=== PATIENT | female | born 1975 | race African-American/Black ===

== ENCOUNTER 2019-04-07 08:20 | Outpatient (CLI) | payer OTHER, SELFPAY ==
--- NOTE | ~2019-04-07 | MM_ITS ---
EXAMINATION: MM screening [facility] BI w twyla HISTORY: Screening mammogram TECHNIQUE: Craniocaudal and mediolateral oblique 3-D tomosynthesis images were obtained and synthetic 2-D images were generated. CAD analysis was submitted and interpreted. COMPARISON: Comparison to multiple prior studies sequentially, with oldest reviewed study dated 08/27. BREAST PARENCHYMAL COMPOSITION: The breasts are extremely dense, which lowers the sensitivity of mamm ography. FINDINGS: There is no evidence of suspicious mass, calcification, or architectural distortion to sugg est malignancy in either breast. There has been no suspicious interval change. IMPRESSION: 1. No mammographic evidence of malignancy. 2. Recommend routine screening mammography in one year. BI-RADS Category 1: Negative Reviewed, dictated and finalized at location A. FLIGHT
== END 2019-04-07 08:21 | disposition home or self-care (01) ==
LOC: ANHIMG 08:22
PROVIDERS: PCP Family Medicine; Visit Provider Obstetrics & Gynecology
DX: Z12.31 Encounter for screening mammogram for malignant neoplasm of breast (principal)
CPT/HCPCS: 77063; 77067

== ENCOUNTER 2020-04-12 10:03 | Outpatient (CLI) | payer OTHER, SELFPAY ==
--- NOTE | ~2020-04-12 | MM_ITS ---
EXAMINATION: MM screening [facility] BI w twyla HISTORY: Screening TECHNIQUE: Craniocaudal and mediolateral oblique 3-D tomosynthesis images were obtained and synthetic 2-D images were generated. CAD analysis was submitted and interpreted. COMPARISON: Comparison to multiple prior studies sequentially, with oldest reviewed study dated 08/27. BREAST PARENCHYMAL COMPOSITION: The breasts are extremely dense, which lowers the sensitivity of mamm ography. FINDINGS: There is a new mass in the superior aspect of the left breast on MLO view measuring approxi mately 8 mm. This is not identified on the cc view. The right breast is stable without evidence for m alignancy. IMPRESSION: 1. New left breast mass superiorly on the MLO view. 2. Additional mammographic views and possible breast ultrasound are recommended. BI-RADS Category 0: Incomplete: Needs additional imaging evaluation. Reviewed, dictated and finalized at location A. S EXPEDITER IMPRESSION: 1. New left breast mass superiorly on the MLO view. 2. Additional mammographic views and possible breast ultrasound are recommended . BI-RADS Category 0: Incomplete: Needs additional imaging evaluation.
== END 2020-04-12 10:04 | disposition home or self-care (01) ==
LOC: ANHIMG 10:05
PROVIDERS: PCP Family Medicine; Visit Provider Obstetrics & Gynecology
DX: Z12.31 Encounter for screening mammogram for malignant neoplasm of breast (principal); R92.8 Other abnormal and inconclusive findings on diagnostic imaging of breast
CPT/HCPCS: 77063; 77067

== ENCOUNTER 2020-05-06 11:45 | Outpatient (CLI) | payer OTHER, SELFPAY ==
--- NOTE | ~2020-05-06 | MMUS_ITS ---
EXAMINATION: MM diagnostic mammo unilat LT, US breast LT limited HISTORY: Left breast asymmetry on screening mammogram TECHNIQUE: Additional 3-D tomosynthesis images of the left breast were performed and synthetic 2-D im ages were generated. CAD analysis was submitted and interpreted. High resolution limited left breast ultrasound was performed. COMPARISON: 04/12/2020, 04/07/2019, 04/01/2019, 11/22/2015, 12/23/2013 FINDINGS: MAMMOGRAPHIC FINDINGS: There is an approximately 10 mm obscured, oval, equal density mass in the middle third of the upper b reast. No suspicious calcification or architectural distortion are identified. ULTRASOUND: There is a stable 11 mm x 5 mm oval, circumscribed, parallel, hypoechoic mass with no posterior featu res or internal vascularity at the 10:00 location 2 cm from the nipple, consistent with a benign find ing. No suspicious cystic or solid mass is identified. IMPRESSION: 1. No mammographic or sonographic evidence of malignancy. 2. Recommend routine screening mammography in one year. BI-RADS Category 2: Benign finding(s). Reviewed, dictated and finalized at location A. IMPRESSION: 1. No mammographic or sonographic evidence of malignancy. 2. Recommend routine screening mammography in one year. BI-RADS Category 2: Benign finding(s).
== END 2020-05-06 11:46 | disposition home or self-care (01) ==
PROVIDERS: PCP Family Medicine; Visit Provider Obstetrics & Gynecology
DX: N63.22 Unspecified lump in the left breast, upper inner quadrant (principal)
CPT/HCPCS: 76642; 77065

== ENCOUNTER 2020-06-14 07:23 | Outpatient (CLI) | payer OTHER, SELFPAY ==
--- NOTE | 2020-06-27 12:23 | WPDHOMESLEEP ---
Sleep Study - Home Unattended Date of Study: 06/14/20 Ordering Provider: Jessica Huitron NP Interpreting Provider: Josy Borden MD Home Sleep Study Type: Apnea Link Air Height: 1.57 m Weight: 46.266 kg Body Mass Index: 18.6 Neck Circumference (inches): 10.5 [place]: 10 Reason for Sleep Study Non-restorative sleep, never feels rested Sleep History Tamiko Carcamo is a 45 year old female who does not wake up feeling rested, no matter how much sleep she gets. She has felt this way for 20 years. She rarely snores and it is never loud enough that others complain about it. She does not awaken at night with heartburn, belching or coughing. She does not awaken from sleep feeling short of breath. She does not have trouble sleeping with a cold. She does not gasp for breath at night. She does not have breathing problems at night observed by others. She occasionally sweats excessively at night. She does not notice her heart pounding or beating irregularly at night. She frequently falls asleep during the day, however never falls asleep involuntarily and never falls asleep while driving the car. She does not have loss of muscle tone with strong emotion. She does not have daytime difficulties due to excessive sleepiness. 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 She frequently feels paralyzed on waking or falling asleep. She frequently has vivid dreamlike scenes upon awakening or falling asleep. She does not feel afraid to go to sleep. She does not have nightmares. She constantly remembers her dreams. She constantly has racing thoughts. She occasionally feels sad or depressed. She occasionally has anxiety and worries about things. She does not have muscular tension, does not notice parts of her body jerking and she does not kick at night. She does not have crawling or aching feelings in her legs or have any kind of leg pain at night. She rarely has morning jaw pain. She rarely grinds her teeth during sleep. She is not bothered by pain during the day and is not awakened by pain at night. She does not wake up feeling stiff in the morning with sore achy muscles or pain in the neck and spine. She has fatigue. Normal bedtime is 11:30 p.m., falling asleep within 1-2 hours, waking at least once at night. She will check the time and then try to return to sleep and this usually takes less than a minute. She wakes the morning at 9:00 a.m.. On weekends she goes to bed later, midnight and wakes at 9 in the morning. She does take naps in the afternoon or evening. She is not refreshed after short nap. She is usually drowsy in the morning for 3 hours or longer. Habits: Never smoked tobacco. No caffeine, alcohol or recreational drugs. [facility] Past Medical History Medical History Depression with anxiety Hyperlipidemia Vitamin D deficiency Family History Family History Other Depression Social History Social History Smoking status: Never smoker Second hand tobacco smoke exposure: No Alcohol intake: current Drinks per week: 1 Medications Home Medications Medication Instructions Recorded Confirmed Type norethindrone 1 mg-ethinyl 1 tablet PO DAILY 12/16/19 04/12/20 History estradiol 20 mcg (21)-iron 75 mg (7) tablet promethazine 25 mg rectal 25 mg [place] Q6H PRN 12/16/19 04/12/20 History suppository cetirizine 10 mg tablet 10 mg PO DAILY tablet 04/12/20 04/12/20 History fluoxetine 40 mg capsule 40 mg PO DAILY #90 cap 04/12/20 04/12/20 Rx fluticasone propionate 50 spray INTRANASAL 04/12/20 04/12/20 History mcg/actuation nasal spray,suspension cholecalciferol (vitamin D3) 25 25 mcg PO DAILY 06/03/20 History mcg (1,000 unit) capsule simvastatin 10 mg tablet 10 mg PO DAILY #30 tablet 06/07/20 Rx Sleep Procedure This test was performed usi
[2020-06-27 12:36] VITALS: BMI 18.6
== END 2020-06-14 07:24 | disposition home or self-care (01) ==
LOC: ANHCSM 07:23
PROVIDERS: PCP Family Medicine; Visit Provider Nurse Practitioner
DX: G47.10 Hypersomnia, unspecified (principal)
CPT/HCPCS: 95806

== ENCOUNTER 2021-02-27 07:18 | Outpatient (CLI) | payer OTHER, SELFPAY ==
--- NOTE | 2021-03-06 11:27 | WPDSLEEPSTUD ---
Sleep Study Date of Study: 02/27/21 Ordering Provider: Roverto Bedoya APRN Interpreting Physician: Josy Borden MD Sleep Study Type: Polysomnogram Height: 1.57 m Weight: 47.627 kg Body Mass Index: 19.2 Neck Circumference (inches): 11 [place]: 13 Reason for Sleep Study Extreme exhaustion, hypersomnolence with napping during the day. * home sleep test 06/14/2020 was negative for sleep disordered breathing, AHI was 1 with light snoring Sleep History Tamiko Carcamo is a 46-year-old female who has extreme exhaustion and daytime sleepiness. Even after 8 hours of sleep, she is not rested. She wakes up from a nap feeling even more exhausted. She has always slept more than others but during last 2 years, this has worsened. She says that Ritalin has helped. She often takes 2 naps a day. She wakes up during the night for no clear reason. She does not awaken from sleep feeling short of breath and she does not awaken at night with heartburn, belching or coughing. She rarely snores and is never loud enough that others complain about it. She does not have trouble sleeping with a cold and does not wake up gasping for breath at night. She does not have breathing problems at night observed by others. She occasionally sweats excessively at night. She does not notice her heart pounding or beating irregularly at night. She constantly falls asleep during the day, never involuntarily and never while driving. She does not have loss of muscle tone with strong emotion. She constantly has daytime difficulties due to excessive sleepiness. 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 She frequently feels paralyzed on waking or falling asleep. She constantly has vivid dreamlike scenes upon awakening or falling asleep. She rarely feels afraid to go to sleep. She constantly has nightmares, constantly remembers her dreams and constantly has racing thoughts. She constantly feels sad, depressed and anxious. She occasionally has muscular tension. She does not notice parts of her body jerking and she rarely kicks at night. She occasionally has crawling and aching feelings in her legs. She does not have any kind of leg pain at night. She does not have morning jaw pain. She occasionally grinds her teeth during sleep. She is not bothered by pain during the day and is not awakened by pain during the night. She does not wake up feeling stiff in the morning with sore achy muscles or pain in the neck and spine. She has headaches, fatigue, panic, and depression as well as nightmares. Normal bedtime is 11:00 p.m. falling asleep within 15 minutes but sometimes taking up to 1.5 hours to fall asleep. She typically wakes up twice at night for a few moments and then is able to return to sleep as soon as she checks the time. She wakes the morning at 8:30 a.m.. Her weekend schedule is the same. She estimates getting 8-9 hours of sleep normally. She takes naps in the afternoon or evening. A short nap is not refreshing. She is drowsy in the morning for 3 hours or longer. Habits: Never smoked tobacco. No caffeine. She drinks alcohol 2 servings per week. No recreational drugs. [facility] Past Medical History Medical History (Updated 03/12/21 @ 15:33 by Josy Borden MD) ADD (attention deficit disorder) Depression with anxiety Hyperlipidemia Hypersomnolence Rhinitis Vitamin D deficiency Family History Family History Other Depression Social History Social History Smoking status: Never smoker Second hand tobacco smoke exposure: No Alcohol intake: current Drinks per week: 1 Alcohol use details: weekly Medications Home Medications Medication Instructions Recorded Confirmed Type promethazine 25 mg rectal 25 mg [place] Q6H PRN 12/16/19 02/08/21 History suppository cetirizine 10 mg tablet 10 mg PO DAILY tablet 04/12/20 02/08/21 History
--- NOTE | 2021-03-12 14:58 | WPDSLEEPSTUD ---
Sleep Study Date of Study: 02/27/21 Ordering Provider: Roverto Bedoya APRN Interpreting Physician: Josy Borden MD Sleep Study Type: Polysomnogram Height: 1.57 m Weight: 47.627 kg Body Mass Index: 19.2 Neck Circumference (inches): 11 [place]: 13 Reason for Sleep Study Excessive daytime sleepiness and fatigue Sleep History See sleep history on the basic nocturnal polysomnogram the night before this study. The patient had greater than 6 hours of sleep, AHI was 1.1, and she proceeded to this multiple sleep latency test per protocol. [facility] Past Medical History Medical History (Updated 03/12/21 @ 15:33 by Josy Borden MD) ADD (attention deficit disorder) Depression with anxiety Hyperlipidemia Hypersomnolence Rhinitis Vitamin D deficiency Family History Family History Other Depression Social History Social History Smoking status: Never smoker Second hand tobacco smoke exposure: No Alcohol intake: current Drinks per week: 1 Alcohol use details: weekly Medications Home Medications Medication Instructions Recorded Confirmed Type promethazine 25 mg rectal 25 mg [place] Q6H PRN 12/16/19 02/08/21 History suppository cetirizine 10 mg tablet 10 mg PO DAILY tablet 04/12/20 02/08/21 History fluticasone propionate 50 spray INTRANASAL 04/12/20 02/08/21 History mcg/actuation nasal spray,suspension fluoxetine 40 mg capsule 40 mg PO DAILY #90 cap 10/07/20 02/08/21 Rx multivitamin 1 tablet PO DAILY 10/18/20 02/08/21 History norethindrone 1 mg-ethinyl 1 tablet PO DAILY 10/18/20 02/08/21 History estradiol 20 mcg (24)-iron 75 mg (4) tablet simvastatin 10 mg tablet 10 mg PO DAILY #30 tablet 11/28/20 02/08/21 Rx methylphenidate HCl 27 mg tablet PO 02/08/21 02/08/21 History tablet,extended release 24 hr Sleep Procedure The recording montage for the MSLT includes central EEG (C3-A2, C4-A1) and occipital (O1-A2, O2-A1) derivations, left and right eye electrooculograms (EOGs), mental/submental electromyogram (EMG), and electrocardiogram (EKG). Nap 1 commenced at 6:30 a.m. Sleep onset latency was 11 min 56 seconds. No REM occurred. Nap 1 was terminated at 6:57 a.m. The patient said that she was starting to fall asleep and have a dream but did not actually have a dream. Nap 2 commenced at 8:30 a.m. Sleep onset latency was 2 min 43 seconds. No REM occurred. Nap 2 was terminated at 8:49 a.m. The patient said that sleep occurred and dreaming occurred. Nap 3 commenced at 10:30 a.m.. Sleep onset latency was 5 minutes 38 seconds. No REM occurred. Nap 3 was terminated at 10:51 a.m. The patient said that sleep occurred with dreaming. Nap 4 commenced at 12:31 p.m. Sleep onset latency was 7 min 18 seconds. No REM occurred. Nap 4 was terminated at 12:54 p.m. The patient said that sleep occurred with dreaming. Nap 5 commenced at 2:31 p.m. Sleep onset latency was 14 minutes and 29 seconds. No REM occurred. Nap 5 was terminated at 2:51 p.m. The patient said that sleep occurred with dreaming. The mean sleep latency is 6 minutes and 31 seconds. The patient slept on 5 of 5 naps. There were no naps with REM. The patient perceived sleep on all naps and reported dreaming on 4 of 5 naps. Sleep Architecture NA Respiratory Analysis NA Arousals NA Periodic Limb Movements NA Oximetry Data NA Snoring Profile NA Cardiac Profile NA EEG Profile NA Assessment and Plan Assessment and Plan (1) Hypersomnolence: Code(s): G47.10 - Hypersomnia, unspecified Status: Acute Assessment and Plan: This multiple sleep latency test on Feb 28, 2021 shows a moderately short sleep latency of 6 minutes and 31 seconds without sleep onset REM periods. This is not consistent with narcolepsy. This is consistent with moderate hypersomnolence. This level of excess
[2021-03-12 15:35] VITALS: BMI 19.2
[2021-03-12 15:38] VITALS: BMI 19.2
== END 2021-02-28 15:13 | disposition home or self-care (01) ==
LOC: ANHCSM 07:19
PROVIDERS: PCP Nurse Practitioner; Visit Provider Nurse Practitioner Family
DX: G47.19 Other hypersomnia (principal); G25.81 Restless legs syndrome
CPT/HCPCS: 95805; 95810

== ENCOUNTER 2021-05-19 14:26 | Outpatient (CLI) | payer OTHER, SELFPAY ==
--- NOTE | ~2021-05-19 | MM_ITS ---
EXAMINATION: MM screening [facility] BI w twyla HISTORY: Screening TECHNIQUE: Craniocaudal and mediolateral oblique 3-D tomosynthesis images were obtained and synthetic 2-D images were generated. CAD analysis was submitted and interpreted. COMPARISON: Comparison to multiple prior studies sequentially, with oldest reviewed study dated 11/10. BREAST PARENCHYMAL COMPOSITION: The breasts are extremely dense, which lowers the sensitivity of mamm ography FINDINGS: There is no evidence of suspicious mass, calcification, or architectural distortion to sugg est malignancy in either breast. There has been no suspicious interval change. IMPRESSION: 1. No mammographic evidence of malignancy. 2. Recommend routine screening mammography in one year. BI-RADS Category 1: Negative Reviewed, dictated and finalized at location A.
== END 2021-05-19 14:27 | disposition home or self-care (01) ==
LOC: ANHIMG 14:28
PROVIDERS: PCP Family Medicine; Visit Provider Obstetrics & Gynecology
DX: Z12.31 Encounter for screening mammogram for malignant neoplasm of breast (principal)
CPT/HCPCS: 77063; 77067

== ENCOUNTER 2022-10-30 07:39 | Outpatient (CLI) | payer OTHER, SELFPAY ==
--- NOTE | ~2022-10-30 | MM_ITS ---
EXAMINATION: MM screening [facility] BI w twyla HISTORY: Screening TECHNIQUE: Craniocaudal and mediolateral oblique 3-D tomosynthesis images were obtained and synthetic 2-D images were generated. CAD analysis was submitted and interpreted. COMPARISON: Comparison to multiple prior studies sequentially, with oldest reviewed study dated 11/10. BREAST PARENCHYMAL COMPOSITION: The breasts are extremely dense, which lowers the sensitivity of mamm ography FINDINGS: There is no evidence of suspicious mass, calcification, or architectural distortion to sugg est malignancy in either breast. There has been no suspicious interval change. IMPRESSION: 1. No mammographic evidence of malignancy. 2. Recommend routine screening mammography in one year. BI-RADS Category 1: Negative Reviewed, dictated and finalized at location A.
== END 2022-10-30 07:40 | disposition home or self-care (01) ==
PROVIDERS: PCP Family Medicine; Visit Provider Obstetrics & Gynecology
DX: Z12.31 Encounter for screening mammogram for malignant neoplasm of breast (principal)
CPT/HCPCS: 77063; 77067

== ENCOUNTER 2024-02-07 08:14 | Outpatient (CLI) | payer OTHER, SELFPAY ==
--- NOTE | ~2024-02-07 | MM_ITS ---
EXAMINATION: MM screening [facility] BI w twyla HISTORY: Screening TECHNIQUE: Craniocaudal and mediolateral oblique 3-D tomosynthesis images were obtained and synthetic 2-D images were generated. CAD analysis was submitted and interpreted. COMPARISON: 10/30/2022 and dating back to 04/02/2018. BREAST PARENCHYMAL COMPOSITION: The breasts are extremely dense, which lowers the sensitivity of mamm ography. FINDINGS: Multiple well-circumscribed asymmetry is detected bilaterally, consistent with patient's kn own history of fibrocystic breast disease. Otherwise stable parenchymal pattern without suspicious microcalcifications or architectural distorti on. IMPRESSION: 1. No mammographic evidence of malignancy. 2. Recommend routine screening mammography in one year. BI-RADS Category 2: Benign finding(s). Reviewed, dictated and finalized at location A. [employer]
--- OUTSIDE RECORDS SUMMARY | 2024-02-14 17:05 | XMS_ITS | Clinical Summary ---
Author Organization [facility] Address [address] [place] [address] Care Team Providers Care Barrel Inspector Tight Name Role Phone Federico Nieves Unavailable [phone] Radha Barber MD Primary Care Provider Allergies No known active allergies Medications norethindrone-e. estradioL-iron (03/02) 1 mg-20 mcg (21)/75 mg (7) per tablet daily. 7 Active ketoconazole (NIZORAL) 2 % shampoo daily. 4 Active promethazine (PHENERGAN) 25 mg suppository Insert 25 mg into the rectum every 6 (six) hours as needed Active FLUoxetine (PROzac) 40 mg capsule Take 40 mg by mouth daily Active fluticasone propionate (FLONASE) 50 mcg/actuation nasal sprayIndications :Seasonal allergic rhinitis, unspecified trigger Administer 2 sprays into each nostril daily 16 g 11 1 Active cyclobenzaprine (FLEXERIL) 10 mg tablet Take 1 tablet (10 mg total) by mouth 2 (two) times a day as needed for muscle spasms 20 tablet 2 Active oxyCODONE (ROXICODONE) 5 mg immediate release tabletIndication s:Pain Take 1 tablet (5 mg total) by mouth every 4 (four) hours as needed for pain for up to 6 doses 6 tablet 2 Active azelastine (ASTELIN) 137 mcg (0.1 %) nasal spray USE 2 SPRAYS IN EACH NOSTRIL TWICE DAILY DIRECTED 90 mL 1 2 Active cetirizine (ZyrTEC) 10 mg tabletIndication s:Seasonal allergic rhinitis, unspecified trigger TAKE 1 TABLET(10 MG) BY MOUTH DAILY 30 tablet 11 2 Active Hospital, Clinic, or Other Facility Administered Medication Ordered Dose Route Frequency Start Date End Date Status perflutren protein-a (OPTISON) 3 mL in sodium chloride 0.9% 8 mL syringe 1 - 8 mL IV Once in imaging 12/04/2021 Active Active Problems Problem Noted Date Diagnosed Date Seasonal allergic rhinitis 08/17/2019 Dizziness 09/03/2016 Hirsutism 05/31/2016 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 Seborrheic eczema 12/02/2013 Surgical History Surgery Date Site/Laterality Comments LYMPH NODE DISSECTION CHOLECYSTECTOMY Medical History Medical History Date Comments Allergic rhinitis Anxiety Depression RLS (restless legs syndrome) Family History Medical History Relation Name Comments Stroke Father Family history of cerebrovascular accident (CVA) - (Added by TW Conv) Diabetes Maternal Grandfather Family history of diabetes mellitus - Relation: Grandfather (Added by TW Conv) Cancer Maternal Grandmother Family history of malignant neoplasm - (Added by TW Conv) Diabetes Maternal Grandmother Family history of diabetes mellitus - (Added by TW Conv) Stroke Maternal Grandmother Family history of cerebrovascular accident (CVA) - (Added by TW Conv) Stroke Paternal Grandmother Family history of cerebrovascular accident (CVA) - (Added by TW Conv) Relation Name Status Comments Father Maternal Grandfather Maternal Grandmother Paternal Grandmother Social History Tobacco Use Types Packs/Day Years Used Date Smoking Tobacco: Never Smokeless Tobacco: Never Alcohol Use Standard Drinks/Week Comments Yes 1 (1 standard drink = 0.6 oz pur e alcohol) Social Comments Unknown Sex and Gender Information Value Date Recorded Sex Assigned at Not on file Legal Sex Female 11:06 AM DISPERSION MIXER Gender Identity Female 08/17/2020 7:40 PM CDT Sexual Orientation Not on file Obstetrics History Last Filed Vital Signs Vital Sign Reading Time Taken Comments Blood Pressure 122/80 11/22/2021 9:25 AM CDT Pulse 101 11/22/2021 9:25 AM CDT Temperature 36.1 ??C (96.9 ??F) 11/22/2021 9:25 AM CD T Respiratory Rate 22 11/22/2021 9:25 AM CDT Oxygen Saturation 96% 11/22/2021 9:25 AM CDT Inhaled Oxygen Concentration - - Weight 53.1 kg (117 lb) 11/22/2021 9:25 AM CDT Height 159.4 cm (5' 2.76 ) 11/22/2021 9:25 AM CD T Body Mass Index 20.89 11/22/2021 9:25 AM CDT Plan of Treatment Health Maintenance Due Date Last Done Comments Breast Cancer Screening-Mammogram 1977 Cervical Cancer Screening 1977 Colon Cancer Screening-Colonoscopy 1977 Depression Screening 1977 Hepatitis C Screening 1977 DTaP/Tdap/Td Vaccine (1 - Tdap) 02/25/1988 Hepatitis B Screening 1995 Regular Well Visit/Exam 18-64 1995 Covid-19 Vaccine (2 - 2023-2 5 season) 2023 12/29/2020 Influenza Vaccine (#1) 2023 HPV Vaccines Aged Out No longer eligi ble based on patient's age to complete this topic Pneumococcal vaccine <65 Aged Out No longer eligible based on patient's age to complete this topic Insurance [facility] Care Teams Barrel Inspector Tight Relationship Specialty Start Date End Date Radha Barber MD [address] [place] [id number] PCP - General Family Practice 06/23/19 Federico Nieves [address] [place] [id number] 05/17/17
--- OUTSIDE RECORDS SUMMARY | 2024-02-14 17:05 | XMS_ITS | Encounter Summary ---
Author Organization [facility] Address [address] [place] [address] Phone Care Team Providers Care Senior Sharepoint Architect Name Role Phone Federico Nieves Unavailable [phone] Radha Barber MD Primary Care Provider Reason for Visit * Reason Onset Date Comments Test Results 01/19/2022 Encounter Details Date Type Department Care Team (Late st Contact Info) Description 01/19/2022 Telephone [facility] Pediatric Genetics [facility] 2nd [place] [address] [place] [id number] MarcosAmee burton [place], [facility] [address] [facility] [address] [place] [address] Test Results Social History Tobacco Use Types Packs/Day Years Used Date Smoking Tobacco: Never Smokeless Tobacco: Never Alcohol Use Standard Drinks/Week Comments Yes 1 (1 standard drink = 0.6 oz pur e alcohol) Social Comments Unknown Sex and Gender Information Value Date Recorded Sex Assigned at Not on file Legal Sex Female 11:06 AM AUTOMOBILE BODY CUSTOMIZER Gender Identity Female 08/17/2020 7:40 PM CDT Sexual Orientation Not on file documented as of this encounter Miscellaneous Notes * Telephone Encounter - MarcosJohnathantee Barnett, [facility] - 01/24/2022 4:43 PM AUTOMOBILE BODY CUSTOMIZER Images from the original note were not included. Angelica reviewed these results with Dr. Thomas. 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 Follow-up in 3 years. 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 Results were discussed with Tamiko. MOBILE BODY CUSTOMIZER documented in this encounter Plan of Treatment Not on file documented as of this encounter Visit Diagnoses Not on filedocumented in this encounter Care Teams Senior Sharepoint Architect Relationship Specialty Start Date End Date Radha Barber MD [address] [place] [id number] PCP - General Family Practice 06/23/19 Federico Nieves [address] [place] [id number] 05/17/17 documented as of this encounter
--- OUTSIDE RECORDS SUMMARY | 2024-02-14 17:05 | XMS_ITS | Encounter Summary ---
Author Organization [facility] Address [address] [place] [address] Phone Care Team Providers Care Stone Trimmer Name Role Phone Federico Nieves Unavailable [phone] Radha Barber MD Primary Care Provider Encounter Details Date Type Department Care Team (Latest Contact Info) Description 01/15/2022 Orders Only [facility] [employer] Scanning, Provider Social History Tobacco Use Types Packs/Day Years Used Date Smoking Tobacco: Never Smokeless Tobacco: Never Alcohol Use Standard Drinks/Week Comments Yes 1 (1 standard drink = 0.6 oz pur e alcohol) Social Comments Unknown Sex and Gender Information Value Date Recorded Sex Assigned at Not on file 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 Gender Identity Female 08/17/2020 7:40 PM CDT Sexual Orientation Not on file documented as of this encounter Plan of Treatment Not on file documented as of this encounter Procedures Procedure Name Priority Date/Time Associated Diagnosis Comments SCAN - LABS 01/15/2022 documented in this encounter Results * SCAN - LABS (01/15/2022) us Provider Scanning Final Result documented in this encounter Visit Diagnoses Not on filedocumented in this encounter Care Teams Stone Trimmer Relationship Specialty Start Date End Date Radha Barber MD [address] [place] [address] PCP - General Family Practice 06/23/19 Federico Nieves [address] [place] [address] 05/17/17 documented as of this encounter
--- OUTSIDE RECORDS SUMMARY | 2024-02-14 17:05 | XMS_ITS | Encounter Summary ---
Author Organization [facility] Address [address] [place] [address] Phone Care Team Providers Care Structural Test Engineer Name Role Phone Federico Nieves Unavailable [phone] Radha Barber MD Primary Care Provider Encounter Details Date Type Department Care Team (Late st Contact Info) Description 12/28/2021 Orders Only [facility] Pediatric Genetics [facility] 2nd [place] [address] [place] [id number] Angelica Dos Santos NP [address] [place] [address] [address] [place], [place] [id number] Social History Tobacco Use Types Packs/Day Years Used Date Smoking Tobacco: Never Smokeless Tobacco: Never Alcohol Use Standard Drinks/Week Comments Yes 1 (1 standard drink = 0.6 oz pur e alcohol) Social Comments Unknown Sex and Gender Information Value Date Recorded Sex Assigned at Not on file Legal Sex Female 11:06 AM MACHINE TECHNICIAN Gender Identity Female 08/17/2020 7:40 PM CDT Sexual Orientation Not on file documented as of this encounter Plan of Treatment Not on file documented as of this encounter Procedures Procedure Name Priority Date/Time Associated Diagnosis Comments HERITABLE DISORDERS OF CONNECTIVE TISSUE PANEL Routine 12/28/2021 11:01 PM MACHINE TECHNICIAN documented in this encounter Results * (ABNORMAL) Heritable Disorders of Connective Tissue Panel (12/28/2021 11:01 PM MACHINE TECHNICIAN) [facility] Heritable Disorders of Connective Tissue Panel Uncertain Clinical Significan ce(A) [facility] Comment: Date Test(s) Started: 01/03/2022 08:53:24 Sample Source: [facility] Buccal Date Collected: 12/29/2021 Date Received: 01/01/2022 ?? Testing Date Started: 01/03/2022 Date Reported: 01/15/2022 ?? 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 The TNXB gene is associated with an autosomal recessive disorder and may also be associated with an autosomal dominant phenotype. A second reportable variant was not detected by sequence and deletion/duplication analysis of exons 1-31 of the TNXB gene. This result does not establish a molecular diagnosis in this individual. This individual is also heterozygous for variants of uncertain significance in kgjQAA3U zveSAT7Q8 genes, which do not establish a molecular diagnosis in this individual. Recommendation(s) Genetic counseling is recommended to discuss the implications of these results.As these results are not diagnostic, this individual and at-risk relatives should receive clinical evaluation and management based on medical and family history. Predictive testing for variants of uncertain significance is not recommended for family members. Correlation of the finding of a single variant in the TNXB gene with the clinical features of this individual is recommended. Targeted testing of family members for the variants in the ATP7A cdmHJY5Q8 genes may be considered to determine if the variants are segregating with the phenotype in this family. If desired, please contact [email or web address] to discuss which family members may be the most informative for testing. Resources [employer] is a portal through which families with rare genetic conditions who are interested in sharing their health and genetic information can connect with other families, clinicians, and researchers. If you are interested in learning more and/or participating, please visit [email or web address]. [employer] is an [employer] initiative created to enable individuals and families with the same genetic variant or medical history to connect and share de-identified information. If you are interested in participating, please visit [email or web address]. TNXB ??Gene Summary TNXB encodes tenascin-XB, a glycoprotein of the extracellular matrix which is secreted by skin fibroblasts (PMID: 26683065, 30724251). Homozygous and compound heterozygous variants in TNXB have been reported in association with tenascin-X deficiency, which results in an autosomal recessive form of Yamileth-Danlos syndrome (EDS) referred to as classical-like EDS (clEDS). Individuals with tenascin X deficiency demonstrate hypermobile joints, hyperelastic skin, easy bruising, low serum tenascin-X levels, and absence of atrophic scarring (PMID: 37402695, 30617928). Other frequent findings include hand and foot deformities, leg edema without cardiac failure, mild proximal/distal muscle weakness, and chronic fatigue (PMID: 89781143, 55507591). Clinical features of EDS also occur in up to 10% of patients with congenital adrenal hyperplasia, called CAH-X, often due to contiguous gene deletions involving both TNXB and ZHX90M0 (PMID: 65978286, 90153099). Some individuals with TNXB haploinsufficiency have also demonstrated variable joint hypermobility with recurrent joint subluxations and chronic joint pain, but appeared to have a lower incidence of skin hyperextensibility and easy bruising (PMID: 31305357, 34524664, 28230180). Heterozygous missense variants in TNXB have also been reported in association with both familial and non-familial primary vesicoureteral reflux (PVUR), but further research is needed to elucidate the relationship between PVUR and TNXB variants (PMID: 31722613). p.(Yys386Ylo) (GAG>TAG): c.778 G>T in exon 3 of the TNXB gene (NM_019105.6) ?? Has not been previously published as pathogenic or benign to our knowledge Not observed at significant frequency in large population cohorts (gnomAD) Nonsense variant predicted to result in protein truncation or nonsense mediated decay in a gene for which loss of function is a known mechanism of disease ??We interpret this as a Likely Pathogenic Variant. ATP7A ??Gene Summary The ATP7A gene encodes a transmembrane ATPase that is responsible for copper efflux from the cell and for delivery of copper to several enzymes (PMID: 15610311). ATP7A variants are inherited in an X-linked manner, and while pathogenic variants in ATP7A most commonly cause either Menkes disease or occipital horn syndrome (OHS), they can also cause a distal motor neuropathy (PMID: 63634237, 40511849). Menkes disease is a severe disorder characterized by neurodegeneration, connective tissue abnormalities, twisted hair, hypotonia, and seizures beginning during the first months of life. The less severe OHS is characterized by wedge-shaped calcifications at the occipital bone, mild neurologic impairment, bladder diverticula, hyperextensible joints, and hyperelastic skin (PMID: 66149460). Serum copper and ceruloplasmin levels are reduced in patients with Menkes disease or OHS. Individuals with classic Menkes disease tend to have severe loss of function variants and female carriers of pathogenic variants responsible for Menkes disease are typically unaffected; however, some may exhibit milder phenotypes than affected males (PMID: 34882513, 79128735). LVW9O-jaciljx distal motor neuropathy is a slowly progressive motor neuropathy which can resemble Kqcokma-Jfphq-Btyzk disease, including pes cavus, and distal limb weakness and atrophy. The age of onset has been reported to vary between fixed income director and late adulthood and the severity of the phenotype can differ, even within the same family (PMID: 10119870). Thus far only missense variants have been reported in association with XML0E-uqgildr distal motor neuropathy and patients do not have the biochemical or clinical features of classic Menkes disease (PMID: 44110317). p.(Dnk507Mft) (TCG>TTG): c.1376 C>T in exon 5 of the ATP7A gene (NM_000052.4) ?? Has not been previously published as pathogenic or benign to our knowledge Not observed at significant frequency in large population cohorts (gnomAD) In silico analysis supports that this missense variant does not alter protein structure/function ??We interpret this as a Variant of Uncertain Significance. COL1A1 ??Gene Summary The COL1A1 gene encodes one of the alpha-1 chains of type I collagen (PMID: 63898252). Heterozygous pathogenic variants in the COL1A1 gene cause an autosomal dominant form of osteogenesis imperfecta (OI), a condition characterized by variable bone fragility, growth deficiency, hearing loss, dentinogenesis imperfecta, and blue sclerae (PMID: 32589656, 65135530). The severity of OI can range from a few fractures with limited other symptoms, to a progressive deforming type with as many as hundreds of fractures in addition to mobility impairment, to lethality on the most severe end (PMID: 30211407). Pathogenic variants that result in a premature termination codon typically lead to a mild OI type I phenotype, while missense substitutions frequently affect Glycine residues and may cause lethal type II OI if they affect the major ligand binding regions (PMID: 60464688). Both germline and somatic mosaicism have been reported in parents (PMID: 66427093). Heterozygous COL1A1 variants have also been reported in individuals with features of Yamileth-Danlos syndrome (EDS), including the classic and arthrochalasia types of EDS, as well as in individuals with a combined OI-EDS phenotype (PMID: 25346689, 63711227, 44899214). Both classic and arthrochalasia EDS are associated with joint hypermobility and soft and hyperextensible skin, and the arthrochalasia type is additionally associated with congenital hip dislocation, short stature, and kyphoscoliosis (PMID: 49669216). Arterial fragility, either with or without other features of OI or EDS, has been reported in a small number of individuals with COL1A1 variants (PMID: 70217176, 49116671, 40876505). Heterozygosity for a single missense variant in COL1A1 has also been reported in association with infantile cortical hyperostosis (Maria L disease), with incomplete penetrance reported in some parents (PMID: 56240156). p.(Krt004Sqa) (CCC>GCC): c.574 C>G in exon 7 of the COL1A1 gene (NM_000088.3) ?? Has not been previously published as pathogenic or benign to our knowledge Not observed at significant frequency in large population cohorts (gnomAD) Occurs in the triple helical domain at the X position in the canonical Gly-X-Y repeat; although this variant may have an effect on normal protein folding and function, missense substitution at the X position is not a common mechanism of disease (HGMD) In silico analysis supports that this missense variant has a deleterious effect on protein structure/function ??We interpret this as a Variant of Uncertain Significance. Additional Variants of Uncertain Significance (See Below) Gene Mode of Inheritance Variant Zygosity Classification [id number] Autosomal recessive c.853 G>A p.(D285N) Heterozygous Variant of Uncertain Significance UUL238 Autosomal recessive c.8317 G>C p.(R0017W) Heterozygous Variant of Uncertain Significance At this time, the above variants are classified as variants of uncertain significance as they do not meet criteria to be classified otherwise. This table may include single heterozygous variants of uncertain significance (VUS) in genes associated with autosomal recessive inheritance, VUS in genes associated with dual inheritance that are unlikely to be related to the referring phenotype, and VUS in candidate genes that have been suggested to be associated with autosomal recessive or dual inheritance human disease. Information on population data and in-silico analysis can be found in the supplemental variant information tables at the end of the report. Genes Evaluated ACTA2, ADAMTS2, AEBP1, MXSJ66Z4, JCM5P5S6, ASW7H6U2, ATP7A, A6EANN1, B3GAT3, W9PZHO1, BGN, CBS, CHST14, ENM15G7, SNY68N9, ARU56P2, COL1A1, COL1A2, COL2A1, COL3A1, COL4A1, COL5A1, COL5A2, COL9A1, COL9A2, COL9A3, DSE, EFEMP2, ELN, FBLN5, FBN1, FBN2, FKBP14, FLNA, LOX, LTBP4, MAT2A, MED12, MFAP5, MYH11, MYLK, NOTCH1, PLOD1, PRDM5, PRKG1, PYCR1, RIN2, SKI, MEW2V56, NXT90H40, SMAD2, SMAD3, SMAD4, TAB2, TGFB2, TGFB3, TGFBR1, TGFBR2, TNXB, YKK584 Methods Genomic DNA was extracted directly from the submitted specimen or, if applicable, from cultured fibroblasts. The DNA was enriched for the complete coding regions and splice junctions of the genes on this panel using a proprietary targeted capture system developed by [facility] for next-generation sequencing with CNV calling (NGS-CNV). The enriched targets were simultaneously sequenced with paired-end reads on an Illumina platform. Bi-directional sequence reads were assembled and aligned to reference sequences based on NCBI RefSeq transcripts and human genome build GRCh37/UCSC hg19. After gene specific filtering, data were analyzed to identify sequence variants and most deletions and duplications involving coding exons at the exon-level; however, technical limitations and inherent sequence properties effectively reduce this resolution for some genes. Alternative sequencing or copy number detection methods were used to analyze or confirm regions with inadequate sequence or copy number data by NGS. Sequence variants are reported according to the Human Genome Variation Society (HGVS) guidelines. Copy number variants are reported based on the probe coordinates, the coordinates of the exons involved, or precise breakpoints when known. Reportable variants include pathogenic variants, likely pathogenic variants and variants of uncertain significance. Likely benign and benign variants, if present, are not routinely reported but are available upon request. Available evidence for variant classification may manager exchange time and variant(s) may be reclassified according to the ACMG/AMP Standards and Guidelines (PMID: 25428400), which may lead to issuing a revised report.If selected for testing, the following gene specific information applies. For the RNOCO0B, sequencing of exons 1-42 only, FBN1, sequencing of exons 2-66 only, AKAP9, sequencing of the KCNQ1-binding domains only including Zpv3011 residue, TTN, sequencing of exons 1-171 and 199-363 only, TNXB, sequencing of exons 1-31 only. Recombination of TNXB with its pseudogene (gene conversion or TNXB/XA fusion), was not evaluated. For PKP6, sequencing of exon 6 was not performed. Gene specific exclusions for exon-level deletion/duplication testing for this panel are: Q7BPNH1, RAKAN, CTF1, CYP2D6, FKRP, FOXE3, HES1, HES5, HRAS, BLR57RM, SCO2, SDHA, TBX1, TPSAB1 and 14 mitochondrial gene(s), no copy number testing, ACTB, AGPAT2, ALMS1, ATAD3A, COA5, CY, CY, EMD, GATA5, GTPBP3, GUSB, HCN4, KCNT1, KLF11, KRT14, LPA, MYLK, NF1, PI4KA, PIK3CA, POMGNT1, PPARA, SCARF2, SCN1B, SELENON, SKI, VNQ38P58, TAB2, NANCI, TBX20, TNXB gene(s), only whole gene deletions or duplications may be detected, ABCC6 gene, exon level coverage for exons 10 to 31 only, SCN5A gene, exon level coverage for exons 2-12 and 21-28 only. Disclaimer ??Genetic testing using the methods applied at [email or web address] is expected to be highly accurate. Normal findings do not rule out the diagnosis of a genetic disorder since some genetic abnormalities may be undetectable by this test. Unless indicated in the test methods, the following may not be detected: mosaic variants, pure heterodisomy, balanced chromosomal aberrations, nucleotide repeat expansion/contraction, abnormal DNA methylation, and variants located in regions not evaluated by this test or that cannot be detected by the methodology used. Regions of certain genes have technical limitations and inherent sequence properties that yield suboptimal data, potentially impairing accuracy of the results (for example: repetitive DNA, homology or pseudogene regions, high GC content). Unless otherwise indicated, sequence analysis cannot reliably detect deletions of 20bp to 500bp in size, or insertions of 10bp to 500bp in size; deletions/insertions of less than 500 bp cannot be reliably detected by exon-level array. Rarely, incidental findings of large chromosomal rearrangements outside the gene(s) of interest may be identified. The zygosity reported reflects the presumed germline status of this individual, but may be limited by depth of read coverage and/or parental genotype data at the time of reporting. The chance of a false positive or false negative result due to laboratory errors incurred during any phase of testing cannot be completely excluded. As the ability to detect genetic variants and naming conventions can differ among laboratories, rare false negative results may occur when no positive control is provided for testing of a specific variant identified at another laboratory. False negative results may also occur in the setting of bone marrow transplantation, recent blood transfusion, or suboptimal DNA quality. DNA extracted using external methodologies may negatively affect test performance. In individuals with active or chronic hematologic neoplasms or conditions, there is a possibility that testing may detect an acquired somatic variant, leading to a false positive result. The clinical sensitivity of this test depends in part on the patient's clinical phenotype, and is expected to be highest for individuals with clearly defined disease and/or family history of disease. Interpretations are made with the assumption that any clinical information provided, including family relationships, is accurate. Consultation with a genetics professional is recommended for interpretation of results. This test was developed and its performance characteristics determined by [facility]. This test has not been cleared or approved by the U.S. Food and Drug Administration. The FDA has determined that such clearance or approval is not necessary. The test is used for clinical purposes and should not be regarded as investigational or for research. The laboratory is certified under the Clinical Laboratory Improvement Amendments of 1988 (CLIA) as qualified to perform high-complexity clinical testing. References Alexander et al. (2016) Nature 536 (1670): 285-93 (PMID: 02279809);Laurie et al. (2014) Human genetics 133 (1): 1-9 (PMID: 44415441);Olamide et al. (2016) Nucleic Acids Res. 44 (D1): D862-8 (PMID: 62354570);Salina et al. (2013) Curr Protoc Bioinformatics 44 : 1.23.1-26 (PMID: 61071029);Malcom et al. (2015) Genetics In Medicine: 17 (5): 405-24 (PMID: 56363361);Yareli ML et al. (2010) Am J Hum Christina. 86 (3): 343-52 (PMID: 16806139);Kendell VÁSQUEZ and Darren ONEAL. (2020) Charli. IAH8C-Rmxsufi Copper Transport Disorders (PMID: 57445390);Joe AM et al. (2012) J Neurol Neurosurg Psychiatry. 83 (1): 6-14 (PMID: 25562517);Damon LB et al. (2012) Orphanet J Rare Dis. 7 : 6 (PMID: 89290081);Olena MARLO et al. (2007) Hum Mutat. 28 (3): 209-21 (PMID: 16669738);Mignon AMADOR and Callum Mackey (2020) Charli. COL1A1/2 Osteogenesis Imperfecta (PMID: 11581823);Clint T et al. (2014) Eur J Pediatr. 173 (6): 799-804 (PMID: 26899620);Pauly M et al. (2017) Am J Med Christina A. 173 (2): 524-530 (PMID: 40010876);Sadie M et al. (2021) Int J Environ Res Public Health. 19 (3) (PMID: 87935891);Takeda R et al. (2021) Am J Med Christina A. 188 (9): 2134-7494 (PMID: 86921321);Jose M J et al. (2000) N Engl J Med. 345 (16): 1167-75 (PMID: 94077442);Moises SONG et al. (2003) Am J Hum Christina. 73 (1): 214-7 (PMID: 76433361);Tatum-Kerry I et al. (2013) Neuromuscul Disord. 23 (8): 664-9 (PMID: 31018975);Josefina S et al. (2016) Pediatr Nephrol. 31 (2): 247-53 (PMID: 45272515);Ashirdelias S et al. (2017) Clin Christina. 91 (3): 411-425 (PMID: 18069997);Madeline CS and Leandro MG. (2016) World J Med Christina. 6 (2): 17-21 (PMID: 53338652);Brush WL and Facundo DP. (2018) Horm Res Paediatr. 89 (5): 352-361 (PMID: 01542588); ### Variant Table Gene: Coding DNATNXB: c.778 G>TATP7A: c.1376 C>FN0KGGV4: c.853 G>ENIP8F5: c.574 C>G Variant (Protein)p.(Ckp881Mui) ((E260*))p.(Cwm728Zlq) ((S459L))p.(Lnt263Frp) ((D285N))p.(Lcu860Hun) ((P192A)) ClassificationLikely Pathogenic VariantVariant of Uncertain SignificanceVariant of Uncertain SignificanceVariant of Uncertain Significance ZygosityHeterozygousHeterozygousHeterozygousHeterozygous Chr: Position6: 92471930F: [id number]: [id number]: [id number] gnomAD_Freq0.0002 gnomAD_AMR0.11915413 gnomAD_NFE0.47559630 gnomAD_AFR0.44993293 gnomAD_EAS0.09413290 gnomAD_FIN0.92463395 gnomAD_Other0.93531195 gnomAD_SAS0.41677794 gnomAD_ASJ0.59263331 gnomAD_Hom0 Provean-2.47 (N)-2.37 (N)-3.33 (D) ClinVarUncertain significanceConflicting interpretations of pathogenicity Variant Table Gene: Coding BVVXLY989: c.8317 G>C Variant (Protein)p.(Rgm5723Qiv) ((D8228R)) ClassificationVariant of Uncertain Significance ZygosityHeterozygous Chr: Venayele06: [id number] gnomAD_Freq0.0001 gnomAD_AMR0.42109822 gnomAD_NFE0.36564072 gnomAD_AFR0.00512796 gnomAD_EAS0.17571441 gnomAD_FIN0.16319378 gnomAD_Other0.35308304 gnomAD_SAS0.94917905 gnomAD_ASJ0.16310763 gnomAD_Hom0 Provean-0.78 (N) ClinVarUncertain significance This supplement provides evidence to support the classification of each reportable variant in the attached result report. This information is provided as a resource. It is not inclusive of all available information used by [facility] for variant classification, and individual data elements may be weighted differently to derive at the classification. This information is subject to change and may differ from what is currently available. Results should always be interpreted in the context of the patient's clinical presentation. Blank olivarez indicate that no data were available at time of analysis. dbSNP - NCBI repository for single base nucleotide substitutions and short deletion and insertion polymorphisms https: //www.ncbi.nlm.nih.gov/snp/The Genome Aggregation Database (gnomAD) combines exome and genome sequencing data from a variety of large-scale sequencing projects, including approximately 15,000 genomes and 123,000 exomes, including individuals recruited for disease-specific studies such as cancer and cardiovascular diseases. (PMID 05516407).gnomAD_Freq - variant allele frequency (in percent) from approximately 15,000 genomes and 123,000 exomes in the Genome Aggregation Database. Select ancestries include: gnomAD_AMR (Admixed Micronesian/); gnomAD_AFR (); gnomAD_EAS (East ); gnomAD_FIN (Eritrean of ancestry); gnomAD_NFE (non-Eritrean of ancestry); gnomAD_SAS (South ); gnomAD_ASJ (Ashkenazi Baptism). gnomAD_Hom - number of individuals homozygous for the variant.gnomAD_AMR- variant frequency (in percent) for individuals of ancestryPROVEAN (Protein Variation Effect Analyzer) - predicts whether an amino acid substitution or indel affects the biological function of a protein using a delta alignment score from -14 to +14 (< or = -2.5, predicted deleterious; >-2.5, predicted neutral).Other published in silico algorithms, including those that predict splicing impact, may be considered for variant analysis. In silico scores may change. In silico models use algorithms that predict the effect a variant may have on the protein. Thus, predictions should be interpreted with caution and only be used in combination with other available evidence to support the classification of any variant (PMID 89216132).ClinVar - Classification of variant in ClinVar database, an NCBI archive of human variants with supporting evidence of phenotypic association. https: //www.ncbi.nlm.nih.gov/clinvar/ (PMID 16525938). S ??S ??S ?? Report electronically signed by: Brittany Scanlon [facility], [facility] Buccal swab 12/28/2021 11:0 1 PM MACHINE TECHNICIAN 01/01/2022 11:00 AM MACHINE TECHNICIAN us Angelica Dos Santos NP LAB GENETIC TESTING Final Re sult [facility] documented in this encounter Visit Diagnoses Not on filedocumented in this encounter Care Teams Structural Test Engineer Relationship Specialty Start Date End Date Radha Barber MD [address] [place] [address] PCP - General Family Practice 06/23/19 Federico Nieves [address] [place] [address] 05/17/17 documented as of this encounter
--- OUTSIDE RECORDS SUMMARY | 2024-02-14 17:05 | XMS_ITS | Encounter Summary ---
Author Organization [facility] Address [address] [place] [address] Phone Care Team Providers Care Sonographer Name Role Phone Federico Nieves Unavailable [phone] Radha Barber MD Primary Care Provider Reason for Referral * Cardiology (Routine) - Closed Specialty Diagnoses / Procedures Referred By Callie shepherd Referred To Contact Diagnoses Connective tissue disease (HCC) Chest pain, unspecified type Procedures Transthoracic Echo (TTE) Complete W Doppler/CF Orin Dos Santos NP [address] [facility] [address] [place] [address] Phone: tel: fax: [address] [address] Referral ID Status Reason Start Date Expiration Date Visits Re quested Visits Authorized [id number] Closed 11/22/2021 12/22/2022 1 1 Reason for Visit * Consultation (Routine) - Closed Specialty Diagnoses / Procedures Referred By Callie shepherd Referred To Contact Genetics / Pediatric Genetics Diagnoses EDS (Yamileth-Danlos syndrome) Referral, Self [facility] (All Locations) Referral ID Status Reason Start Date Expiration Date V isits Requested Visits Authorized [id number] Closed Specialty Services Required 09/05/2021 10/05/2022 1 1 Encounter Details Date Type Department Care Team (Late st Contact Info) Description 11/22/2021 9:00 AM CDT Office Visit [facility] Pediatric Genetics [id number] [facility] [address] [facility] [place] [address] Orin Dos Santos NP [address] [place] [address] Connective tissue disease (CMS/HCC) (HCC) (Primary Dx); Chest pain, unspecified type Social History Tobacco Use Types Packs/Day Years Used Date Smoking Tobacco: Never Smokeless Tobacco: Never Alcohol Use Standard Drinks/Week Comments Yes 1 (1 standard drink = 0.6 oz pur e alcohol) Social Comments Unknown Sex and Gender Information Value Date Recorded Sex Assigned at Not on file Legal Sex Female 11:06 AM PROGRAM AND RESEARCH COORDINATOR Gender Identity Female 08/17/2020 7:40 PM CDT Sexual Orientation Not on file documented as of this encounter Last Filed Vital Signs Vital Sign Reading [...] Mass Index 20.89 11/22/2021 9:25 AM CDT documented in this encounter Patient Instructions * Patient Instructions* Oirn Dos Satnos NP - 11/22/2021 9:00 AM CDT 1. No specific physical activity restrictions. Use common sense. If it hurts, don't do it. Physicalactivities that keep the muscles toned and strong help to stabilize loose joints. 2. Swimming is also a good exercise for maintaining muscle mass. 3. CTD panel will be attained. 4. Shoe with good arch support. Consider trying a shoe with a built-in roll bar such as [employer] shoes. Alternatively, try over the counter orthotics or custom orthotics. Avoid flip flops and flats. 5. Protect skin by wearing tights or pants. Knee and skin pads are also available (but not all children will wear them). 6. For TMJ clicking and pain, avoid chewing gum, ice and sticky foods (taffy, etc). 7. Vitamin C for bruising. For children we recommend trying 500 to 1000 milligrams per day. For adults we suggest 2000 milligrams per day. 8. Screening echocardiogram to assess aortic root size and valve function. If the echocardiogram ifnormal, we typically suggest a follow-up study in 5 years for children and 10 years for adults. 9. Follow-up in Genetics clinic in 3 years. Call sooner with questions of concerns. documented in this encounter Progress Notes * Orin Dos Santos NP - 11/22/2021 9:00 AM CDT Reason For Visit Tamiko Carcamo is a 46 y.o. 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 This is her first visit to the Genetics Clinic. She was by herself at today's visit. HPI Please refer to the Connective Tissue Disorder Patient Questionnaire for complete medical history. She has a history of joint laxity dating from substance abuse clinician. She reports being able to put her feet behind her head in childhood and doing other types of joint tricks. She has a history of early growing pains. She does not have problems keeping up with her peers, and she is not described as clumsy. She walks 3 times per week and bikes for physical activity. She has not had any dislocations. She reports being able to spontaneously sublux her right shoulder and hips. She has not had any joint surgeries. Tamiko began having joint pain around age 6-7 years old. She has pain every 2 months or so. She has pain in her knees, hands wrists, hips, and jaw. The pain is worse with staying in 1 position for toolong. She treats the pain with movement and rest. In addition to the joint problems, we also review other symptoms that are commonly associated with EDS. She reports easy bruising, slow wound healing, and stretch carias but denies goose egg hematomas, skin that tears easily, poor wound healing, or abnormal scarring. She does wear glasses for hyperopia. She denies myopia and ectopia lentis. Her last nondilated eye exam was in March 2021. She reports chest pain but denies tachycardia, skipped beats, dizziness, or syncope. She has never had an echocardiogram. She reports multiple cavities, crowded teeth, and TMJ but denies enamel problems andfragile teeth. She reports constipation and rectal prolapse but denies IBS symptoms and reflux, rectal prolapse. She reports a history of heavy bleeding with menses that is controlled with oral BC pills but denies uterine prolapse, bladder prolapse, kidney problems, and menses lasting longer than 7days). She reports fatigue but denies shortness of breath and tiring more easily than normal. There is no history of tall stature, scoliosis, pectus, hernias, pneumothoraces, hearing issues, serious ocular problems or known cardiac problems. PMH Past Medical History: Diagnosis Date Allergic rhinitis Anxiety Depression RLS (restless legs syndrome) Past Surgical History: Procedure Laterality Date CHOLECYSTECTOMY LYMPH NODE DISSECTION Current Medications Current Outpatient Medications Medication Sig azelastine (ASTELIN) 137 mcg (0.1 %) nasal spray USE 2 SPRAYS IN EACH NOSTRIL TWICE DAILY DIRECTED cetirizine (ZyrTEC) 10 mg tablet TAKE 1 TABLET(10 MG) BY MOUTH DAILY cyclobenzaprine (FLEXERIL) 10 mg tablet Take 1 tablet (10 mg total) by mouth 2 (two) times a day asneeded for muscle spasms FLUoxetine (PROzac) 40 mg capsule Take 40 mg by mouth daily fluticasone propionate (FLONASE) 50 mcg/actuation nasal spray Administer 2 sprays into each nostrildaily ketoconazole (NIZORAL) 2 % shampoo daily. norethindrone-e.estradioL-iron (JUNEL FE 03/02) 1 mg-20 mcg (21)/75 mg (7) per tablet daily. oxyCODONE (ROXICODONE) 5 mg immediate release tablet Take 1 tablet (5 mg total) by mouth every 4 (four) hours as needed for pain for up to 6 doses promethazine (PHENERGAN) 25 mg suppository Insert 25 mg into the rectum every 6 (six) hours as needed Allergies No Known Allergies Developmental History: Development: Normal, no fine or gross motor delays. 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 She lives by herself. She does not smoke or vape. Shedoes not drink alcohol. Family History See scanned pedigree for complete family history. Tamiko does not have any sibling. Tamiko's mother has epilepsy and hypothyroidism but no hypermobility or joint pain. There are 4 maternal aunts and 4 maternal uncles without joint pain or hypermobility. Maternal grandmother had arthritis, diabetes, and of either uterine or ovarian cancer but no hypermobility. Maternal grandfather had diabetes and of a diabetic related stroke but had no hypermobility or joint pain. Tamiko's father has CHF, type 2 diabetes, and history of griffiths but no hypermobility or joint pain. Paternal aunt has sarcoidosis and asthma. Another paternal aunt in her 50's of ovarian and uterine cancer. Paternal grandmother had uterine cancer and unknown cause of but had no hypermobili ty or joint pain. Paternal grandfather of cancer in his 60's. There is no family history of EDS, Marfan Syndrome, Loey's-Jacob Syndrome, or any other connective tissue disorders. ROS HEENT: No hearing problems. Hyperopia. No myopia or ectopia lentis. Cardiovascular: No history of murmurs, tachycardia, skipped beats, syncope, or dizziness. Chest pain. Dental: No history of enamel problems or fragile teeth. Multiple cavities, crowded teeth, and TMJ. GI: No problems with vomiting, diarrhea, reflux, irritable bowel symptoms, or rectal fissures. Constipation and rectal prolapse. : No kidney or urinary tract problems. No problems with uterine or bladder prolapse. History of heavy menses that is controlled with oral BCP. Musculoskeletal: See above regarding joint problems. No scoliosis, chest wall deformity, or hernias. Pulmonary: No wheezing, shortness of breath, or endurance issues. Fatigue. Skin: No goose egg hematomas, skin fragility, poor wound healing, or abnormal scarring. Easy bruising, slow wound healing, and stretch carias. Neuro: No history of seizures. Headaches. [ All other Review of Systems is negative. ] ? Physical Exam BP 122/80 Pulse 101 Temp 36.1 ??C (96.9 ??F) (Temporal) Resp 22 Ht 159.4 cm (5' 2.76 ) Wt53.1 kg (117 lb) SpO2 96% BMI 20.89 kg/m?? General: Alert and cooperative HEENT: No evidence of dolicocephaly, downslanting palpebral fissures or malar hypoplasia. Sclera are white. No iridodonesis. PERRL and EOMI. Ears are normally positioned and configured. No micrognathia or retrognathia. High palate in front of mouth. Normal appearing mouth and crowded dentition. TMJ. Uvula is single and midline. Lungs: Clear to auscultation bilaterally, no crackles or wheezes. Chest: No chest wall deformity, narrow AP diameter or flaring of the lower ribs. Heart: Regular rate and rhythm. No murmurs or clicks. Abdomen: No organomegaly or masses, non-tender to palpation. Musculoskeletal: No scoliosis. Generalized joint laxity (fingers, thumbs, left knee, shoulders; unable to palm floor). Beighton joint score 5/9. Able to clasp hands behind back and bring arms up above shoulders. Flat feet with pronation. (+) wrist sign, (-) thumb sign. Fingers 90 degrees: 2 Thumb to volar surface: 2 Elbows greater than 10 degrees: 0 Knees greater than 10 degrees: 1 (left) Palm the floor: 0 Skin: Soft, slightly doughy and very elastic. No multiple bruising. Piezogenic papules on heels. Nomolluscoid pseudotumors. No hyperpigmented scarring. Wrinkling over extensor surfaces. No obvious venous pattern. Striae on hips. : Deferred. Neuro: Normal tone and symmetric movement of extremities. Normal muscle bulk. Assessment Connective Tissue disorder Discussion Tamiko Carcamo's history and physical exam are suspicious of a connective tissue disorder (CTD) with her hypermobility, stretchy skin, rectal prolapse, and slow wound healing. Therefore, we would like to have a CTD panel drawn thru [email or web address]. If a gene mutation is detected, she may need additional evaluations including but not limited to more frequent echocardiograms, cardiology referral, ophthalmology referral, and MRI's. Establishing a diagnosis will also help provide more accurate recurrence risk information to the patient. We will submit prior authorization for genetic testing panel and contact the family when this is available. This can be performed by buccal kit. A buccal kit will be mailed to Tamiko to complete the testing. Pre-test genetic counseling was provided during the visit including the possibility of an indeterminate result, the inheritance of connective tissue disorders, the implications of testing for Tamiko and her family, and the possible need for parental testing. Post-test genetic counseling will be provided when results return. However, if Tamiko's CTD panel is negative, she does meet criteria for hypermobility EDS. Tamiko doesmeet clinical criteria for the hypermobile type of EDS. She does have 5 points on the Beighton scale, which does satisfy the hypermobility portion of the criteria. She also has 6 systemic features. Five systemic criteria are required for the clinical diagnosis of hEDS plus a family history and/or pain/joint instability requirements, in addition to the hypermobility portion. She does meet instability requiremets, so she does meet criteria. Plan 1. No specific physical activity restrictions. Use common sense. If it hurts, don't do it. Physicalactivities that keep the muscles toned and strong help to stabilize loose joints. 2. Swimming is also a good exercise for maintaining muscle mass. 3. CTD panel will be attained. 4. Shoe with good arch support. Consider trying a shoe with a built-in roll bar such as [employer] shoes. Alternatively, try over the counter orthotics or custom orthotics. Avoid flip flops and flats. 5. Protect skin by wearing tights or pants. Knee and skin pads are also available (but not all children will wear them). 6. For TMJ clicking and pain, avoid chewing gum, ice and sticky foods (taffy, etc). 7. Vitamin C for bruising. For children we recommend trying 500 to 1000 milligrams per day. For adults we suggest 2000 milligrams per day. 8. Screening echocardiogram to assess aortic root size and valve function. If the echocardiogram ifnormal, we typically suggest a follow-up study in 5 years for children and 10 years for adults. 9. Follow-up in Genetics clinic in 3 years. Call sooner with questions of concerns. Closing Thank you for allowing us to participate in Tamiko Carcamo's care. Please do not hesitate to contact us should you have further questions. Orin Dos Santos NP I spent a total of 90 minutes in care of the patient today including pre- and post-work, examination, counseling and/or coordination of care as documented within the note. Cosigned by Paige Thomas MD at 11/27/2021 1:51 PM CDT documented in this encounter Plan of Treatment Not on file documented as of this encounter Results * TRANSTHORACIC ECHO (TTE) COMPLETE W DOPPLER/CF WO CONTRAST (12/04/2021 3:27 PM CDT) LV EF 66 % CARDIOREPORT Anatomical Region Laterality Modality Ultrasound 12/04/2021 3:00 PM CDT Narrative 12/04/2021 3:31 PM CDT Patient name: Tamiko Carcamo Date of test: 12/04/2021 Type of test: TTE w/Doppler [facility] #: 0 Date of : 1975 (F) Solutions Consultant: Alisa Cleaning [facility] Referring Physician: ORIN DOS SANTOS MD Contrast Agent: Contrast Administered by: Supervised/Interpreted by: Tunde Becker MD Diagnosis: Location: [facility] Reason for test: Connective Tissue Disease MV Structure: Normal, ?MV Motion: Normal, ?? Mitral Annulus: Normal AV Structure: tricuspid and is Normal, ?? AV Motion: Normal Aotic root: Normal, ?TM: Normal, ?? PV: Normal Valvular Vegetations: none seen, ?Mass/Thrombi: none seen RA: Normal Measurements: ?M-Mode ?Normal ? Aotic Root: ? <3.8 ? LA: ? <3.8 ? RV: ? <2.8 ? LV(ED): ? <5.7 ? LV(ES): ? Variable ?2D Linear Normal ? Aotic Root: 3.2 cm ?<3.6 ? Ao Indexed: 2.1 cm/M2 <2.0 ? LA: ? <3.8 ? RV: ? 2.9 cm ?<4.2 ? LV(ED): ? 4.3 cm ?<5.3 ? LV(ES): ? 2.3 cm ?<3.5 ?2D Vol. ?? Normal ?Indexed ?? Indexed Normal RA: ? 19.0 ml ? 12.5 ml/M2 ?9-33 ? LA: ? 24.0 ml ? 15.8 ml/M2 ?16-34 ? RV: ? <11.6 ? LV(ED): ? 70.0 ml ?? 46-106 ?46.0 ml/M2 ?<62 ? LV(ES): ? 24.0 ml ?? 14-42 ? 15.8 ml/M2 ?<25 ?3D Vol. ? Indexed Normal LV(ED): ?<62 ? LV(ES): ?<24 ? LV EF: 66 % ?? (Normal: >=54%) ?? LV Septum: 1.0 cm ?(Normal: <0.9 cm) Wall Motion Scoring (1=Normal 2=Hypo 3=Akinetic 4=Dyskin./Aneurysm 0=Not visualized) Parasternal Long [place]:MAS=1 BAS=1 MIL=1 ZAIN=1 Parasternal Short [place]:MAS=1 MIS=1 VA=1 MIL=1 MAL=1 MA=1 Apical 4 Chambers:=1 MIS=1 BIS=1 BAL=1 MAL=1 AL=1 AC=1 Apical 2 Chambers:AI=1 VA=1 BI=1 BA=1 MA=1 AA=1 AC=1 LV Global Longitudinal Strain: -19.5% ??(Normal <-17%) RV Global Longitudinal Strain: LV Function: Normal LV Ejection Fraction, ??(EF=66%) RV Function: Normal Septal Motion: Normal Pericardial Effusion: none seen Atrial Septum: Normal DOPPLER/COLOR FLOW DOPPLER RESULTS: Diastolic Function: Normal Tricuspid Valve: normal TV Pulmonic Valve: normal PV AV Regurgitation: No AR seen AV Stenosis: no AV Area: ??cm2 AV Pressure Gradient (mmHg): Mean: 0, Peak:0 MV Regurgitation: No MR seen MV Stenosis: no MS MV Area: ??cm2 MV Pressure Gradient (mmHg): Mean: 0 MV ERO: ??cm Regurg. Vol.: ??ml/beat Regurg. Frac.: ??% PA Pressure: ??mmHg DOPPLER/COLOR FOLOW DOPPLER COMMENTS: No AR seen, No MR seen, no , no MS, normal TV, normal PV. Diastolic function: Normal SUMMARY: LA is normal. Normal RV cavity size. LV cavity size is normal. Normal LV wall thickness/mass. Normal Inferior vena cava. Upper-Normal aortic root diameter for BSA; ??Normal LV Ejection Fraction ??66 ??%. Normal global LV Myocardial longitudinal function and LV strain pattern. No significant valvular abnormalities noted. No previous examinations are available for comparison. Confirmed on ??12/04/2021 - 15:31:57 by Tunde Becker MD By signing this report, the attending equine internship certifies that he or she has personally supervised and interpreted the echocardiogram and has reviewed and or edited and agrees with the written comments contained within the report. Procedure Note Tunde Becker MD - 12/04/2021 Patient name: Tamiko Carcamo Date of test: 12/04/2021 Type of test: TTE w/[facility] #: 0 Date of : 1975 (F) Solutions Consultant: Alisa Cleaning [facility] Referring Physician: ORIN DOS SANTOS MD Contrast Agent: Contrast Administered by: Supervised/Interpreted by: Tunde Becker MD Diagnosis: Location: [facility] Reason for test: Connective Tissue Disease MV Structure: Normal, MV Motion: Normal, Mitral Annulus: Normal AV Structure: tricuspid and is Normal, AV Motion: Normal Aotic root: Normal, TM: Normal, PV: Normal Valvular Vegetations: none seen, Mass/Thrombi: none seen RA: Normal Measurements: M-Mode Normal Aotic Root: <3.8 LA: <3.8 RV: <2.8 LV(ED): <5.7 LV(ES): Variable 2D Linear Normal Aotic Root: 3.2 cm <3.6 Ao Indexed: 2.1 cm/M2 <2.0 LA: <3.8 RV: 2.9 cm <4.2 LV(ED): 4.3 cm <5.3 LV(ES): 2.3 cm <3.5 2D Vol. Normal Indexed Indexed Normal RA: 19.0 ml 12.5 ml/M2 9-33 LA: 24.0 ml 15.8 ml/M2 16-34 RV: <11.6 LV(ED): 70.0 ml 46-106 46.0 ml/M2 <62 LV(ES): 24.0 ml 14-42 15.8 ml/M2 <25 3D Vol. Indexed Normal LV(ED): <62 LV(ES): <24 LV EF: 66 % (Normal: >=54%) LV Septum: 1.0 cm (Normal: <0.9 cm) Wall Motion Scoring (1=Normal 2=Hypo 3=Akinetic 4=Dyskin./Aneurysm 0=Not visualized) Parasternal Long [place]:MAS=1 BAS=1 MIL=1 ZAIN=1 Parasternal Short [place]:MAS=1 MIS=1 VA=1 MIL=1 MAL=1 MA=1 Apical 4 Chambers:=1 MIS=1 BIS=1 BAL=1 MAL=1 AL=1 AC=1 Apical 2 Chambers:AI=1 VA=1 BI=1 BA=1 MA=1 AA=1 AC=1 LV Global Longitudinal Strain: -19.5% (Normal <-17%) RV Global Longitudinal Strain: LV Function: Normal LV Ejection Fraction, (EF=66%) RV Function: Normal Septal Motion: Normal Pericardial Effusion: none seen Atrial Septum: Normal DOPPLER/COLOR FLOW DOPPLER RESULTS: Diastolic Function: Normal Tricuspid Valve: normal TV Pulmonic Valve: normal PV AV Regurgitation: No AR seen AV Stenosis: no AV Area: cm2 AV Pressure Gradient (mmHg): Mean: 0, Peak:0 MV Regurgitation: No MR seen MV Stenosis: no MS MV Area: cm2 MV Pressure Gradient (mmHg): Mean: 0 MV ERO: cm Regurg. Vol.: ml/beat Regurg. Frac.: % PA Pressure: mmHg DOPPLER/COLOR FOLOW DOPPLER COMMENTS: No AR seen, No MR seen, no , no MS, normal TV, normal PV. Diastolic function: Normal SUMMARY: LA is normal. Normal RV cavity size. LV cavity size is normal. Normal LV wall thickness/mass. Normal Inferior vena cava. Upper-Normal aortic root diameter for BSA; Normal LV Ejection Fraction 66 %. Normal global LV Myocardial longitudinal function and LV strain pattern. No significant valvular abnormalities noted. No previous examinations are available for comparison. Confirmed on 12/04/2021 - 15:31:57 by Tunde Becker MD By signing this report, the attending equine internship certifies that he or she has personally supervised and interpreted the echocardiogram and has reviewed and or edited and agrees with the written comments contained within the report. Orin Dos Santos NP CV ECHO PROCEDURES Final Res ult documented in this encounter Visit Diagnoses Diagnosis Connective tissue disease (HCC)- Primary Unspecified diffuse connective tissue disease Chest pain, unspecified type Connective tissue disease (HCC) Unspecified diffuse connective tissue disease Chest pain, unspecified type documented in this encounter Orders Outpatient Referral Count Last Ordered Date Fir st Ordered Date AMB REFERRAL TO PEDIATRIC GENETICS 1 2021 documented in this encounter Care Teams Sonographer Relationship Specialty Start Date End Date Radha Barber MD [address] [place] [address] PCP - General Family Practice 06/23/19 Federico Nieves [address] [place] [address] 05/17/17 documented as of this encounter
--- OUTSIDE RECORDS SUMMARY | 2024-02-14 17:05 | XMS_ITS | Encounter Summary ---
Author Organization [facility] [place] [facility] Address [address] [place] [address] Phone Care Team Providers Care Leaf Fat Scraper Name Role Phone Federico Nieves Unavailable [phone] Radha Barber MD Primary Care Provider Reason for Visit * Reason Onset Date Comments Prior Auth 11/24/2021 Encounter Details Date Type Department Care Team (Late st Contact Info) Description 11/24/2021 Telephone [facility] Pediatric Genetics [address] [facility] 2nd [place] [address] [place] [id number] Sivan Sandoval, [facility] [place] [facility] [address] [place], [place] [id number] Prior Auth Social History Tobacco Use Types Packs/Day Years Used Date Smoking Tobacco: Never Smokeless Tobacco: Never Alcohol Use Standard Drinks/Week Comments Yes 1 (1 standard drink = 0.6 oz pur e alcohol) Social Comments Unknown Sex and Gender Information Value Date Recorded Sex Assigned at Not on file Legal Sex Female 11:06 AM BUILDINGS AND GROUNDS COORDINATOR Gender Identity Female 08/17/2020 7:40 PM CDT Sexual Orientation Not on file documented as of this encounter Miscellaneous Notes * Telephone Encounter - Denisa Kay BS - 12/20/2021 1:06 PM CST Genetic testing ordered for Tamiko Test(s) Ordered: J555 - Heritable Disorders of Connective Tissue Panel Ordering Provider: Angelica Diaz Sample Collection: 1 Buccal kit sent to address on file Payment: Self-pay Date Ordered: 12/20/2021 Order ID: [id number] Name spelled wrong in [email or web address] portal, will change once sample arrives Spoke with Tamiko about genetic testing. I confirmed that address on file was current, and she can expect a buccal kit within ~1 week. No additional questions. DINGS AND GROUNDS COORDINATOR * Telephone Encounter - Sivan Sandoval CGC - 12/19/2021 6:30 PM BUILDINGS AND GROUNDS COORDINATOR Sent insurance denial information via [employer] for the Heritable Disorders of Connective Tissue. Patient to contact our office if she would like to proceed with self-pay for this testing. DINGS AND GROUNDS COORDINATOR * Telephone Encounter - Eufemia Antoine BS - 11/28/2021 11:15 AM CDT Phoned insurance plan and spoke w/Michaela who initiated authorization for testing. Clinicals were requested to be faxed in for plan determination. Test name: Heritable Disorders of Connective Tissue CPT 73575, 64978 Pending auth #[id number] - [facility] documented in this encounter Plan of Treatment Not on file documented as of this encounter Visit Diagnoses Not on filedocumented in this encounter Care Teams Leaf Fat Scraper Relationship Specialty Start Date End Date Radha Barber MD [address] [place] [address] PCP - General Family Practice 06/23/19 Federico Nieves [address] [place] [address] 05/17/17 documented as of this encounter
--- OUTSIDE RECORDS SUMMARY | 2024-02-14 17:05 | XMS_ITS | Encounter Summary ---
Author Organization [facility] Healthcare Address [address] [place] [address] Care Team Providers Care Butt Welder Name Role Phone Federico Nieves Unavailable [phone] Radha Barber MD Primary Care Provider Reason for Visit * Reason Comments Back Pain Encounter Details Date Type Department Care Team (Late st Contact Info) Description 06/12/2021 2:31 AM CDT - 06/12/2021 5:03 AM CDT Emergency [facility] Emergency Department [address] [place] [address] Markell Grant MD [facility] [address] [place] [address] Acute bilateral low back pain without sciatica (Primary Dx); Back muscle spasm Discharge Disposition: Discharge to home or self care Social History Tobacco Use Types Packs/Day Years Used Date Smoking Tobacco: Never Smokeless Tobacco: Never Alcohol Use Standard Drinks/Week Comments Yes 1 (1 standard drink = 0.6 oz pur e alcohol) Social Comments Unknown Sex and Gender Information Value Date Recorded Sex Assigned at Not on file 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 Gender Identity Female 08/17/2020 7:40 PM CDT Sexual Orientation Not on file documented as of this encounter Last Filed Vital Signs Vital Sign Reading Time Taken Comments Blood Pressure 117/79 06/12/2021 5:02 AM CDT Pulse 79 06/12/2021 5:02 AM CDT Temperature 36.7 ??C (98 ??F) 06/12/2021 5:02 AM CDT Respiratory Rate 16 06/12/2021 5:02 AM CDT Oxygen Saturation 98% 06/12/2021 5:02 AM CDT Inhaled Oxygen Concentration - - Weight 47.6 kg (105 lb) 06/12/2021 2:34 AM CDT Height 157.5 cm (5' 2 ) 06/12/2021 2:34 AM CDT Body Mass Index 19.2 06/12/2021 2:34 AM CDT documented in this encounter Discharge Instructions * Attachments The following attachments cannot be sent through Care Everywhere. * Back Spasm, No Trauma (Lao) documented in this encounter Medications at Time of Discharge cyclobenzaprine (FLEXERIL) 10 mg tablet Take 1 tablet (10 mg total) by mouth 2 (two) times a day as needed for muscle spasms 20 tablet 06/12/2021 FLUoxetine (PROzac) 40 mg capsule Take 40 mg by mouth daily fluticasone propionate (FLONASE) 50 mcg/actuation nasal sprayIndications: Seasonal allergic rhinitis, unspecified trigger Administer 2 sprays into each nostril daily 16 g 11 12/26/2020 ketoconazole (NIZORAL) 2 % shampoo daily. 12/02/2013 norethindrone-e.e stradioL-iron (JUNEL FE 03/02) 1 mg-20 mcg (21)/75 mg (7) per tablet daily. 09/03/2016 oxyCODONE (ROXICODONE) 5 mg immediate release tabletIndications :Pain Take 1 tablet (5 mg total) by mouth every 4 (four) hours as needed for pain for up to 6 doses 6 tablet 06/12/2021 promethazine (PHENERGAN) 25 mg suppository Insert 25 mg into the rectum every 6 (six) hours as needed azelastine (ASTELIN) 137 mcg (0.1 %) nasal spray Administer 2 sprays into each nostril 2 (two) times a day Use in each nostril as directed 120 mL 11 08/18/2020 cetirizine (ZyrTEC) 10 mg tabletIndications :Seasonal allergic rhinitis, unspecified trigger Take 1 tablet (10 mg total) by mouth daily 30 tablet 11 08/18/2020 2 documented as of this encounter Ordered Prescriptions Prescription Sig Dispense Quantity Refills Last Filled Start Date End Date oxyCODONE (ROXICODONE) 5 mg immediate release tabletIndications:P ain Take 1 tablet (5 mg total) by mouth every 4 (four) hours as needed for pain for up to 6 doses 6 tablet 06/12/2021 cyclobenzaprine (FLEXERIL) 10 mg tablet Take 1 tablet (10 mg total) by mouth 2 (two) times a day as needed for muscle spasms 20 tablet 06/12/2021 documented in this encounter Discharge Disposition Disposition Code Departure Means Destination Discharge to home or self care documented in this encounter ED Notes * Markell Grant MD - 06/12/2021 3:29 AM CDT Images from the original note were not included. HPI 46-year-old female with history of seasonal allergies presents with back pain. Approximately 10-14 days ago the patient was riding a bicycle when she exerted herself. The following day was significant for low back pain. Since that time the patient complains of intermittent exacerbations and improvements. She has taken no medications but has done short walks. She has done some stretching as well. She denies any numbness or tingling in her lower extremities or bowel or bladder difficulties. Todayshe bent over and had severe pain in her lower back causing her to fall. No loss of consciousness. No fever or chills. No dysuria. She states she is not . Chief Complaint Patient presents with ??? Back Pain HPI Patient History: Patient Active Problem List Diagnosis Date Noted ??? Seasonal allergic rhinitis 08/17/2019 ??? Dizziness 09/03/2016 ??? Hirsutism 05/31/2016 ??? 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 Seborrheic eczema 12/02/2013 Past Medical History: Diagnosis Date ??? Allergic rhinitis History reviewed. No pertinent surgical history. Family History Problem Relation Age of Onset ??? Diabetes Maternal Grandmother Family history of diabetes mellitus - (Added by TW Conv) ??? Cancer Maternal Grandmother Family history of malignant neoplasm - (Added by TW Conv) ??? Stroke Maternal Grandmother Family history of cerebrovascular accident (CVA) - (Added by [employer] Conv) ??? Diabetes Maternal Grandfather Family history of diabetes mellitus - Relation: Grandfather (Added by TW Conv) ??? Stroke Father Family history of cerebrovascular accident (CVA) - (Added by [employer] Conv) ??? Stroke Paternal Grandmother Family history of cerebrovascular accident (CVA) - (Added by [employer] Conv) Social History Tobacco Use ??? Smoking status: Never Smoker ??? Smokeless tobacco: Never Used Substance Use Topics ??? Alcohol use: Yes Alcohol/week: 1.0 standard drink Types: 1 Standard drinks or equivalent per week Comment: Social ??? Drug use: Never Social History Social History Narrative No alcohol use : (Added by [employer] Conv) Review of Systems Review of Systems Constitutional: Negative for chills and fever. HENT: Negative for ear pain and sore throat. Eyes: Negative for pain and visual disturbance. Respiratory: Negative for cough and shortness of breath. Cardiovascular: Negative for chest pain and palpitations. Gastrointestinal: Negative for abdominal pain and vomiting. Genitourinary: Negative for dysuria and hematuria. Musculoskeletal: Positive for back pain. Negative for arthralgias, gait problem, joint swelling andmyalgias. Skin: Negative for color change and rash. Neurological: Negative for seizures and syncope. All other systems reviewed and are negative. Physical Exam ED Triage Vitals [06/12/21 0234] Temp Pulse Resp BP SpO2 36.6 ??C (97.9 ??F) 88 18 117/87 98 % Temp src Heart Rate Source Patient Position BP Location FiO2 (%) Oral -- -- -- -- Physical Exam Vitals and nursing note reviewed. Constitutional: General: She is not in acute distress. Appearance: She is well-developed. HENT: Head: Normocephalic and atraumatic. Eyes: Conjunctiva/sclera: Conjunctivae normal. Cardiovascular: Rate and Rhythm: Normal rate and regular rhythm. Heart sounds: Normal heart sounds. No murmur heard. Pulmonary: Effort: Pulmonary effort is normal. No respiratory distress. Breath sounds: Normal breath sounds. Abdominal: General: Bowel sounds are normal. There is no distension. Palpations: Abdomen is soft. Tenderness: There is no abdominal tenderness. There is no guarding. Musculoskeletal: Cervical back: Neck supple. Thoracic back: No swelling or edema. Lumbar back: Laceration and spasms present. No swelling, edema, tenderness or bony tenderness. Decreased range of motion. No scoliosis. Back: Skin: General: Skin is warm and dry. Neurological: Mental Status: She is alert and oriented to person, place, and time. MDM Medical Decision Making Differential Diagnosis or Management Options: 46-year-old with likely musculoskeletal spasm in her lower back. I have noted the casual mention of yours Danlos however she has no chest pain or shortness of breath suggest that this represents an aortic syndrome. Plan emergency department is for antisp asmodics however the patient would prefer to just take ibuprofen. We discussed taking home with prescription and she agreed to this. We will rule out possibility of and UTI says remain on the differential. In regards to her fall and possible syncope an EKG was ordered. ED Course as of 06/12/21336 Time: 06/12 332 Comment: Normal sinus rhythm at 77. Normal axis and normal QRS. No ST or T-wave abnormalities. By: Markell Grant MD Final diagnoses: Acute bilateral low back pain without sciatica Back muscle spasm Markell Grant MD 06/12/21336 * Javier Lewis RN - 06/12/2021 2:40 AM CDT Patient presents to ED today with back pain, states she hurt her back initially 3 weeks ago while spinning, states it has been sore, however, this morning she woke up with intense pain to lower back.Patient states she had an episode of intense pain and then woke up with her head on her cats litterbox, unsure what happened. Patient ambulatory upon arrival, appears uncomfortable. documented in this encounter Plan of Treatment Not on file documented as of this encounter Procedures Procedure Name Priority Date/Time Associated Diagnosis Comments POCT HCG, URINE Routine 06/12/2021 4:01 AM CDT URINALYSIS AND REFLEX TO MICROSCOPIC AND CULTURE STAT 06/12/2021 3:35 AM CDT ECG 12-LEAD STAT 06/12/2021 3:11 AM CDT documented in this encounter Results * POCT hCG, urine (06/12/2021 4:01 AM CDT) HCG, ur, POC Negative Lot Number [id number] QC Backgroud Clear Acceptable QC Control Line Acceptable Urine 06/12/2021 4:01 AM CDT Markell Grant MD POINT OF CARE TEST ORDERAB LES Final Result * Urinalysis reflex to microscopic and culture Urine (06/12/2021 3:35 AM CDT) Color, ur Yellow Yellow [facility] Clarity, ur Clear Clear [facility] Specific gravity, ur 1.013 1.003 - 1.030 [facility] pH, urine 6.0 [facility] Protein, ur ql Negative Negative [facility] Glucose, ur ql Negative Negative [facility] Ketones, ur Negative Negative [facility] Bilirubin, ur Negative Negative [facility] Blood, ur Negative Negative [facility] Urobilinogen, ur <2.0 <2.0 mg/dL [facility] Nitrite, ur Negative Negative [facility] Leukocyte esterase, ur Negative Negative [facility] UA reflex comment Reflex conditions for microscopic UA and culture not met. [facility] Urine 06/12/2021 3:35 AM CDT 06/12/2021 3:39 AM CDT Narrative [facility] - 06/12/2021 3:42 AM CDT ?? Urine pH is affected by diet, medications, systemic acid-base disturbances, and renal tubular function. ??pH may affect urinary stone formation. ??For example, urine pH below 6.0 may help reduce the tendency for calcium phosphate stones and pH greater than 6.0 may reduce the tendency for uric acid stone formation. Source: [facility] [employer]. Last revised 02-21-2017 us Markell Grant MD LAB MICROBIOLOGY - GENERAL ORDERABLES Final Result Performing Organization Address [facility]/ZIP Co de Phone Number [facility] [address] Department [place] [address] * ECG 12 lead (06/12/2021 3:11 AM CDT) 06/12/2021 3:11 AM CDT Narrative [facility] - 06/12/2021 7:53 AM CDT Vent Rate: 77 bpm RR Interval: 778 msec IN Interval: 141 msec QRS Duration: 85 msec QT Interval: 387 msec QTC Interval: 418 msec P-R-T Volin: 69 - 88 - 71 degrees SINUS RHYTHM POSSIBLE RIGHT VENTRICULAR CONDUCTION DELAY Borderline ECG Electronically Signed By: Rayo Roach DO [facility] us Markell Grant MD ECG ORDERABLES Final Resu lt Performing Organization Address [facility] Co de Phone Number [facility] EPIS [facility] documented in this encounter Visit Diagnoses Diagnosis Acute bilateral low back pain without sciatica- Primary Back muscle spasm Other symptoms referable to back documented in this encounter Administered Medications Inactive Administered Medications - up to 3 most recent administrations Medication Order MAR Action Action Date Dose Rate Site acetaminophen (TYLENOL) tablet 1,000 mg 1,000 mg, oral, Once, On Sat06/12/21 at 0453, For 1 dose, Indications: Back PainIndications:Back Pain Given 06/12/2021 4:58 AM CDT 1,000 mg ibuprofen (ADVIL,MOTRIN) tablet 600 mg 600 mg, oral, Once, On Sat06/12/21 at 0453, For 1 dose, Do not crush, break, or open., Indications: Back PainIndications:Back Pain Given 06/12/2021 4:58 AM CDT 600 mg documented in this encounter Active and Recently Administered Medications Times are shown in CDT. Scheduled Medication Order 06/10/2021 06/11/2021 06/12/2021 acetaminophen (TYLENOL) tablet 1,000 mg (COMPLETED) 1,000 mg, oral, Once, On Sat06/12/21 at 0453, For 1 dose, Indications: Back Pain 0458 (Given - Provid er: Jessica Delgado RN) ibuprofen (ADVIL,MOTRIN) tablet 600 mg (COMPLETED) 600 mg, oral, Once, On Sat06/12/21 at 0453, For 1 dose, Do not crush, break, or open., Indications: Back Pain 0458 (Given - Provid er: Jessica Delgado RN) documented in this encounter Care Teams Butt Welder Relationship Specialty Start Date End Date Radha Barber MD [address] [place] [address] PCP - General Family Practice 06/23/19 Federico Nieves [address] [place] [address] 05/17/17 documented as of this encounter
--- OUTSIDE RECORDS SUMMARY | 2024-02-14 17:05 | XMS_ITS | Referral Summary ---
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 Seborrheic eczema 12/02/2013 Social History Tobacco Use Types Packs/Day Years Used Date Smoking Tobacco: Never Smokeless Tobacco: Never Alcohol Use Standard Drinks/Week Comments Yes 1 (1 standard drink = 0.6 oz pur e alcohol) Social Comments Unknown Sex and Gender Information Value Date Recorded Sex Assigned at Not on file 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 Gender Identity Female 08/17/2020 7:40 PM CDT Sexual Orientation Not on file Last Filed Vital Signs Vital Sign Reading [...] 11/22/2021 9:25 AM CDT Plan of Treatment Not on file Insurance [facility] PLAN [address] [place] [address] HEALTH PLAN Care Teams Director Of Event Management Relationship Specialty Start Date End Date Radha Barber MD [address] [place], [place] [id number] PCP - General Family Practice 06/23/19 Federico Nieves [address] [place] [address] 05/17/17
--- OUTSIDE RECORDS SUMMARY | 2024-02-14 17:05 | XMS_ITS | Encounter Summary ---
Author Organization [facility] Address [address] [place] [address] Phone Care Team Providers Care Roller Gold Leaf Name Role Phone Federico Nieves Unavailable [phone] Radha Barber MD Primary Care Provider Reason for Visit * Cardiology (Routine) - Closed Specialty Diagnoses / Procedures Referred By Contac t Referred To Contact Diagnoses Connective tissue disease (HCC) Chest pain, unspecified type Procedures Transthoracic Echo (TTE) Complete W Doppler/CF Orin Dos Santos NP [address] [facility] [address] [place] [address] Phone: tel: fax: [address] [address] Referral ID Status Reason Start Date Expiration Date Visits Re quested Visits Authorized [id number] Closed 11/22/2021 12/22/2022 1 1 Encounter Details Date Type Department Care Team (Latest Contact Info) Description 12/04/2021 3:00 PM CDT Ancillary Procedure [facility] [address] [facility] [address] [place] [address] Connective tissue disease (CMS/HCC) (HCC); Chest pain, unspecified type Social History Tobacco Use Types Packs/Day Years Used Date Smoking Tobacco: Never Smokeless Tobacco: Never Alcohol Use Standard Drinks/Week Comments Yes 1 (1 standard drink = 0.6 oz pur e alcohol) Social Comments Unknown Sex and Gender Information Value Date Recorded Sex Assigned at Not on file 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 Gender Identity Female 08/17/2020 7:40 PM CDT Sexual Orientation Not on file documented as of this encounter Plan of Treatment Not on file documented as of this encounter Procedures Procedure Name Priority Date/Time Associated Diagnosis Comments TRANSTHORACIC ECHO (TTE) COMPLETE W DOPPLER/CF WO CONTRAST Routine 12/04/2021 3:27 PM CDT Connective tissue disease (CMS/HCC) (HCC) Chest pain, unspecified type documented in this encounter Results * TRANSTHORACIC ECHO (TTE) COMPLETE W DOPPLER/CF WO CONTRAST (12/04/2021 3:27 PM CDT) LV EF 66 % CARDIOREPORT Anatomical Region Laterality Modality Ultrasound 12/04/2021 3:00 PM CDT Narrative 12/04/2021 3:31 PM CDT Patient name: Tamiko Carcamo Date of test: 12/04/2021 Type of test: TTE w/Doppler [facility] #: [id number] Date of : 1975 (F) Roughener[facility] Alisa Cleaning [facility] Referring Physician: ORIN DOS SANTOS MD Contrast Agent: Contrast Administered by: Supervised/Interpreted by: Tunde Becker MD Diagnosis: Location: [facility] Reason for test: Connective Tissue Disease MV [...] 2=Hypo 3=Akinetic 4=Dyskin./Aneurysm 0=Not visualized) Parasternal [place]:MAS=1 BAS=1 MIL=1 ZAIN=1 Parasternal [place]:MAS=1 MIS=1 FL=1 MIL=1 MAL=1 MA=1 Apical 4 Chambers:=1 MIS=1 BIS=1 BAL=1 MAL=1 AL=1 AC=1 Apical 2 Chambers:AI=1 FL=1 BI=1 BA=1 MA=1 AA=1 AC=1 LV Global [...] MD By signing this report, the attending announcer certifies that he or she has personally supervised and interpreted the echocardiogram and has reviewed and or edited and agrees with the written comments contained within the report. Procedure Note Tunde Becker MD - 12/04/2021 Patient name: Tamiko Carcamo Date of test: 12/04/2021 Type of test: TTE w/[facility] #: 0 Date of : 1975 (F) Roughener: Alisa Cleaning [facility] Referring Physician: ORIN DOS SANTOS MD Contrast Agent: Contrast Administered by: Supervised/Interpreted by: Tunde Becker MD Diagnosis: Location: [facility] Reason for test: Connective Tissue Disease MV [...] 2=Hypo 3=Akinetic 4=Dyskin./Aneurysm 0=Not visualized) Parasternal [place]:MAS=1 BAS=1 MIL=1 ZAIN=1 Parasternal [place]:MAS=1 MIS=1 FL=1 MIL=1 MAL=1 MA=1 Apical 4 Chambers:=1 MIS=1 BIS=1 BAL=1 MAL=1 AL=1 AC=1 Apical 2 Chambers:AI=1 FL=1 BI=1 BA=1 MA=1 AA=1 AC=1 LV Global [...] MD By signing this report, the attending announcer certifies that he or she has personally supervised and interpreted the echocardiogram and has reviewed and or edited and agrees with the written comments contained within the report. us Orin Dos Santos NP CV ECHO PROCEDURES Final Res ult documented in this encounter Visit Diagnoses Diagnosis Connective tissue disease (HCC) Unspecified diffuse connective tissue disease Chest pain, unspecified type documented in this encounter Orders Medications Ordered That Hang ht Not Have Been Administered Count Last Ordered Date First Ordered Date perflutren protein-a (OPTISO N) 3 mL in sodium chloride 0.9% 8 mL syringe 1 12/04/2021 documented in this encounter Care Teams Roller Gold Leaf Relationship Specialty Start Date End Date Radha Barber MD [address] [place] [place] [address] PCP - General Family Practice 06/23/19 Federico Nieves [address] [place] [address] 05/17/17 documented as of this encounter
--- OUTSIDE RECORDS SUMMARY | 2024-02-14 17:06 | XMS_ITS | Encounter Summary ---
Author Organization [facility] Address [address] [place] [address] Phone Care Team Providers Care Purchasing Internship Name Role Phone Federico Nieves Unavailable [phone] Radha Barber MD Primary Care Provider Encounter Details Date Type Department Care Team (Late st Contact Info) Description 08/16/2020 Telephone [facility] Allergy and Immunology [address] [facility] Office [address] [place] [address] Elle Mayo RN Social History Tobacco Use Types Packs/Day Years Used Date Smoking Tobacco: Never Smokeless Tobacco: Never Alcohol Use Standard Drinks/Week Comments Yes 1 (1 standard drink = 0.6 oz pur e alcohol) Social Comments Unknown Sex and Gender Information Value Date Recorded Sex Assigned at Not on file 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 Last visit was a year ago. Pt agrees to zoom visit with PLASTIC SURGERY COORDINATOR forThur August 18 at 3pm. Reminded pt to do echeck-in and how to log in for zoom documented in this encounter Plan of Treatment Not on file documented as of this encounter Visit Diagnoses Not on filedocumented in this encounter Care Teams Purchasing Internship Relationship Specialty Start Date End Date Radha Barber MD [address] [place] [address] PCP - General Family Practice 06/23/19 Federico Nieves [address] [place] [address] 05/17/17 documented as of this encounter
--- OUTSIDE RECORDS SUMMARY | 2024-02-14 17:06 | XMS_ITS | Encounter Summary ---
Author Organization [facility] Address [address] [place] [address] Care Team Providers Care Soil Conservation Technician Name Role Phone Federico Nieves Primary Care Provider [phone] Federico Nieves Unavailable [phone] Reason for Referral * Diagnostic Imaging (Routine) - Closed Specialty Diagnoses / Procedures Referred By Callie shepherd Referred To Contact Diagnoses Research study patient Procedures US Fine Needle Aspiration Slime Kohli MD PhD Phone: tel: fax: [address] [phone] Referral ID Status Reason Start Date Expiration Date Visits Re quested Visits Authorized [id number] Closed 10/15/2017 04/26/2019 1 1 Reason for Visit * Diagnostic Imaging (Routine) - Closed Specialty Diagnoses / Procedures Referred By Callie shepherd Referred To Contact Diagnoses Research study patient Procedures US Fine Needle Aspiration Slime Kohli MD PhD Phone: tel: fax: [address] [phone] Referral ID Status Reason Start Date Expiration Date Visits Re quested Visits Authorized [id number] Closed 10/15/2017 04/26/2019 1 1 Encounter Details Date Type Department Care Team (Latest Contact Info) Description 12/03/2017 8:34 AM CDT - 12/03/2017 11:59 PM CDT Hospital Encounter [facility] ([facility]) [facility] [place] [address] Slime Kohli MD PhD [address] [place] [address] Research study patient Discharge Disposition: Discharge to home or self care Social History Tobacco Use Types Packs/Day Years Used Date Smoking Tobacco: Never Comments Unknown Sex and Gender Information Value Date Recorded Sex Assigned at Not on file 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 Light physical activity for 48 hours (2 days). ?? Do not lift more than 10 pounds for 48 hours (2 days). DIET: ?? You may eat and drink WOUND CARE: ?? If a bandage or dressing was placed on the biopsy site, it may be removed the next day unless otherwise instructed by your physician. INSTRUCTIONS: During regular office hours, all your referring physician. If after hours, go to the closest emergency room if you have any of the following: ?? SEVERE PAIN ?? WEAKNESS OR FAINTNESS ?? REDNESS, IRRITATION, SEVERE BLEEDING OR DRAINAGE FROM THE BIOPSY SITE. FOLLOW UP: The biopsy will be read within 5-7 days. Special studies may take longer. Please allow at least a week before calling for results. OTHER: ?? If you take warfarin (Coumadin), you may resume the same day of biopsy. ?? If you take clopidogrel (Plavix), you may resume the next day. ?? If you take ticlopidine (Ticlid), you may resume the next day. ?? If you take enoxaparin (Lovenox), you may resume 12 hours after biopsy. ?? You may resume all other mediations the same day of biopsy. documented in this encounter Medications at Time of Discharge ketoconazole (NIZORAL) 2 % shampoo daily. 12/02/2013 norethindrone-e.est radioL-iron (03/02) 1 mg-20 mcg (21)/75 mg (7) per tablet daily. 09/03/2016 cetirizine (ZyrTEC) 10 mg tabletIndications:S easonal allergic rhinitis, unspecified trigger TAKE 1 TABLET BY MOUTH DAILY 30 tablet 11/29/2017 8 cetirizine 10 mg tablet,disintegrati ng TAKE 1 TABLET BY MOUTH DAILY. 09/03/2016 0 fluticasone (FLONASE) 50 mcg/actuation nasal spray Administer 2 sprays into each nostril daily. 1 spray 3 11/27/2017 8 HYDROcodone-acetami nophen (NORCO) 5-325 mg per tablet Take 1-2 tablets by mouth every 4 hours 12/21/2016 0 olopatadine (PATADAY) 0.2 % ophthalmic solutionIndications :Allergic Conjunctivitis INSTILL 1 DROP INTO IN AFFECTED EYE(S) TWICE DAILY 09/03/2016 0 ondansetron (ZOFRAN) 4 mg tablet TAKE 1 TABLET PRN nausea/ vomitting 09/03/2016 1 ondansetron ODT (ZOFRAN-ODT) 4 mg disintegrating tablet Take 4 mg by mouth every 6 hours 08/03/2015 0 documented as of this encounter Discharge Disposition Disposition Code Departure Means Destination Discharge to home or self care documented in this encounter Plan of Treatment Not on file documented as of this encounter Procedures Procedure Name Priority Date/Time Associated Diagnosis Comments US GUIDED FINE NEEDLE ASPIRATION 1ST LESION Schedule Routine, Read Routine (OP Routine) 12/03/2017 9:35 AM CDT Research study patient documented in this encounter Results * US Fine Needle Aspiration (12/03/2017 9:35 AM CDT) Anatomical Region Laterality Modality Body N/A Ultrasound 12/03/2017 9:52 AM CDT Impressions 12/03/2017 11:17 AM CDT 1. Successful ultrasound-guided research fine needle aspiration of right axillary lymph node.. Dictated by: Cherrie Cespedes PA-C Electronically signed by: Ronda Bettencourt M.D. Narrative 12/03/2017 11:17 AM CDT EXAMINATION: LIMITED EXTREMITY SONOGRAM WITH ULTRASOUND-GUIDED FINE-NEEDLE ASPIRATION RESEARCH BIOPSY HISTORY: ??42-year-old female participating in a flu research study. This is a post vaccination axillary lymph node biopsy. COMPARISON: ??Sonogram with biopsy dated 07/02/2017 FINDINGS: Views of the right axilla show multiple lymph nodes with a normal sonographic appearance. ??The previously biopsied lymph node today measures 0.4 x 0.6 x 1.4 cm (previously 0.4 x 1.1 x 1.2 cm). ?? TECHNIQUE: ??The procedure for ultrasound-guided fine needle aspiration (FNA) was explained to and discussed with the patient. Risks were explained to include, but not be limited to, hemorrhage, infection, injury to adjacent organs, non-diagnostic specimen and adverse reaction to medications administered. The patient voiced understanding and wished to proceed and signed the consent form. The patient's overlying skin was prepped and draped in the usual sterile fashion. ?? FNA: The lymph node was located in the right axilla and measured 0.4 cm x 0.6 cm x 1.4 cm. A site was localized for fine needle aspiration. The patient's overlying skin was prepped and draped in the usual sterile fashion. Local anesthesia was achieved via subcutaneous and deep administration with 4 mL of Lidocaine 1%. Under realtime ultrasound guidance, the needle was advanced into the lymph node ??and 6 passes were made with 25 gauge needles. The samples were handed to the research engineering inspection assistant. The patient's skin was cleaned and dressed. The patient tolerated the entire procedure well without immediate complications. Dr. Ronda Bettencourt M.D., the attending radiologist, was present from the beginning to the end of the procedure. ??Cherrie Cespedes PA-C performed the biopsy. Procedure Note Ronda Bettencourt MD - 12/03/2017 EXAMINATION: LIMITED EXTREMITY SONOGRAM WITH ULTRASOUND-GUIDED FINE-NEEDLE ASPIRATION RESEARCH BIOPSY HISTORY: 42-year-old female participating in a flu research study. This is a post vaccination axillary lymph node biopsy. COMPARISON: Sonogram with biopsy dated 07/02/2017 FINDINGS: Views of the right axilla show multiple lymph nodes with a normal sonographic appearance. The previously biopsied lymph node today measures 0.4 x 0.6 x 1.4 cm (previously 0.4 x 1.1 x 1.2 cm). TECHNIQUE: The procedure for ultrasound-guided fine needle aspiration (FNA) was explained to and discussed with the patient. Risks were explained to include, but not be limited to, hemorrhage, infection, injury to adjacent organs, non-diagnostic specimen and adverse reaction to medications administered. The patient voiced understanding and wished to proceed and signed the consent form. The patient's overlying skin was prepped and draped in the usual sterile fashion. FNA: The lymph node was located in the right axilla and measured 0.4 cm x 0.6 cm x 1.4 cm. A site was localized for fine needle aspiration. The patient's overlying skin was prepped and draped in the usual sterile fashion. Local anesthesia was achieved via subcutaneous and deep administration with 4 mL of Lidocaine 1%. Under realtime ultrasound guidance, the needle was advanced into the lymph node and 6 passes were made with 25 gauge needles. The samples were handed to the research engineering inspection assistant. The patient's skin was cleaned and dressed. The patient tolerated the entire procedure well without immediate complications. Dr. Ronda Bettencourt M.D., the attending radiologist, was present from the beginning to the end of the procedure. Cherrie Cespedes PA-C performed the biopsy. IMPRESSION: 1. Successful ultrasound-guided research fine needle aspiration of right axillary lymph node.. Dictated by: Cherrie Cespedes PA-C Electronically signed by: Ronda Bettencourt M.D. us Slime Kohli MD PhD IMG US PROCEDURES Final Result documented in this encounter Visit Diagnoses Diagnosis Research study patient documented in this encounter Administered Medications Inactive Administered Medications - up to 3 most recent administrations Medication Order MAR Action Action Date Dose Rate Site lidocaine PF (XYLOCAINE) 10 mg/mL (1 %) preservative free injection Code/trauma/sedation medication, Starting on Sat12/03/17 at 0919, Intra-Procedure (IR), Indications: Administration of Local AnesthesiaIndications:Administration of Local Anesthesia Given 12/03/2017 9:19 AM CDT 2 mL documented in this encounter Care Teams Soil Conservation Technician Relationship Specialty Start Date End Date Federico Nieves [address] [place] [address] PCP - General 05/17/17 06/22/19 Federico Nieves [address] [place] [address] 05/17/17 documented as of this encounter
--- OUTSIDE RECORDS SUMMARY | 2024-02-14 17:06 | XMS_ITS | Encounter Summary ---
Author Organization [facility] Address [address] [place] [address] Phone Care Team Providers Care Svp Programmatic Tv Name Role Phone Federico Nieves Unavailable [phone] Radha Barber MD Primary Care Provider Encounter Details Date Type Department Care Team (Late st Contact Info) Description 08/10/2019 10:30 AM CDT Telemedicine [facility] Allergy and Immunology [address] [facility] [address] [place] [address] Jose D Saucedo MD [address] [place] [address] Seasonal allergic rhinitis, unspecified trigger Social History Tobacco Use Types Packs/Day Years Used Date Smoking Tobacco: Never Smokeless Tobacco: Never Alcohol Use Standard Drinks/Week Comments Yes 1 (1 standard drink = 0.6 oz pur e alcohol) Social Comments Unknown Sex and Gender Information Value Date Recorded Sex Assigned at Not on file 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 Gender Identity Female 08/17/2020 7:40 PM CDT Sexual Orientation Not on file documented as of this encounter Last Filed Vital Signs Vital Sign Reading Time Taken Comments Blood Pressure - - Pulse - - Temperature - - Respiratory Rate - - Oxygen Saturation - - Inhaled Oxygen Concentration - - Weight 42.6 kg (94 lb) 08/10/2019 8:50 AM CDT Height 157.5 cm (5' 2 ) 08/10/2019 8:50 AM CDT Body Mass Index 17.19 08/10/2019 8:50 AM CDT documented in this encounter Ordered Prescriptions Prescription Sig Dispense Quantity Refills Last Filled Start Date End Date olopatadine (PATADAY) 0.2 % ophthalmic solutionIndications :Allergic Conjunctivitis Administer 1 drop into both eyes daily as needed for allergies (itchy eyes) 2.5 mL 11 08/10/2019 1 cetirizine (ZyrTEC) 10 mg tabletIndications:S easonal allergic rhinitis, unspecified trigger Take 1 tablet (10 mg total) by mouth daily 30 tablet 5 08/10/2019 1 fluticasone propionate (FLONASE) 50 mcg/actuation nasal spray Administer 2 sprays into each nostril daily 16 g 1 08/10/2019 0 azelastine (ASTELIN) 137 mcg (0.1 %) nasal spray Administer 2 sprays into each nostril 2 (two) times a day Use in each nostril as directed 120 mL 11 08/10/2019 1 documented in this encounter Progress Notes * Jose D Saucedo MD - 08/10/2019 12:00 AM CDT MD Calvin Wood MD Andrew Kau, MD, PhD MD Aleyda Carney MD Department of Internal Medicine Division of Allergy & Clinical Immunology PATIENT NAME: IVELISSE BURGESS : 1975 [place]: 08/10/2019 This was a telemedicine visit with Ivelisse Burgess, which took place via Zoom. During the visit, I was located [facility] and the patient was located home. The session started at 10:37AM and ended at 10:45AM. The patient has been informed that the visit may not be secure and acknowledged the information. I have explained the option of participating in a telephone or video visit during the COVID-19 Public Health Emergency to the patient. After being given an opportunity to ask questions about and discuss this type of visit, the patient verbally consented to proceeding with the telephone/video visit.The patient understands that this service replaces an office visit and they may be billed and/or responsible for any applicable copayments. INTERVAL HISTORY: Since we last saw Ms. Burgess, she says that her nasal symptoms have been very well controlled. She does say that she does get occasional nasal symptoms and eye symptoms, but these are, at best, infrequent. She notes that otherwise she has not had any other issues with food. She is able to eat shellfish and other seafood without any problems and it was concluded that her prior episode was likelydue to food poisoning. Otherwise, there have been no changes to Ms. Burgess's history. REVIEW OF SYSTEMS: All other systems negative. CURRENT MEDICATIONS: 1. Flonase 1 squirt each nostril daily. 2. She also takes Zyrtec daily. 3. She was prescribed Pataday eyedrops p.r.n. MEDICAL DECISION MAKING: ASSESSMENT AND PLAN: Ms. Burgess is a very pleasant 44-year-old female with past medical history of Yamileth-Danlos syndrome and allergic rhinitis, presenting here for follow-up. 1. Allergic rhinitis. This appears to be well controlled on a combination of Zyrtec and Flonase. After discussion with Ms. Burgess, we renewed her prescription for Pataday to be used as needed. We also wrote her a prescription for azelastine, which we recommended that she use 2 squirts every 12 hours as needed. She says that this additional medication could help on the occasions where her symptoms are not controlled with Flonase and Zyrtec alone. 2. Food allergy. This is no longer a substantial issue. She has not had any further reactions and is consuming seafood without any difficulty. 3. We will see Ms. Burgess back in 1 year or earlier should she need us. Jose D Saucedo M.D., Ph.D. Automobile Body Repair Chief in Medicine [place]/an cc: FEDERICO NIEVES MD [address] [place] [id number] / documented in this encounter Plan of Treatment Not on file documented as of this encounter Visit Diagnoses Diagnosis Seasonal allergic rhinitis, unspecified trigger documented in this encounter Discontinued Medications Medication Sig Discontinue Reason Start Date End Da te cetirizine 10 mg tablet,disintegrating TAKE 1 TABLET BY MOUTH DAILY. 09/03/2016 08/10/2019 ciprofloxacin (CIPRO) 500 mg tablet TK 1 T PO Q 12 H 2018 08/10/2019 HYDROcodone-acetaminophe n (NORCO) 5-325 mg per tablet Take 1-2 tablets by mouth every 4 hours 12/21/2016 08/10/2019 ondansetron ODT (ZOFRAN-ODT) 4 mg disintegrating tablet Take 4 mg by mouth every 6 hours 08/03/2015 08/10/2019 olopatadine (PATADAY) 0.2 % ophthalmic solutionIndications:Jerry rgic Conjunctivitis INSTILL 1 DROP INTO IN AFFECTED EYE(S) TWICE DAILY 09/03/2016 08/10/2019 fluticasone propionate (FLONASE) 50 mcg/actuation nasal spray Administer 2 sprays into each nostril daily Reorder 06/23/2019 08/10/2019 cetirizine (ZyrTEC) 10 mg tabletIndications:Season al allergic rhinitis, unspecified trigger Take 1 tablet (10 mg total) by mouth daily Reorder 08/03/2019 08/10/2019 documented as of this encounter Care Teams Svp Programmatic Tv Relationship Specialty Start Date End Date Radha Barber MD [address] [place] [address] PCP - General Family Practice 06/23/19 Federico Nieves [address] [place] [address] 05/17/17 documented as of this encounter
--- OUTSIDE RECORDS SUMMARY | 2024-02-14 17:06 | XMS_ITS | Encounter Summary ---
Author Organization [facility] Address [address] [place] [address] Care Team Providers Care Appraiser Name Role Phone Federico Nieves Primary Care Provider [phone] Federico Nieves Unavailable [phone] Encounter Details Date Type Department Care Team (Latest Contact Info) Description 05/21/2017 2:01 PM CDT - 05/21/2017 11:59 PM T Hospital Encounter [facility] [phone] Slime Kohli MD PhD [address] [place], [place] [id number] Discharge Disposition: Discharge to home or self care Social History Tobacco Use Types Packs/Day Years Used Date Smoking Tobacco: Never Assessed Comments Unknown Sex and Gender Information Value Date Recorded Sex Assigned at Not on file 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 12/02/2013 norethindrone-e.estr adioL-iron (03/02) 1 mg-20 mcg (21)/75 mg (7) per tablet daily. 09/03/2016 cetirizine 10 mg tablet,disintegratin g TAKE 1 TABLET BY MOUTH DAILY. 09/03/2016 0 HYDROcodone-acetamin ophen (NORCO) 5-325 mg per tablet Take 1-2 tablets by mouth every 4 hours 12/21/2016 0 olopatadine (PATADAY) 0.2 % ophthalmic solutionIndications: Allergic Conjunctivitis INSTILL 1 DROP INTO IN AFFECTED [...] on filedocumented in this encounter Care Teams Appraiser Relationship Specialty Start Date End Date Federico Nieves [address] [place] [address] PCP - General 05/17/17 06/22/19 Federico Nieves [address] [place] [address] 05/17/17 documented as of this encounter
--- OUTSIDE RECORDS SUMMARY | 2024-02-14 17:06 | XMS_ITS | Encounter Summary ---
Author Organization [facility] Facility Care Team Providers Care Travel Accommodations Rater Name Role Phone Federico Nieves Primary Care Provider [phone] Federico Nieves Unavailable [phone] Encounter Details Date Type Department Care Team (Latest Contact Info) Description 05/21/[address] [facility] Slime Thomas MD PhD [address] [facility] [address] [place] [address] Social History Tobacco Use Types Packs/Day Years Used Date Smoking Tobacco: Never Assessed Comments Unknown Sex and Gender Information Value Date Recorded Sex Assigned at Not on file Legal Sex Female 11:06 AM DIRECTOR STRATEGY Gender Identity Female 08/17/2020 7:40 PM CDT Sexual Orientation Not on file documented as of this encounter Plan of Treatment Not on file documented as of this encounter Procedures Procedure Name Priority Date/Time Associated Diagnosis Comments US EXTREMITY COMPLETE Routine 05/21/2017 2:52 PM CDT documented in this encounter Results * US Extremity Complete (05/21/2017 2:52 PM CDT) Anatomical Region Laterality Modality Extremity N/A Ultrasound 05/21/2017 2:52 PM CDT Narrative 05/21/2017 5:06 PM CDT RONDA SIERRA M.D. NYA NOLAND HO FINAL REPORT The radiology attending physician has personally reviewed this study, and has reviewed and/or edited this written report and agrees with it. ACC# ??Date Time ??Exam [id number] May 21, 2017 09:52:00 33874 US Needle guide [id number] May 21, 2017 09:52:00 62595 Extremity Sono Limited R [id number] May 21, 2017 09:52:00 88190 Extremity Sono Limited L [id number] May 21, 2017 09:52:00 95221 FNA w Imaging EXAMINATION: ??BILATERAL LIMITED EXTREMITY SONOGRAM WITH ULTRASOUND-GUIDED RESEARCH FINE NEEDLE ASPIRATION BIOPSY HISTORY: ??42-year-old female here for evaluation of bilateral axillary lymph nodes with fine-needle aspiration for baseline exam in influenza vaccine study. COMPARISON: ??None LIMITED RIGHT AXILLA FINDINGS: Multiple lymph nodes are visualized in the right axilla. ??The most superior lymph node measures 3 x 7 x 10 m. LIMITED LEFT AXILLA FINDINGS: A few small scattered lymph nodes in the left axilla are visualized. ??The largest measuring 5 x 6 x 13 mm. TECHNIQUE: ??The procedure for ultrasound-guided fine needle [...] located in the right axilla and measured 0.3 cm x 0.7 cm x 1.0 cm. A site was localized for fine needle aspiration. The patient's overlying skin was prepped and draped in the usual sterile fashion. Local anesthesia was achieved via subcutaneous and deep administration with 5 mL of Lidocaine 1%. Under realtime ultrasound guidance, the needle was advanced into the lymph node ??and 6 passes were made with 25 gauge needles. The samples were handed to the research coordinator. The patient's skin was cleaned and dressed. The patient tolerated the entire procedure well without immediate complications. Dr. Ronda Sierra M.D., the attending radiologist, was present from the beginning to the end of the procedure. ??Cherrie Cespedes PA-C performed the biopsy. IMPRESSION: ??1. ??Bilateral axillary lymph nodes as described above. 2. ??Successful ultrasound-guided fine needle aspiration of right axillary lymph node. Electronically signed by: Ronda Sierra M.D. Requested By: SLIME KOHLI MD, PHD Dictated By: ?? NYA NOLAND ??on May 21 2017 10:04A This document has been electronically signed by: RONDA SIERRA M.D. on May 21 2017 12:04P [id number] SIERRA M.D. NYA NOLAND FINAL REPORT The radiology attending physician has personally reviewed this study, and has reviewed and/or edited this written report and agrees with it. Attending: ??MORELIA, ??SLIME Requesting: ??MORELIA, ??SLIME Requesting Fax: ?? Attending Fax: ?? Attending ID: ??[id number] Requesting ID: ??[id number] Report To 1 ID: ??[id number] ? Report To 1 Name: ??, ?? Report To 1 FAX: ?? NextGen Order #: ?? Procedure Note Miscellaneous, Not In File - 05/21/2017 RONDA SIERRA M.D. NYA NOLAND FINAL REPORT The radiology attending physician has personally reviewed this study, and has reviewed and/or edited this written report and agrees with it. ACC# Date Time Exam [id number] May 21, 2017 09:52:00 [id number] US Needle guide [id number] May 21, 2017 09:52:00 09788 Extremity Sono Limited R [id number] May 21, 2017 09:52:00 94960 Extremity Sono Limited L [id number] May 21, 2017 09:52:00 81750 FNA w Imaging EXAMINATION: BILATERAL LIMITED EXTREMITY SONOGRAM WITH ULTRASOUND-GUIDED RESEARCH FINE NEEDLE ASPIRATION BIOPSY HISTORY: 42-year-old female here for evaluation of bilateral axillary lymph nodes with fine-needle aspiration for baseline exam in influenza vaccine study. COMPARISON: None LIMITED RIGHT AXILLA FINDINGS: Multiple lymph nodes are visualized in the right axilla. The most superior lymph node measures 3 x 7 x 10 m. LIMITED LEFT AXILLA FINDINGS: A few small scattered lymph nodes in the left axilla are visualized. The largest measuring 5 x 6 x 13 mm. TECHNIQUE: The procedure for ultrasound-guided fine needle [...] located in the right axilla and measured 0.3 cm x 0.7 cm x 1.0 cm. A site was localized for fine needle aspiration. The patient's overlying skin was prepped and draped in the usual sterile fashion. Local anesthesia was achieved via subcutaneous and deep administration with 5 mL of Lidocaine 1%. Under realtime ultrasound guidance, the needle was advanced into the lymph node and 6 passes were made with 25 gauge needles. The samples were handed to the research coordinator. The patient's skin was cleaned and dressed. The patient tolerated the entire procedure well without immediate complications. Dr. Ronda Sierra M.D., the attending radiologist, was present from the beginning to the end of the procedure. Cherrie Cespedes PA-C performed the biopsy. IMPRESSION: 1. Bilateral axillary lymph nodes as described above. 2. Successful ultrasound-guided fine needle aspiration of right axillary lymph node. Electronically signed by: Ronda Sierra M.D. Requested By: SLIME KOHLI MD, PHD Dictated By: NYA NOLAND on May 21 2017 10:04A This document has been electronically signed by: RONDA SIERRA M.D. on May 21 2017 12:04P [id number] CROWLEY PA HO FINAL REPORT The radiology attending physician has personally reviewed this study, and has reviewed and/or edited this written report and agrees with it. Attending: SLIME KOHLI Requesting: SLIME KOHLI Requesting Fax: Attending Fax: Attending ID: [id number] Requesting ID: [id number] Report To 1 ID: [id number] Report To 1 Name: , Report To 1 FAX: NextGen Order #: us Slime Kohli MD PhD IMG US PROCEDURES Final Result documented in this encounter Visit Diagnoses Not on filedocumented in this encounter Care Teams Travel Accommodations Rater Relationship Specialty Start Date End Date Federico Nieves [address] [place] [address] PCP - General 05/17/17 06/22/19 Federico Nieves [address] [place] [address] 05/17/17 documented as of this encounter
--- OUTSIDE RECORDS SUMMARY | 2024-02-14 17:06 | XMS_ITS | Encounter Summary ---
Author Organization [facility] Healthcare Address [address] [place] [address] Care Team Providers Care General Production Laborer Name Role Phone Federico Nieves Primary Care Provider [phone] Federico Nieves Unavailable [phone] Encounter Details Date Type Department Care Team (Late st Contact Info) Description 12/03/2017 Orders Only Radiology [address] [place] [id number] Nimesh Diaz MD [address] [facility] [address] [place] [address] Social History Tobacco Use Types Packs/Day Years Used Date Smoking Tobacco: Never Comments Unknown Sex and Gender Information Value Date Recorded Sex Assigned at Not on file Legal Sex Female 11:06 AM LOAN AND CREDIT MANAGER Gender Identity Female 08/17/2020 7:40 PM CDT Sexual Orientation Not on file documented as of this encounter Plan of Treatment Not on file documented as of this encounter Visit Diagnoses Not on filedocumented in this encounter Care Teams General Production Laborer Relationship Specialty Start Date End Date Federico Nieves [address] [place] [address] PCP - General 05/17/17 06/22/19 Federico Nieves [address] [place] [address] [address] 05/17/17 documented as of this encounter
--- OUTSIDE RECORDS SUMMARY | 2024-02-14 17:06 | XMS_ITS | Encounter Summary ---
Author Organization [facility] Healthcare Address [address] [place] [address] Care Team Providers Care Welding Inspector Name Role Phone Federico Nieves Primary Care Provider [phone] Federico Nieves Unavailable [phone] Reason for Referral * Diagnostic Imaging (Routine) - Closed Specialty Diagnoses / Procedures Referred By Callie shepherd Referred To Contact Diagnoses Research study patient Procedures US Fine Needle Aspiration Slime Kohli MD PhD Phone: tel: fax: [facility] [address] [place] [address] Referral ID Status Reason Start Date Expiration Date Visits Re quested Visits Authorized [id number] Closed 10/15/2017 04/26/2019 1 1 Encounter Details Date Type Department Care Team (Late st Contact Info) Description 10/15/2017 Orders Only [facility] Clinical Trial [address] [place] [id number] Slime Kohli MD PhD [facility] [address] [place] [address] Research study patient (Primary Dx) Social History Tobacco Use Types Packs/Day Years Used Date Smoking Tobacco: Never Comments Unknown Sex and Gender Information Value Date Recorded Sex Assigned at Not on file Legal Sex Female 11:06 AM DIRECTOR OF MANAGED SERVICES Gender Identity Female 08/17/2020 7:40 PM CDT Sexual Orientation Not on file documented as of this encounter Plan of Treatment Not on file documented as of this encounter Results * US Fine Needle [...] The samples were handed to the research reproductive healthcare assistant. The patient's skin was cleaned and [...] The samples were handed to the research reproductive healthcare assistant. The patient's skin was cleaned and [...] PA-C Electronically signed by: Ronda Bettencourt M.D. Slime Kohli MD PhD [facility] PROCEDURES Final Result documented in this encounter Visit Diagnoses Diagnosis Research study patient- Primary Research study patient documented in this encounter Care Teams Welding Inspector Relationship Specialty Start Date End Date Federico Nieves [address] [place] [address] PCP - General 05/17/17 06/22/19 Federico Nieves [address] [place] [address] 05/17/17 documented as of this encounter
--- OUTSIDE RECORDS SUMMARY | 2024-02-14 17:06 | XMS_ITS | Encounter Summary ---
Author Organization [facility] Address [address] [place] [address] Phone Care Team Providers Care Aircraft Powertrain Repairer Name Role Phone Federico Nieves Primary Care Provider [phone] Federico Nieves Unavailable [phone] Reason for Visit * Reason Comments Allergy Testing * Allergy, Asthma, and Immunology (Routine) - Closed Specialty Diagnoses / Procedures Referred By Callie shepherd Referred To Contact Allergy and Immunology Diagnoses ALLERGY SKIN TESTING Procedures SKIN TESTING Referral, Self Anna Romano MD PhD [address] [place] [address] Phone: tel: fax: Referral ID Status Reason Start Date Expiration Date Visits Re quested Visits Authorized [id number] Closed 05/12/2018 11/21/2019 99 99 Encounter Details Date Type Department Care Team (Latest Contact Info) Description 05/12/2018 10:00 AM CDT Procedure visit [facility] Allergy and Immunology 10 [facility] Medical Office Building [address] [place] [address] Anna Romano MD PhD [address] [place] [address] Allergic rhinitis, unspecified seasonality, unspecified trigger (Primary Dx); Shellfish allergy Social History Tobacco Use Types Packs/Day Years Used Date Smoking Tobacco: Never Smokeless Tobacco: Never Alcohol Use Standard Drinks/Week Comments Yes 1 (1 standard drink = 0.6 oz pur e alcohol) Comments Unknown Sex and Gender Information Value Date Recorded Sex Assigned at Not on file Legal Sex Female 11:06 AM ENTRY LEVEL FINANCE Gender Identity Female 08/17/2020 7:40 PM CDT Sexual Orientation Not on file documented as of this encounter Last Filed Vital Signs Vital Sign Reading Time Taken Comments Blood Pressure 123/81 05/12/2018 11:45 AM CDT Pulse 93 05/12/2018 11:45 AM CDT Temperature 36.4 ??C (97.5 ??F) 05/12/2018 11:45 AM C DT Respiratory Rate - - Oxygen Saturation - - Inhaled Oxygen Concentration - - Weight 47.8 kg (105 lb 4.8 oz) 05/12/2018 11:45 AM CDT Height 157.5 cm (5' 2 ) 05/12/2018 11:45 AM CDT Body Mass Index 19.26 05/12/2018 11:45 AM CDT documented in this encounter Progress Notes * William Farrar MD - 05/12/2018 10:00 AM CDT PATIENT NAME: Tamiko Carcamo : 1975 [place]: 05/12/2018 PROVIDERS: PCP: Dr. Federico Nieves MD [facility] [address] Referring provider: Dr. Babin Referral No address on file Allergy&Immunology Attending: Dr. Anna Romano MD PhD CHIEF COMPLAINT: This is a routine follow-up visit for AR and ?shellfish allergy to get skin testing done. HISTORY OF PRESENT ILLNESS: Ms. Carcamo is a 43 y.o. Black Or female with a past medical history of AR and ?Shellfish allergy. She was last seen on 04/01/2017. There are no nasal or ocular symptoms to report. As long as she is on Flonase and Zyrtec she has nonasal symptoms. She was off of her medications to get skin testing today and has some congestion. Otherwise has no complaints today. Since last being seen she notes that she has eaten shrimp, crab and lobster without any issues. Never used her EpiPen. REVIEW OF SYSTEMS: As per HPI. All other systems reviewed and are negative. PAST MEDICAL HISTORY: Medical Conditions Diagnosis ??? Seborrheic eczema ??? Hirsutism ??? Yamileth-Danlos syndrome ??? Dizziness PAST SURGICAL HISTORY: No past surgical history on file. HOME MEDICATIONS: Current Outpatient Medications: ??? cetirizine (ZyrTEC) 10 mg tablet, TAKE 1 TABLET BY MOUTH DAILY, Disp: 30 tablet, Rfl: 3 ??? fluticasone (FLONASE) 50 mcg/actuation nasal spray, Administer 2 sprays into each nostril daily., Disp: 1 spray, Rfl: 3 ??? ketoconazole (NIZORAL) 2 % shampoo, daily., Disp: , Rfl: ??? norethindrone-e.estradiol-iron (BLISOVI FE 03/02, ,) 1 mg-20 mcg (21)/75 mg (7) per tablet, daily., Disp: , Rfl: ??? olopatadine (PATADAY) 0.2 % ophthalmic solution, INSTILL 1 DROP INTO IN AFFECTED EYE(S) TWICE DAILY, Disp: , Rfl: ??? ondansetron (ZOFRAN) 4 mg tablet, TAKE 1 TABLET PRN nausea/ vomitting, Disp: , Rfl: ??? cetirizine 10 mg tablet,disintegrating, TAKE 1 TABLET BY MOUTH DAILY., Disp: , Rfl: ??? ciprofloxacin (CIPRO) 500 mg tablet, TK 1 T PO Q 12 H, Disp: , Rfl: 0 ??? HYDROcodone-acetaminophen (NORCO) 5-325 mg per tablet, Take 1-2 tablets by mouth every 4 hours,Disp: , Rfl: ??? ondansetron ODT (ZOFRAN-ODT) 4 mg disintegrating tablet, Take 4 mg by mouth every 6 hours, Disp: , Rfl: IMMUNIZATION: There is no immunization history on file for this patient. ALLERGIES: No Known Allergies FAMILY HISTORY: Family History Problem Relation Age of Onset ??? Diabetes Maternal Grandmother Family history of diabetes mellitus - (Added by TW Conv) ??? Cancer Maternal Grandmother Family history of malignant neoplasm - (Added by TW Conv) ??? Stroke Maternal Grandmother Family history of cerebrovascular accident (CVA) - (Added by TW Conv) ??? Diabetes Maternal Grandfather Family history of diabetes mellitus - Relation: Grandfather (Added by TW Conv) ??? Stroke Father Family history of cerebrovascular accident (CVA) - (Added by Conv) ??? Stroke Paternal Grandmother Family history of cerebrovascular accident (CVA) - (Added by Conv) SOCIAL HISTORY: Social History Socioeconomic History ??? Marital status: Unknown Spouse name: Not on file ??? Number of children: Not on file ??? Years of education: Not on file ??? Highest education level: Not on file Occupational History ??? Not on file Social Needs ??? Financial resource strain: Not on file ??? Food insecurity: Worry: Not on file Inability: Not on file ??? Transportation needs: Medical: Not on file Non-medical: Not on file Tobacco Use ??? Smoking status: Never Smoker ??? Smokeless tobacco: Never Used Substance and Sexual Activity ??? Alcohol use: Yes Alcohol/week: 0.6 oz Types: 1 Standard drinks or equivalent per week ??? Drug use: Never ??? Sexual activity: Not on file Lifestyle ??? Physical activity: Days per week: Not on file Minutes per session: Not on file ??? Stress: Not on file Relationships ??? Social connections: Talks on phone: Not on file Gets together: Not on file Attends judaism service: Not on file Active member of club or organization: Not on file Attends meetings of clubs or organizations: Not on file Relationship status: Not on file ??? Intimate partner violence: Fear of current or ex partner: Not on file Emotionally abused: Not on file Physically abused: Not on file Forced sexual activity: Not on file Other Topics Concern ??? Not on file Social History Narrative No alcohol use : (Added by Conv) Environmental Review PHYSICAL EXAMINATION: Vitals BP 123/81 Pulse 93 Temp 36.4 ??C (97.5 ??F) Ht 157.5 cm (5' 2 ) Wt 47.8 kg (105 lb 4.8 oz) BMI 19.26 kg/m?? Body mass index is 19.26 kg/m??. GENERAL: well nourished, well developed. AAF in no acute distress. HEENT: Normocephalic, atraumatic. No conjunctival erythema. No sinus tenderness. Tympanic membranespearly contreras bilaterally. Nares patent with pink mucosa, and edematous inferior turbinates and middle turbinates bilaterally, Oropharynx without tonsillar enlargement or erythema. No cobblestoning or secretions. NECK: Supple. No lymphadenopathy. LUNGS: Clear to auscultation bilaterally. No wheezing. CARDIOVASCULAR: Regular rate and rhythm. No murmur. ABDOMEN: Soft and nontender. Positive bowel sounds. EXTREMITIES: No cyanosis, clubbing, or edema. SKIN: No hives or rash. PSYCH: Appropriate Mood and Affect. LABS: No new labs. Skin Testing: Positive histamine and negative histamine controls See nursing flowsheet. Positive to cockroach, mouse and dog on epicutaneous testing Positive to maple on IDs MEDICAL DECISION MAKING: ASSESSMENT: Tamiko Carcamo is a 43 y.o. Black Or female with a PMH of AR and ?FA to Shellfish who presents for skin testing. Since last being seen she reports that as long as she takes her Zyrtec 10 mg daily and Flonase 1-2 sprays in each nostril daily she has minimal if any congestion or drainage. We will continue on thisregimen for now. At her request, we performed skin testing which, as above, was positive to black willow, [place] bluegrass, dog, cockroach, mouse, and maple. Notably in 2017 she was positive to cats, grasses, trees, and mold only on IDs. Since last being seen she has eaten shrimp, lobster, crab, and other shellfish without any significant reactions. She does not have a EpiPen. Given that she has tolerated shellfish without any significant reactions she does not have a significant allergy to shellfish and may consume shellfish as she so desires. PLAN: ARC - Well Controlled Continue Zyrtec 10mg Daily and Flonase 1-2SEN Daily ?FA to Shellfish - Resolved ImmunoCAPs in past were negative Tolerates lobster, shrimp and crab without fanfare OK to eat shellfish FOLLOW UP: Return in about 1 year (around 05/13/2019). DIAGNOSIS: (J30.9) Allergic rhinitis, unspecified seasonality, unspecified trigger (primary encounter diagnosis) (Z91.013) Shellfish allergy ORDERS: No orders of the defined types were placed in this encounter. William Farrar MD Allergy & Immunology Fellow 05/12/2018 Cosigned by Anna Romano MD PhD at 05/14/2018 9:09 AM CDT Associated attestation - Anna Romano MD PhD - 05/14/2018 9:09 AM CDT I have seen and examined the patient. I agree with the findings and plan of care as documented in the resident's note.. and I was present for the smith portion of the procedure: Skin test reading and interpretation and remained immediately available for the remainder of the procedure. * Claudia Araya MA - 05/12/2018 10:00 AM CDT 05/12/18 1400 Test Information Consent signed Yes Allergen seasonal greenery bundler Turner Method Epicutaneous Location Back Testing Nurse/RACHEL FU Reviewing Physician Juan Antonio Panel 1: Trees Histamine (W/F millimeters) 4 White Trey (W/F in millimeters) 0 Birch Mix (W/F in millimeters) 0 [place] Eastern (W/F in millimeters) 0 Elm Mix (W/F in Millimeters) 0 Wilkes (W/F in millimeters) 0 Maple, Red ( W/F in millimeters) 0 [place] (W/F in millimeters) 0 Panel 2: Tree & Grass Saline (W/F millimeters) 0 [place] Mix (W/F in millimeters) 0 [place] (W/F in millimeters) 0 [place] (W/F in millimeters) 0 Black [place] (W/F in millimeters) 1 Bermuda (W/F in millimeters) 0 Brome Grass (W/F in millimeters) 0 Ramírez (W/F in millimeters) 0 Panel 3: Grass & Weeds Histamine (W/F millimeters) 4 [place] Cliff[place] (W/F in millimeters) 1 Chris (W/F in millimeters) 0 Cockelbur (W/F in millimeters) 0 Firebush/Kochia (W/F in millimeters) 0 Adan's Quarter (W/F in millimeters) 0 Marshelder, True (W/F in millimeters) 0 Nettle (W/F in millimeters) 6 Panel 4: Weeds & Molds Saline (W/F millimeters) 0 Pigweed Spiny (W/F in millimeters) 0 British Plantain (W/F in millimeters) 0 Ragweed Mix (W/F in millimeters) 0 Montserratian Thistle (W/F in millimeters) 0 Sagebrush (W/F in millimeters) 0 Alternaria Alternata (W/F in millimeters) 0 Aspergillus (W/F in millimeters) 0 Panel 5: Molds Histamine (W/F millimeters) 4 Cladosporium (W/F in millimeters) 0 Curvularia (W/F in millimeters) 0 Epicoccum (W/F in millimeters) 0 Fusarium (W/F in millimeters) 0 Helminthosporium (W/F in millimeters) 0 Hormodendrum h. (W/F in millermeters) 0 Penicillium (W/F in millimeters) 0 Panel 6: Mold, Pets & Insects Saline (W/F millimeters) 0 Rhizopus N. (W/F in millimeters) 0 D. Pteronyssinus (W/F in millimeters) 0 D. Farinae (W/F in millimeters) 0 Cat Epithelium (W/F in millimeters) 0 Dog AP* (W/F in millimeters) 0 Cockroach Mix (W/F in millimeters) 4 Mouse (W/F in Millimeters) 2 * Claudia Araya MA - 05/12/2018 10:00 AM CDT 05/12/18 8881 Test Information Consent signed Yes Allergen seasonal greenery bundler Turner Method Intradermal Location Arm Testing Nurse/RACHEL FU Reviewing Physician Juan Antonio Panel 1: Trees Maple, Red ( W/F in millimeters) 9mm/45x10f Panel 2: Tree & Grass Mad[place] Mix (W/F in millimeters) 6mm/neg Panel 4: Weeds & Molds Ragweed Mix (W/F in millimeters) 9mm/neg Alternaria Alternata (W/F in millimeters) neg Aspergillus (W/F in millimeters) neg Panel 5: Molds Cladosporium (W/F in millimeters) 7mm/neg Penicillium (W/F in millimeters) 5mm/neg Panel 6: Mold, Pets & Insects D. Pteronyssinus (W/F in millimeters) neg D. Farinae (W/F in millimeters) 7mm/neg Cat Epithelium (W/F in millimeters) neg documented in this encounter Plan of Treatment Not on file documented as of this encounter Procedures Procedure Name Priority Date/Time Associated Diagnosis Comments ALLERGY SKIN TESTS ALLERGENS, EACH Routine 05/12/2018 Allergic rhinitis, unspecified seasonality, unspecified trigger documented in this encounter Results * Allergy skin tests allergens, each (05/12/2018) Anna Romano MD PhD IN CLINIC/BEDSIDE ORDER MARGRET Final Result documented in this encounter Visit Diagnoses Diagnosis Allergic rhinitis, unspecified seasonality, unspecified trigger- Primary Shellfish allergy Allergy to seafood documented in this encounter Historical Medications * This list may reflect changes made after this encounter. ondansetron ODT (ZOFRAN-ODT) 4 mg disintegrating tablet Take 4 mg by mouth every 6 hours 08/03/2015 0 HYDROcodone-acetamin ophen (NORCO) 5-325 mg per tablet Take 1-2 tablets by mouth every 4 hours 12/21/2016 0 ciprofloxacin (CIPRO) 500 mg tablet TK 1 T PO Q 12 H 0 2018 0 added in this encounter Care Teams Aircraft Powertrain Repairer Relationship Specialty Start Date End Date Federico Nieves [address] [place] [address] PCP - General 05/17/17 06/22/19 Federico Nieves [address] [place] [address] 05/17/17 documented as of this encounter
--- OUTSIDE RECORDS SUMMARY | 2024-02-14 17:06 | XMS_ITS | Encounter Summary ---
Author Organization [facility] Address [address] [place] [address] Phone Care Team Providers Care Hyperbaric Technologist Name Role Phone Federico Nieves Unavailable [phone] Radha Barber MD Primary Care Provider Reason for Visit * Reason Onset Date Comments Appointment 08/22/2020 Encounter Details Date Type Department Care Team (Late st Contact Info) Description 08/22/2020 Telephone [facility] Allergy and Immunology [address] [facility] Medical Office Building [address] [place] [address] Claire Jacobo, [place] [address] [facility] [address] [place] [address] Appointment Social History Tobacco Use Types Packs/Day Years Used Date Smoking Tobacco: Never Smokeless Tobacco: Never Alcohol Use Standard Drinks/Week Comments Yes 1 (1 standard drink = 0.6 oz pur e alcohol) Social Comments Unknown Sex and Gender Information Value Date Recorded Sex Assigned at Not on file Legal Sex Female 11:06 AM CONFERENCE ORGANIZER Gender Identity Female 08/17/2020 7:40 PM CDT Sexual Orientation Not on file documented as of this encounter Miscellaneous Notes * Telephone Encounter - Amee Tolentino - 08/22/2020 2:55 PM CDT LVM FOR PT TO CALL AND SCHEDULE 1yr F/U APPT documented in this encounter Plan of Treatment Not on file documented as of this encounter Visit Diagnoses Not on filedocumented in this encounter Care Teams Hyperbaric Technologist Relationship Specialty Start Date End Date Radha Barber MD [address] [place] [address] PCP - General Family Practice 06/23/19 Federico Nieves [address] [place] [place] [address] 05/17/17 documented as of this encounter
--- OUTSIDE RECORDS SUMMARY | 2024-02-14 17:06 | XMS_ITS | Encounter Summary ---
Author Organization [facility] [place] [facility] Facility Care Team Providers Care Tie Layer Name Role Phone Unavailable Primary Care Provider Unavailabl e Encounter Details Date Type Department Care Team (Late st Contact Info) Description 04/23/2007 9:52 AM CDT - 04/23/2007 11:59 PM CDT Hospital Encounter [facility] Social History Tobacco Use Types Packs/Day Years Used Date Smoking Tobacco: Never Assessed Comments Unknown Sex and Gender Information Value Date Recorded Sex Assigned at Not on file Legal Sex Female 11:06 AM CLOTH SPREADER Gender Identity Female 08/17/2020 7:40 PM CDT Sexual Orientation Not on file documented as of this encounter Plan of Treatment Not on file documented as of this encounter Visit Diagnoses Not on filedocumented in this encounter
--- OUTSIDE RECORDS SUMMARY | 2024-02-14 17:06 | XMS_ITS | Encounter Summary ---
Author Organization [facility] Address [address] [place] [address] Care Team Providers Care Sales Representative Gas Service Name Role Phone Federico Nieves Primary Care Provider [phone] Federico Nieves Unavailable [phone] Encounter Details Date Type Department Care Team (Latest Contact Info) Description 07/02/2017 8:27 AM CDT - 07/02/2017 11:59 PM T Hospital Encounter [facility] OP INTERIM [phone] Slime Kohli MD PhD [address] [place] [address] Discharge Disposition: Discharge to home or self care Social History Tobacco Use Types Packs/Day Years Used Date Smoking Tobacco: Never Assessed Comments Unknown Sex and Gender Information Value Date Recorded Sex Assigned at Not on file Legal Sex Female 11:06 AM QUALITY MANAGER Gender Identity Female 08/17/2020 7:40 PM [...] Procedure Name Priority Date/Time Associated Diagnosis Comments IR FINE NEEDLE ASPIRATION W IMAGE GUIDANCE Routine 07/02/2017 2:40 PM CDT US GUIDED NEEDLE PLACEMENT Routine 07/02/2017 2:40 PM CDT documented in this encounter Results * IR Fine Needle Aspiration W Image Guidance (07/02/2017 2:40 PM CDT) Anatomical Region Laterality Modality Body N/A X-Ray Angiograph y 07/02/2017 2:40 PM CDT Narrative 07/02/2017 3:35 PM CDT RONDA SIERRA M.D. NYA NOLAND HO FINAL REPORT The radiology attending physician has personally reviewed this study, and has reviewed and/or edited this written report and agrees with it. ACC# ??Date Time ??Exam [id number] July 02, 2017 09:40:00 [id number] US Needle guide [id number] July 02, 2017 09:40:00 [id number] FNA w Imaging Biopsy EXAMINATION: ??ULTRASOUND-GUIDED RESEARCH FINE NEEDLE ASPIRATION BIOPSY HISTORY: ??42-year-old female participating in a research study. ??This is a post vaccination axillary lymph node biopsy COMPARISON: ??None FINDINGS: The right axillary lymph node measures 0.4 x 1.1 x 1.2 cm. TECHNIQUE: ??The procedure for ultrasound-guided fine needle aspiration (FNA) was explained to and discussed with the patient. Risks were explained to include, but not be limited to, hemorrhage, infection, injury to adjacent organs, and adverse reaction to medications administered. The patient voiced understanding and wished to proceed and signed the consent form. The patient's overlying skin was prepped and draped in the usual sterile fashion. ?? FNA: The lymph node was located in the right axilla. ??The site was localized for fine needle aspiration. The patient's overlying skin was prepped and draped in the usual sterile fashion. Local anesthesia was achieved via subcutaneous and deep administration with 4 mL of Lidocaine 1%. Under realtime ultrasound guidance, the needle was advanced into the lymph node ??and 6 passes were made with 25 gauge needles. The samples were ??handed to Dr. Cummings. The patient's skin was cleaned and dressed. The patient tolerated the entire procedure well without immediate complications. Dr. Ronda Sierra M.D., the attending radiologist, was present from the beginning to the end of the procedure. ??Cherrie Cespedes PA-C performed the biopsy. IMPRESSION: ??1. Successful ultrasound-guided research fine needle aspiration of right axillary lymph node. Electronically signed by: Ronda Sierra M.D. Requested By: SLIME KOHLI MD, PHD Dictated By: ?? NYA NOLAND ??on Jul 02 2017 ??9:47A This document has been electronically signed by: RONDA SIERRA M.D. on Jul 02 2017 10:31A [id number] CROWLEY PA HO FINAL REPORT The radiology attending physician has personally reviewed this study, and has reviewed and/or edited this written report and agrees with it. Attending: ??MORELIA, ??SLIME Requesting: ??MORELIA, ?SHRADDHA Requesting Fax: ?? Attending Fax: ?? Attending ID: ??[id number] Requesting ID: ??[id number] Report To 1 ID: ??[id number] ? Report To 1 Name: ??, ?? Report To 1 FAX: ?? NextGen Order #: ?? Procedure Note Miscellaneous, Not In File - 07/02/2017 Vignesh CROWLEY PA HO FINAL REPORT The radiology attending physician has personally reviewed this study, and has reviewed and/or edited this written report and agrees with it. ACC# Date Time Exam [id number] July 02, 2017 09:40:00 [id number] US Needle guide [id number] July 02, 2017 09:40:00 [id number] FNA w Imaging Biopsy EXAMINATION: ULTRASOUND-GUIDED RESEARCH FINE NEEDLE ASPIRATION BIOPSY HISTORY: 42-year-old female participating in a research study. This is a post vaccination axillary lymph node biopsy COMPARISON: None FINDINGS: The right axillary lymph node measures 0.4 x 1.1 x 1.2 cm. TECHNIQUE: The procedure for ultrasound-guided fine needle aspiration (FNA) was explained to and discussed with the patient. Risks were explained to include, but not be limited to, hemorrhage, infection, injury to adjacent organs, and adverse reaction to medications administered. The patient voiced understanding and wished to proceed and signed the consent form. The patient's overlying skin was prepped and draped in the usual sterile fashion. FNA: The lymph node was located in the right axilla. The site was localized for fine needle aspiration. The patient's overlying skin was prepped and draped in the usual sterile fashion. Local anesthesia was achieved via subcutaneous and deep administration with 4 mL of Lidocaine 1%. Under realtime ultrasound guidance, the needle was advanced into the lymph node and 6 passes were made with 25 gauge needles. The samples were handed to Dr. Cummings. The patient's skin was cleaned and dressed. [...] MD, PHD Dictated By: NYA NOLAND on Jul 02 2017 9:47A This document has been electronically signed by: RONDA SIERRA M.D. on Jul 02 2017 10:31A [id number] CROWLEY PA HO FINAL REPORT The radiology attending physician has personally reviewed this study, and has reviewed and/or edited this written report and agrees with it. Attending: SLIME KOHLI Requesting: SLIME KOHLI Requesting Fax: Attending Fax: Attending ID: [id number] Requesting ID: [id number] Report To 1 ID: [id number] Report To 1 Name: , Report To 1 FAX: NextGen Order #: us Slime Kohli MD PhD IMG IR PROCEDURES Final Result * US Guided Needle Placement (07/02/2017 2:40 PM CDT) Anatomical Region Laterality Modality Entire body N/A Ultrasound 07/02/2017 2:40 PM CDT Narrative 07/02/2017 3:35 PM CDT Vignesh CROWLEY PA HO FINAL REPORT The radiology attending physician has personally reviewed this study, and has reviewed and/or edited this written report and agrees with it. ACC# ??Date Time ??Exam [id number] July 02, 2017 09:40:00 [id number] US Needle guide [id number] July 02, 2017 09:40:00 92945 FNA w Imaging Biopsy EXAMINATION: ??ULTRASOUND-GUIDED RESEARCH FINE NEEDLE ASPIRATION BIOPSY HISTORY: ??42-year-old female participating in a research study. ??This is a post vaccination axillary lymph node biopsy COMPARISON: ??None FINDINGS: The right axillary lymph node measures 0.4 x 1.1 x 1.2 cm. TECHNIQUE: ??The procedure for ultrasound-guided fine needle aspiration (FNA) was explained to and discussed with the patient. Risks were explained to include, but not be limited to, hemorrhage, infection, injury to adjacent organs, and adverse reaction to medications administered. The patient voiced understanding and wished to proceed and signed the consent form. The patient's overlying skin was prepped and draped in the usual sterile fashion. ?? FNA: The lymph node was located in the right axilla. ??The site was localized for fine needle aspiration. The patient's overlying skin was prepped and draped in the usual sterile fashion. Local anesthesia was achieved via subcutaneous and deep administration with 4 mL of Lidocaine 1%. Under realtime ultrasound guidance, the needle was advanced into the lymph node ??and 6 passes were made with 25 gauge needles. The samples were ??handed to Dr. Cummings. The patient's skin was cleaned and dressed. The patient tolerated the entire procedure well without immediate complications. Dr. Ronda Sierra M.D., the attending radiologist, was present from the beginning to the end of the procedure. ??Cherrie Cespedes PA-C performed the biopsy. IMPRESSION: ??1. Successful ultrasound-guided research fine needle aspiration of right axillary lymph node. Electronically signed by: Ronda Sierra M.D. Requested By: SLIME KOHLI MD, PHD Dictated By: ?? NYA NOLAND ??on Jul 02 2017 ??9:47A This document has been electronically signed by: RONDA SIERRA M.D. on Jul 02 2017 10:31A [id number] CROWLEY PA HO FINAL REPORT The radiology attending physician has personally reviewed this study, and has reviewed and/or edited this written report and agrees with it. Attending: ??MORELIA, ??SLIME Requesting: ??MORELIA, ??SLIME Requesting Fax: ?? Attending Fax: ?? Attending ID: ??[id number] Requesting ID: ??[id number] Report To 1 ID: ??[id number] ? Report To 1 Name: ??, ?? Report To 1 FAX: ?? NextGen Order #: ?? Procedure Note Miscellaneous, Not In File - 07/02/2017 Vignesh CROWLEY PA HO FINAL REPORT The radiology attending physician has personally reviewed this study, and has reviewed and/or edited this written report and agrees with it. ACC# Date Time Exam [id number] July 02, 2017 09:40:00 [id number] US Needle guide [id number] July 02, 2017 09:40:00 [id number] FNA w Imaging Biopsy EXAMINATION: ULTRASOUND-GUIDED RESEARCH FINE NEEDLE ASPIRATION BIOPSY HISTORY: 42-year-old female participating in a research study. This is a post vaccination axillary lymph node biopsy COMPARISON: None FINDINGS: The right axillary lymph node measures 0.4 x 1.1 x 1.2 cm. TECHNIQUE: The procedure for ultrasound-guided fine needle aspiration (FNA) was explained to and discussed with the patient. Risks were explained to include, but not be limited to, hemorrhage, infection, injury to adjacent organs, and adverse reaction to medications administered. The patient voiced understanding and wished to proceed and signed the consent form. The patient's overlying skin was prepped and draped in the usual sterile fashion. FNA: The lymph node was located in the right axilla. The site was localized for fine needle aspiration. The patient's overlying skin was prepped and draped in the usual sterile fashion. Local anesthesia was achieved via subcutaneous and deep administration with 4 mL of Lidocaine 1%. Under realtime ultrasound guidance, the needle was advanced into the lymph node and 6 passes were made with 25 gauge needles. The samples were handed to Dr. Cummings. The patient's skin was cleaned and dressed. [...] MD, PHD Dictated By: NYA NOLAND on Jul 02 2017 9:47A This document has been electronically signed by: RONDA SIERRA M.D. on Jul 02 2017 10:31A [id number] CROWLEY PA HO FINAL REPORT The radiology attending physician has personally reviewed this study, and has reviewed and/or edited this written report and agrees with it. Attending: SLIME KOHLI Requesting: SLIME KOHLI Requesting Fax: Attending Fax: Attending ID: [id number] Requesting ID: [id number] Report To 1 ID: [id number] Report To 1 Name: , Report To 1 FAX: NextGen Order #: us Slime Kohli MD PhD IMG US PROCEDURES Final Result documented in this encounter Visit Diagnoses Not on filedocumented in this encounter Care Teams Sales Representative Gas Service Relationship Specialty Start Date End Date Federico Nieves [address] [place] [address] PCP - General 05/17/17 06/22/19 Federico Nieves [address] [place] [address] 05/17/17 documented as of this encounter
--- OUTSIDE RECORDS SUMMARY | 2024-02-14 17:06 | XMS_ITS | Encounter Summary ---
Author Organization [facility] Care Team Providers Care Tobacco Wrapping Machine Tender Name Role Phone Federico Nieves Primary Care Provider [phone] Federico Nieves Unavailable [phone] Encounter Details Date Type Department Care Team (Latest Contact Info) Description 05/21/2017 Orders Only [facility] Slime Thomas MD PhD [address] [facility] [address] [place] [address] Social History Tobacco Use Types Packs/Day Years Used Date Smoking Tobacco: Never Assessed Comments Unknown Sex and Gender Information Value Date Recorded Sex Assigned at Not on file Legal Sex Female 11:06 AM BOTTLER Gender Identity Female 08/17/2020 7:40 PM CDT [...] agrees with it. ACC# ??Date Time ??Exam [id number] May 21, 2017 09:52:00 79025 US Needle guide [id number] May 21, 2017 09:52:00 63507 Extremity Sono Limited R [id number] May 21, 2017 09:52:00 55703 Extremity Sono Limited L [id number] May 21, 2017 09:52:00 97403 FNA w Imaging EXAMINATION: ??BILATERAL LIMITED EXTREMITY [...] SIERRA M.D. on May 21 2017 12:04P [id number] SIERRA M.D. NYA NOLAND FINAL REPORT The radiology attending physician has personally reviewed this study, and has reviewed and/or edited this written report and agrees with it. Attending: ??MORELIA, ??SLIME Requesting: ??MORELIA, ??SLIME Requesting Fax: ?? Attending Fax: ?? Attending ID: ??[id number] Requesting ID: ??[id number] Report To 1 ID: ??[id number] ? Report To 1 Name: ??, ?? Report To 1 FAX: ?? NextGen Order #: ?? Procedure Note Miscellaneous, Not In File - 05/21/2017 RONDA SIERRA M.D. NYA NOLAND FINAL REPORT The radiology attending physician has personally reviewed this study, and has reviewed and/or edited this written report and agrees with it. ACC# Date Time Exam [id number] May 21, 2017 09:52:00 10562 US Needle guide [id number] May 21, 2017 09:52:00 99258 Extremity Sono Limited R [id number] May 21, 2017 09:52:00 87954 Extremity Sono Limited L [id number] May 21, 2017 09:52:00 50041 FNA w Imaging EXAMINATION: BILATERAL LIMITED EXTREMITY [...] SIERRA M.D. on May 21 2017 12:04P [id number] CROWLEY PA HO FINAL REPORT The radiology attending physician has personally reviewed this study, and has reviewed and/or edited this written report and agrees with it. Attending: SLIME KOHLI Requesting: SLIME KOHLI Requesting Fax: Attending Fax: Attending ID: [id number] Requesting ID: [id number] Report To 1 ID: [id number] Report To 1 Name: , Report To 1 FAX: NextGen Order #: us Slime Kohli MD PhD IMG US PROCEDURES Final Result documented in this encounter Visit Diagnoses Not on filedocumented in this encounter Care Teams Tobacco Wrapping Machine Tender Relationship Specialty Start Date End Date Federico Nieves [address] [place] [address] PCP - General 05/17/17 06/22/19 Federico Nieves [address] [place] [address] 05/17/17 documented as of this encounter
--- OUTSIDE RECORDS SUMMARY | 2024-02-14 17:06 | XMS_ITS | Encounter Summary ---
Author Organization [facility] Address [address] [place] [address] Phone Care Team Providers Care Parachute Rigger Name Role Phone Federico Nieves Unavailable [phone] Radha Barber MD Primary Care Provider Encounter Details Date Type Department Care Team (Late st Contact Info) Description 01/20/2020 Orders Only [facility] Allergy and Immunology [address] [facility] [address] [place] [address] Griselda Mcdonough RN Social History Tobacco Use Types Packs/Day Years Used Date Smoking Tobacco: Never Smokeless Tobacco: Never Alcohol Use Standard Drinks/Week Comments Yes 1 (1 standard drink = 0.6 oz pur e alcohol) Social Comments Unknown Sex and Gender Information Value Date Recorded Sex Assigned at Not on file Legal Sex Female 11:06 AM BILINGUAL CUSTOMER SERVICE SPECIALIST Gender Identity Female 08/17/2020 7:40 PM CDT Sexual Orientation Not on file documented as of this encounter Ordered Prescriptions Prescription Sig Dispense Quantity Refills Last Filled Start Date End Date fluticasone propionate (FLONASE) 50 mcg/actuation nasal spray Administer 2 sprays into each nostril daily 16 g 11 01/20/2020 1 documented in this encounter Progress Notes * Griselda Mcdonough RN - 01/20/2020 3:21 PM CST Pt requesting refill NGUAL CUSTOMER SERVICE SPECIALIST documented in this encounter Plan of Treatment Not on file documented as of this encounter Visit Diagnoses Not on filedocumented in this encounter Discontinued Medications Medication Sig Discontinue Reason Start Date End Da te fluticasone propionate (FLONASE) 50 mcg/actuation nasal spray Administer 2 sprays into each nostril daily Reorder 08/10/2019 01/20/2020 documented as of this encounter Care Teams Parachute Rigger Relationship Specialty Start Date End Date Radha Barber MD [address] [place] [address] PCP - General Family Practice 06/23/19 Federico Nieves [address] [place] [address] 05/17/17 documented as of this encounter
--- OUTSIDE RECORDS SUMMARY | 2024-02-14 17:06 | XMS_ITS | Encounter Summary ---
Author Organization [facility] Address [address] [place] [address] Care Team Providers Care Housekeeper Caregiver Name Role Phone Federico Nieves Unavailable [phone] Radha Barber MD Primary Care Provider Encounter Details Date Type Department Care Team (Late st Contact Info) Description 05/03/2020 [facility] Only [place] [address] [facility] [address] [place] [address] Covid, Vaccination Provider Social History Tobacco Use Types Packs/Day Years Used Date Smoking Tobacco: Never Smokeless Tobacco: Never Alcohol Use Standard Drinks/Week Comments Yes 1 (1 standard drink = 0.6 oz pur e alcohol) Social Comments Unknown Sex and Gender Information Value Date Recorded Sex Assigned at Not on file Legal Sex Female 11:06 AM ACCOUNT SUPPORT ANALYST Gender Identity Female 08/17/2020 7:40 PM CDT Sexual Orientation Not on file documented as of this encounter Plan of Treatment Not on file documented as of this encounter Visit Diagnoses Not on filedocumented in this encounter Care Teams Housekeeper Caregiver Relationship Specialty Start Date End Date Radha Barber MD [address] [place] [address] PCP - General Family Practice 06/23/19 Federico Nieves [address] [place] [address] 05/17/17 documented as of this encounter
--- OUTSIDE RECORDS SUMMARY | 2024-02-14 17:06 | XMS_ITS | Encounter Summary ---
Author Organization [facility] Address [address] [place] [address] Phone Care Team Providers Care Lockstitch Shoulder Joiner Name Role Phone Federico Nieves Unavailable [phone] Radha Barber MD Primary Care Provider Encounter Details Date Type Department Care Team (Late st Contact Info) Description 08/18/2020 3:00 PM CDT Telemedicine [facility] [address] 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 Flonase 1 spray per nostril daily and azelastine 2 sprays per nostril twice daily as needed 2. Zyrtec daily 3. Pataday eyedrops as needed documented in this encounter Ordered Prescriptions Prescription Sig Dispense Quantity Refills Last Filled Start Date End Date fluticasone propionate (FLONASE) 50 mcg/actuation nasal spray Administer 2 sprays into each nostril daily 16 g 08/18/2020 1 cetirizine (ZyrTEC) 10 mg tabletIndications: Seasonal allergic rhinitis, unspecified trigger Take 1 tablet (10 mg total) by mouth daily 30 tablet 08/18/2020 2 azelastine (ASTELIN) 137 mcg (0.1 %) nasal spray Administer 2 sprays into each nostril 2 (two) times a day Use in each nostril as directed 120 mL 08/18/2020 2 documented in this encounter Progress Notes * Claire Jacobo NP - 08/18/2020 3:00 PM CDT PATIENT NAME: Tamiko Carcamo : 1975 This was a telemedicine visit with Tamiko Carcamo alone which took place via real-time video connection with Zoom. During the visit, I was located in the office and the patient was located at home in the state of [place]. The patient visit started at 1509 and ended at 1516. My total encounter time on 08/18/2020 was 12 minutes which was spent in the activities documented in the note. This includes time spent prior to the visit and after the visit in direct care of the patient. This time does not include time spent in any separately reportable services. The patient has been informed that the visit may not be secure and acknowledged the information. I have explained the option of participating in a telephone or video visit during the COVID-19 public health emergency to the patient. After being given an opportunity to ask questions about and discuss this type of visit, the patient verbally consented to proceeding with the telephone/video visit.The patient understands that this service replaces an office visit and they may be billed and/or responsible for any applicable copayments. Claire Jacobo NP History of Present Illness: Tamiko Carcamo is a 45 y.o. year old female with allergic rhinitis and food allergies who presents for a follow up visit. She was last seen in our clinic on 08/10/2019. The patient has a history of seasonal allergies. The patient takes Zyrtec daily, Flonase 2 sprays per nostril daily, and Azelastine 2 sprays per nostril twice daily as needed. The patient reports that her allergies are well controlled. She uses Pataday eyedrops as needed. The patient has previously had concerns regarding shellfish and seafood food allergies. The patientstates that she is able to tolerate these foods without issues. Review of Systems: A complete review of systems is performed and pertinent positives and negatives are outlined in theHPI. Medical History: Past Medical History: Diagnosis Date ??? Allergic rhinitis Patient reports that she has never smoked. She has never used smokeless tobacco. She reports current alcohol use of about 1.0 standard drinks of alcohol per week. She reports that she does not use drugs. Allergies: No Known Allergies Current Medications: Current Outpatient Medications Medication Sig Dispense Refill ??? FLUoxetine (PROzac) 40 mg capsule Take 40 mg by mouth daily ??? promethazine (PHENERGAN) 25 mg suppository Insert 25 mg into the rectum every 6 (six) hours as needed ??? azelastine (ASTELIN) 137 mcg (0.1 %) nasal spray Administer 2 sprays into each nostril 2 (two) times a day Use in each nostril as directed 120 mL 11 ??? cetirizine (ZyrTEC) 10 mg tablet Take 1 tablet (10 mg total) by mouth daily 30 tablet 11 ??? fluticasone propionate (FLONASE) 50 mcg/actuation nasal spray Administer 2 sprays into each nostril daily 16 g 11 ??? ketoconazole (NIZORAL) 2 % shampoo daily. ??? norethindrone-e.estradiol-iron (BLISOVI FE 03/02, ,) 1 mg-20 mcg (21)/75 mg (7) per tablet daily. No current facility-administered medications for this visit. Physical Exam: Not performed. Assessment and Plan: Tamiko Carcamo is a 45 y.o. year old female with allergic rhinitis and previous concerns for foodallergies who was seen today by video for The patient has a history of allergic rhinitis which is well controlled. She will continue her Zyrtec daily and Flonase 2 sprays per nostril daily. The patient can use her Azelastine 2 sprays per nostril twice daily as needed. She should call our office with continued or worsening allergy symptoms. Otherwise, she can follow up in 1 year. The patient had previously been concerned about food allergies. However, she is able to tolerate these foods and they are no longer a concern. Patient received the following instruction(s) and verbalized understandin. Flonase 1 spray per nostril daily and azelastine 2 sprays per nostril twice daily as needed 2. Zyrtec daily 3. Pataday eyedrops as needed Visit Diagnoses/Diagnosis: Diagnosis Orders 1. Seasonal allergic rhinitis, unspecified trigger cetirizine (ZyrTEC) 10 mg tablet Follow Up: Return in about 1 year (around 08/18/2021). Orders Placed This Encounter ??? azelastine (ASTELIN) 137 mcg (0.1 %) nasal spray Sig: Administer 2 sprays into each nostril 2 (two) times a day Use in each nostril as directed Dispense: 120 mL Refill: 11 ??? cetirizine (ZyrTEC) 10 mg tablet Sig: Take 1 tablet (10 mg total) by mouth daily Dispense: 30 tablet Refill: 11 ??? fluticasone propionate (FLONASE) 50 mcg/actuation nasal spray Sig: Administer 2 sprays into each nostril daily Dispense: 16 g Refill: 11 Claire Jacobo NP Portions of this note may have been dictated using [employer] Fluency Direct speech recognition software. Please excuse any radiology transcriptionist errors. documented in this encounter Plan of Treatment Not on file documented as of this encounter Visit Diagnoses Diagnosis Seasonal allergic rhinitis, unspecified trigger- Primary documented in this encounter Discontinued Medications Medication Sig Discontinue Reason Start Date End Da te ondansetron (ZOFRAN) 4 mg tablet TAKE 1 TABLET PRN nausea/ vomitting 09/03/2016 08/18/2020 azelastine (ASTELIN) 137 mcg (0.1 %) nasal spray Administer 2 sprays into each nostril 2 (two) times a day Use in each nostril as directed Reorder 08/10/2019 08/18/2020 cetirizine (ZyrTEC) 10 mg tabletIndications:Seaso nal allergic rhinitis, unspecified trigger Take 1 tablet (10 mg total) by mouth daily Reorder 08/10/2019 08/18/2020 fluticasone propionate (FLONASE) 50 mcg/actuation nasal spray Administer 2 sprays into each nostril daily Reorder 01/20/2020 08/18/2020 documented as of this encounter Historical Medications * This list may reflect changes made after this encounter. FLUoxetine (PROzac) 40 mg capsule Take 40 mg by mouth daily promethazine (PHENERGAN) 25 mg suppository Insert 25 mg into the rectum every 6 (six) hours as needed added in this encounter Care Teams Lockstitch Shoulder Joiner Relationship Specialty Start Date End Date Radha Barber MD [address] [place] [id number] PCP - General Family Practice 06/23/19 Federico Nieves [address] [place] [id number] 05/17/17 documented as of this encounter
--- OUTSIDE RECORDS SUMMARY | 2024-02-14 17:06 | XMS_ITS | Encounter Summary ---
Author Organization [facility] Facility Care Team Providers Care Warehouse Receiving Clerk Name Role Phone Federico Nieves Primary Care Provider [phone] Federico Nieves Unavailable [phone] Encounter Details Date Type Department Care Team (Latest Contact Info) Description 04/21/2019 Travel Social History Tobacco Use Types Packs/Day Years Used Date Smoking Tobacco: Never Smokeless Tobacco: Never Alcohol Use Standard Drinks/Week Comments Yes 1 (1 standard drink = 0.6 oz pur e alcohol) Comments Unknown Sex and Gender Information Value Date Recorded Sex Assigned at Not on file 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
--- OUTSIDE RECORDS SUMMARY | 2024-02-14 17:06 | XMS_ITS | Encounter Summary ---
Author Organization [facility] Facility Care Team Providers Care Trimmer Sawyer Name Role Phone Unavailable Primary Care Provider Unavailabl e Encounter Details Date Type Department Care Team (Late st Contact Info) Description 04/13/2007 2:29 PM VICE PRESIDENT OF HUMAN RESOURCES - 04/13/2007 6:25 PM VICE PRESIDENT OF HUMAN RESOURCES Hospital Encounter [facility] Vince Ortiz, DO [address] [place] [address] Social History Tobacco Use Types Packs/Day Years Used Date Smoking Tobacco: Never Assessed Comments Unknown Sex and Gender Information Value Date Recorded Sex Assigned at Not on file Legal Sex Female 11:06 AM VICE PRESIDENT OF HUMAN RESOURCES Gender Identity Female 08/17/2020 7:40 PM CDT Sexual Orientation Not on file documented as of this encounter Plan of Treatment Not on file documented as of this encounter Visit Diagnoses Not on filedocumented in this encounter
--- OUTSIDE RECORDS SUMMARY | 2024-02-14 17:06 | XMS_ITS | Encounter Summary ---
Author Organization [facility] Facility Care Team Providers Care Traveling Missionary Name Role Phone Federico Nieves Primary Care Provider [phone] Federico Nieves Unavailable [phone] Encounter Details Date Type Department Care Team (Latest Contact Info) Description 05/21/2017 Orders Only [facility] Slime Thomas MD PhD [address] [place] [address] Social History Tobacco Use Types Packs/Day Years Used Date Smoking Tobacco: Never Assessed Comments Unknown Sex and Gender Information Value Date Recorded Sex Assigned at Not on file 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 [facility]OLAND HO FINAL REPORT The radiology attending physician has personally reviewed this study, and has reviewed and/or edited this written report and agrees with it. ACC# ??Date Time ??Exam [id number] May 21, 2017 09:52:00 [id number] US Needle guide [id number] May 21, 2017 09:52:00 08139 Extremity Sono Limited R [id number] May 21, 2017 09:52:00 [id number] Extremity Sono Limited L [id number] May 21, 2017 09:52:00 31548 FNA w Imaging EXAMINATION: ??BILATERAL LIMITED EXTREMITY [...] SIERRA M.D. on May 21 2017 12:04P [id number] SIERRA M.D. [facility] FINAL REPORT The radiology attending physician has personally reviewed this study, and has reviewed and/or edited this written report and agrees with it. Attending: ??MORELIA, ??SLIME Requesting: ??MORELIA, ??SLIME Requesting Fax: ?? Attending Fax: ?? Attending ID: ??[id number] Requesting ID: ??[id number] Report To 1 ID: ??[id number] ? Report To 1 Name: ??, ?? Report To 1 FAX: ?? NextGen Order #: ?? Procedure Note Miscellaneous, Not In File - 05/21/2017 Vignesh CROWLEY PA HO FINAL REPORT The radiology attending physician has personally reviewed this study, and has reviewed and/or edited this written report and agrees with it. ACC# Date Time Exam [id number] May 21, 2017 09:52:00 [id number] US Needle guide [id number] May 21, 2017 09:52:00 23138 Extremity Sono Limited R [id number] May 21, 2017 09:52:00 [id number] Extremity Sono Limited L [id number] May 21, 2017 09:52:00 27709 FNA w Imaging EXAMINATION: BILATERAL LIMITED EXTREMITY [...] SIERRA M.D. on May 21 2017 12:04P [id number] CROWLEY PA HO FINAL REPORT The radiology attending physician has personally reviewed this study, and has reviewed and/or edited this written report and agrees with it. Attending: SLIME KOHLI Requesting: SLIME KOHLI Requesting Fax: Attending Fax: Attending ID: [id number] Requesting ID: [id number] Report To 1 ID: [id number] Report To 1 Name: , Report To 1 FAX: NextGen Order #: us Slime Kohli MD PhD IMG IR PROCEDURES Final Result documented in this encounter Visit Diagnoses Not on filedocumented in this encounter Care Teams Traveling Missionary Relationship Specialty Start Date End Date Federico Nieves [address] [place] [id number] PCP - General 05/17/17 06/22/19 Federico Nieves [address] [place] [address] 05/17/17 documented as of this encounter
--- OUTSIDE RECORDS SUMMARY | 2024-02-14 17:06 | XMS_ITS | Encounter Summary ---
Author Organization [facility] Facility Care Team Providers Care Hand Buffer Name Role Phone Unavailable Primary Care Provider Unavailabl e Encounter Details Date Type Department Care Team (Latest Contact Info) Description 03/14/2012 6:56 AM WEB MARKETING STRATEGIST - 03/14/2012 10:35 AM WEB MARKETING STRATEGIST Hospital Encounter [facility] Dougherty Jailene Abdominal pain; Nausea without vomiting; Abnormal levels of other serum enzymes Social History Tobacco Use Types Packs/Day Years Used Date Smoking Tobacco: Never Assessed Comments Unknown Sex and Gender Information Value Date Recorded Sex Assigned at Not on file Legal Sex Female 11:06 AM WEB MARKETING STRATEGIST Gender Identity Female 08/17/2020 7:40 PM CDT Sexual Orientation Not on file documented as of this encounter Plan of Treatment Not on file documented as of this encounter Procedures Procedure Name Priority Date/Time Associated Diagnosis Comments PLASMA PROTHROMBIN TIME (PT) Routine 03/14/2012 8:21 AM WEB MARKETING STRATEGIST PLASMA PARTIAL THROMBOPLASTIN TIME (PTT) Routine 03/14/2012 8:21 AM WEB MARKETING STRATEGIST PLASMA COMPREHENSIVE METABOLIC PANEL Routine 03/14/2012 8:21 AM WEB MARKETING STRATEGIST BLOOD CELL COUNT (CBC), MORPHOLOGIC EXAM Routine 03/14/2012 8:21 AM WEB MARKETING STRATEGIST URINE CHORIONIC GONADOTROPIN (HCG) Routine 03/14/2012 3:13 AM WEB MARKETING STRATEGIST UPPER ENDOSCOPIC ULTRASONOGRAPHY REPORT 03/14/2012 DISCHARGE LABORATORY CUMULATIVE REPORT 03/14/2012 documented in this encounter Results * Blood cell count (CBC), morphologic exam (03/14/2012 8:21 AM WEB MARKETING STRATEGIST) WBC 7.2 4.5 - 11.0 K/cumm HISTORICAL RESULTS RBC 4.49 3.80 - 5.40 M/cumm HISTORICAL RESULTS Hgb 12.9 11.5 - 16.0 g/dl HISTORICAL RESULTS Comment:As of February 25, the hemoglobin alert value has changed from less than 7.0 g/dL to less than or equal to 6.5 g/dL, first time per admission. Hct 39.0 34.0 - 48.0 % HISTORICAL RESULTS Comment:As of February 25, the hematocrit alert value has changed from less than 21% to less than or equal to 19.5%, first time per admission. MCV 86.8 80.0 - 100.0 fl HISTORICAL RESULTS MCH 28.6 27.0 - 33.0 pg HISTORICAL RESULTS MCHC 33.0 32.0 - 36.0 g/dl HISTORICAL RESULTS Rdw 13.9 11.5 - 14.5 % HISTORICAL RESULTS Platelets 208 140 - 400 K/cumm HISTORICAL RESULTS MPV 7.8 7.4 - 10.4 fl HISTORICAL RESULTS Neutrophils 66.5 42.0 - 75.0 % HISTORICAL RESULTS Lymphocytes 29.4 21.0 - 51.0 % HISTORICAL RESULTS Monos 3.7 2.0 - 9.0 % HISTORICAL RESULTS Eosinophils 0.4 0.0 - 10.0 % HISTORICAL RESULTS Basophils 0.0 0.0 - 1.0 % HISTORICAL RESULTS Neutrophils, abs 4.8 1.8 - 7.7 K/cumm HISTORICAL RESULTS Lymphocytes, abs 2.1 1.0 - 4.8 K/cumm HISTORICAL RESULTS Monocytes, absolute 0.3 0.0 - 0.8 K/cumm HISTORICAL RESULTS Eosinophils, abs 0.0 0.0 - 0.5 K/cumm HISTORICAL RESULTS Basophils, abs 0.0 0.0 - 0.2 K/cumm HISTORICAL RESULTS Blood specimen (specimen) 03/14/2012 8:21 AM WEB MARKETING STRATEGIST [facility] BLOOD ORDERABLES Final Resul t HISTORICAL RESULTS * Plasma prothrombin time (PT) (03/14/2012 8:21 AM WEB MARKETING STRATEGIST) Prothrombin time (PT) 13.2 11.7 - 14.8 seconds HISTORICAL RESULTS INR 1.0 0.9 - 1.2 HISTORICAL RESULTS Comment: INDICATION: ORTHOPEDIC Total Hip and Knee Arthroplasty ?1.8 to 2.6 Hip Fracture ?1.8 to 2.6 CARDIOLOGY Atrial Fibrillation ? 2.0 to 3.0 Cardiomyopathy ?2.0 to 3.0 Myocardial Infarction ?2.0 to 3.0 Bioprosthetic Heart Valve ? 2.0 to 3.0 Mechanical Valve Replacement ?2.[address] [facility] Mechanical Aortic Valve ?2.0 to 3.0 TREATMENT OF VENOUS THRMBOSIS Deep Vein Thrombosis ? 2.0 to 3.0 Pulmonary Embolism ? 2.0 to 3.0 Plasma 03/14/2012 8:21 AM WEB MARKETING STRATEGIST [facility] LAB BLOOD ORDERABLES Final Resul t HISTORICAL RESULTS * (ABNORMAL) Plasma partial thromboplastin time (PTT) (03/14/2012 8:21 AM WEB MARKETING STRATEGIST) APTT 21.3(L) 24.0 - 36.1 seconds HISTORICAL RESULTS Comment: ? Therapeutic Heparin Range: ??60-100 seconds Plasma 03/14/2012 8:21 AM WEB MARKETING STRATEGIST [facility] BLOOD ORDERABLES Final Resul t Performing Organization Address [facility] Co de Phone Number HISTORICAL RESULTS * (ABNORMAL) Plasma comprehensive metabolic panel (03/14/2012 8:21 AM WEB MARKETING STRATEGIST) Sodium 140 136 - 146 mmol/L HISTORICAL RESULTS K, pl 3.7 3.3 - 4.9 mmol/L HISTORICAL RESULTS Chloride 107 98 - 108 mmol/L HISTORICAL RESULTS CO2 25 22 - 33 mmol/L HISTORICAL RESULTS BUN 7 7 - 18 mg/dl HISTORICAL RESULTS Glucose 75 70 - 140 mg/dl HISTORICAL RESULTS Comment: Glucose is assumed to be non-fasting. ?? Fasting Glucose normal ranges are: 0 days - 2 months: ? 40 mg/dL - 100 mg/dL 2 months - 999 years: ?70 mg/dL - 99 mg/dL Creatinine 0.90 0.50 - 1.50 mg/dl HISTORICAL RESULTS eGFR >60 ml/min/1.7 3 m2 HISTORICAL RESULTS Comment: GFR Reference Range: = > 60 mL/min/1.73 m2 This result has been calculated assuming the patient is Non-. ??If the patient is , please multiply this result by 1.21. The GFR value is not recommended for medication dose adjustment for renal function, creatinine clearance values should be used. Calcium 9.7 8.5 - 10.5 mg/dl HISTORICAL RESULTS Bilirubin 0.5 0.1 - 1.2 mg/dl HISTORICAL RESULTS Protein, pl 7.9 6.0 - 8.5 g/dl HISTORICAL RESULTS Alb 4.1 3.4 - 5.0 g/dl HISTORICAL RESULTS Alk phos 40 38 - 126 IUnits/L HISTORICAL RESULTS ALT 13(L) 14 - 54 IUnits/L HISTORICAL RESULTS AST 24 15 - 41 IUnits/L HISTORICAL RESULTS Plasma 03/14/2012 8:21 AM WEB MARKETING STRATEGIST [facility] BLOOD ORDERABLES Final Resul t Performing Organization Address [facility] Co de Phone Number HISTORICAL RESULTS * Urine chorionic gonadotropin (HCG) (03/14/2012 3:13 AM WEB MARKETING STRATEGIST) HCG, ur Negative Negative HISTORICAL RESULTS Comment: Urine or Serum specimens containing as low as 20 mIU/mL HCG will yield positive results. Urine 03/14/2012 3:13 AM WEB MARKETING STRATEGIST Narrative HISTORICAL RESULTS - 03/14/2012 2:33 PM WEB MARKETING STRATEGIST Done in GI lab [facility] LAB BLOOD ORDERABLES Final Resul t Performing Organization Address [facility] Co de Phone Number HISTORICAL RESULTS * DISCHARGE LABORATORY CUMULATIVE REPORT (03/14/2012) Narrative 03/14/2012 Ordered by an unspecified provider. [facility] Provider LAB BLOOD ORDERABLES Gisselle l Result * UPPER ENDOSCOPIC ULTRASONOGRAPHY REPORT (03/14/2012) Anatomical Region Laterality Modality Other Narrative 03/14/2012 Ordered by an unspecified provider. Historical Provider GI PROCEDURE ORDERABLES F inal Result documented in this encounter Visit Diagnoses Diagnosis Abdominal pain Abdominal pain, unspecified site Nausea without vomiting Abnormal levels of other serum enzymes documented in this encounter
--- OUTSIDE RECORDS SUMMARY | 2024-02-14 17:06 | XMS_ITS | Encounter Summary ---
Author Organization [facility] Facility Care Team Providers Care Supervisor Carbon Paper Coating Name Role Phone Federico Nieves Primary Care Provider [phone] Federico Nieves Unavailable [phone] Encounter Details Date Type Department Care Team (Latest Contact Info) Description 05/21/2017 Orders Only [facility] Slime Thomas MD PhD [address] [place] [address] Social History Tobacco Use Types Packs/Day Years Used Date Smoking Tobacco: Never Assessed Comments Unknown Sex and Gender Information Value Date Recorded Sex Assigned at Not on file Legal Sex Female 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 [facility] HO FINAL REPORT The radiology attending physician has personally reviewed this study, and has reviewed and/or edited this written report and agrees with it. ACC# ??Date Time ??Exam [id number] May 21, 2017 09:52:00 10803 US Needle guide [id number] May 21, 2017 09:52:00 42782 Extremity Sono Limited R [id number] May 21, 2017 09:52:00 56486 Extremity Sono Limited L [id number] May 21, 2017 09:52:00 58963 FNA w Imaging EXAMINATION: ??BILATERAL LIMITED EXTREMITY [...] SIERRA M.D. on May 21 2017 12:04P [id number] SIERRA M.D. [facility] FINAL REPORT The radiology attending physician has personally reviewed this study, and has reviewed and/or edited this written report and agrees with it. Attending: ??MORELIA, ??SLIME Requesting: ??MORELIA, ??SLIME Requesting Fax: ?? Attending Fax: ?? Attending ID: ??[id number] Requesting ID: ??[id number] Report To 1 ID: ??[id number] ? Report To 1 Name: ??, ?? Report To 1 FAX: ?? NextGen Order #: ?? Procedure Note Miscellaneous, Not In File - 05/21/2017 RONDA SIERRA M.D. [facility] FINAL REPORT The radiology attending physician has personally reviewed this study, and has reviewed and/or edited this written report and agrees with it. ACC# Date Time Exam [id number] May 21, 2017 09:52:00 06056 US Needle guide [id number] May 21, 2017 09:52:00 22212 Extremity Sono Limited R [id number] May 21, 2017 09:52:00 40549 Extremity Sono Limited L [id number] May 21, 2017 09:52:00 75211 FNA w Imaging EXAMINATION: BILATERAL LIMITED EXTREMITY [...] SIERRA M.D. on May 21 2017 12:04P [id number] CROWLEY [place] HO FINAL REPORT The radiology attending physician has personally reviewed this study, and has reviewed and/or edited this written report and agrees with it. Attending: SLIME KOHLI Requesting: SLIME KOHLI Requesting Fax: Attending Fax: Attending ID: [id number] Requesting ID: [id number] Report To 1 ID: [id number] Report To 1 Name: , Report To 1 FAX: NextGen Order #: us Slime Kohli MD PhD IMG US PROCEDURES Final Result documented in this encounter Visit Diagnoses Not on filedocumented in this encounter Care Teams Supervisor [employer] Co[employer] Relationship Specialty Start Date End Date Federico Nieves [address] [place] [address] PCP - General 05/17/17 06/22/19 Federico Nieves [address] [place] [address] 05/17/17 documented as of this encounter
--- OUTSIDE RECORDS SUMMARY | 2024-02-14 17:07 | XMS_ITS | Encounter Summary ---
Author Organization [facility] Address [address] [place] [address] Care Team Providers Care Docketing Specialist Name Role Phone Federico Nieves MD Primary Care Provider [phone] Reason for Visit * Auth/Cert - Closed Specialty Diagnoses / Procedures Referred By Callie t Referred To Contact Diagnoses Abdominal pain, epigastric Procedures ESOPHAGOGASTRODUODENOSCOPY (EGD) Referral ID Status Reason Start Date Expiration Date Visits Re quested Visits Authorized [id number] Closed 1 1 Encounter Details Date Type Department Care Team (Latest Contact Info) Description 01/22/2013 1:00 PM CIGARETTE CATCHER - 01/22/2013 1:30 PM CIGARETTE CATCHER Surgery [facility] - Endoscopy Surgery [address] [place] [address] Eric Washington MD [address] [place] [address] ESOPHAGOGASTRODUODENOSCOPY (EGD) DIAGNOSTIC Surgery Details Date/Time Status Location OR Service Patient Class Case Class Case Type Trauma Case? 01/22/2013 1:00 PM Posted [facility] 02 Gastroenterology Surgery Day Care Elective > 5 days Panel 1 Procedure LRB Anes Op Region Wound Class Comments ESOPHAGOGASTRODUODENOSCOPY ( EGD) DIAGNOSTIC MAC Clean Contaminated ESOPHAGOGASTRO DUODENOSCOPY Surgeon Surgeon Role Service Panel Eric Washington MD Primary Gastroenterology 1 documented in this encounter Social History Tobacco Use Types Packs/Day Years Used Date Smoking Tobacco: Never Smokeless Tobacco: Never Alcohol Use Standard Drinks/Week Comments No 0 (1 standard drink = 0.6 oz pur e alcohol) Sex and Gender Information Value Date Recorded Sex Assigned at Not on file Gender Identity Not on file Sexual Orientation Not on file documented as of this encounter Last Filed Vital Signs Vital Sign Reading Time Taken Comments Blood Pressure 107/85 01/22/2013 2:06 PM CIGARETTE CATCHER Pulse 70 01/22/2013 2:06 PM CIGARETTE CATCHER Temperature 36.7 ??C (98.1 ??F) 01/22/2013 1:40 PM CS T Respiratory Rate 16 01/22/2013 2:06 PM CIGARETTE CATCHER Oxygen Saturation 100% 01/22/2013 2:06 PM CIGARETTE CATCHER Inhaled Oxygen Concentration - - Weight 43.5 kg (96 lb) 01/22/2013 11:51 AM CIGARETTE CATCHER Height 157.5 cm (5' 2 ) 01/21/2013 12:55 PM CIGARETTE CATCHER Body Mass Index 17.56 01/21/2013 12:55 PM CIGARETTE CATCHER documented in this encounter Discharge Instructions * Discharge Instructions* Document, Scanned - 01/23/2013 11:31 PM CIGARETTE CATCHER RETTE CATCHER documented in this encounter Medications at Time of Discharge Medication Sig Dispensed Refills Start Date End Date desogestrel-ethinyl estradiol (AZURETTE) 0.15-0.02/0.01 MG (01/07) tablet Take 1 Tab by mouth once daily. 12/11/2016 pancrelipase (ZENPEP) 94380 UNITS capsuleIndications:Acute pancreatitis (HCC) Take 1 Cap by mouth 3 times daily with meals. Do not crush or chew. 270 Cap 1 10/01/2012 04/21/2013 documented as of this encounter H&P Notes * Eric Washington MD - 01/22/2013 1:25 PM CST ENDOSCOPY PRE-PROCEDURE MEDICAL HISTORY & PHYSICAL NOTE 01/22/2013 Tamikotee Carcamo 37 y.o. female BP 124/86 Pulse 76 Temp 97.4 ??F Resp 16 Wt 43.545 kg (96 lb) BMI 17.56 kg/m2 History: Past Medical History Diagnosis Date ??? Pancarditis Past Surgical History Procedure Date ??? Egd ??? Colonoscopy No Known Allergies Prescriptions prior to admission Medication Status Sig Dispense Refill ??? pancrelipase (ZENPEP) 76720 UNITS capsule Active Take 1 Cap by mouth 3 times daily with meals. Do not crush or chew. 270 Cap 1 ??? desogestrel-ethinyl estradiol (AZURETTE) 0.15-0.02/0.01 MG (01/07) tablet Active Take 1 Tab by mouth once daily. Current Facility-Administered Medications Medication Status Dose Route Frequency Provider Last Rate Last Dose ??? lactated ringers infusion Active Intravenous pre-OP continuous João A Bowers, DO 20 mL/hr at 01/22/13 1209 ??? lidocaine (XYLOCAINE MPF) 1 % injection Active Infiltration pre-OP multiple João A Bowers, DO 0.1 mL at 01/22/13 1209 ??? metoprolol tartrate IR (LOPRESSOR) tablet 12.5 mg Active 12.5 mg Oral pre-OP once João A Bowers, DO Physcial Exam: General appearance: alert, cooperative, no distress Heart: regular rhythm, normal S1 and S2, without murmurs, rubs or gallops Lungs: breath sounds normal and symmetric; no rales or wheezes Abdomen: soft without mass, non-tender, with normal bowel sounds Extremities: no clubbing, cyanosis or edema Sedation Plan: Anesthesia administered per Anesthesia Department Indication(s) for Procedure: Abdominal Pain Procedure Planned: EGD Eric Washington MD RETTE CATCHER documented in this encounter Procedure Notes * Document, Scanned - 01/23/2013 11:31 PM CSTAssociated Order(s): CARDIAC RHYTHM STRIP ORDER RETTE CATCHER * Eric Washington MD - 01/22/2013 1:39 PM CSTAssociated Order(s): EGD RETTE CATCHER * Eric Washington MD - 01/22/2013 1:38 PM CSTAssociated Order(s): EGD Normal exam. A/P: Follow symptomatically. Consider UGI if symptoms continue to rule out SMA syndrome. RETTE CATCHER documented in this encounter Miscellaneous Notes * Miscellaneous Scans - Document, Scanned - 01/23/2013 11:31 PM CST RETTE CATCHER * Miscellaneous Scans - Document, Scanned - 01/23/2013 11:31 PM CST RETTE CATCHER * Miscellaneous Scans - Document, Scanned - 01/23/2013 11:31 PM CST RETTE CATCHER documented in this encounter Plan of Treatment Not on file documented as of this encounter Procedures Procedure Name Priority Date/Time Associated Diagnosis Comments CARDIAC RHYTHM STRIP ORDER 01/23 11:31 PM CIGARETTE CATCHER EGD Routine 01/22/2013 1:32 PM CIGARETTE CATCHER ESOPHAGOGASTRODUODENOSCOPY ( EGD) DIAGNOSTIC 01/22/2013 1:00 PM CIGARETTE CATCHER Abdominal Pain, Epigastric HCG URINE QUALITATIVE - POIN T OF CARE Routine 01/22/2013 11:48 AM CIGARETTE CATCHER documented in this encounter Results * CARDIAC RHYTHM STRIP ORDER (01/23/2013 11:31 PM CIGARETTE CATCHER) Narrative 01/23/2013 11:31 PM CIGARETTE CATCHER Ordered by an unspecified provider. Transcriptions Document, Scanned - 01/23/2013 11:31 PM CST Scanned Document CARDIAC SERVICES ORD ERABLES * EGD (01/22/2013 1:32 PM CIGARETTE CATCHER) Report Endoscopy POC __ _ Patient Name: Carlos Alberto , ??Tamiko ? Procedure Date: 01/22/2013 1:32 PM ? Date of : 1975 ?Admit Type: Outpatient Age: 37 ? Room: ROOM 1 Gender: Female ?Note Status: Finalized Attending MD: Eric Washington MD ?? __ _ Procedure: ? Upper GI endoscopy Indications: ? Epigastric abdominal pain Providers: ? Eric Washington MD, Kisha Delarosa RN, Amy ? SONIA Barrera, Terrell Adams (Anesthesia Staff) Referring MD: ?Federico Nieves MD (Referring MD) Medicines: ? Propofol per Anesthesia Complications: ? No immediate complications. __ _ Procedure: ? After obtaining informed consent, the endoscope was passed ? under direct vision. Throughout the procedure, the ? patient's blood pressure, pulse, and oxygen saturations ? were monitored continuously. The Endoscope was introduced ? through the mouth, and advanced to the third part of ? duodenum. ? Findings: ? The esophagus was normal. ? The stomach was normal. ? The examined duodenum was normal. __ _ ? Impression: ?- Normal esophagus. ? - Normal stomach. ? - Normal examined duodenum. Recommendation: ?- Observe patient's clinical course. ? - May need to consider UGI if symptoms persist (to rule ? out SMA syndrome). ? Procedure Code(s): ? --- Professional --- ? 97657, Upper gastrointestinal endoscopy including esophagus, stomach, ? and either the duodenum and/or jejunum as appropriate; diagnostic, with ? or without collection of specimen(s) by brushing or washing (separate ? procedure) ? --- Technical --- ? 87639, Upper gastrointestinal endoscopy including esophagus, stomach, ? and either the duodenum and/or jejunum as appropriate; diagnostic, with ? or without collection of specimen(s) by brushing or washing (separate ? procedure) Diagnosis Code(s): ? --- Professional --- ? 789.06, Abdominal pain, epigastric ? --- Technical --- ? 789.06, Abdominal pain, epigastric CPT (R) 2012 [employer]. All Rights Reserved. The codes documented in this report are preliminary and upon hims coder review may be revised to meet current compliance requirements. __ Eric Washington MD 01/22/2013 1:38 PM This report has been signed electronically. Number of Addenda: 0 Note Initiated On: 01/22/2013 1:32 PM Estimated Blood Loss: ? Estimated blood loss: none. [facility] ENDOSCOPY 01/22/2013 1:32 PM CIGARETTE CATCHER Narrative [facility] ENDOSCOPY - 01/22/2013 1:39 PM CIGARETTE CATCHER Normal exam. A/P: Follow symptomatically. Consider UGI if symptoms continue to rule out SMA syndrome. Procedure Note Eric Washington MD - 01/22/2013 1:38 PM CST Normal exam. A/P: Follow symptomatically. Consider UGI if symptoms continue to rule out SMA syndrome. Transcriptions Eric Washington MD - 01/22/2013 1:39 PM CST Eric Washington MD GI PROCEDURE ORDERAB LES [facility] ENDOSCOPY * HCG URINE QUALITATIVE - POINT OF CARE (IP) (01/22/2013 11:48 AM CIGARETTE CATCHER) HCG Qual Urine Negative Negative [facility] POCT TESTING QC Verified yes Yes [facility] POC T TESTING Urine specimen (specimen) URINE / Unknown 01/22/2013 11:48 AM CIGARETTE CATCHER Eric Washington MD LAB - POINT OF CARE ORDERABLES [facility] POCT TESTING [address] [address] documented in this encounter Visit Diagnoses Diagnosis Abdominal pain, epigastric documented in this encounter Administered Medications Inactive Administered Medications - up to 3 most recent administrations Medication Order MAR Action Action Date Dose Rate Site lactated ringers infusion at 20 mL/hr, Intravenous, PRE-OP CONTINUOUS, Starting on Audra 01/22/13 at 1200, Until Audra 01/22/13 at 1513, Pre-op $ New Bag/Syringe 01/22/2013 12:09 PM CIGARETTE CATCHER 20 mL/hr Right Hand lidocaine (XYLOCAINE MPF) 1 % injection Infiltration, PRE-OP MULTIPLE, 3 doses, Starting on Audra 01/22/13 at 1156, Until Audra 01/22/13 at 1513, May be used (0.2 ml locally to anesthetize prior to insertion if patient has NKA to Lidocaine)., Pre-op $ Given 01/22/2013 12:09 PM CIGARETTE CATCHER 0.1 mL Right Hand documented in this encounter Active and Recently Administered Medications Times are shown in CIGARETTE CATCHER. Scheduled Medication Order 01/20/2013 01/21/2013 01/22/2013 lidocaine (XYLOCAINE MPF) 1 % injection (CANCELED) Infiltration, PRE-OP MULTIPLE, 3 doses, Starting on Audra 01/22/13 at 1156, Until Audra 01/22/13 at 1513, May be used (0.2 ml locally to anesthetize prior to insertion if patient has NKA to Lidocaine)., Pre-op 1209 ($ Given - Prov ider: Gina Chris RN - Comment: subq) Continuous Medication Order 01/20/2013 01/21/2013 01/22/2013 lactated ringers infusion (CANCELED) at 20 mL/hr, Intravenous, PRE-OP CONTINUOUS, Starting on Audra 01/22/13 at 1200, Until Audra 01/22/13 at 1513, Pre-op 1209 ($ New Bag/Syri nge - Provider: Gina Chris RN)1334 (Anesthesia Volume Adjustment - Provider: Gifty Frey CRNA) documented in this encounter Care Teams Docketing Specialist Relationship Specialty Start Date End Date Federico Nieves MD [address] [place] [address] PCP - General Family Medicine 04/04/11 11/25/16 documented as of this encounter
--- OUTSIDE RECORDS SUMMARY | 2024-02-14 17:07 | XMS_ITS | Encounter Summary ---
Author Organization [facility] Address [address] [place] [address] Care Team Providers Care [employer] Name Role Phone Federico Nieves MD Primary Care Provider [phone] Reason for Visit * Auth/Cert Specialty Diagnoses / Procedures Referred By Callie shepherd Referred To Contact Diagnoses Biliary dyskinesia Biliary dyskinesia Procedures LAPAROSCOPIC CHOLECYSTECTOMY Referral ID Status Reason Start Date Expiration Date Visits Re quested Visits Authorized [id number] 1 1 Encounter Details Date Type Department Care Team (Late st Contact Info) Description 12/21/2016 9:03 AM BUNDLE SORTER Anesthesia Event [facility] [address] [place] [address] Abel Syed MD [address] [facility] [place] [address] Anesthesia Record Procedure Summary Procedure Name Responsible Anesthesiologist Anesthesia Start Time Anesthesia Stop Time LAPAROSCOPIC CHOLECYSTECTOMY (Abdomen) Abel Syed MD 12/21/16 0903 12/21/16 1017 Events Date Time Event Comment 12/21/2016 0801 0903 An Start 0907 Pt In Room 0908 An Start Data 0912 PT Reassessment 0916 Induction 0917 An Intubation 0926 Time Out Anesthesia part icipated in timeout at the time documented in the record by nursing 0927 Proc Start 0927 Incision 1004 Proc Stop 1012 Extubation 1014 an stop data 1014 Electnc Sig 1014 Pt out of Room 1017 An Stop Meds Name Total fentaNYL 100 mcg/2mL injection 100 mcg midazolam 1 mg/mL injection 2 mg lidocaine PF 1% injection (10 mg/mL) 20 mg propofol 200mg/20mL injection 150 mg succinylcholine 20 mg/mL injection 80 mg rocuronium 10 mg/mL injection 30 mg ketorolac 30 mg/mL injection 30 mg glycopyrrolate 0.2 mg/mL injection 0.2 m g lactated ringers infusion 850 mL * Agents Name Insp. N2O Exp. Sevoflurane O2 Air Insp. Sevoflurane * Blood No blood administrations on file. Lines, Drains, and Airways Type Details Placement Removal Peripheral IV Date: 12/21/16; Time : 839; Orientation: Right; Placed By: ; Tolerance: Well 12/21/16 0840 by Talisha Hudson RN 12/21/16 1156 by Gina Velasquez RN ETT Date: 12/21/16; Time : 916; Placed By: Kezia AMAYA; Vent: mask not attempted; Induction: Rapid Sequence, Cricoid pressure; Blade Type: Rbush; Blade Size: 2; Laryngoscopy View: Grade 1 (full cords); Intubation Adjuncts: Stylet; Tube: Endotracheal Tube-Hi/Lo; Placement: Oral; Tube Type: Cuffed-inflated; Tube Size(mm): 7 MM; Depth of Insertion: 21 CM; Measured From: lips; Attempts: 1; Cuff Infated: Air; Cuff Vol(mL): 5 mL; Verified By: Direct visualization, Bilateral breath sounds, Chest Auscultation, CO2 Monitor 12/21/16916 by Sukhdev Garcia APRN-CRNA 12/21/16 1012 by Sukhdev Garcia APRN-CRNA Procedural Site (Incision) 12/21/16; 926; Abdomen; Laparoscopic; 12/21/16; 1808 12/21/16926 by Emil Thomas, RN 12/21/161807 by [employer], Auto Release documented in this encounter Social History Tobacco Use Types Packs/Day Years Used Date Smoking Tobacco: Never Smokeless Tobacco: Never Alcohol Use Standard Drinks/Week Comments Yes 0 (1 standard drink = 0.6 oz pur e alcohol) ocassional/social Sex and Gender Information Value Date Recorded Sex Assigned at Not on file Gender Identity Not on file Sexual Orientation Not on file documented as of this encounter Functional Status Functional Status Response Date of Assess ment Is person deaf or have serious hearing difficult y? No 12/21/2016 Is person blind or have serious difficulty seein g? No 12/21/2016 Does person have serious dif ficulty walking/climbing stairs? No 12/21/2016 Does person have difficulty dressing/bathing? No 12/21/2016 Does person have difficulty doing errands alone? No 12/21/2016 Cognitive Status Response Date of Assessm ent Does person have difficulty concentrating/remembering/making decisions? No 12/21/2016 documented as of this encounter Progress Notes * Jacqueline Gray, LUDIN-DIRT CONTRACTOR - 12/21/2016 3:13 PM CST ANESTHESIA POSTPROCEDURE EVALUATION Tamiko Carcamo is a 41 y.o. female Temp: 97.2 ??F Pulse: 89 Resp: 12 BP: 122/81 SpO2: 100 % Anesthesia Type: general Mental status: sufficiently recovered from acute administration of anesthesia to participate in theevaluation and neurologic status has returned to preoperative level. Level of consciousness: awake No numbness, tingling or visual disturbances present. General appearance: well-appearing Respiratory function: natural airway. Cardiac: stable Pain: comfortable/acceptable PONV: None Postop hydration: adequate. Patient may be released from anesthesia care. Quality Improvement: Care Assessment: No value filed. Adverse Events: No value filed. Pulmonary: No value filed. Regional: No value filed. Equipment: No value filed. Patient Management: No value filed. Comments: No value filed. LE SORTER documented in this encounter Consult Notes * Abel Syed MD - 12/21/2016 8:00 AM CST ANESTHESIA PREOPERATIVE EVALUATION NOTE Procedure: LAPAROSCOPIC CHOLECYSTECTOMY (Abdomen) Vitals: Patient Vitals for the past 24 hrs (Last 5 readings): BP Temp Pulse Resp SpO2 Height Weight 12/21/16 0723 121/85 97.8 ??F 87 16 100 % 1.575 m (5' 2 ) 46.7 kg (103 lb) ANESTHESIA PRE-EVALUATION NOTE Physical Exam: Orientation: Orientation X3 Mouth Opening Distance: 3 fingerwidths Neck ROM: full TM Distance: > 3 FB Teeth: normal Heart: regular rate rhythm Lungs: normal Review of Systems: History of anesthetic complications: No ANESTHESIA PLAN SECTION ASA Score: 1 NPO Status: No solids since midnight Anesthesia Plan: general Planned Induction: intravenous Planned Postop Destination: PACU Intended Admin of Opioids: Yes Anesthetic plan was discussed with: patient The patient's procedural Anesthetic Plan with discussed with the DIRT CONTRACTOR. BMI, Height, Weight Tobacco History Estimated body mass index is 18.84 kg/(m^2) as calculated from the following: Height as of this encounter: 1.575 m (5' 2 ). Weight as of this encounter: 46.7 kg (103 lb). History Smoking Status ??? Never Smoker Smokeless Tobacco ??? Never Used Alcohol History Drug History History Alcohol Use ??? 0.0 oz/week ??? 0 Standard drinks or equivalent per week Comment: ocassional/social History Drug Use No Outpatient Medications: Inpatient Medications: Current Facility-Administered Medications Medication Dose Last Dose ??? ceFAZolin 1 g Allergies: No Known Allergies Problem List: Patient Active Problem List Diagnosis Date Noted ??? Pancarditis Priority: Not Prioritized ??? Idiopathic acute pancreatitis 01/29/2012 ??? Nausea without vomiting 01/29/2012 ??? Diarrhea 01/29/2012 ??? GERD (gastroesophageal reflux disease) 01/29/2012 Medical History: Past Medical History: Diagnosis Date ??? Pancreatitis ??? Seasonal allergies Surgical History: Past Surgical History: Procedure Laterality Date ??? COLONOSCOPY ??? EGD ??? ENDOSCOPY, UPPER 01/22/2013 ESOPHAGOGASTRODUODENOSCOPY (EGD) Lab Tests: None None None Recent Labs Units 12/21/16 0755 HCG QUAL URINE Negative LE SORTER documented in this encounter Miscellaneous Notes * Anesthesia Transfer of Care - Sukhdev Garcia, LUDIN-DIRT CONTRACTOR - 12/21/2016 10:17 AM CST ANESTHESIA TRANSFER OF CARE NOTE Today's Date: 12/21/2016 Date of : 1975 Patient: Tamiko Carcamo Pre-op Diagnosis: Biliary dyskinesia [K82.8] Allergies: No Known Allergies Procedure(s): LAPAROSCOPIC CHOLECYSTECTOMY Postop Diagnosis: same as pre-operative diagnosis Patient Transfer Location: PACU Level of Consciousness: awake and alert Transport Airway: supplemental O2 and spontaneous respirations Complications: None Handoff Given? Yes Checklist or Protocol - The smith handoff elements that must be included in the transfer of care checklist include: 1. Identification of patient. 2. Identification of responsible practitioner (PACU nurse or advanced practitioner). 3. Discussion of pertinent medical history. 4. Discussion of the surgical/procedure course (procedure, reason for surgery, procedure performed). 5. Intraoperative anesthetic management and issue/concerns. 6. Expectations/Plans for the early post-procedure period. 7. Opportunity for questions and acknowledgement of understanding of report from the receiving PACUteam. CONNOR Davis LE SORTER documented in this encounter Plan of Treatment Not on file documented as of this encounter Visit Diagnoses Not on filedocumented in this encounter Administered Medications Inactive Administered Medications - up to 3 most recent administrations Medication Order MAR Action Action Date Dose Rate Site fentaNYL (PF) (SUBLIMAZE) injection PRN, Starting on Sat12/21/16 at 0940, Until Sat12/21/16 at 1021, Anesthesia Intra-op $ Given 12/21/2016 9:40 AM BUNDLE SORTER 50 mcg $ Given 12/21/2016 9:17 AM BUNDLE SORTER 50 mcg glycopyrrolate (ROBINUL) injection PRN, Starting on Sat12/21/16 at 0933, Until Sat12/21/16 at 1021, Anesthesia Intra-op $ Given 12/21/2016 9:33 AM BUNDLE SORTER 0.2 mg ketorolac (TORADOL) injection PRN, Starting on Sat12/21/16 at 0951, Until Sat12/21/16 at 1021, Anesthesia Intra-op $ Given 12/21/2016 9:51 AM BUNDLE SORTER 30 mg lactated ringers infusion at 20 mL/hr, Intravenous, PRE-OP CONTINUOUS, Starting on Sat12/21/16 at 0815, Until Sat12/21/16 at 1313, Pre-op $ New Bag/Syringe 12/21/2016 9:03 AM BUNDLE SORTER $ Admin. by Other Provider 12/21/2016 8:40 AM BUNDLE SORTER 20 mL/hr Right Arm lidocaine (XYLOCAINE MPF) 1 % injection Intravenous, PRN, Starting on Sat12/21/16 at 0916, Until Sat12/21/16 at 1021, Anesthesia Intra-op $ Given 12/21/2016 9:16 AM BUNDLE SORTER 20 mg midazolam (VERSED) injection PRN, Starting on Sat12/21/16 at 0907, Until Sat12/21/16 at 1021, Anesthesia Intra-op $ Given 12/21/2016 9:07 AM BUNDLE SORTER 2 mg propofol (DIPRIVAN) injection PRN, Starting on Sat12/21/16 at 0916, Until Sat12/21/16 at 1021, Anesthesia Intra-op $ Given 12/21/2016 9:16 AM BUNDLE SORTER 150 mg rocuronium (ZEMURON) injection PRN, Starting on Sat12/21/16 at 0916, Until Sat12/21/16 at 1021, Anesthesia Intra-op $ Given 12/21/2016 9:22 AM BUNDLE SORTER 25 mg $ Given 12/21/2016 9:16 AM BUNDLE SORTER 5 mg succinylcholine (ANECTINE) injection PRN, Starting on Sat12/21/16 at 0916, Until Sat12/21/16 at 1021, Anesthesia Intra-op $ Given 12/21/2016 9:16 AM BUNDLE SORTER 80 mg documented in this encounter Care Teams [employer] Relationship Specialty Start Date End Date Federico Nievse MD [address] [place] [id number] PCP - General Family Medicine 12/11/16 12/22/19 documented as of this encounter
--- OUTSIDE RECORDS SUMMARY | 2024-02-14 17:07 | XMS_ITS | Encounter Summary ---
Author Organization [facility] Address [address] [place] [address] Care Team Providers Care Warp Trucker Name Role Phone Radha Barber MD Primary Care Provider Encounter Details Date Type Department Care Team (Latest Contact Info) Description 01/07/2024 2:50 PM LIFE SKILLS COORDINATOR VOLUNTEER - 01/07/2024 11:59 PM LIFE SKILLS COORDINATOR VOLUNTEER Hospital Encounter [facility] [address] [place] [address] Jody Wadsworth, SENIOR LEAD DEVELOPER-FLIGHT SECURITY SPECIALIST [address] [place] [address] Discharge Disposition: Home or Self Care Social History Tobacco Use Types Packs/Day Years Used Date Smoking Tobacco: Never Smokeless Tobacco: Never Tobacco Cessation:Counseling Given: Not Answered Alcohol Use Standard Drinks/Week Comments Yes 0 (1 standard drink = 0.6 oz pur e alcohol) ocassional/social Sex and Gender Information Value Date Recorded Sex Assigned at Not on file Gender Identity Not on file Sexual Orientation Not on file documented as of this encounter Last Filed Vital Signs Vital Sign Reading Time Taken Comments Blood Pressure 107/81 01/07/2024 3:21 PM LIFE SKILLS COORDINATOR VOLUNTEER Pulse 99 01/07/2024 3:21 PM LIFE SKILLS COORDINATOR VOLUNTEER Temperature 36.9 ??C (98.4 ??F) 01/07/2024 3:21 PM CS T Respiratory Rate 18 01/07/2024 3:21 PM LIFE SKILLS COORDINATOR VOLUNTEER Oxygen Saturation 99% 01/07/2024 3:21 PM LIFE SKILLS COORDINATOR VOLUNTEER Inhaled Oxygen Concentration - - Weight 52.2 kg (115 lb) 01/07/2024 3:21 PM LIFE SKILLS COORDINATOR VOLUNTEER Height - - Body Mass Index 21.03 01/19/2020 1:07 PM LIFE SKILLS COORDINATOR VOLUNTEER documented in this encounter Functional Status Functional Status Response [...] No 12/21/2016 documented as of this encounter Discharge Instructions * Patient Instructions* Jody Wadsworth APRN-RENZO - 01/07/2024 3:42 PM LIFE SKILLS COORDINATOR VOLUNTEER Exudative pharyngitis -Please take & finish all of your medications as prescribed. THIS IS VERY IMPORTANT. Do not stop because you feel better. -You are more CONTAGIOUS to others until you have been on antibiotics for 24 hours. -Avoid sharing food/ drinks and close contact until you are less contagious -Make sure you cover your mouth when coughing and sneezing -Change your toothbrush the 3rd day you are on you antibiotics. If your toothpaste has touched yourtoothbrush, discard your toothpaste. Discard your mouthwash if your mouth has touched the container. -Discard any masks you have been wearing or wash your cloth masks. -Wash your pillowcases after being on antibiotics for 24 hours to prevent re-infection. -Take Tylenol (acetaminophen) or Advil/Motin (ibuprofen) as needed per package directions for aches/pains. -Frequent warm or cool liquids can be soothing. Try soups or popsicles for comfort. -May also use throat lozenges and cough drops for discomfort If you still are not having relief with the above, you can try a Magic Mouthwash -Equal parts liquid antacid (e.g.Maalox) and children's Benadryl with a couple drops of Anbesol gargle and spit every 3-4 hours as needed. -Salt/water gargles may help with discomfort. Use 1/2 tsp of salt and 1 cup of water. If you are not improving or worsening in the next 3-5 days you must follow up with your PCP, or Urgent Care/ER to be SEEN and reevaluated. No further prescriptions or refills will be given by phone without another evaluation. Go to the emergency room if you experience worsening pain, difficulty breathing, throat swelling, drooling or weakness SKILLS COORDINATOR VOLUNTEER documented in this encounter Medications at Time of Discharge Medication Sig Dispensed Refills Start Date End Date [facility] FE 03/02 1-20 MG-MCG tablet Take 1 tablet by mouth once daily 10/28/2016 cetirizine (ZYRTEC) 10 MG tablet Take 10 mg by mouth once daily 3 11/21/2016 FLUoxetine (PROZAC) 20 MG capsule Take 20 mg by mouth once daily fluticasone propionate (FLONASE) 50 MCG/ACT nasal spray [place] into each nostril 2 times daily 3 11/21/2016 HYDROcodone-acetamino phen (NORCO) 5-325 MG tablet Take 1-2 tablets by mouth every 4 hours as needed for Pain 30 tablet 12/21/2016 ketoconazole (NIZORAL) 2 % shampoo every 7 days 11 07/25/2016 olopatadine (PATADAY) 0.2 % ophthalmic solution Instill 2.5 mL into both eyes as needed 3 10/25/2016 ondansetron, disintegrating, (ZOFRAN ODT) 4 MG tablet Take 1 tablet by mouth every 6 hours as needed for Nausea/Vomiting Allow tablet to dissolve on the tongue 8 tablet 1 12/21/2016 ondansetron, disintegrating, (ZOFRAN ODT) 4 MG tabletIndications:Acu te pancreatitis, unspecified pancreatitis type,Nausea without vomiting Take 1 Tab by mouth every 6 hours as needed for Nausea/Vomiting Allow tablet to dissolve on the tongue 40 Tab 3 08/03/2015 pancrelipase (CREON) 29567-03176 units capsuleIndications:Na usea and vomiting, intractability of vomiting not specified, unspecified vomiting type Take 1 capsule by mouth 3 times daily with meals 90 capsule 2 01/19/2020 Promethegan 25 MG suppositoryIndication s:Nausea without vomiting UNWRAP AND INSERT 1 SUPPOSITORY RECTALLY EVERY 6 HOURS NEEDED FOR NAUSEA OR VOMITING 12 suppository 08/27/2022 amoxicillin (Amoxil) 500 MG tablet Take 1 (one) tablet by mouth every 12 hours for 10 days 20 tablet 01/07/2024 01/17/2024 documented as of this encounter Progress Notes * Slime De La Garza RN - 01/07/2024 3:22 PM CST Onset 4 days ago Vomited twice Sat, Sun had severe sore throat, body aches, chills, massive headache Symptoms have mostly resolved but still has sore throat and no appetite Home covid test on Saturday was negative Denies fevers but feels ill SKILLS COORDINATOR VOLUNTEER * Jody Wadsworth, LUDIN-FLIGHT SECURITY SPECIALIST - 01/07/2024 3:13 PM CST [facility] History of Present Illness Patient Identification Tamiko Carcamo is a 48 year old female. PCP: Radha Barber MD Patient information was obtained from patient. History/Exam limitations: none. Patient presented to the Urgent Care by private vehicle. Chief Complaint Reason for Visit: Sore throat, fatigue, headache HPI Patient is a 48 year old Black/ female with PMH as indicated below, who presents toUC today for sore throat, nausea, body aches, decreased appetite, chills, headache, tactile fever X2 days. Reports vomiting Saturday, States home covid test last Saturday was negative. Reports taking tea and cough drops with minimal relief. Patient reports no diarrhea and/or abdominal pain. No reports of shortness of breath/difficulty breathing or chest pain. Patient denies any recent ill contacts or known exposures to COVID-19. No history of travel outside the continental [place] within the last 21 days Past Medical History: Diagnosis Date Pancreatitis (HCC) Seasonal allergies Past Surgical History: Procedure Laterality Date Cholecystectomy, Laparoscopic N/A 12/21/2016 N/A; LAPAROSCOPIC CHOLECYSTECTOMY COLONOSCOPY EGD ENDOSCOPY, UPPER 01/22/2013 ESOPHAGOGASTRODUODENOSCOPY (EGD) Family History Problem Relation Name Age of Onset CVA Maternal Grandmother Cancer - Other Maternal Grandmother Diabetes - Type 2 Maternal Grandmother Hypertension Maternal Grandmother Hypertension Maternal Grandfather Diabetes - Type 2 Paternal Grandmother CVA Paternal Grandfather Current Outpatient Medications Medication Sig Dispense Refill amoxicillin (Amoxil) 500 MG tablet Take 1 (one) tablet by mouth every 12 hours for 10 days 20 tablet 0 [facility] FE 03/02 1-20 MG-MCG tablet Take 1 tablet by mouth once daily cetirizine (ZYRTEC) 10 MG tablet Take 10 mg by mouth once daily 3 FLUoxetine (PROZAC) 20 MG capsule Take 20 mg by mouth once daily fluticasone propionate (FLONASE) 50 MCG/ACT nasal spray [place] into each nostril 2 times daily 3 HYDROcodone-acetaminophen (NORCO) 5-325 MG tablet Take 1-2 tablets by mouth every 4 hours as neededfor Pain (Patient not taking: Reported on 12/27/2016) 30 tablet 0 ketoconazole (NIZORAL) 2 % shampoo every 7 days 11 olopatadine (PATADAY) 0.2 % ophthalmic solution Instill 2.5 mL into both eyes as needed 3 ondansetron, disintegrating, (ZOFRAN ODT) 4 MG tablet Take 1 tablet by mouth every 6 hours as needed for Nausea/Vomiting Allow tablet to dissolve on the tongue (Patient not taking: Reported on 01/19/2020) 8 tablet 1 ondansetron, disintegrating, (ZOFRAN ODT) 4 MG tablet Take 1 Tab by mouth every 6 hours as needed for Nausea/Vomiting Allow tablet to dissolve on the tongue (Patient not taking: Reported on 01/19/2020) 40 Tab 3 pancrelipase (CREON) [id number] units capsule Take 1 capsule by mouth 3 times daily with meals 90 capsule 2 Promethegan 25 MG suppository UNWRAP AND INSERT 1 SUPPOSITORY RECTALLY EVERY 6 HOURS NEEDED FOR NAUSEA OR VOMITING 12 suppository 0 No current facility-administered medications for this encounter. No Known Allergies Social History Tobacco Use Smoking status: Never Smokeless tobacco: Never Substance Use Topics Alcohol use: Yes Alcohol/week: 0.0 standard drinks of alcohol Comment: ocassional/social Review of Systems Review of Systems Constitutional: Positive for chills and fever (tactile). HENT: Positive for sore throat. Negative for ear pain. Respiratory: Positive for cough (dry). Negative for shortness of breath. Cardiovascular: Negative for chest pain and leg swelling. Gastrointestinal: Positive for nausea and vomiting. Negative for abdominal pain, constipation and diarrhea. Decreased appetite Musculoskeletal: Positive for myalgias. Negative for neck pain. Skin: Negative for rash. Neurological: Positive for headaches. Negative for dizziness. Physical Exam BP 107/81 Pulse 99 Temp 98.4 ??F (36.9 ??C) Resp 18 Wt 52.2 kg (115 lb) LMP 01/28/2017 (Exact Date) SpO2 99% BMI 21.03 kg/m?? No results found. Physical Exam Vitals and nursing note reviewed. HENT: Head: Normocephalic. Right Ear: Hearing, tympanic membrane, ear canal and external ear normal. Left Ear: Hearing, tympanic membrane, ear canal and external ear normal. Nose: Congestion present. Mouth/Throat: Lips: [place]. Mouth: Mucous membranes are moist. Pharynx: Uvula midline. Posterior oropharyngeal erythema present. No pharyngeal swelling, oropharyngeal exudate, uvula swelling or postnasal drip. Tonsils: Tonsillar exudate present. No tonsillar abscesses. 2+ on the right. 2+ on the left. Cardiovascular: Rate and Rhythm: Normal rate and regular rhythm. Heart sounds: Normal heart sounds. Pulmonary: Effort: Pulmonary effort is normal. Breath sounds: Normal breath sounds and air entry. Lymphadenopathy: Cervical: No cervical adenopathy. Neurological: Mental Status: She is alert and oriented to person, place, and time. Psychiatric: Behavior: Behavior is cooperative. Procedures Procedures Lab Interpretation Oxygen Saturation Interpretation Hospital Encounter on 01/07/24 STREP A SCREEN - POCT (IP) URGENT CARE Result Value Ref Range Strep A Rapid POCT Negative Negative QC Verified Yes Yes SARS-COV-2 (COVID-19) AG (IP) POCT Result Value Ref Range SARS-CoV-2 Ag Negative (Negative) Negative Lot # [id number] Expiration Date 12/20/2024 Instrument Serial Number n/a COVID Internal Control Acceptable Acceptable No results found. Progress Notes Medical Decision Making I have reviewed the: Nursing Notes, Vitals. I have interpreted the following results: Labs, Oxygen Saturation. POCT covid and strep negative. Based on duration of symptoms and physical exam will treat exudativepharyngitis with Amoxicillin x 10 days. Discussed symptomatic treatment and monitoring. Patient advised on self-care, medication administration, worsening of symptoms, and follow up Follow up with Radha Barber MD for worsening of symptoms or symptoms that persist. Patient verbalized understanding and agrees with plan of care. Patient is hemodynamically stable and non-septic appearing. Patient is appropriate for discharge home at this time in the setting of strict return/follow-up precautions to include signs/symptoms warranting immediate emergency department evaluation. Assessment ICD-10-CM 1. Exudative pharyngitis J02.9 STREP A SCREEN - POCT (IP) URGENT CARE SARS-COV-2 (COVID-19) AG (IP) POCT Plan Orders Placed This Encounter STREP A SCREEN - POCT (IP) URGENT CARE Standing Status: Standing Number of Occurrences: 1 Order Specific Question: Release to patient Answer: Immediate SARS-COV-2 (COVID-19) AG (IP) POCT Standing Status: Standing Number of Occurrences: 1 Order Specific Question: Release to patient Answer: Immediate amoxicillin (Amoxil) 500 MG tablet Sig: Take 1 (one) tablet by mouth every 12 hours for 10 days Dispense: 20 tablet Refill: 0 Exudative pharyngitis -Please take & finish all of your medications as prescribed. THIS IS VERY IMPORTANT. Do not stop because you feel better. -You are more CONTAGIOUS to others until you have been on antibiotics for 24 hours. -Avoid sharing food/ drinks and close contact until you are less contagious -Make sure you cover your mouth when coughing and sneezing -Change your toothbrush the 3rd day you are on you antibiotics. If your toothpaste has touched yourtoothbrush, discard your toothpaste. Discard your mouthwash if your mouth has touched the container. -Discard any masks you have been wearing or wash your cloth masks. -Wash your pillowcases after being on antibiotics for 24 hours to prevent re-infection. -Take Tylenol (acetaminophen) or Advil/Motin (ibuprofen) as needed per package directions for aches/pains. -Frequent warm or cool liquids can be soothing. Try soups or popsicles for comfort. -May also use throat lozenges and cough drops for discomfort If you still are not having relief with the above, you can try a Magic Mouthwash -Equal parts liquid antacid (e.g.Maalox) and children's Benadryl with a couple drops of Anbesol gargle and spit every 3-4 hours as needed. -Salt/water gargles may help with discomfort. Use 1/2 tsp of salt and 1 cup of water. If you are not improving or worsening in the next 3-5 days you must follow up with your PCP, or Urgent Care/ER to be SEEN and reevaluated. No further prescriptions or refills will be given by phone without another evaluation. Go to the emergency room if you experience worsening pain, difficulty breathing, throat swelling, drooling or weakness UC Course Allergies, PMH, and home medications reviewed with patient. Vital signs reviewed and noted to be acceptable. Patient is in no acute distress. Pt. evaluated and after assessment, testing, and diagnosis there were no additional concerns or complications of patient presentation. Plan to discharge home with above noted care. -AVS, expectations, follow up and return precautions reviewed with patient/parent - Follow up with your pcp if symptoms worsen or are not improving as planned. - Patient/parent given additional handout/information on diagnosis for review - Patient/parent states understanding and agrees with plan of care at this time and states no further questions. - Patient discharged to home in stable condition; ambulated out without difficulty. SKILLS COORDINATOR VOLUNTEER documented in this encounter Miscellaneous Notes * Addendum Note - Jody Wadsworth APRN-CNP - 01/07/2024 11:59 PM CSTEncounter addended by: Jody Wadsworth APRN-CNP on: 01/13/2024 9:24 PM Actions taken: Clinical Note Signed SKILLS COORDINATOR VOLUNTEER * Addendum Note - Aleyda Priest CPC - 01/07/2024 11:59 PM CSTEncounter addended by: Aleyda Priest CPC on: 01/14/2024 1:09 PM Actions taken: Charge Capture section accepted SKILLS COORDINATOR VOLUNTEER documented in this encounter Plan of Treatment Not on file documented as of this encounter Procedures Procedure Name Priority Date/Time Associated Diagnosis Comments STREP A SCREEN - POCT (IP) URGENT CARE Routine 01/07/2024 3:28 PM LIFE SKILLS COORDINATOR VOLUNTEER Exudative pharyngitis SARS-COV-2 (COVID-19) AG (IP) POCT Routine 01/07/2024 3:26 PM LIFE SKILLS COORDINATOR VOLUNTEER Exudative pharyngitis documented in this encounter Results * STREP A SCREEN - POCT (IP) URGENT CARE (01/07/2024 3:28 PM LIFE SKILLS COORDINATOR VOLUNTEER) Strep A Rapid POCT Negative Negative [facility] URGENT CARE QC Verified Yes Yes [facility] Throat ENTIRE THROAT (SURFACE REGION OF NECK) / Unknown 01/07/2024 3:28 PM LIFE SKILLS COORDINATOR VOLUNTEER Jody Wadsworth SENIOR LEAD DEVELOPER-FLIGHT SECURITY SPECIALIST LAB - POINT OF CAR E ORDERABLES Performing Organization Address [facility] de Phone Number [facility] [address] [place] [address] * (ABNORMAL) SARS-COV-2 (COVID-19) AG (IP) POCT (01/07/2024 3:26 PM LIFE SKILLS COORDINATOR VOLUNTEER) SARS-CoV-2 Ag Negative(Negat puneet) Negative [facility] Lot # [id number] [facility] Expiration Date 12/20/2024 [facility] URGENT [facility] Instrument Serial [facility] n/a [facility] URGENT [facility] COVID Internal Control Acceptable Acceptable [facility] Microbiology SPECIMEN FROM NASAL FOSSAE / Unknown 01/07/2024 3:26 PM LIFE SKILLS COORDINATOR VOLUNTEER Narrative [facility] - 01/07/2024 3:41 PM LIFE SKILLS COORDINATOR VOLUNTEER Jody Wadsworth SENIOR LEAD DEVELOPER-FLIGHT SECURITY SPECIALIST LAB - POINT OF CAR E ORDERABLES Performing Organization Address [facility] Co de Phone Number [facility] [address] [place] [address] documented in this encounter Visit Diagnoses Diagnosis Exudative pharyngitis- Primary documented in this encounter Additional Health Concerns Infection Onset Date Last Indicated Resolved Time COVID-19 Under Investigation 01/07/2024 01/07/2024 01/07/2024 3:41 PM LIFE SKILLS COORDINATOR VOLUNTEER documented as of this encounter Care Teams Warp Trucker Relationship Specialty Start Date End Date Radha Barber MD [address] [place] [address] PCP - General Family Medicine 12/23/19 documented as of this encounter
--- OUTSIDE RECORDS SUMMARY | 2024-02-14 17:07 | XMS_ITS | Referral Summary ---
Author Organization [facility] Address [address] [place] [address] Care Team Providers Care Pest Management Supervisor Name Role Phone Radha Barber MD Primary Care Provider Source Comments [facility],non-owned Affiliates and Associated Physician Practices is amultiple site organization consisting of ambulatory clinics and hospital sitesin [place], [place], [place] and [place]. This disclosure is being madepursuant to the Care Everywhere program and may not contain all information available regarding this patient. Last updated 17.[facility] Encounters Date Type Department Care Team Description 01/07/2024 Travel 01/07/2024 2:50 PM MANUFACTURING TECHNOLOGIST - 01/07/2024 11:59 PM MANUFACTURING TECHNOLOGIST Hospital Encounter [facility] [address] [place] [address] Jody Wadsworth APRN-RENZO Discharge Disposition: Home or Self Care from Last 3 Months Allergies No known active allergies Medications * Be aware that medications may not be up to date on this document. Alwaysverify current medications with the patient. Medication Sig Dispensed Refills Start Date End Date Status ondansetron, disintegrating, (ZOFRAN ODT) 4 MG tabletIndications:A cute pancreatitis, unspecified pancreatitis type,Nausea without vomiting Take 1 Tab by mouth every 6 hours as needed for Nausea/Vomiting Allow tablet to dissolve on the tongue 40 Tab 3 08/03/2015 Active Additional Information Patient not taking.Reported on 01/19/2020 ketoconazole (NIZORAL) 2 % shampoo every 7 days 11 07/25/2016 Active BLISOVI FE 03/02 1-20 MG-MCG tablet Take 1 tablet by mouth once daily 10/28/2016 Active olopatadine (PATADAY) 0.2 % ophthalmic solution Instill 2.5 mL into both eyes as needed 3 10/25/2016 Active cetirizine (ZYRTEC) 10 MG tablet Take 10 mg by mouth once daily 3 11/21/2016 Active fluticasone propionate (FLONASE) 50 MCG/ACT nasal spray [place] into each nostril 2 times daily 3 11/21/2016 Active HYDROcodone-acetami nophen (NORCO) 5-325 MG tablet Take 1-2 tablets by mouth every 4 hours as needed for Pain 30 tablet 12/21/2016 Active Additional Information Patient not taking.Reported on 12/27/2016 ondansetron, disintegrating, (ZOFRAN ODT) 4 MG tablet Take 1 tablet by mouth every 6 hours as needed for Nausea/Vomiting Allow tablet to dissolve on the tongue 8 tablet 1 12/21/2016 Active Additional Information Patient not taking.Reported on 01/19/2020 FLUoxetine (PROZAC) 20 MG capsule Take 20 mg by mouth once daily Active pancrelipase (CREON) 31829-53763 units capsuleIndications: Nausea and vomiting, intractability of vomiting not specified, unspecified vomiting type Take 1 capsule by mouth 3 times daily with meals 90 capsule 2 01/19/2020 Active Promethegan 25 MG suppositoryIndicati ons:Nausea without vomiting UNWRAP AND INSERT 1 SUPPOSITORY RECTALLY EVERY 6 HOURS NEEDED FOR NAUSEA OR VOMITING 12 suppository 08/27/2022 Active amoxicillin (Amoxil) 500 MG tablet Take 1 (one) tablet by mouth every 12 hours for 10 days 20 tablet 01/07/2024 01/17/20 24 Active Problems Problem Noted Date Diagnosed Date Idiopathic acute pancreatitis 01/29/2012 Nausea without vomiting 01/29/2012 Overview (11/11/2014): Diarrhea 01/29/2012 GERD (gastroesophageal reflux disease) 2 Social History Tobacco Use Types Packs/Day Years Used Date Smoking Tobacco: Never Smokeless Tobacco: Never Tobacco Cessation:Counseling Given: Not Answered Alcohol Use Standard Drinks/Week Comments Yes 0 (1 standard drink = 0.6 oz pur e alcohol) ocassional/social Sex and Gender Information Value Date Recorded Sex Assigned at Not on file Gender Identity Not on file Sexual Orientation Not on file Last Filed Vital Signs Vital Sign Reading Time Taken Comments Blood Pressure 107/81 01/07/2024 3:21 PM MANUFACTURING TECHNOLOGIST Pulse 99 01/07/2024 3:21 PM MANUFACTURING TECHNOLOGIST Temperature 36.9 ??C (98.4 ??F) 01/07/2024 3:21 PM CS T Respiratory Rate 18 01/07/2024 3:21 PM MANUFACTURING TECHNOLOGIST Oxygen Saturation 99% 01/07/2024 3:21 PM MANUFACTURING TECHNOLOGIST Inhaled Oxygen Concentration - - Weight 52.2 kg (115 lb) 01/07/2024 3:21 PM MANUFACTURING TECHNOLOGIST Height 157.5 cm (5' 2 ) 01/19/2020 1:07 PM MANUFACTURING TECHNOLOGIST Body Mass Index 21.03 01/19/2020 1:07 PM MANUFACTURING TECHNOLOGIST Functional Status Functional Status Response Date of [...] person have difficulty concentrating/remembering/making decisions? No 12/21/2016 Plan of Treatment Not on file Procedures Procedure Name Priority Date/Time Associated Diagnosis Comments STREP A SCREEN - POCT (IP) URGENT CARE Routine 01/07/2024 3:28 PM MANUFACTURING TECHNOLOGIST Exudative pharyngitis SARS-COV-2 (COVID-19) AG (IP) POCT Routine 01/07/2024 3:26 PM MANUFACTURING TECHNOLOGIST Exudative pharyngitis LIPID PROFILE Routine 04/16/2011 7:53 AM MANUFACTURING TECHNOLOGIST Epigastric pain from Last 3 Months or Most Recently Relevant to Health Maintenance Results * STREP A SCREEN - POCT (IP) URGENT CARE (01/07/2024 3:28 PM MANUFACTURING TECHNOLOGIST) Strep A Rapid POCT Negative Negative [facility] QC Verified Yes Yes [facility] Throat ENTIRE THROAT (SURFACE REGION OF NECK) / Unknown 01/07/2024 3:28 PM MANUFACTURING TECHNOLOGIST Jody Wadsworth APRN-MOLDING MACHINE OPERATOR HELPER LAB - POINT OF CAR E ORDERABLES Performing Organization Address [facility] de Phone Number [facility] [address] [place] [address] * (ABNORMAL) SARS-COV-2 (COVID-19) AG (IP) POCT (01/07/2024 3:26 PM MANUFACTURING TECHNOLOGIST) SARS-CoV-2 Ag Negative(Negat puneet) Negative [facility] Lot # [id number] [facility] Expiration Date 12/20/2024 [facility] Instrument Serial Number n/a [facility] COVID Internal Control Acceptable Acceptable [facility] Microbiology SPECIMEN FROM NASAL FOSSAE / Unknown 01/07/2024 3:26 PM MANUFACTURING TECHNOLOGIST Narrative [facility] - 01/07/2024 3:41 PM MANUFACTURING TECHNOLOGIST Jody Wadsworth ROADWAY ENGINEER-MOLDING MACHINE OPERATOR HELPER LAB - POINT OF CAR E ORDERABLES Performing Organization Address [facility] de Phone Number [facility] [address] [place] [address] * LIPID PROFILE (LIPID PANEL) (04/16/2011 7:53 AM MANUFACTURING TECHNOLOGIST) Cholesterol 187 100 - 199 mg/dL [facility] ACCOUNT BILL Triglycerides 98 0 - 149 mg/dL [facility] ACCOUNT BILL HDL Cholesterol 88 >39 mg/dL [facility] ACCOUNT BILL Comment: According to ATP-III Guidelines, HDL-C >59 mg/dL is considered a negative risk factor for CHD. VLDL Calculated 20 5 - 40 mg/dL [facility] ACCOUNT BILL LDL Calculated 79 0 - 99 mg/dL [facility] ACCOUNT BILL Blood specimen (specimen) BLOOD SPECIMEN / Unknown 04/16/2011 7:53 AM MANUFACTURING TECHNOLOGIST 04/16/2011 12:29 PM MANUFACTURING TECHNOLOGIST Narrative Resulting Agency Comment [facility] [address] ??[facility] [phone] Eric Washington MD LAB - CHEMISTRY ELSY SEGOVIA [facility] ACCOUNT BILL from Last 3 Months or Most Recently Relevant to Health Maintenance Care Teams Pest Management Supervisor Relationship Specialty Start Date End Date Radha Barber MD [address] [place] [address] PCP - General Family Medicine 12/23/19
--- OUTSIDE RECORDS SUMMARY | 2024-02-14 17:07 | XMS_ITS | Encounter Summary ---
Author Organization [facility] Address [address] [place] [address] Care Team Providers Care Teller Manager Name Role Phone Radha Barber MD Primary Care Provider Reason for Visit * Reason Comments Nausea follow up Encounter Details Date Type Department Care Team (Latest Contact Info) Description 01/19/2020 1:20 PM COPPER PLATE PRINTER Video Visit [facility] - [facility] [address], [address] [place] [id number] Eric Washington MD [address] [facility] [address] [place], [place] [id number] Nausea and vomiting, intractability of vomiting not specified, unspecified vomiting type Social History Tobacco Use Types Packs/Day [...] - Inhaled Oxygen Concentration - - Weight 44.9 kg (99 lb) 01/19/2020 1:07 PM COPPER PLATE PRINTER Height 157.5 cm (5' 2 ) 01/19/2020 1:07 PM COPPER PLATE PRINTER Body Mass Index 18.11 01/19/2020 1:07 PM COPPER PLATE PRINTER documented in this encounter Functional Status Functional [...] as of this encounter Progress Notes * Eric Washington MD - 01/19/2020 1:31 PM CST GASTROENTEROLOGY RETURN VISIT Virtual Medicine Visit DEMOGRAPHICS: Patient: Tamiko Carcamo : 1975 Referring M.D.: Radha Barber MD CHIEF COMPLAINT: Idiopathic pancreatitis SUBJECTIVE: Past idiopathic pancreatitis s/p CCX. Routine follow up visit. She reports still having some nausea, clearly worse with heavier foods. She has been strict about diet and meds in the past, just admitsto being a bit more liberal with foods. No fever, bleeding, weight loss. Admits to having significant stress for which she was just started on meds. PAST HISTORY: Past Medical History: Diagnosis Date ??? Pancreatitis ??? Seasonal allergies Past Surgical History: Procedure Laterality Date ??? Cholecystectomy, Laparoscopic N/A 12/21/2016 N/A; LAPAROSCOPIC CHOLECYSTECTOMY ??? COLONOSCOPY ??? EGD ??? ENDOSCOPY, UPPER 01/22/2013 ESOPHAGOGASTRODUODENOSCOPY (EGD) OUTPATIENT MEDICATIONS: Current Outpatient Medications Medication Sig Dispense Refill ??? BLISOVI FE 03/02 1-20 MG-MCG tablet Take 1 tablet by mouth once daily ??? cetirizine (ZYRTEC) 10 MG tablet Take 10 mg by mouth once daily 3 ??? FLUoxetine (PROZAC) 20 MG capsule Take 20 mg by mouth once daily ??? fluticasone propionate (FLONASE) 50 MCG/ACT nasal spray [place] into each nostril 2 times daily 3 ??? HYDROcodone-acetaminophen (NORCO) 5-325 MG tablet Take 1-2 tablets by mouth every 4 hours as needed for Pain (Patient not taking: Reported on 12/27/2016) 30 tablet 0 ??? ketoconazole (NIZORAL) 2 % shampoo every 7 days 11 ??? olopatadine (PATADAY) 0.2 % ophthalmic solution Instill 2.5 mL into both eyes as needed 3 ??? ondansetron, disintegrating, (ZOFRAN ODT) 4 MG tablet Take 1 tablet by mouth every 6 hours as needed for Nausea/Vomiting Allow tablet to dissolve on the tongue (Patient not taking: Reported on 01/19/2020) 8 tablet 1 ??? ondansetron, disintegrating, (ZOFRAN ODT) 4 MG tablet Take 1 Tab by mouth every 6 hours as needed for Nausea/Vomiting Allow tablet to dissolve on the tongue (Patient not taking: Reported on 01/19/2020) 40 Tab 3 ??? promethazine (PROMETHEGAN) 25 MG suppository Insert 1 suppository into the rectum every 6 hoursas needed for Nausea/Vomiting 40 suppository 0 No current facility-administered medications for this visit. REVIEW OF SYSTEMS: Per HPI unless noted below: Respiratory ROS: no cough, shortness of breath, or wheezing Cardiovascular ROS: no chest pain or dyspnea on exertion Gastrointestinal ROS: per HPI PHYSICAL EXAM: Vitals: 01/19/20 1307 Weight: 44.9 kg (99 lb) Height: 1.575 m (5' 2 ) Body mass index is 18.11 kg/m??. Physical Exam (by video): Gen: Alert, oriented, no distress HEENT: Pupils round and equal, nonicteric sclera Lungs: No audible wheezing, unlabored, no conversational dyspnea Abd: By patient self-reported exam -- soft, non tender, non distended Extr: No edema, no deformity Neuro: No visible focal deficits Psych: Appropriate mood, good eye contact LABS: Recent Labs Component Name 11/21/16 1541 01/26/16 1016 06/18/12 1653 12/26/11 0949 04/16/11 0753 SODIUM 140 142 140 140 141 POTASSIUM 4.3 4.0 4.6 4.8 4.1 CHLORIDE 105 106 103 104 103 CO2 29 30 23 21 23 BUN 14 12 11 13 13 CREATININE 0.79 0.84 0.83 0.92 0.92 GLUCOSE 87 64* 90 80 80 Recent Labs Component Name 01/26/16 1016 06/18/12 165212/26/1149 04/16/11 0753 WBC 6.8 5.4 5.8 4.9 HGB 12.3 12.5 12.8 12.5 PLTCOUNT 219 257 218 215 MCV 88.2 86 87 86 Recent Labs Component Name 11/21/16 1541 01/26/16 1016 06/18/12 1653 12/26/11 0949 04/16/11 0753 ALBUMIN 3.6 3.9 4.4 4.3 4.3 ALKPHOS 43 47 42 39 39 TBIL 0.3 0.3 0.2 0.5 0.3 AST 11 17 20 18 20 ALT 14 13 11 8 10 Recent Labs Component Name 11/21/16 1541 01/26/16101506/18/12165212/26/1149 04/16/11 0753 LIPASE 309 312 83* 63* 81* Pertinent radiology -- reviewed all recent CT scans, x-rays, ultrasound, and nuclear medicine test results in [facility] Assessment/Plan: Pt is 44 year old female with: Nausea, past pancreatitis. Some stress and likely functional component. Continue low fat diet and to try Creon before meals. I have discussed the above recommendations and their risks, benefits, and alternatives, with the patient and any family present, and all agreed with the plan. All questions were answered. Telemedicine Note Patient Verification & Telemedicine Based Consent I am proceeding with this evaluation at the direct request of the patient. I have verified this is the correct patient and have obtained verbal consent from the patient/surrogate to perform this voluntary telemedicine encounter evaluation. I have explained risks (including potential loss of confiden tiality), benefits, alternatives, and the potential need for subsequent face to face care. Patient/surrogate understands that there is a risk of medical inaccuracies given that our recommendations will be made based on reported data. Knowing that there is a risk that this information is not reported accurately, and that the telemedicine audio, or data feed may be incomplete, the patient agrees toproceed with evaluation and holds us harmless knowing these risks. In this evaluation, we will be providing recommendations only. The patient/surrogate has been notified that other healthcare professionals (including students, residents and technical personnel) may be involved in this audio evaluation. All laws concerning confidentiality and patient access to medical records and copies of medicalrecords apply to telemedicine. I have reviewed this above verification and consent paragraph with the patient/surrogate. Today's visit was conducted virtually due to COVID-19 countermeasures. The patient has given verbalconsent to have today's visit conducted by this same means with treatment provided remotely. The patient verbally consents to the billing and collection practices of [facility]. Patient location: Home This encounter was performed using: audio and video Time spent with patient/proxy: Not applicable (use only if video was possible) ER PLATE PRINTER documented in this encounter Plan of Treatment Not on file documented as of this encounter Visit Diagnoses Diagnosis Nausea and vomiting, intractability of vomiting not specified, unspecified vomiting type- Primary documented in this encounter Care Teams Teller Manager Relationship Specialty Start Date End Date Radha Barber MD [address] [place] [phone] PCP - General Family Medicine 12/23/19 documented as of this encounter
--- OUTSIDE RECORDS SUMMARY | 2024-02-14 17:07 | XMS_ITS | Encounter Summary ---
Author Organization [facility] Address [address] [place] [address] Care Team Providers Care Equine Breeder Name Role Phone Federico Nieves MD Primary Care Provider [phone] Encounter Details Date Type Department Care Team (Late st Contact Info) Description 12/31/2011 Orders Only [facility] [address] [place], [place] [id number] Eric Washington MD [address] [facility] [address] [place], [place] [phone] Social History Tobacco Use Types Packs/Day Years [...] this encounter Patient Instructions * Patient Instructions* Angelica Santizo - 12/31/2011 10:24 AM COMPOSING ROOM MACHINIST ULTRASOUND OF GALL BLADDER ULTRASOUND OF PANCREAS ULTRASOUND OF LIVER Test Date: 01/05/2012 Test Time: 7:30am LOCATION: [address], [address]. PLEASE REPORT 15 MINUTES PRIOR TO YOUR TEST. INSTRUCTIONS: 1) PLEASE HAVE NOTHING TO EAT OR DRINK AFTER MIDNIGHT the night before the test, unless given otherinstructions by your physician. 2) PLEASE BRING YOUR MEDICATIONS WITH YOU IN THE ORIGINAL CONTAINERS. Please call our office if you have any questions at [phone]. OSING ROOM MACHINIST documented in this encounter Progress Notes * Angelica Santizo - 12/31/2011 10:23 AM CST Informed pt of lab results. Pt maurice for KRISTINE RUSHING on 01/05/12@730a. Spoke w/ Monica Ruiz in Cs. Mailed instructions. OSING ROOM MACHINIST documented in this encounter Plan of Treatment Not on file documented as of this encounter Visit Diagnoses Not on filedocumented in this encounter Care Teams Equine Breeder Relationship Specialty Start Date End Date Federico Nieves MD [address] [place] [address] PCP - General Family Medicine 04/04/11 11/25/16 documented as of this encounter
--- OUTSIDE RECORDS SUMMARY | 2024-02-14 17:07 | XMS_ITS | Encounter Summary ---
Author Organization [facility] Address [address] [place] [address] Care Team Providers Care Candles Pourer Name Role Phone Radha Barber MD Primary Care Provider Reason for Visit * Reason Onset Date Comments MEDICATION REFILL 12/23/2019 Encounter Details Date Type Department Care Team (Late st Contact Info) Description 12/23/2019 Refill [facility] - [address] [place] [address] Eric Washington MD [address] [facility] [address] [place], [place] [phone] MEDICATION REFILL Social History Tobacco Use Types Packs/Day Years [...] No 12/21/2016 documented as of this encounter Miscellaneous Notes * Telephone Encounter - Claudia Lombardo APRN-CNP - 12/23/2019 8:25 AM ACUTE CARE ASSISTANT Refill request received for Promethazine Suppositories and approved. ELLEN: 01/29/2017 with upcoming appt of 01/19/20. Prescription sent to [facility] on [address]. E CARE ASSISTANT documented in this encounter Plan of Treatment Not on file documented as of this encounter Visit Diagnoses Diagnosis Nausea without vomiting documented in this encounter Care Teams Candles Pourer Relationship Specialty Start Date End Date Radha Barber MD [address] [place] [address] PCP - General Family Medicine 12/23/19 documented as of this encounter
--- OUTSIDE RECORDS SUMMARY | 2024-02-14 17:07 | XMS_ITS | Encounter Summary ---
Author Organization [facility] Address [address] [place] [address] Care Team Providers Care Press Operator Assistant Name Role Phone Federico Nieves MD Primary Care Provider [phone] Reason for Visit * Reason Comments Follow-up Encounter Details Date Type Department Care Team (Late st Contact Info) Description 04/22/2012 3:00 PM CDT Office Visit [facility] - [address] [place] [address] Eric Washington MD [address] [address] Acute pancreatitis (HCC) (Primary Dx) Social History Tobacco Use Types [...] Sign Reading Time Taken Comments Blood Pressure 96/58 04/22/2012 3:05 PM CDT Pulse - - Temperature - - Respiratory Rate - - Oxygen Saturation - - Inhaled Oxygen Concentration - - Weight 43.1 kg (95 lb) 04/22/2012 3:05 PM CDT Height 157.5 cm (5' 2 ) 04/22/2012 3:05 PM CDT Body Mass Index 17.38 04/22/2012 3:05 PM CDT documented in this encounter Progress Notes * Eric Washington MD - 04/22/2012 3:18 PM CDT GASTROENTEROLOGY RETURN VISIT NOTE DEMOGRAPHICS: Patient: Tamiko Carcamo : 1975 Referring Vicente.: Federico Nieves SUBJECTIVE: 37 y.o.female with past history of idiopathic pancreatitis. Doing well on pancreatic enzymes and low fat diet. Currently denies pain or diarrhea. Weight stable. Recent EUS shows no significant changes (including of chronic pancreatitis). PAST HISTORY: Past Medical History Diagnosis Date ??? Pancarditis No past surgical history on file. ALLERGIES: No Known Allergies MEDICATIONS: Current Outpatient Prescriptions Medication Sig Dispense Refill ??? pancrelipase (ZENPEP) 84150 UNITS capsule Take 1 Cap by mouth 3 times daily with meals. Do not crush or chew. 270 Cap 1 ??? desogestrel-ethinyl estradiol (AZURETTE) 0.15-0.02/0.01 MG (01/07) tablet History Social History ??? Marital Status: Single Spouse Name: N/A Number of Children: N/A ??? Years of Education: N/A Occupational History ??? Not on file. Social History Main Topics ??? Smoking status: Never Smoker ??? Smokeless tobacco: Never Used ??? Alcohol Use: No ??? Drug Use: No ??? Sexually Active: Not on file Other Topics Concern ??? Not on file Social History Narrative ??? No narrative on file No family history on file. REVIEW OF SYSTEMS: Per HPI unless noted below. PHYSICAL EXAM: Vitals: 04/22/12 1505 BP: 96/58 Weight: 95 lb (43.092 kg) Body mass index is 17.38 kg/(m^2). Awake, alert and oriented x 3. Well-developed, in no acute distress. Normocephalic. Conjunctiva without erythema. PERRLA. TMs normal. Pharynx clear. Clear to auscultation bilaterally. No abnormal respiratory effort or retraction noted. Breath sounds are positive bilaterally. Regular rate, rhythm without murmur. Abdomen soft, nontender, not distended. Bowel sounds positive. Liver and spleen are clear. No masses noted. Normal to inspection. Warm, dry, supple, with no changes in moles or sores that will not heal. alert, oriented, normal speech, no focal findings or movement disorder noted nml appearance LABS: Component Name 12/26/11 0949 04/16/11 0753 SODIUM 140 141 POTASSIUM 4.8 4.1 CHLORIDE 104 103 CO2 21 23 BUN 13 13 CREATININE 0.92 0.92 GLUCOSE 80 80 Component Name 12/26/1149 04/16/11 0753 WBC 5.8 4.9 HGB 12.8 12.5 PLTCOUNT 218 215 MCV 87 86 INR -- -- Component Name 12/26/1149 04/16/11 0753 ALBUMIN 4.3 4.3 ALKPHOS 39 39 TBIL 0.5 0.3 AST 18 20 ALT 8 10 Component Name 12/26/1149 04/16/11 0753 AMYLASE -- -- LIPASE 63* 81* FERRITIN -- -- IRON -- -- Pertinent radiology: Assessment/Plan: Pt is 37 y.o. female with: Past idiopathic pancreatitis. Doing well on Zenpep and low fat diet. Negative EUS (no structural abnormalities or chronic changes). Follow for now. Reassess meds in 3-6 months. I have discussed the above recommendations and their risks, benefits, and alternatives, with the patient and any family present, and all agreed with the plan. All questions were answered. documented in this encounter Plan of Treatment Not on file documented as of this encounter Visit Diagnoses Diagnosis Acute pancreatitis (HCC)- Primary Acute pancreatitis documented in this encounter Care Teams Press Operator Assistant Relationship Specialty Start Date End Date Federico Nieves MD [address] [place] [address] PCP - General Family Medicine 04/04/11 11/25/16 documented as of this encounter
--- OUTSIDE RECORDS SUMMARY | 2024-02-14 17:07 | XMS_ITS | Encounter Summary ---
Author Organization [facility] Address [address] [place] [address] Care Team Providers Care Offset Printing Pressmen Name Role Phone Federico Nieves MD Primary Care Provider [phone] Reason for Visit * Reason Comments Follow-up pancreatitis Encounter Details Date Type Department Care Team (Late st Contact Info) Description 07/28/2014 3:30 PM CDT Office Visit [facility] [address] [facility] [address] [place], [place] [id number] Eric Washington MD [address] [facility] [address] [place], [place] [id number] Acute pancreatitis, unspecified pancreatitis type (Primary Dx) Social History Tobacco Use Types [...] Sign Reading Time Taken Comments Blood Pressure 100/62 07/28/2014 3:25 PM CDT Pulse 76 07/28/2014 3:25 PM CDT Temperature - - Respiratory Rate 16 07/28/2014 3:25 PM CDT Oxygen Saturation - - Inhaled Oxygen Concentration - - Weight 42.6 kg (94 lb) 07/28/2014 3:25 PM CDT Height 157.5 cm (5' 2 ) 07/28/2014 3:25 PM CDT Body Mass Index 17.19 07/28/2014 3:25 PM CDT documented in this encounter Progress Notes * Eric Washington MD - 07/28/2014 4:00 PM CDT GASTROENTEROLOGY RETURN VISIT NOTE DEMOGRAPHICS: Patient: Tamiko Carcamo : 1975 Referring Vignesh: Fed[facility]ico [facility] SUBJECTIVE: 39 y.o.female with idiopathic pancreatitis a few years ago. No symptoms in recent past. Only abdominal complaint is mild constipation. Currently not needing any supplements. No weight loss. Follows alow fat diet. PAST HISTORY: Past Medical History Diagnosis Date ??? Pancarditis Past Surgical History Procedure Laterality Date ??? Egd ??? Colonoscopy ??? Endoscopy, upper 01/22/2013 ESOPHAGOGASTRODUODENOSCOPY (EGD) ALLERGIES: No Known Allergies MEDICATIONS: Current Outpatient Prescriptions Medication Sig Dispense Refill ??? Other Reasonsno meds ??? desogestrel-ethinyl estradiol (AZURETTE) 0.15-0.02/0.01 MG (01/07) tablet Take 1 Tab by mouth once daily. No current facility-administered medications for this visit. History Social History ??? Marital Status: Single Spouse Name: N/A Number of Children: N/A ??? Years of Education: N/A Occupational History ??? Not on file. Social History Main Topics ??? Smoking status: Never Smoker ??? Smokeless tobacco: Never Used ??? Alcohol Use: No ??? Drug Use: No ??? Sexual Activity: Not on file Other Topics Concern ??? Not on file Social History Narrative No family history on file. REVIEW OF SYSTEMS: Per HPI unless noted below. PHYSICAL EXAM: Vitals: 07/28/14 1525 BP: 100/62 Pulse: 76 Resp: 16 Weight: 42.638 kg (94 lb) Body mass index is 17.19 kg/(m^2). Awake, alert and oriented x 3. [...] or movement disorder noted nml appearance LABS: Recent Labs Component Name 06/18/12165212/26/11 0949 04/16/11 0753 SODIUM 140 140 141 POTASSIUM 4.6 4.8 4.1 CHLORIDE 103 104 103 CO2 23 21 23 BUN 11 13 13 CREATININE 0.83 0.92 0.92 GLUCOSE 90 80 80 Recent Labs Component Name 06/18/12165212/26/11 0949 04/16/11 0753 WBC 5.4 5.8 4.9 HGB 12.5 12.8 12.5 PLTCOUNT 257 218 215 MCV 86 87 86 Recent Labs Component Name 06/18/12165212/26/11 0949 04/16/11 0753 ALBUMIN 4.4 4.3 4.3 ALKPHOS 42 39 39 TBIL 0.2 0.5 0.3 AST 20 18 20 ALT 11 8 10 Recent Labs Component Name 06/18/12165212/26/11 0949 04/16/11 0753 LIPASE 83* 63* 81* Pertinent radiology: Assessment/Plan: Pt is 39 y.o. female with: Idiopathic pancreatitis. Asymptomatic. Watch for now. I have discussed the above recommendations and their risks, benefits, and alternatives, with the patient and any family present, and all agreed with the plan. All questions were answered. documented in this encounter Plan of Treatment Not on file documented as of this encounter Visit Diagnoses Diagnosis Acute pancreatitis, unspecified pancreatitis type- Primary documented in this encounter Care Teams Offset Printing Pressmen Relationship Specialty Start Date End Date Federico Nieves MD [address] [place] [address] PCP - General Family Medicine 04/04/11 11/25/16 documented as of this encounter
--- OUTSIDE RECORDS SUMMARY | 2024-02-14 17:07 | XMS_ITS | Encounter Summary ---
Author Organization [facility] Address [address] [facility] [place] [address] Care Team Providers Care Technical Lead Name Role Phone Federico Nieves MD Primary Care Provider [phone] Reason for Visit * Reason Comments Follow-up Feeling better Encounter Details Date Type Department Care Team (Late st Contact Info) Description 04/21/2013 1:00 PM CDT Office Visit [facility] - [address] [place] [address] Eric Washington MD [facility] [address] [address] Acute pancreatitis (HCC) (Primary Dx) [...] Sign Reading Time Taken Comments Blood Pressure 122/78 04/21/2013 1:14 PM CDT Pulse - - Temperature - - Respiratory Rate - - Oxygen Saturation - - Inhaled Oxygen Concentration - - Weight 43.1 kg (95 lb) 04/21/2013 1:14 PM CDT Height 157.5 cm (5' 2 ) 04/21/2013 1:14 PM CDT Body Mass Index 17.38 04/21/2013 1:14 PM CDT documented in this encounter Progress Notes * Eric Washington MD - 04/21/2013 1:25 PM CDT GASTROENTEROLOGY RETURN VISIT NOTE DEMOGRAPHICS: Patient: Tamiko Carcamo : 1975 Referring MAdan.: Federico Nieves SUBJECTIVE: 38 y.o.female with past history of idiopathic pancreatitis. No clear structural abnormality (normalimaging including MRCP and U/S in past) or autoimmune labs. Feels well and has actually tapered offpancreatic enzyme supplements. Feels stress may have caused mild intermittent abdominal symptoms. No fever, bleeding, weight loss. PAST HISTORY: Past Medical History Diagnosis Date ??? Pancarditis Past Surgical History Procedure Date ??? Egd ??? Colonoscopy ??? Endoscopy, upper 01/22/2013 ESOPHAGOGASTRODUODENOSCOPY (EGD) ALLERGIES: No Known Allergies MEDICATIONS: Current Outpatient Prescriptions Medication Sig Dispense Refill ??? desogestrel-ethinyl estradiol (AZURETTE) 0.15-0.02/0.01 MG (01/07) tablet Take 1 Tab by mouth once daily. History Social History ??? Marital Status: Single [...] HPI unless noted below. PHYSICAL EXAM: Vitals: 04/21/13 1314 BP: 122/78 Weight: 43.092 kg (95 lb) Body mass index is 17.37 kg/(m^2). Awake, alert and oriented x 3. [...] disorder noted nml appearance LABS: Component Name 06/18/12165212/26/1149 04/16/11 0753 SODIUM 140 140 141 POTASSIUM 4.6 4.8 4.1 CHLORIDE 103 104 103 CO2 23 21 23 BUN 11 13 13 CREATININE 0.83 0.92 0.92 GLUCOSE 90 80 80 Component Name 06/18/12165212/26/11 0949 04/16/11 0753 WBC 5.4 5.8 4.9 HGB 12.5 12.8 12.5 PLTCOUNT 257 218 215 MCV 86 87 86 INR -- -- -- Component Name 06/18/12165212/26/11 0949 04/16/11 0753 ALBUMIN 4.4 4.3 4.3 ALKPHOS 42 39 39 TBIL 0.2 0.5 0.3 AST 20 18 20 ALT 11 8 10 Component Name 06/18/12165212/26/1149 04/16/11 0753 AMYLASE -- -- -- LIPASE 83* 63* 81* FERRITIN -- -- -- IRON -- -- -- Pertinent radiology: Assessment/Plan: Pt is 38 y.o. female with: Past history of idiopathic pancreatitis. Asymptomatic and now tapered off meds. To repeat labs (CMP and Lipase) in next 3 months. F/U OV in 6-12 months if no further problems. Patient instructed to call if she developed any symptoms. I have discussed the above recommendations and their risks, benefits, and alternatives, with the patient and any family present, and all agreed with the plan. All questions were answered. documented in this encounter Plan of Treatment Not on file documented as of this encounter Visit Diagnoses Diagnosis Acute pancreatitis (HCC)- Primary Acute pancreatitis documented in this encounter Care Teams Technical Lead Relationship Specialty Start Date End Date Federico Nieves MD [address] [place] [address] PCP - General Family Medicine 04/04/11 11/25/16 documented as of this encounter
--- OUTSIDE RECORDS SUMMARY | 2024-02-14 17:07 | XMS_ITS | Encounter Summary ---
Author Organization [facility] Address [address] [facility] [place] [address] Care Team Providers Care Fashion Supervisor Name Role Phone Federico Nieves MD Primary Care Provider [phone] Reason for Visit * Reason Comments GALLBLADDER ATTACK * Evaluate & Treat - Closed Specialty Diagnoses / Procedures Referred By Contac t Referred To Contact Surgery-General Diagnoses Abnormal findings on diagnostic imaging of gallbladder Eric Washington MD [address] [facility] [facility] [address] [facility] [address] [place] [address] India Cisse MD [address] [facility] [address] [place] [address] Referral ID Status Reason Start Date Expiration Date V isits Requested Visits Authorized [id number] Closed Specialty Services Required 12/05/2016 06/03/2017 1 1 Encounter Details Date Type Department Care Team (Late st Contact Info) Description 12/11/2016 11:30 AM CDT Office Visit [facility] - General Surgery [address] [place] [address] [address] [place] [address] India Cisse MD [address] [place] [address] Abnormal findings on diagnostic imaging of gallbladder (Primary Dx) Social History Tobacco Use Types [...] Sign Reading Time Taken Comments Blood Pressure 113/81 12/11/2016 11:30 AM CDT Pulse 93 12/11/2016 11:30 AM CDT Temperature - - Respiratory Rate - - Oxygen Saturation 100% 12/11/2016 11:30 AM CDT Inhaled Oxygen Concentration - - Weight 48 kg (105 lb 12.8 oz) 12/11/2016 11:30 A M CDT Height 157.5 cm (5' 2 ) 12/11/2016 11:30 AM CDT Body Mass Index 19.35 12/11/2016 11:30 AM CDT documented in this encounter Patient Instructions * Patient Instructions* Suzi Martinez - 12/11/2016 11:58 AM CDT INDIA CISSE M.D. [address] [place] [id number] OFFICE: [phone] FAX: [phone] SURGICAL INSTRUCTION SHEET Tamiko Carcamo HAS BEEN SCHEDULED FOR SURGERY AT [facility] ON: Saturday12/21/16 YOU WILL NEED TO ARRIVE AT THE PROCEDURE CENTER AT 7:00 am YOUR SURGICAL PROCEDURE WILL BEGIN AT APPROXIMATELY 9:00 am PREPARATION FOR YOUR SURGERY ?? DO NOT DRIVE YOURSELF TO THE PROCEDURE! HAVE A RIDE ARRANGED ?? NOTHING TO EAT OR DRINK ( INCLUDING WATER) AFTER MIDNIGHT THE NIGHT BEFORE. (NO GUM, MINTS OR CIGARETTES) ?? STOP TAKING ASPIRIN PRODUCTS 5 DAYS PRIOR TO SURGERY ?? A NURSE THAT WORKS IN THE OPERATING ROOM AND WITH THE ANESTHESIOLOGIST WILL CONTACT YOU APPROXIMATELY 1 DAY PRIOR TO SURGERY TO REVIEW YOUR MEDICATIONS AND HEALTH HISTORY. SHE WILL TELL YOU WHICH OF YOUR MORNING MEDICATIONS TO TAKE THE MORNING OF YOUR SURGERY. ?? BRING A CURRENT LIST OF MEDICATIONS OR BRING THE MEDICINE BOTTLES ?? PLEASE LEAVE ANY VALUABLES, JEWELRY, WATCHES, ETC. AT HOME. YOU CAN NOT WEAR THEM IN THE OPERATING ROOM AND WE DO NOT WANT TO RISK LOSING THEM! ?? WE ALSO RECOMMEND YOU SHOWER WITH AN ANTIBACTERIAL SOAP SUCH DIAL THE DAY OF YOUR SURGERY TO CUT DOWN ON ANY BACTERIA ON YOUR SKIN. As part of our mission to provide exceptional care to you, it is very important to follow up in theoffice after your surgery. Your postop visit is scheduled on: 12/27/16 3:10 pm IF YOU HAVE ANY QUESTIONS PLEASE CONTACT THE OFFICE AT [phone] HAVE A GREAT DAY AND THANK YOU FOR CHOOSING [facility]! [facility] [employer] If your employer requires FMLA (Family Medical Leave Act) paperwork completed for your time off work, you may fax, mail or drop the forms off. Please make sure you complete your portion of the paperwork. These forms will be filled out within 48 hours of your scheduled surgery. POST-OP INSTRUCTIONS As you leave the hospital, there are some things to remember and a few to watch out for to make your recovery as smooth as possible. MEDS Pain medication does not agree with everyone. Do not take pain medication on an empty stomach and NEVER take more than the recommended dose. Pain medications can also cause constipation. If you experience constipation or choose not to use pain medications, you can try Advil or Tylenol. If your prescription pain medication is not working or lasting long enough, you may take ibuprofen (Advil, Motrin) 200-600mg as often as every six hours, along with or in between your prescription medication. If naproxen (Aleve) works better for you than ibuprofen, you may take 1-2 tablets as oftenas every 12 hours, along with or in between your prescriptions pain CONSTIPATION Constipation is common after surgery. Pain medication can contribute to this. If you do not have a bowel movement by post op day 2, begin taking 2 tablespoons Milk of Magnesia every 6 hours. You may take this for up to 24 hours. If you take this medication and it does not work within 48 hours, callour office for further instructions. SHOWERING You may shower 24 hours after coming home, unless otherwise instructed. Leave the incisions uncovered and pat dry. INCISION CARE Keep incisions clean and dry. It is normal to have a small amount of clear drainage. If they are draining, keep the incisions covered until drainage stops. If glue was used on your incisions, do not peel it off. It will fall off on its own or the doctor will remove at the post op visit. If drainagebecomes thick, yellow or bloody, call our office. DIET Eat a light diet the first day home. (i.e. soup, jello, toast) If you experience nausea/vomiting, stay on fluids low in acid (water, sports drinks, and clear sodas) If no nausea/vomiting return to normal diet. ACTIVITY You should not return to normal activities, including work until released by the doctor. Please avoid tobacco and alcohol. Also do not drive for 3 days following surgery or until released by doctor. CALL YOUR DOCTOR IMMEDIATELY IF YOU: ??? ARE UNABLE TO URINATE ??? HAVE A FEVER OVER 100.4F ??? INCISIONS ARE RED AND WARM TO THE TOUCH ??? HAVE CONTINUOUS VOMITING ??? SEVERE ABDOMINAL PAIN ??? EXPERIENCE SWELLING IN ARMS OR LEGS ALWAYS IF YOU ARE UNSURE OR HAVE QUESTIONS PLEASE CALL THE OFFICE OR EXCHANGE IF IT IS AFTER HOURS. OFFICE: [phone] documented in this encounter Progress Notes * India Cisse MD - 12/11/2016 11:41 AM CDT [facility] India Cisse M.D. Primary Care Physician: Federico Nieves MD Encounter Date: 12/11/2016 Patient Name: Tamiko Carcamo : 1975 Reason for Visit: Galbladder History of Present Illness: 41-year-old female with gallbladder symptoms and prior pancreatitis. Extensive GI workup shows a decreased ejection fraction CCK HIDA. Her pain is mainly postprandial and accompanied by bloating. Past Medical History: Diagnosis Date ??? Pancarditis Past Surgical History: Procedure Laterality Date ??? COLONOSCOPY ??? EGD ??? ENDOSCOPY, UPPER 01/22/2013 ESOPHAGOGASTRODUODENOSCOPY (EGD) Current Outpatient Prescriptions Medication ??? BLISOVI FE 03/02 1-20 MG-MCG tablet ??? olopatadine (PATADAY) 0.2 % ophthalmic solution ??? cetirizine (ZYRTEC) 10 MG tablet ??? fluticasone propionate (FLONASE) 50 MCG/ACT nasal spray ??? ketoconazole (NIZORAL) 2 % shampoo ??? ondansetron, disintegrating, (ZOFRAN ODT) 4 MG tablet No current facility-administered medications for this visit. No Known Allergies Family History Problem Relation Age of Onset ??? CVA Maternal Grandmother ??? Cancer - Other Maternal Grandmother ??? Diabetes - Type 2 Maternal Grandmother ??? Hypertension Maternal Grandmother ??? Hypertension Maternal Grandfather ??? Diabetes - Type 2 Paternal Grandmother ??? CVA Paternal Grandfather Social History Social History ??? Marital status: Single Spouse name: N/A ??? Number of children: 0 ??? Years of education: N/A Occupational History ??? Not on file. Social History Main Topics ??? Smoking status: Never Smoker ??? Smokeless tobacco: Never Used ??? Alcohol use No ??? Drug use: No ??? Sexual activity: Not on file Other Topics Concern ??? Not on file Social History Narrative Review of Systems Constitutional: Negative. HENT: Positive for tinnitus. Eyes: Negative. Respiratory: Negative. Cardiovascular: Negative. Gastrointestinal: Positive for abdominal pain, nausea and vomiting. Genitourinary: Negative. Musculoskeletal: Negative. Skin: Negative. Neurological: Negative. Endo/Heme/Allergies: Positive for environmental allergies. Bruises/bleeds easily. Psychiatric/Behavioral: Negative. Physical Exam: Vital Signs: BP 113/81 (BP SITE: RIGHT ARM, BP POSITION: SITTING, BP CUFF SIZE: Adult) Pulse 93 Ht 1.575 m (5' 2 ) Wt 48 kg (105 lb 12.8 oz) SpO2 100% BMI 19.35 kg/m2 General: Well developed, well nourished, no distress. HEENT: Eyes: Pupils equal and reactive. Ears: oropharynx clear. Lungs: Normal respiratory rate, clear to auscultation bilaterally. Heart: Regular rate and rhythm without murmur or gallop Abdomen: Soft, normal bowel sounds. Mild tenderness to deep palpation right upper quadrant. No massor rebound. Extremities: No edema or cyanosis. Neuro: CN III-XII intact, gross motor/sensory exam intact Laboratory Results: Recent Labs Component Name 01/26/16 1016 WBC 6.8 HCT 39.8 PLTCOUNT 219 Recent Labs Component Name 11/21/16 1541 SODIUM 140 POTASSIUM 4.3 CHLORIDE 105 CO2 29 BUN 14 GLUCOSE 87 CALCIUM 9.4 ALBUMIN 3.6 ALKPHOS 43 ALT 14 AST 11 TBIL 0.3 TPROT 7.7 EGFR >60 Radiographic Results: Nm Hepatobiliary With Ef Result Date: 11/26/2016 HEPATOBILIARY IMAGING WITH EJECTION FRACTION DETERMINATION INDICATION: Abdominal pain, nausea without vomiting. RADIOPHARMACEUTICAL: 5 mCi of Tc 99m Choletec, intravenously. PROVOCATIVE AGENT: 29 g fatty meal. FINDINGS: Images made after the administration of radiopharmaceutical show prompt clearance of blood pool activity. There is rapid conjugation and excretion of the tracer, with activity being seen in the common bile duct on the 7 minute image. Subsequent images show progressive accumulation of tracer within the gallbladder. There is passage into the small bowel, confirming common bile duct patency, as well. Time activity curve determinations made after ingestion of a fatty meal show amaximum ejection fraction of 7% at 16 minutes. Some authors report a normal value as being greater than 35%. 1. NO EVIDENCE OF CYSTIC OR COMMON BILE DUCT OBSTRUCTION. 2. NO SCINTIGRAPHIC EVIDENCE OF ACUTE CHOLECYSTITIS. 3. 7 % GALLBLADDER EJECTION FRACTION. I have personally reviewed the above clinical tests. I have discussed the results of the clinical tests with the patient. Impression: Biliary dyskinesia. Plan: I have counseled the patient for a laparoscopic cholecystectomy. The procedure, risks, complications, post-op recovery and return to work were discussed with the patient who understands and agrees. As per the patients request, we will schedule the procedure for December 21. Discussed off workfor approximately 1 week. India Cisse M.D. Office: [phone] documented in this encounter Plan of Treatment Not on file documented as of this encounter Procedures Procedure Name Priority Date/Time Associated Diagnosis Comments AMB REFERRAL TO GENERAL SURGERY Routine 12/11/2016 11:59 AM CDT Abnormal findings on diagnostic imaging of gallbladder documented in this encounter Results * AMB REFERRAL TO GENERAL SURGERY (12/11/2016 11:59 AM CDT) Eric Washington MD OUTPATIENT REFERRALS documented in this encounter Visit Diagnoses Diagnosis Abnormal findings on diagnostic imaging of gallbladder- Primary documented in this encounter Care Teams Fashion Supervisor Relationship Specialty Start Date End Date Federico Nieves MD [address] [place] [address] PCP - General Family Medicine 12/11/16 12/22/19 documented as of this encounter
--- OUTSIDE RECORDS SUMMARY | 2024-02-14 17:07 | XMS_ITS | Encounter Summary ---
Author Organization [facility] Address [address] [place] [address] Care Team Providers Care Psychological Operations Officer Name Role Phone Federico Nieves MD Primary Care Provider [phone] Encounter Details Date Type Department Care Team (Late st Contact Info) Description 01/26/2016 Orders Only [facility] [address] [place], [place] [id number] Eric Washington MD [address] [place], [place] [id number] Acute pancreatitis, unspecified complication status, unspecified pancreatitis type (HCC) Social History Tobacco Use Types Packs/Day Years Used Date Smoking Tobacco: Never Smokeless Tobacco: Never Alcohol Use Standard Drinks/Week Comments No 0 (1 standard drink = 0.6 oz pur e alcohol) Sex and Gender Information Value Date Recorded Sex Assigned at Not on file Gender Identity Not on file Sexual Orientation Not on file documented as of this encounter Progress Notes * Tamiko Flor - 01/26/2016 9:00 AM CST Returned pt call in re to sx. Per MD have pt get a lipase, cmp, and cbc drawn. Clear liquid diet today. Pt aware and heading to lab now. TATION TANK WASHER documented in this encounter Plan of Treatment Not on file documented as of this encounter Procedures Procedure Name Priority Date/Time Associated Diagnosis Comments CBC W AUTO DIFFERENTIAL Routine 01/26/2016 10:16 AM SANITATION TANK WASHER Acute pancreatitis, unspecified complication status, unspecified pancreatitis type (HCC) COMPREHENSIVE METABOLIC PANEL Routine 01/26/2016 10:16 AM SANITATION TANK WASHER Acute pancreatitis, unspecified complication status, unspecified pancreatitis type (HCC) LIPASE BLOOD Routine 01/26/2016 10:16 AM SANITATION TANK WASHER Acute pancreatitis, unspecified complication status, unspecified pancreatitis type (HCC) documented in this encounter Results * (ABNORMAL) COMPREHENSIVE METABOLIC PANEL (01/26/2016 10:16 AM SANITATION TANK WASHER) Glucose 64(L) 74 - 106 mg/dL [facility] INSURANCE BILL BUN 12 7 - 21 mg/dL [facility] INSURANCE BILL Creatinine 0.84 0.50 - 1.30 mg/dL [facility] INSURANCE BILL eGFR by MDRD >60 >60 mL/min/1.7 3m2 [facility] INSURANCE BILL eGFR by MDRD >60 >60 mL/min/1.7 3m2 [facility] INSURANCE BILL Sodium 142 136 - 145 mmol/L [facility] INSURANCE BILL Potassium 4.0 3.5 - 5.1 mmol/L [facility] INSURANCE BILL Chloride 106 98 - 107 mmol/L [facility] INSURANCE BILL CO2 30 22 - 31 mmol/L [facility] INSURANCE BILL Calcium 9.2 8.5 - 10.1 mg/dL [facility] INSURANCE BILL Protein Total 8.1 6.4 - 8.2 gm/dL [facility] INSURANCE BILL Albumin 3.9 3.4 - 5.0 gm/dL [facility] INSURANCE BILL Bilirubin Total 0.3 0.2 - 1.0 mg/dL [facility] INSURANCE BILL Alkaline Phosphatase 47 38 - 126 U/L [facility] INSURANCE BILL AST 17 5 - 40 U/L [facility] INSURANCE BILL ALT 13 13 - 61 U/L [facility] INSURANCE BILL Blood BLOOD SPECIMEN / Unknown 01/26/2016 10:16 AM SANITATION TANK WASHER 01/26/2016 Narrative Resulting Agency Comment [facility] [address] [facility] [place] [address]ch ??Derrick BUSBY [phone] Eric Washington MD LAB - CHEMISTRY ELSY SEGOVIA [facility] INSURANCE BILL [address] [place] [address] * (ABNORMAL) CBC W AUTO DIFFERENTIAL (01/26/2016 10:16 AM SANITATION TANK WASHER) WBC 6.8 4.4 - 10.7 x10E9/L [facility] INSURANCE BILL RBC 4.51 3.80 - 5.20 x10E12/L [facility] INSURANCE BILL Hemoglobin 12.3 12.0 - 15.6 gm/dL [facility] INSURANCE BILL Hematocrit 39.8 35.9 - 45.5 % [facility] INSURANCE BILL MCV 88.2 80.7 - 98.3 fL [facility] INSURANCE BILL MCH 27.3 26.7 - 34.0 pg [facility] INSURANCE BILL MCHC 30.9 30.8 - 35.9 gm/dL [facility] INSURANCE BILL RDW 14.3 12.1 - 14.9 % [facility] INSURANCE BILL Platelet Count 219 153 - 416 x10E9/L [facility] INSURANCE BILL Comment:MPV FL BLOOD (SSM) 1 0.0 fl 9.4-12.9 Granulocytes % 47.1 44.0 - 73.0 % [facility] INSURANCE BILL Lymphocytes % 45.3(H) 20.0 - 43.0 % [facility] INSURANCE BILL Monocytes % 7.0 5.0 - 13.0 % [facility] INSURANCE BILL Eosinophils % 0.4 0.0 - 6.0 % [facility] INSURANCE BILL Basophils % 0.1 0.0 - 2.0 % [facility] INSURANCE BILL Granulocytes Absolute 3.17 2.01 - 7.14 x10E9/L [facility] INSURANCE BILL Lymphocytes Absolute 3.06 1.07 - 3.94 x10E9/L [facility] INSURANCE BILL Monocytes Absolute 0.47 0.26 - 1.07 x10E9/L [facility] INSURANCE BILL Eosinophils Absolute 0.03 0 - 0.47 x10E9/L [facility] INSURANCE BILL Basophils Absolute 0.01 0 - 0.08 x10E9/L [facility] INSURANCE BILL Immature Granulocytes 0.1 0 - 1 % [facility] INSURANCE BILL Immature Granulocytes Absolute 0.01 0.00 - 0.06 x10E9/L [facility] INSURANCE BILL nRBC 0 /100 WBC [facility] INSURANCE BILL Blood BLOOD SPECIMEN / Unknown 01/26/2016 10:16 AM SANITATION TANK WASHER 01/26/2016 Narrative Resulting Agency Comment [facility] [address] ??Derrick BUSBY [phone] Eric Washington MD LAB - HEMATOLOGY ORD ERABLES [facility] INSURANCE BILL [address] [place] [address] * LIPASE BLOOD (01/26/2016 10:16 AM SANITATION TANK WASHER) Lipase 312 73 - 393 U/L [facility] INSURANCE BILL Blood BLOOD SPECIMEN / Unknown 01/26/2016 10:16 AM SANITATION TANK WASHER 01/26/2016 Narrative Resulting Agency Comment [facility] [address] [address] ??Derrick BUSBY [phone] Eric Washington MD LAB - CHEMISTRY ORDE JULIETTE Performing Organization Address City/[facility] Co de Phone Number [facility] INSURANCE BILL [address] [place] [address] documented in this encounter Visit Diagnoses Diagnosis Acute pancreatitis, unspecified complication status, unspecified pancreatitis type (HCC)- Primary documented in this encounter Care Teams Psychological Operations Officer Relationship Specialty Start Date End Date Federico Nieves MD [address] [place] [phone] PCP - General Family Medicine 04/04/11 11/25/16 documented as of this encounter
--- OUTSIDE RECORDS SUMMARY | 2024-02-14 17:07 | XMS_ITS | Encounter Summary ---
Author Organization [facility] Address [address] [place] [address] Care Team Providers Care Tester Waste Disposal Leakage Name Role Phone Radha Barber MD Primary Care Provider Reason for Visit * Reason Comments Refill Request Encounter Details Date Type Department Care Team (Late st Contact Info) Description 08/27/2022 Refill [facility] - GI [address] [place] [address] Claudia Lombardo APRN-MOTOR EXPRESS CLERK [address] [facility] [address] [place] [address] Refill Request Social History Tobacco Use Types Packs/Day Years [...] Telephone Encounter - Claudia Lombardo APRN-CNP - 08/27/2022 10:18 AM CDT Refill request received for Promethegan Suppositories and approved. ELLEN: 01/19/2020. Prescription sent to Michael on [facility], and [employer] message sent regarding yearly appt. documented in this encounter Plan of Treatment Not on file documented as of this encounter Visit Diagnoses Diagnosis Nausea without vomiting documented in this encounter Care Teams Tester Waste Disposal Leakage Relationship Specialty Start Date End Date Radha Barber MD [address] [place] [phone] PCP - General Family Medicine 12/23/19 documented as of this encounter
--- OUTSIDE RECORDS SUMMARY | 2024-02-14 17:07 | XMS_ITS | Encounter Summary ---
Author Organization [facility] Address [address] [place] [address] Care Team Providers Care Strike Warfare/Missile Systems Officer Name Role Phone Federico Nieves MD Primary Care Provider [phone] Reason for Visit * Reason Comments Follow-up pt is doing well Encounter Details Date Type Department Care Team (Late st Contact Info) Description 08/03/2015 1:00 PM CDT Office Visit [facility] [address] [place], [place] [address] Eric Washington MD [address] [place], [place] [phone] Acute pancreatitis, unspecified pancreatitis type (Primary Dx); Nausea without vomiting Social History Tobacco Use Types Packs/Day Years [...] Sign Reading Time Taken Comments Blood Pressure 107/72 08/03/2015 12:56 PM CDT Pulse - - Temperature - - Respiratory Rate - - Oxygen Saturation - - Inhaled Oxygen Concentration - - Weight 44.5 kg (98 lb) 08/03/2015 12:56 PM CDT Height 157.5 cm (5' 2 ) 08/03/2015 12:56 PM CDT Body Mass Index 17.92 08/03/2015 12:56 PM CDT documented in this encounter Patient Instructions * Patient Instructions* Gabriella Munoz - 08/03/2015 12:59 PM CDT During your visit, we noted a difference between the dose and/or dosing frequency of one of the following medication(s) documented in your record and the way you report that it is being taken. Pleasecontact the prescribing physician to verify the correct dose and instructions. documented in this encounter Progress Notes * Eric Washington MD - 08/03/2015 1:21 PM CDT GASTROENTEROLOGY RETURN VISIT NOTE DEMOGRAPHICS: Patient: Tamiko Carcamo : 1975 Referring M.D.: Federico Nieves MD SUBJECTIVE: 40 y.o.female with past history of idiopathic pancreatitis. She has done very well for years. Has occasional mild nausea and reports clearly doing better on low fat diet. Has not required pancreatic enzymes in a while. No fever, bleeding, diarrhea, or weight loss. Has been able to exercise regularly at gym. PAST HISTORY: Past Medical History Diagnosis Date [...] HPI unless noted below. PHYSICAL EXAM: Vitals: 08/03/15 1256 BP: 107/72 Weight: 44.453 kg (98 lb) Body mass index is 17.92 kg/(m^2). Awake, alert and oriented x 3. [...] or movement disorder noted nml appearance LABS: No results for input(s): SODIUM, POTASSIUM, CHLORIDE, CO2, BUN, CREATININE, GLUCOSE in the last 53721 hours. No results for input(s): WBC, HGB, PLTCOUNT, MCV, INR in the last 99843 hours. Invalid input(s): 5 No results for input(s): ALBUMIN, ALKPHOS, TBIL, AST, ALT in the last 30206 hours. Invalid input(s): PROTEINTOTAL No results for input(s): AMYLASE, LIPASE, FERRITIN, IRON in the last 83169 hours. Invalid input(s): SATURATION Pertinent radiology: Assessment/Plan: Pt is 40 y.o. female with: Past idiopathic pancreatitis. No significant symptoms in a long time. Doing well. Feels better on low fat diet. Watch symptoms. Will follow progress and instructed to call if any problems worsen. I have discussed the above recommendations and their risks, benefits, and alternatives, with the patient and any family present, and all agreed with the plan. All questions were answered. documented in this encounter Plan of Treatment Not on file documented as of this encounter Visit Diagnoses Diagnosis Acute pancreatitis, unspecified pancreatitis type- Primary Nausea without vomiting documented in this encounter Care Teams Strike Warfare/Missile Systems Officer Relationship Specialty Start Date End Date Federico Nieves MD [address] [place] [address] PCP - General Family Medicine 04/04/11 11/25/16 documented as of this encounter
--- OUTSIDE RECORDS SUMMARY | 2024-02-14 17:07 | XMS_ITS | Encounter Summary ---
Author Organization [facility] Address [address] [facility] [place] [address] Care Team Providers Care Business Reporting Developer Name Role Phone Radha Barber MD Primary Care Provider Reason for Visit * Reason Comments Refill Request Encounter Details Date Type Department Care Team (Late st Contact Info) Description 01/13/2021 Refill [facility] - GI [address] [place] [address] Claudia Lombardo APRN-EQUIP TECH [address] [facility] [address] [place] [address] Refill Request Social History Tobacco [...] Telephone Encounter - Claudia Lombardo APRN-CNP - 01/13/2021 8:37 AM TRANSPORTATION PLANNING TECHNICIAN Refill request received for Promethegan supp and approved. ELLEN: 01/19/2020. Prescription sent to [facility] on [facility]. SPORTATION PLANNING TECHNICIAN documented in this encounter Plan of Treatment Not on file documented as of this encounter Visit Diagnoses Diagnosis Nausea without vomiting documented in this encounter Care Teams Business Reporting Developer Relationship Specialty Start Date End Date Radha Barber MD [address] [place] [address] PCP - General Family Medicine 12/23/19 documented as of this encounter
--- OUTSIDE RECORDS SUMMARY | 2024-02-14 17:07 | XMS_ITS | Encounter Summary ---
Author Organization [facility] Address [address] [place] [address] Care Team Providers Care Metallic Yarn Slitting Machine Operator Name Role Phone Federico Nieves MD Primary Care Provider [phone] Reason for Visit * Reason Comments Establish Care FU Encounter Details Date Type Department Care Team (Late st Contact Info) Description 01/29/2017 9:00 AM COAT AGENT Office Visit [facility] [address] [facility] [address] [place] [address] Eric Washington MD [address] [facility] [address] [place] [address] Biliary dyskinesia (Primary Dx) Social History Tobacco Use Types [...] Sign Reading Time Taken Comments Blood Pressure 118/82 01/29/2017 9:10 AM COAT AGENT Pulse - - Temperature - - Respiratory Rate - - Oxygen Saturation - - Inhaled Oxygen Concentration - - Weight 48.2 kg (106 lb 3.2 oz) 01/29/2017 9:10 A M COAT AGENT Height 157.5 cm (5' 2 ) 01/29/2017 9:10 AM COAT AGENT Body Mass Index 19.42 01/29/2017 9:10 AM COAT AGENT documented in this encounter Functional Status Functional [...] No 12/21/2016 documented as of this encounter Patient Instructions * Patient Instructions* Panfilo Lebron I - 01/29/2017 9:09 AM COAT AGENT During your visit, we noted a difference between the dose and/or dosing frequency of one of the following medication(s) documented in your record and the way you report that it is being taken. Pleasecontact the prescribing physician to verify the correct dose and instructions for the following: AGENT documented in this encounter Progress Notes * Eric Washington MD - 01/29/2017 9:29 AM CST GASTROENTEROLOGY RETURN VISIT NOTE DEMOGRAPHICS: Patient: Tamiko Carcamo : 1975 Referring M.D.: Federico Nieves MD SUBJECTIVE: 41 y.o.female with past history of idiopathic pancreatitis in the remote past. Recently found to have biliary dyskinesia and s/p CCX. Feels great. No abdominal pain, N/V or problems eating. Still following low fat diet. PAST HISTORY: Past Medical History: Diagnosis Date ??? Pancreatitis ??? Seasonal allergies Past Surgical History: Procedure Laterality Date ??? Cholecystectomy, Laparoscopic N/A 12/21/2016 N/A; LAPAROSCOPIC CHOLECYSTECTOMY ??? COLONOSCOPY ??? EGD ??? ENDOSCOPY, UPPER 01/22/2013 ESOPHAGOGASTRODUODENOSCOPY (EGD) ALLERGIES: No Known Allergies MEDICATIONS: Current Outpatient Prescriptions Medication Sig Dispense Refill ??? HYDROcodone-acetaminophen (NORCO) 5-325 MG tablet Take 1-2 tablets by mouth every 4 hours as needed for Pain (Patient not taking: Reported on 12/27/2016) 30 tablet 0 ??? ondansetron, disintegrating, (ZOFRAN ODT) 4 MG tablet Take 1 tablet by mouth every 6 hours as needed for Nausea/Vomiting Allow tablet to dissolve on the tongue 8 tablet 1 ??? BLISOVI FE 03/02 1-20 MG-MCG tablet Take 1 tablet by mouth once daily ??? olopatadine (PATADAY) 0.2 % ophthalmic solution Instill 2.5 mL into both eyes as needed 3 ??? cetirizine (ZYRTEC) 10 MG tablet Take 10 mg by mouth once daily 3 ??? fluticasone propionate (FLONASE) 50 MCG/ACT nasal spray Cedar into each nostril 2 times daily 3 ??? ketoconazole (NIZORAL) 2 % shampoo every 7 days 11 ??? ondansetron, disintegrating, (ZOFRAN ODT) 4 MG tablet Take 1 Tab by mouth every 6 hours as needed for Nausea/Vomiting Allow tablet to dissolve on the tongue 40 Tab 3 No current facility-administered medications for this visit. Social History Social History ??? Marital status: Single Spouse name: N/A ??? Number of children: 0 ??? Years of education: N/A Occupational History ??? Not on file. Social History Main Topics ??? Smoking status: Never Smoker ??? Smokeless tobacco: Never Used ??? Alcohol use 0.0 oz/week 0 Standard drinks or equivalent per week Comment: ocassional/social ??? Drug use: No ??? Sexual activity: Not on file Other Topics Concern ??? Not on file Social History Narrative Family History Problem Relation Age of Onset ??? CVA Maternal Grandmother ??? Cancer - Other Maternal Grandmother ??? Diabetes - Type 2 Maternal Grandmother ??? Hypertension Maternal Grandmother ??? Hypertension Maternal Grandfather ??? Diabetes - Type 2 Paternal Grandmother ??? CVA Paternal Grandfather REVIEW OF SYSTEMS: Per HPI unless noted below. PHYSICAL EXAM: Vitals: 01/29/17 0910 BP: 118/82 Weight: 48.2 kg (106 lb 3.2 oz) Body mass index is 19.42 kg/(m^2). Awake, alert and oriented x 3. [...] nml appearance LABS: Recent Labs Component Name 11/21/16 1541 01/26/16 1016 SODIUM 140 142 POTASSIUM 4.3 4.0 CHLORIDE 105 106 CO2 29 30 BUN 14 12 CREATININE 0.79 0.84 GLUCOSE 87 64* Recent Labs Component Name 01/26/16 1016 WBC 6.8 HGB 12.3 PLTCOUNT 219 MCV 88.2 Recent Labs Component Name 11/21/16 1541 01/26/16 1016 ALBUMIN 3.6 3.9 ALKPHOS 43 47 TBIL 0.3 0.3 AST 11 17 ALT 14 13 Recent Labs Component Name 11/21/16 1541 01/26/16 1016 LIPASE 309 312 Pertinent radiology: Assessment/Plan: Pt is 41 y.o. female with: Remote history of pancreatitis. Recently s/p CCX. Feels great. Low fat diet and watch. Patient to call us with problems. I have discussed the above recommendations and their risks, benefits, and alternatives, with the patient and any family present, and all agreed with the plan. All questions were answered. AGENT documented in this encounter Plan of Treatment Not on file documented as of this encounter Visit Diagnoses Diagnosis Biliary dyskinesia- Primary Other specified disorder of gallbladder documented in this encounter Care Teams Metallic Yarn Slitting Machine Operator Relationship Specialty Start Date End Date Federico Nieves MD [address] [place] [address] PCP - General Family Medicine 12/11/16 12/22/19 documented as of this encounter
--- OUTSIDE RECORDS SUMMARY | 2024-02-14 17:07 | XMS_ITS | Encounter Summary ---
Author Organization [facility] Address [address] [place] [address] Care Team Providers Care Heel Cementer Machine Name Role Phone Radha Barber MD Primary Care Provider Reason for Visit * Reason Comments Refill Request Encounter Details Date Type Department Care Team (Late st Contact Info) Description 08/18/2020 Refill [facility] - GI [address] [place] [address] Claudia Lombardo APRN-SHIP OFFICER [address] [facility] [address] [place] [address] Refill Request Social History Tobacco [...] Telephone Encounter - Claudia Lombardo APRN-CNP - 08/18/2020 5:53 PM CDT Refill request received for Monica and stephanie. ELLEN: 01/19/2020. Prescription sent to Michael [facility] at [facility]. documented in this encounter Plan of Treatment Not on file documented as of this encounter Visit Diagnoses Diagnosis Nausea without vomiting documented in this encounter Care Teams Heel Cementer Machine Relationship Specialty Start Date End Date Radha Barber MD [address] [place] [address] PCP - General Family Medicine 12/23/19 documented as of this encounter
--- OUTSIDE RECORDS SUMMARY | 2024-02-14 17:07 | XMS_ITS | Encounter Summary ---
Author Organization [facility] Address [address] [facility] [place] [address] Care Team Providers Care Lead Shipper Name Role Phone Radha Barber MD Primary Care Provider Encounter Details Date Type Department Care Team (Latest Contact Info) Description 01/07/2024 Travel Social History Tobacco Use Types Packs/Day [...] No 12/21/2016 documented as of this encounter Plan of Treatment Not on file documented as of this encounter Visit Diagnoses Not on filedocumented in this encounter Additional Health Concerns Infection Onset Date Last Indicated Resolved Time COVID-19 Under Investigation 01/07/2024 01/07/2024 01/07/2024 3:41 PM BILLING SPECIALIST documented as of this encounter Care Teams Lead Shipper Relationship Specialty Start Date End Date Radha Barber MD [address] [place] [address] PCP - General Family Medicine 12/23/19 documented as of this encounter
--- OUTSIDE RECORDS SUMMARY | 2024-02-14 17:07 | XMS_ITS | Encounter Summary ---
Author Organization [facility] Address [address] [facility] [address] Care Team Providers Care Collection Agent Name Role Phone Federico Nieves MD Primary Care Provider [phone] Encounter Details Date Type Department Care Team (Late st Contact Info) Description 10/01/2012 Orders Only [facility] - [address] [facility] [address] [place] [address] Eric Washington MD [facility] [address] [id number] Acute pancreatitis (HCC) Social History Tobacco Use Types Packs/Day Years Used Date Smoking Tobacco: Never Smokeless Tobacco: Never Alcohol Use Standard Drinks/Week Comments No 0 (1 standard drink = 0.6 oz pur e alcohol) Sex and Gender Information Value Date Recorded Sex Assigned at Not on file Gender Identity Not on file Sexual Orientation Not on file documented as of this encounter Progress Notes * Soo Vergara - 10/01/2012 2:06 PM CDT Refill request for Zenpep was auth/sent to pharm. documented in this encounter Plan of Treatment Not on file documented as of this encounter Visit Diagnoses Diagnosis Acute pancreatitis (HCC)- Primary Acute pancreatitis documented in this encounter Care Teams Collection Agent Relationship Specialty Start Date End Date Federico Nieves MD [address] [place] [address] PCP - General Family Medicine 04/04/11 11/25/16 documented as of this encounter
--- OUTSIDE RECORDS SUMMARY | 2024-02-14 17:07 | XMS_ITS | Encounter Summary ---
Author Organization [facility] Address [address] [place] [address] Care Team Providers Care Stamp Classifier Name Role Phone Federico Nieves MD Primary Care Provider [phone] Reason for Visit * Reason Comments Follow-up n/v Encounter Details Date Type Department Care Team (Late st Contact Info) Description 01/07/2013 11:00 AM BLENDING KETTLE TENDER Office Visit [facility] [address] [facility] [address] [place], [place] [id number] Eric Washington MD [address] [facility] [address] [place], [place] [id number] Epigastric pain (Primary Dx); Anorexia Social History Tobacco Use Types Packs/Day Years [...] Sign Reading Time Taken Comments Blood Pressure 110/68 01/07/2013 11:05 AM BLENDING KETTLE TENDER Pulse 68 01/07/2013 11:05 AM BLENDING KETTLE TENDER Temperature - - Respiratory Rate 16 01/07/2013 11:05 AM BLENDING KETTLE TENDER Oxygen Saturation - - Inhaled Oxygen Concentration - - Weight 42.6 kg (94 lb) 01/07/2013 11:05 AM BLENDING KETTLE TENDER Height 157.5 cm (5' 2 ) 01/07/2013 11:05 AM BLENDING KETTLE TENDER Body Mass Index 17.19 01/07/2013 11:05 AM BLENDING KETTLE TENDER documented in this encounter Patient Instructions * Patient Instructions* Tamiko Brannon - 01/07/2013 11:40 AM BLENDING KETTLE TENDER PREPARATION FOR UPPER ENDOSCOPY Please arrive at 11:30AM for your procedure which is scheduled at 1PM, on 01/22/13. Please register at: [facility] [place] [address] NO FOOD OR DRINK AFTER MIDNIGHT BEFORE YOUR EXAM. MEDICATION INSTRUCTIONS: DISCUSS WELL IN ADVANCE OF YOUR PROCEDURE: If you are taking Persantine, Heparin, Coumadin (Warfarin) or Plavix as prescribed by your physician, please phone us at [phone] well in advance of your procedure. 3 DAYS BEFORE your procedure, stop taking any blood thinners, such as Aspirin, Motrin, Advil, Aleve, Ibuprofen, Aggrenox or Naprosyn. 1 WEEK BEFORE your procedure, please stop any prescription iron medication. ON THE DAY OF YOUR PROCEDURE: Important medications, such as heart or blood pressure medications may be taken the morning of your test with a ???sip? of water. DO NOT EAT OR DRINK ANYTHING AFTER MIDNIGHT! Except for important medications such as blood pressure, heart or seizure medications, which may betaken the morning of your procedure with a sip of water. ON THE DAY OF your procedure BRING YOUR MEDS AND A DEBEAKER with you: BRING YOUR CURRENT MEDICATIONS IN THEIR ORIGINAL CONTAINERS WITH YOU TO YOUR PROCEDURE. BRING SOMEONE TO DRIVE YOU HOME. (The medication you will receive will prevent you from driving or working safely the day of your exam). There is a comfortable waiting area with complimentary beverages available for your stud driver during their wait period. The physician will discuss the findings with you and your family members following your procedure. Thank you for allowing us to participate in your care. If you have any questions regarding this procedure or preparation for it, please call our office [phone]. DING KETTLE TENDER documented in this encounter Progress Notes * Tamiko Brannon - 01/07/2013 11:43 AM CST sched pt for egd w/anesth on 01/22/13 @ [facility]. Faxed or sched. Gave pt inst in office DING KETTLE TENDER * Eric Washington MD - 01/07/2013 11:30 AM CST GASTROENTEROLOGY RETURN VISIT NOTE DEMOGRAPHICS: Patient: Tamiko Carcamo : 1975 Referring MAdan.: Federico [facility] SUBJECTIVE: 37 y.o.female with past history of idiopathic pancreatitis. MRCP earlier this year fine. Has been describing intermittent epigastric pain and some anorexia. No fever, bleeding or weigh loss though. Feels better today. Has noted some intermittent N/V with foods that contain corn syrup. PAST HISTORY: Past Medical History Diagnosis Date ??? Pancarditis No past surgical history on file. ALLERGIES: No Known Allergies MEDICATIONS: Current Outpatient Prescriptions Medication Status Sig Dispense Refill ??? pancrelipase (ZENPEP) 46400 UNITS capsule Active Take 1 Cap by mouth 3 times daily with meals. Do not crush or chew. 270 Cap 1 ??? desogestrel-ethinyl estradiol (AZURETTE) 0.15-0.02/0.01 MG (01/07) tablet Active History Social History ??? Marital Status: Single [...] HPI unless noted below. PHYSICAL EXAM: Vitals: 01/07/13 1105 BP: 110/68 Pulse: 68 Resp: 16 Weight: 42.638 kg (94 lb) Body mass index is 17.19 kg/(m^2). Awake, alert and oriented x 3. Well-developed, in no acute distress. Normocephalic. Conjunctiva without erythema. PERRLA. TMs normal. Pharynx clear. Clear to auscultation bilaterally. No abnormal respiratory effort or retraction noted. Breath sounds are positive bilaterally. Regular rate, rhythm without murmur. BS+, soft, epigastric tenderness. No distention or rebound. Normal to inspection. Warm, dry, supple, with no changes in moles or sores that will not heal. alert, oriented, normal speech, no focal findings or movement disorder noted nml appearance LABS: Component Name 06/18/12165212/26/11 0949 04/16/11 0753 SODIUM [...] 20 ALT 11 8 10 Component Name 06/18/12165212/26/11 0949 04/16/11 0753 AMYLASE -- -- -- LIPASE 83* 63* 81* FERRITIN -- -- -- IRON -- -- -- Pertinent radiology: Assessment/Plan: Pt is 37 y.o. female with: Epigastric pain and some anorexia. Plan EGD to rule out obvious disease. Will reassess the need for further work-up (labs, U/S) depending on results. I have discussed the above recommendations and their risks, benefits, and alternatives, with the patient and any family present, and all agreed with the plan. All questions were answered. DING KETTLE TENDER documented in this encounter Plan of Treatment Not on file documented as of this encounter Visit Diagnoses Diagnosis Epigastric pain- Primary Abdominal pain, epigastric Anorexia documented in this encounter Care Teams Stamp Classifier Relationship Specialty Start Date End Date Federico Nieves MD [address] [place] [address] PCP - General Family Medicine 04/04/11 11/25/16 documented as of this encounter
--- OUTSIDE RECORDS SUMMARY | 2024-02-14 17:07 | XMS_ITS | Encounter Summary ---
Author Organization [facility] Address [address] [place] [address] Care Team Providers Care Table Tender Sludge Name Role Phone Federico Nieves MD Primary Care Provider [phone] Reason for Visit * Auth/Cert - Closed Specialty Diagnoses / Procedures Referred By Callie shepherd Referred To Contact Diagnoses Abdominal pain, epigastric Procedures ESOPHAGOGASTRODUODENOSCOPY (EGD) Referral ID Status Reason Start Date Expiration Date Visits Re quested Visits Authorized [id number] Closed 1 1 Encounter Details Date Type Department Care Team (Latest Contact Info) Description 01/22/2013 11:17 AM PROPAGATOR - 01/22/2013 12:12 PM PROPAGATOR Hospital Encounter [facility] - Endoscopy Surgery [address] [place] [address] Eric Washington MD [address] [place] [address] Surgery General Discharge Disposition: Home or Self Care Social [...] Sign Reading Time Taken Comments Blood Pressure 124/86 01/22/2013 11:51 AM PROPAGATOR Pulse 76 01/22/2013 11:51 AM PROPAGATOR Temperature 36.3 ??C (97.4 ??F) 01/22/2013 11:[address] Respiratory Rate 16 01/22/2013 11:51 AM PROPAGATOR Oxygen Saturation 100% 01/22/2013 11:51 AM PROPAGATOR Inhaled Oxygen Concentration - - Weight 43.5 kg (96 lb) 01/22/2013 11:51 AM PROPAGATOR Height 157.5 cm (5' 2 ) 01/21/2013 12:55 PM PROPAGATOR Body Mass Index 17.56 01/21/2013 12:55 PM PROPAGATOR documented in this encounter Discharge Instructions * Discharge Instructions* Document, Scanned - 01/23/2013 11:31 PM PROPAGATOR AGATOR documented in this encounter Medications at Time of Discharge Medication Sig Dispensed Refills Start Date End Date desogestrel-ethinyl estradiol (AZURETTE) 0.15-0.02/0.01 MG (01/07) tablet Take 1 Tab by mouth once daily. 12/11/2016 pancrelipase (ZENPEP) 19964 UNITS capsuleIndications:Acute pancreatitis (HCC) Take 1 Cap by mouth 3 times daily with meals. Do not crush or chew. 270 Cap 1 10/01/2012 04/21/2013 documented as of this encounter H&P Notes * Eric Washington MD - 01/22/2013 1:25 PM CST ENDOSCOPY PRE-PROCEDURE MEDICAL HISTORY & PHYSICAL NOTE 01/22/2013 Tamiko Carcamo 37 y.o. female BP 124/86 Pulse 76 Temp 97.4 ??F Resp 16 Wt 43.545 kg (96 lb) BMI 17.56 kg/m2 History: Past Medical History Diagnosis Date ??? Pancarditis Past Surgical History Procedure Date ??? Egd ??? Colonoscopy No Known Allergies Prescriptions prior to admission Medication Status Sig Dispense Refill ??? pancrelipase (ZENPEP) 85769 UNITS capsule Active Take 1 Cap by [...] Pain Procedure Planned: EGD Eric Washington MD AGATOR documented in this encounter Procedure Notes * Document, Scanned - 01/23/2013 11:31 PM CSTAssociated Order(s): CARDIAC RHYTHM STRIP ORDER AGATOR * Eric Washington MD - 01/22/2013 1:39 PM CSTAssociated Order(s): EGD AGATOR * Eric Washington MD - 01/22/2013 1:38 PM CSTAssociated Order(s): EGD Normal exam. A/P: Follow symptomatically. Consider UGI if symptoms continue to rule out SMA syndrome. AGATOR documented in this encounter Miscellaneous Notes * Miscellaneous Scans - Document, Scanned - 01/23/2013 11:31 PM CST AGATOR * Miscellaneous Scans - Document, Scanned - 01/23/2013 11:31 PM CST AGATOR * Miscellaneous Scans - Document, Scanned - 01/23/2013 11:31 PM CST AGATOR documented in this encounter Plan of Treatment Not on file documented as of this encounter Procedures Procedure Name Priority Date/Time Associated Diagnosis Comments CARDIAC RHYTHM STRIP ORDER 01/23 11:31 PM PROPAGATOR EGD Routine 01/22/2013 1:32 PM PROPAGATOR ESOPHAGOGASTRODUODENOSCOPY ( EGD) DIAGNOSTIC 01/22/2013 1:00 PM PROPAGATOR Abdominal Pain, Epigastric HCG URINE QUALITATIVE - POIN T OF CARE Routine 01/22/2013 11:48 AM PROPAGATOR documented in this encounter Results * CARDIAC RHYTHM STRIP ORDER (01/23/2013 11:31 PM PROPAGATOR) Narrative 01/23/2013 11:31 PM PROPAGATOR Ordered by an unspecified provider. Transcriptions Document, Scanned - 01/23/2013 11:31 PM CST Scanned Document CARDIAC SERVICES ORD ERABLES * EGD (01/22/2013 1:32 PM PROPAGATOR) Report Endoscopy POC __ _ Patient Name: [...] Procedure Code(s): ? --- Professional --- ? 81767, Upper gastrointestinal endoscopy including esophagus, stomach, ? and either the duodenum and/or jejunum as appropriate; diagnostic, with ? or without collection of specimen(s) by brushing or washing (separate ? procedure) ? --- Technical --- ? 95194, Upper gastrointestinal endoscopy including esophagus, stomach, ? and either the duodenum and/or jejunum as appropriate; diagnostic, with ? or without collection of specimen(s) by brushing or washing (separate ? procedure) Diagnosis Code(s): ? --- Professional --- ? 789.06, Abdominal pain, epigastric ? --- Technical --- ? 789.06, Abdominal pain, epigastric CPT (R) 2012 [employer]. All Rights Reserved. The codes documented in this report are preliminary and upon remote coders review may be revised to meet current compliance requirements. __ Eric Washington MD 01/22/2013 1:38 PM This report has been signed electronically. Number of Addenda: 0 Note Initiated On: 01/22/2013 1:32 PM Estimated Blood Loss: ? Estimated blood loss: none. [facility] ENDOSCOPY 01/22/2013 1:32 PM PROPAGATOR Narrative [facility] ENDOSCOPY - 01/22/2013 1:39 PM PROPAGATOR Normal exam. A/P: Follow symptomatically. Consider UGI if symptoms continue to rule out SMA syndrome. Procedure Note Eric Washington MD - 01/22/2013 1:38 PM CST Normal exam. A/P: Follow symptomatically. Consider UGI if symptoms continue to rule out SMA syndrome. Transcriptions Eric Washington MD - 01/22/2013 1:39 PM CST Eric Washington MD GI PROCEDURE ORDERAB LES [facility] ENDOSCOPY * HCG URINE QUALITATIVE - POINT OF CARE (IP) (01/22/2013 11:48 AM PROPAGATOR) HCG Qual Urine Negative Negative [facility] POCT TESTING QC Verified yes Yes [facility] POC T TESTING Urine specimen (specimen) URINE / Unknown 01/22/2013 11:48 AM PROPAGATOR Eric Washington MD LAB - POINT OF CARE ORDERABLES [facility] POCT TESTING [address] [address] documented in this encounter Visit Diagnoses Not on filedocumented in this encounter Administered Medications Inactive Administered Medications - up to 3 most recent administrations Medication Order MAR Action Action Date Dose Rate Site lactated ringers infusion at 20 mL/hr, Intravenous, PRE-OP CONTINUOUS, Starting on Audra 01/22/13 at 1200, Until Audra 01/22/13 at 1513, Pre-op $ New Bag/Syringe 01/22/2013 12:09 PM PROPAGATOR 20 mL/hr Right Hand lidocaine (XYLOCAINE MPF) 1 % injection Infiltration, PRE-OP MULTIPLE, 3 doses, Starting on Audra 01/22/13 at 1156, Until Audra 01/22/13 at 1513, May be used (0.2 ml locally to anesthetize prior to insertion if patient has NKA to Lidocaine)., Pre-op $ Given 01/22/2013 12:09 PM PROPAGATOR 0.1 mL Right Hand documented in this encounter Active and Recently Administered Medications Times are shown in PROPAGATOR. Scheduled Medication Order 01/20/2013 01/21/2013 01/22/2013 lidocaine (XYLOCAINE MPF) 1 % injection (CANCELED) Infiltration, PRE-OP MULTIPLE, 3 doses, Starting on Audra 01/22/13 at 1156, Until Audra 13 at 1513, May be used (0.2 ml locally to anesthetize prior to insertion if patient has NKA to Lidocaine)., Pre-op 1209 ($ Given - Prov ider: Gina Chris, RN - Comment: subq) Continuous Medication Order 01/20/2013 01/21/2013 01/22/2013 lactated ringers infusion (CANCELED) at 20 mL/hr, Intravenous, PRE-OP CONTINUOUS, Starting on Audra 01/22/13 at 1200, Until Audra 01/22/13 at 1513, Pre-op 1209 ($ New Bag/Syri nge - Provider: Gina Chris RN)1334 (Anesthesia Volume Adjustment - Provider: Gifty Frey CRNA) documented in this encounter Care Teams Table Tender Sludge Relationship Specialty Start Date End Date Federico Nieves MD [address] [place] [address] PCP - General Family Medicine 04/04/11 11/25/16 documented as of this encounter
--- OUTSIDE RECORDS SUMMARY | 2024-02-14 17:07 | XMS_ITS | Encounter Summary ---
Author Organization [facility] Address [address] [facility] [place] [address] Care Team Providers Care Central Communications Specialist Name Role Phone Radha Barber MD Primary Care Provider Reason for Visit * Reason Comments Refill Request Encounter Details Date Type Department Care Team (Late st Contact Info) Description 10/23/2020 Refill [facility] - GI [address] [place] [address] Claudia Lombardo APRN-RECORDING STUDIO SETUP WORKER [address] [facility] [address] [place] [address] Refill Request Social History Tobacco [...] Telephone Encounter - Claudia Lombardo APRN-CNP - 10/24/2020 10:15 AM CDT Refill request received for Promjuneegan supp and approved. ELLEN: 01/19/2020. [facility]. documented in this encounter Plan of Treatment Not on file documented as of this encounter Visit Diagnoses Diagnosis Nausea without vomiting documented in this encounter Care Teams Central Communications Specialist Relationship Specialty Start Date End Date Radha Barber MD [address] [place] [address] PCP - General Family Medicine 12/23/19 documented as of this encounter
--- OUTSIDE RECORDS SUMMARY | 2024-02-14 17:07 | XMS_ITS | Encounter Summary ---
Author Organization [facility] Address [address] [place] [address] Care Team Providers Care Chief Ultrasound Technologist Name Role Phone Federico Nieves MD Primary Care Provider [phone] Reason for Referral * Radiology Services (Routine) - Closed Specialty Diagnoses / Procedures Referred By Contac t Referred To Contact Nuclear Medicine Diagnoses Nausea without vomiting Hx of pancreatitis Procedures NM HEPATOBILIARY WITH EF Eric Washington MD [address] [place] [address] Referral ID Status Reason Start Date Expiration Date Visits Re quested Visits Authorized [id number] Closed 11/21/2016 05/20/2017 1 1 Encounter Details Date Type Department Care Team (Late st Contact Info) Description 11/21/2016 Orders Only [facility] [address] [place] [address] Eric Washington MD [address] [place] [address] Nausea without vomiting ; Hx of pancreatitis Social History Tobacco Use Types Packs/Day Years [...] Progress Notes * Eric Washington MD - 12/05/2016 8:31 AM CDT Patient with past history of idiopathic pancreatitis. Recent HIDA scan reveals that she has a poor gallbladder function. This could explain some recent episodes of pain/ nausea. If problems continued, consider surgery referral. If symptoms resolved/ improved, continue low fat diet and watch. * Gabriella Munoz - 11/21/2016 3:20 PM CDT Pt contacted the office today and stated that her nausea has returned. Per MD, pt is to have labs completed and also Hida Scan. Pt aware, and labs ordered for Lab [facility] and Hida scan sent for scheduling documented in this encounter Plan of Treatment Not on file documented as of this encounter Procedures Procedure Name Priority Date/Time Associated Diagnosis Comments COMPREHENSIVE METABOLIC PANEL Routine 11/21/2016 3:41 PM CDT Nausea without vomiting Hx of pancreatitis LIPASE BLOOD Routine 11/21/2016 3:41 PM CDT Nausea without vomiting Hx of pancreatitis documented in this encounter Results * NM HEPATOBILIARY WITH EF (11/26/2016 2:38 PM CDT) Anatomical Region Laterality Modality Abdomen Nuclear Digisoni cs 11/26/2016 3:16 PM CDT Impressions 11/26/2016 3:18 PM CDT 1. NO EVIDENCE OF CYSTIC OR COMMON BILE DUCT OBSTRUCTION. 2. NO SCINTIGRAPHIC EVIDENCE OF ACUTE CHOLECYSTITIS. 3. 7 % GALLBLADDER EJECTION FRACTION. Narrative 11/26/2016 3:18 PM CDT HEPATOBILIARY IMAGING WITH EJECTION FRACTION DETERMINATION INDICATION: [...] after ingestion of a fatty meal show a maximum ejection fraction of 7% at 16 minutes. Some authors report a normal value as being greater than 35%. Procedure Note Katie Lebron MD - 11/26/2016 HEPATOBILIARY IMAGING WITH EJECTION FRACTION DETERMINATION [...] after ingestion of a fatty meal show a maximum ejection fraction of 7% at 16 minutes. Some authors report a normal value as being greater than 35%. IMPRESSION 1. NO EVIDENCE OF CYSTIC OR COMMON BILE DUCT OBSTRUCTION. 2. NO SCINTIGRAPHIC EVIDENCE OF ACUTE CHOLECYSTITIS. 3. 7 % GALLBLADDER EJECTION FRACTION. Eric Washington MD NM ORDERABLES * LIPASE BLOOD (11/21/2016 3:41 PM CDT) Lipase 309 73 - 393 U/L [facility] INSURANCE BILL Blood BLOOD SPECIMEN / Unknown 11/21/2016 3:41 PM CDT 11/21/2016 Narrative Resulting Agency Comment [facility] [address] [address] ??[facility] [phone] Eric Washington MD LAB - CHEMISTRY ELSY [facility] Organization Address City/State/ZIP Co de Phone Number [facility] INSURANCE BILL [address] [place] [address] * COMPREHENSIVE METABOLIC PANEL (11/21/2016 3:41 PM CDT) Glucose 87 74 - 106 mg/dL [facility] INSURANCE BILL BUN 14 7 - 21 mg/dL [facility] INSURANCE BILL Creatinine 0.79 0.50 - 1.30 mg/dL [facility] INSURANCE BILL eGFR by MDRD >60 >60 mL/min/1.7 3m2 [facility] INSURANCE BILL eGFR by MDRD >60 >60 mL/min/1.7 3m2 [facility] INSURANCE BILL Sodium 140 136 - 145 mmol/L [facility] INSURANCE BILL Potassium 4.3 3.5 - 5.1 mmol/L [facility] INSURANCE BILL Chloride 105 98 - 107 mmol/L [facility] INSURANCE BILL CO2 29 22 - 31 mmol/L [facility] INSURANCE BILL Calcium 9.4 8.5 - 10.1 mg/dL [facility] INSURANCE BILL Protein Total 7.7 6.4 - 8.2 gm/dL [facility] INSURANCE BILL Albumin 3.6 3.4 - 5.0 gm/dL [facility] INSURANCE BILL Bilirubin Total 0.3 0.2 - 1.0 mg/dL [facility] INSURANCE BILL Alkaline Phosphatase 43 38 - 126 U/L [facility] INSURANCE BILL AST 11 5 - 40 U/L [facility] INSURANCE BILL ALT 14 13 - 61 U/L [facility] INSURANCE BILL Blood BLOOD SPECIMEN / Unknown 11/21/2016 3:41 PM CDT 11/21/2016 Narrative Resulting Agency Comment [address] ??[facility] [phone] Eric Washington MD LAB - CHEMISTRY ELSY [facility] Organization Address City/State/ZIP Co de Phone Number [facility] INSURANCE BILL [address] [place] [address] documented in this encounter Visit Diagnoses Diagnosis Nausea without vomiting- Primary Hx of pancreatitis Personal history of other diseases of digestive system Nausea without vomiting Hx of pancreatitis Personal history of other diseases of digestive system documented in this encounter Care Teams Chief Ultrasound Technologist Relationship Specialty Start Date End Date Federico Nieves MD [address] [place] [phone] PCP - General Family Medicine 04/04/11 11/25/16 documented as of this encounter
--- OUTSIDE RECORDS SUMMARY | 2024-02-14 17:07 | XMS_ITS | Encounter Summary ---
Author Organization [facility] Address [address] [place] [address] Care Team Providers Care Charge Lpn Name Role Phone Federico Nieves MD Primary Care Provider [phone] Reason for Visit * Reason Comments Follow-up indegestion Encounter Details Date Type Department Care Team (Late st Contact Info) Description 06/18/2012 3:45 PM CDT Office Visit [facility] [address] [place], [place] [id number] Eric Washington MD [address] [facility] [address] [place], [place] [id number] Epigastric pain (Primary Dx); N&V (nausea and vomiting) Social History Tobacco Use Types Packs/Day Years [...] Reading Time Taken Comments Blood Pressure 100/62 06/18/2012 4:05 PM CDT Pulse 60 06/18/2012 4:05 PM CDT Temperature - - Respiratory Rate 12 06/18/2012 4:05 PM CDT Oxygen Saturation - - Inhaled Oxygen Concentration - - Weight 42.6 kg (94 lb) 06/18/2012 4:05 PM CDT Height 157.5 cm (5' 2 ) 06/18/2012 4:05 PM CDT Body Mass Index 17.19 06/18/2012 4:05 PM CDT documented in this encounter Progress Notes * Eric Washington MD - 06/18/2012 4:39 PM CDT GASTROENTEROLOGY RETURN VISIT NOTE DEMOGRAPHICS: Patient: Tamiko Carcamo : 1975 Referring MDaisha: Federico Nieves SUBJECTIVE: 37 y.o.female with past idiopathic pancreatitis. For the most part doing well but recent problems with upper abdominal pain and nausea/vomiting lasting 1 week. No fever, bleeding, melena, weight loss. Symptoms coincided some stress around move (house). Now resolved. On pancreatic enzymes as these seem to help symptoms. PAST HISTORY: Past Medical History Diagnosis Date ??? Pancarditis No past surgical history on file. ALLERGIES: No Known Allergies MEDICATIONS: Current Outpatient Prescriptions Medication Sig Dispense Refill ??? pancrelipase (ZENPEP) 34061 UNITS capsule Take 1 Cap by mouth [...] HPI unless noted below. PHYSICAL EXAM: Vitals: 06/18/12 1605 BP: 100/62 Pulse: 60 Resp: 12 Weight: 94 lb (42.638 kg) Body mass index is 17.19 kg/(m^2). Awake, alert and oriented x 3. Well-developed, in no acute distress. Normocephalic. Conjunctiva without erythema. PERRLA. TMs normal. Pharynx clear. Clear to auscultation bilaterally. No abnormal respiratory effort or retraction noted. Breath sounds are positive bilaterally. Regular rate, rhythm without murmur. BS+,soft, mild epigastric pain. No mass or rebound. Normal to inspection. Warm, dry, supple, with no changes in moles or sores that will not heal. alert, oriented, normal speech, no focal findings or movement disorder noted nml appearance LABS: Component Name 12/26/1149 04/16/11 0753 SODIUM 140 141 POTASSIUM 4.8 4.1 CHLORIDE 104 103 CO2 21 23 BUN 13 13 CREATININE 0.92 0.92 GLUCOSE 80 80 Component Name 12/26/1194804/16/11 0753 WBC 5.8 4.9 HGB 12.8 12.5 PLTCOUNT 218 215 MCV 87 86 INR -- -- Component Name 12/26/1149 04/16/11 0753 ALBUMIN 4.3 4.3 ALKPHOS 39 39 TBIL 0.5 0.3 AST 18 20 ALT 8 10 Component Name 12/26/1149 04/16/11 0753 AMYLASE -- -- LIPASE 63* 81* FERRITIN -- -- IRON -- -- Pertinent radiology: Assessment/Plan: Pt is 37 y.o. female with: Recent abdominal pain and N/V. Symptoms improved but mild residual pain today on exam. Past idiopathic pancreatitis. Will get basic labs and follow clinically. Patient already eats low fat diet. May need U/S +/- EGD depending on labs and progress. To start trial of PPI QD. I have discussed the above recommendations and their risks, benefits, and alternatives, with the patient and any family present, and all agreed with the plan. All questions were answered. documented in this encounter Plan of Treatment Not on file documented as of this encounter Procedures Procedure Name Priority Date/Time Associated Diagnosis Comments CBC W AUTO DIFFERENTIAL Routine 06/18/2012 4:53 PM CDT Epigastric pain N&V (nausea and vomiting) COMPREHENSIVE METABOLIC PANEL Routine 06/18/2012 4:53 PM CDT Epigastric pain N&V (nausea and vomiting) LIPASE BLOOD Routine 06/18/2012 4:53 PM CDT Epigastric pain N&V (nausea and vomiting) documented in this encounter Results * (ABNORMAL) LIPASE BLOOD (06/18/2012 4:53 PM CDT) Lipase 83(H) 0 - 59 U/L [facility] A CCOUNT BILL Blood specimen (specimen) BLOOD SPECIMEN / Unknown 06/18/2012 4:53 PM CDT 06/18/2012 7:01 PM CDT Narrative Resulting Agency Comment [facility] [address] ??[facility] [phone] Eric Washington MD LAB - CHEMISTRY ELSY SEGOVIA [facility] ACCOUNT BILL * CBC W AUTO DIFFERENTIAL (06/18/2012 4:53 PM CDT) WBC 5.4 4.0 - 10.5 x10E3/uL [facility] ACCOUNT BILL RBC 4.58 3.77 - 5.28 x10E6/uL [facility] ACCOUNT BILL Hemoglobin 12.5 11.1 - 15.9 g/dL [facility] ACCOUNT BILL Hematocrit 39.5 34.0 - 46.6 % [facility] ACCOUNT BILL MCV 86 79 - 97 fL [facility] ACCOUNT BILL MCH 27.3 26.6 - 33.0 pg [facility] ACCOUNT BILL MCHC 31.6 31.5 - 35.7 g/dL [facility] ACCOUNT BILL RDW 14.0 12.3 - 15.4 % [facility] ACCOUNT BILL Platelet Count 257 140 - 415 x10E3/uL [facility] ACCOUNT BILL Granulocytes % 47 40 - 74 % [facility] ACCOUNT BILL Lymphocytes % 45 14 - 46 % [facility] ACCOUNT BILL Monocytes % 7 4 - 13 % [facility] ACCOUNT BILL Eosinophils % 1 0 - 7 % [facility] ACCOUNT BILL Basophils % 0 0 - 3 % [facility] ACCOUNT BILL Immature Cells NOT NEEDED [facility] ACCOUNT BILL Comment:Ancillary determined the test is not needed Granulocytes Absolute 2.6 1.8 - 7.8 x10E3/uL [facility] ACCOUNT BILL Lymphocytes Absolute 2.4 0.7 - 4.5 x10E3/uL [facility] ACCOUNT BILL Monocytes Absolute 0.4 0.1 - 1.0 x10E3/uL [facility] ACCOUNT BILL Eosinophils Absolute 0.0 0.0 - 0.4 x10E3/uL [facility] ACCOUNT BILL Basophils Absolute 0.0 0.0 - 0.2 x10E3/uL [facility] ACCOUNT BILL Immature Granulocytes 0 0 - 2 % [facility] ACCOUNT BILL Immature Granulocytes Absolute 0.0 0.0 - 0.1 x10E3/uL [facility] ACCOUNT BILL nRBC NOT NEEDED [facility] ACCOUNT BILL Comment:Ancillary determined the test is not needed Comment Hematology NOT NEEDED [facility] ACCOUNT BILL Comment:Ancillary determined the test is not needed Blood specimen (specimen) BLOOD SPECIMEN / Unknown 06/18/2012 4:53 PM CDT 06/18/2012 7:01 PM CDT Narrative Resulting Agency Comment [facility] [address] ??[facility] [phone] Eric Washington MD LAB - HEMATOLOGY ORD ERABLES [facility] ACCOUNT BILL * COMPREHENSIVE METABOLIC PANEL (06/18/2012 4:53 PM CDT) Glucose 90 65 - 99 mg/dL [facility] ACCOUNT BILL BUN 11 6 - 20 mg/dL [facility] ACCOUNT BILL Creatinine 0.83 0.57 - 1.00 mg/dL [facility] ACCOUNT BILL eGFR by MDRD 92 >59 mL/min/1.7 3 [facility] ACCOUNT BILL eGFR by MDRD 106 >59 mL/min/1.7 3 [facility] ACCOUNT BILL BUN/Creatinine Ratio 13 8 - 20 [facility] ACCOUNT BILL Sodium 140 134 - 144 mmol/L [facility] ACCOUNT BILL Potassium 4.6 3.5 - 5.2 mmol/L [facility] ACCOUNT BILL Chloride 103 97 - 108 mmol/L [facility] ACCOUNT BILL CO2 23 20 - 32 mmol/L [facility] ACCOUNT BILL Calcium 10.2 8.7 - 10.2 mg/dL [facility] ACCOUNT BILL Protein Total 8.0 6.0 - 8.5 g/dL [facility] ACCOUNT BILL Albumin 4.4 3.5 - 5.5 g/dL [facility] ACCOUNT BILL Globulin Total 3.6 1.5 - 4.5 g/dL [facility] ACCOUNT BILL Albumin/Globulin Ratio 1.2 1.1 - 2.5 [facility] ACCOUNT BILL Bilirubin Total 0.2 0.0 - 1.2 mg/dL [facility] ACCOUNT BILL Alkaline Phosphatase 42 25 - 150 IU/L [facility] ACCOUNT BILL AST 20 0 - 40 IU/L [facility] ACCOUNT BILL ALT 11 0 - 32 IU/L [facility] ACCOUNT BILL Blood specimen (specimen) BLOOD SPECIMEN / Unknown 06/18/2012 4:53 PM CDT 06/18/2012 7:01 PM CDT Narrative Resulting Agency Comment [facility] [address] ??[facility] [phone] Eric Washington MD LAB - CHEMISTRY ELSY SEGOVIA [facility] Organization Address City/State/ZIP Co de Phone Number [facility] ACCOUNT BILL documented in this encounter Visit Diagnoses Diagnosis Epigastric pain- Primary Abdominal pain, epigastric N&V (nausea and vomiting) Nausea with vomiting documented in this encounter Care Teams Charge Lpn Relationship Specialty Start Date End Date Federico Nieves MD [address] [place] [id number] PCP - General Family Medicine 04/04/11 11/25/16 documented as of this encounter
--- OUTSIDE RECORDS SUMMARY | 2024-02-14 17:07 | XMS_ITS | Patient Health Summary ---
Author Organization [facility] [place] Address [address] [place] [address] Care Team Providers Care Chin Strap Maker Name Role Phone Radha Barber MD Primary Care Provider Note from [facility],non-owned Affiliates and Associated Physician Practices is amultiple site organization consisting of ambulatory clinics and hospital sitesin [place], [place], [place] and [place]. This disclosure is being madepursuant to the Care Everywhere program and may not contain all information available regarding this patient. Last updated 17.[facility] Allergies No known active allergies Medications * Be aware that medications may not be up to date on this document. Alwaysverify current medications with the patient. * ondansetron, disintegrating, (ZOFRAN ODT) 4 MG tablet(Started 08/03/2015) Take 1 Tab by mouth every 6 hours as needed for Nausea/Vomiting Allow tablet to dissolve on the tongue 3 refills left * ketoconazole (NIZORAL) 2 % shampoo(Started 07/25/2016) every 7 days 11 refills left * BLISOVI FE 03/02 1-20 MG-MCG tablet(Started 10/28/2016) Take 1 tablet by mouth once daily * olopatadine (PATADAY) 0.2 % ophthalmic solution(Started 10/25/2016) Instill 2.5 mL into both eyes as needed 3 refills left * cetirizine (ZYRTEC) 10 MG tablet(Started 11/21/2016) Take 10 mg by mouth once daily 3 refills left * fluticasone propionate (FLONASE) 50 MCG/ACT nasal spray(Started 11/21/2016) [place] into each nostril 2 times daily 3 refills left * HYDROcodone-acetaminophen (NORCO) 5-325 MG tablet(Started 12/21/2016) Take 1-2 tablets by mouth every 4 hours as needed for Pain * ondansetron, disintegrating, (ZOFRAN ODT) 4 MG tablet(Started 12/21/2016) Take 1 tablet by mouth every 6 hours as needed for Nausea/Vomiting Allow tablet to dissolve on the tongue 1 refill remaining * FLUoxetine (PROZAC) 20 MG capsule Take 20 mg by mouth once daily * pancrelipase (CREON) 48690-18653 units capsule(Started 01/19/2020) Take 1 capsule by mouth 3 times daily with meals 2 refills by 01/18/2021 * Promethegan 25 MG suppository(Started 08/27/2022) UNWRAP AND INSERT 1 SUPPOSITORY RECTALLY EVERY 6 HOURS NEEDED FOR NAUSEA OR VOMITING Ended Medications* amoxicillin (Amoxil) 500 MG tablet(Started 01/07/2024) () Take 1 (one) tablet by mouth every 12 hours for 10 days Active Problems Problem Noted Date Diagnosed Date Idiopathic acute pancreatitis 01/29/2012 Nausea without vomiting 01/29/2012 Diarrhea 01/29/2012 GERD (gastroesophageal reflux disease) 2 [...] Comments Blood Pressure 107/81 01/07/2024 3:21 PM MEDICAL OFFICE ASSISTANT INSTRUCTOR Pulse 99 01/07/2024 3:21 PM MEDICAL OFFICE ASSISTANT INSTRUCTOR Temperature 36.9 ??C (98.4 ??F) 01/07/2024 3:21 PM CS T Respiratory Rate 18 01/07/2024 3:21 PM MEDICAL OFFICE ASSISTANT INSTRUCTOR Oxygen Saturation 99% 01/07/2024 3:21 PM MEDICAL OFFICE ASSISTANT INSTRUCTOR Inhaled Oxygen Concentration - - Weight 52.2 kg (115 lb) 01/07/2024 3:21 PM MEDICAL OFFICE ASSISTANT INSTRUCTOR Height 157.5 cm (5' 2 ) 01/19/2020 1:07 PM MEDICAL OFFICE ASSISTANT INSTRUCTOR Body Mass Index 21.03 01/19/2020 1:07 PM MEDICAL OFFICE ASSISTANT INSTRUCTOR Procedures * STREP A SCREEN - POCT (IP) URGENT CARE(Performed 01/07/2024) Performed for Exudative pharyngitis * SARS-COV-2 (COVID-19) AG (IP) POCT(Performed 01/07/2024) Performed for Exudative pharyngitis * CARDIAC RHYTHM STRIP ORDER(Performed 12/24/2016) * LAPAROSCOPIC CHOLECYSTECTOMY(Performed 12/21/2016) Performed for Biliary dyskinesia * PATHOLOGY TISSUE EXAM (STL)(Performed 12/21/2016) Performed for Biliary dyskinesia * HCG URINE QUALITATIVE - POINT OF CARE(Performed 12/21/2016) * AMB REFERRAL TO GENERAL SURGERY(Performed 12/11/2016) Performed for Abnormal findings on diagnostic imaging of gallbladder * NM HEPATOBILIARY W EF(Performed 11/26/2016) Performed for Nausea without vomiting, Hx of pancreatitis * LIPASE BLOOD(Performed 11/21/2016) Performed for Nausea without vomiting, Hx of pancreatitis * COMPREHENSIVE METABOLIC PANEL(Performed 11/21/2016) Performed for Nausea without vomiting, Hx of pancreatitis * COMPREHENSIVE METABOLIC PANEL(Performed 01/26/2016) Performed for Acute pancreatitis, unspecified complication status, unspecified pancreatitis type (HCC) * CBC W AUTO DIFFERENTIAL(Performed 01/26/2016) Performed for Acute pancreatitis, unspecified complication status, unspecified pancreatitis type (HCC) * LIPASE BLOOD(Performed 01/26/2016) Performed for Acute pancreatitis, unspecified complication status, unspecified pancreatitis type (HCC) * CARDIAC RHYTHM STRIP ORDER(Performed 01/23/2013) * EGD(Performed 01/22/2013) * ESOPHAGOGASTRODUODENOSCOPY (EGD) DIAGNOSTIC(Performed 01/22/2013) Performed for Abdominal Pain, Epigastric * HCG URINE QUALITATIVE - POINT OF CARE(Performed 01/22/2013) * LIPASE BLOOD(Performed 06/18/2012) Performed for Epigastric pain, N&V (nausea and vomiting) * CBC W AUTO DIFFERENTIAL(Performed 06/18/2012) Performed for Epigastric pain, N&V (nausea and vomiting) * COMPREHENSIVE METABOLIC PANEL(Performed 06/18/2012) Performed for Epigastric pain, N&V (nausea and vomiting) * LIPASE BLOOD(Performed 12/26/2011) Performed for Nausea alone * COMPREHENSIVE METABOLIC PANEL(Performed 12/26/2011) Performed for Nausea alone * CBC W AUTO DIFFERENTIAL(Performed 12/26/2011) Performed for Nausea alone * MRI ABDOMEN W MRCP WO CONT W3D(Performed 05/01/2011) Performed for Acute pancreatitis (HCC) * CBC W AUTO DIFFERENTIAL(Performed 04/16/2011) Performed for Epigastric pain * LIPID PROFILE(Performed 04/16/2011) Performed for Epigastric pain * LIPASE BLOOD(Performed 04/16/2011) Performed for Epigastric pain * COMPREHENSIVE METABOLIC PANEL(Performed 04/16/2011) Performed for Epigastric pain Results * STREP A SCREEN - POCT (IP) URGENT CARE (01/07/2024 3:28 PM MEDICAL OFFICE ASSISTANT INSTRUCTOR) Pathologist [facility] Strep A Rapid POCT Negative Negative [facility]ENT [facility] QC Verified Yes Yes [facility] Throat ENTIRE THROAT (SURFACE REGION OF NECK) / Unknown 01/07/2024 3:28 PM MEDICAL OFFICE ASSISTANT INSTRUCTOR Jody Wadsworth APRN-EDITOR IN CHIEF NEWSPAPER LAB - POINT OF CAR E ORDERABLES Performing Organization Address City/[facility] Co de Phone Number [facility] [address] [place] [address] * (ABNORMAL) SARS-COV-2 (COVID-19) AG (IP) POCT (01/07/2024 3:26 PM MEDICAL OFFICE ASSISTANT INSTRUCTOR) [facility] SARS-CoV-2 Ag Negative(Negat puneet) Negative [facility] Lot # [id number] [facility]ARE Expiration Date 12/20/2024 [facility] Instrument Serial Number n/a [facility] COVID Internal Control Acceptable Acceptable [facility]ARE Microbiology SPECIMEN FROM NASAL FOSSAE / Unknown 01/07/2024 3:26 PM MEDICAL OFFICE ASSISTANT INSTRUCTOR Narrative [facility] - 01/07/2024 3:41 PM MEDICAL OFFICE ASSISTANT INSTRUCTOR Jody Wadsworth CHOCOLATE PRODUCTION MACHINE OPERATOR-EDITOR IN CHIEF NEWSPAPER LAB - POINT OF CAR E ORDERABLES Performing Organization Address [facility] Co de Phone Number [facility] [address] [place] [address] * CARDIAC RHYTHM STRIP ORDER (12/24/2016 6:43 PM MEDICAL OFFICE ASSISTANT INSTRUCTOR) Only the most recent of2 resultswithin the time period is included. Narrative 12/24/2016 6:43 PM MEDICAL OFFICE ASSISTANT INSTRUCTOR Ordered by an unspecified provider. Scanned Document CARDIAC SERVICES ORD ERABLES * GROSS + MICRO EXAM (STL) (12/21/2016 8:03 AM MEDICAL OFFICE ASSISTANT INSTRUCTOR) Case Report Surgical Pathology Report ? Case: [id number] ? Authorizing Provider: ??Prabhakar Cisse MD ?Collected: ? 12/21/2016 08:03 AM ? Ordering Location: ? [facility] ? Received: ?12/21/2016 11:51 AM ? Pathologist: ? Horacio Alonso MD ? Specimen: ?Gallbladder ? 12/25/2016 9:15 AM [facility] Final Diagnosis Gallbladder, cholecystectomy: - Mild chronic cholecystitis AB/sm 12/25/2016 9:15 AM [facility] Gross Description Received in a container of formalin labeled Carlos Alberto, Tamiko, and gallbladder is a previously disrupted gallbladder measuring 6 x 2.2 x 1.3 cm. The serosa is purple-green with a full-thickness defect measuring 0.4 cm in greatest dimension. The gallbladder displays green-brown velvety mucosa and a wall thickness of 0.1 cm. The lumen is filled with green-brown viscous bile. No gallstones or gross lesions are appreciated. Club Waiter/Waitress sections are submitted in cassette A1. JS/rtc 12/25/2016 9:15 AM [facility] Microscopic Description The sections of the gallbladder show mild chronic inflammation. No dysplasia is seen. No Rokitansky-Aschoff sinuses are observed. AB/sm 12/25/2016 9:15 AM [facility] Disclaimer All histochemical and/or immunohistochemical results are interpreted with controls that demonstrate appropriate staining reactions before reporting results. Note on use of immunocytochemistry reagents: This test was developed and its performance characteristic determined by [facility], Department of Laboratory Medicine. It has not been cleared or approved by the U.S. Food and Drug Administration (FDA). The FDA has determined that such clearance or approval is not necessary. The test is used for clinical purpose. It should not be regarded as investigational or for research. This laboratory is certified to perform high complexity testing. 12/25/2016 9:15 AM [facility] Embedded Images 12/25/2016 9:15 AM [facility] Pathology/Cytolo gy ENTIRE GALLBLADDER / Unknown 12/21/2016 8:03 AM MEDICAL OFFICE ASSISTANT INSTRUCTOR 12/21/2016 11:51 AM MEDICAL OFFICE ASSISTANT INSTRUCTOR Prabhakar Cisse MD LAB - PATHOLOGY/CYTO LOGY ORDERABLES [facility] [address] [place] [address] * HCG URINE QUALITATIVE - POINT OF CARE (IP) (12/21/2016 7:55 AM MEDICAL OFFICE ASSISTANT INSTRUCTOR) Only the most recent of2 resultswithin the time period is included. HCG Qual Urine Negative Negative [facility] POCT TESTING QC Verified Yes Yes [facility] POC T TESTING Urine URINE / Unknown 12/21/2016 7 :55 AM MEDICAL OFFICE ASSISTANT INSTRUCTOR Prabhakar Cisse MD LAB - POINT OF CARE ORDERABLES [facility] [place] [address], [facility] * AMB REFERRAL TO GENERAL SURGERY (12/11/2016 11:59 AM CDT) Eric Washington MD OUTPATIENT REFERRALS * NM HEPATOBILIARY WITH EF (11/26/2016 2:38 [...] % GALLBLADDER EJECTION FRACTION. Eric Washington MD AL ORDERABLES * COMPREHENSIVE METABOLIC PANEL (11/21/2016 3:41 PM CDT) Only the most recent of5 resultswithin the time period is included. Pathologist [facility] Glucose 87 74 - 106 mg/dL [facility] [...] PM CDT 11/21/2016 Narrative Resulting Agency Comment [facility] [address] ??Derrick BUSBY [phone] Eric Washington MD LAB - CHEMISTRY ELSY SEGOVIA [facility] Organization Address City/State/ZIP Co de Phone Number [facility] INSURANCE BILL [address] [place] [address] * LIPASE BLOOD (11/21/2016 3:41 PM CDT) Only the most recent of5 resultswithin the time period is included. Lipase 309 73 - 393 U/L [facility] INSURANCE BILL Blood BLOOD SPECIMEN / Unknown 11/21/2016 3:41 PM CDT 11/21/2016 Narrative Resulting Agency Comment [facility] [address] ??[facility] [phone] Eric Washington MD LAB - CHEMISTRY ELSY SEGOVIA [facility] INSURANCE BILL [address] [place] [address] * (ABNORMAL) CBC W AUTO DIFFERENTIAL (01/26/2016 10:16 AM MEDICAL OFFICE ASSISTANT INSTRUCTOR) Only the most recent of4 resultswithin the time period is included. WBC 6.8 4.4 - 10.7 x10E9/L [facility] [...] x10E9/L [facility] INSURANCE BILL Comment:MPV FL BLOOD ([facility]) 1 0.0 fl 9.4-12.9 Granulocytes % 47.1 [...] BLOOD SPECIMEN / Unknown 01/26/2016 10:16 AM MEDICAL OFFICE ASSISTANT INSTRUCTOR 01/26/2016 Narrative Resulting Agency Comment [facility] [address] [facility] ??[facility] [phone] Eric Washington MD LAB - HEMATOLOGY ORD ERABLES [facility] INSURANCE BILL [address] [place] [address] * EGD (01/22/2013 1:32 PM MEDICAL OFFICE ASSISTANT INSTRUCTOR) Report Endoscopy POC __ _ Patient Name: [...] Procedure Code(s): ? --- Professional --- ? 44733, Upper gastrointestinal endoscopy including esophagus, stomach, ? and either the duodenum and/or jejunum as appropriate; diagnostic, with ? or without collection of specimen(s) by brushing or washing (separate ? procedure) ? --- Technical --- ? 38140, Upper gastrointestinal endoscopy including esophagus, stomach, ? and either the duodenum and/or jejunum as appropriate; diagnostic, with ? or without collection of specimen(s) by brushing or washing (separate ? procedure) Diagnosis Code(s): ? --- Professional --- ? 789.06, Abdominal pain, epigastric ? --- Technical --- ? 789.06, Abdominal pain, epigastric CPT (R) 2012 [employer]. All Rights Reserved. The codes documented in this report are preliminary and upon manager banquet review may be revised to meet current compliance requirements. __ Eric Washington MD 01/22/2013 1:38 PM This report has been signed electronically. Number of Addenda: 0 Note Initiated On: 01/22/2013 1:32 PM Estimated Blood Loss: ? Estimated blood loss: none. [facility] ENDOSCOPY 01/22/2013 1:32 PM MEDICAL OFFICE ASSISTANT INSTRUCTOR Narrative [facility] - 01/22/2013 1:39 PM MEDICAL OFFICE ASSISTANT INSTRUCTOR Normal exam. A/P: Follow symptomatically. Consider UGI if symptoms continue to rule out SMA syndrome. Procedure Note Eric Washington MD - 01/22/2013 1:38 PM CST Normal exam. A/P: Follow symptomatically. Consider UGI if symptoms continue to rule out SMA syndrome. Transcriptions Eric Washington MD - 01/22/2013 1:39 PM CST Eric Washington MD GI PROCEDURE ORDERAB LES [facility] ENDOSCOPY * MRI MRCP (05/01/2011 10:58 AM CDT) Anatomical Region Laterality Modality Abdomen Magnetic Resonan ce Angiography 05/01/2011 11:0 2 AM CDT Narrative 05/01/2011 11:13 AM CDT MRI ABDOMEN M.R.C.P. EXAMINATION HISTORY: Back and abdominal pain and history of pancreatitis. TECHNIQUE: Routine abdomen and M.R.C.P. examination was obtained on a high field open magnet. The liver is normal without evidence of focal lesions. There is no intra or extrahepatic bile duct dilatation. The visualized pancreas is normal and there is no visualized pancreatic duct dilatation or peripancreatic fluid. The gallbladder is normal. No gallstone is identified. The spleen, adrenal glands, kidneys and visualized large and small bowel appear grossly normal. DIAGNOSIS: ?? Normal examination. Procedure Note Federico Schrader MD - 05/01/2011 MRI ABDOMEN M.R.C.P. EXAMINATION HISTORY: Back and abdominal pain and history of pancreatitis. TECHNIQUE: Routine abdomen and M.R.C.P. examination was obtained on a high field open magnet. The liver is normal without evidence of focal lesions. There is no intra or extrahepatic bile duct dilatation. The visualized pancreas is normal and there is no visualized pancreatic duct dilatation or peripancreatic fluid. The gallbladder is normal. No gallstone is identified. The spleen, adrenal glands, kidneys and visualized large and small bowel appear grossly normal. DIAGNOSIS: Normal examination. Eric Washington MD MR ORDERABLES * LIPID PROFILE (LIPID PANEL) (04/16/2011 7:53 AM MEDICAL OFFICE ASSISTANT INSTRUCTOR) Cholesterol 187 100 - 199 mg/dL [facility] [...] BLOOD SPECIMEN / Unknown 04/16/2011 7:53 AM MEDICAL OFFICE ASSISTANT INSTRUCTOR 04/16/2011 12:29 PM MEDICAL OFFICE ASSISTANT INSTRUCTOR Narrative Resulting Agency Comment [facility] [address] [facility] ??[facility] [phone] Eric Washington MD LAB - CHEMISTRY ELSY SEGOVIA [facility] ACCOUNT BILL Care Teams Chin Strap Maker Relationship Specialty Start Date End Date Radha Barber MD [address] [place] [address] PCP - General Family Medicine 12/23/19
--- OUTSIDE RECORDS SUMMARY | 2024-02-14 17:07 | XMS_ITS | Encounter Summary ---
Author Organization [facility] Address [address] [place] [address] Care Team Providers Care Cutting Supervisor Name Role Phone Federico Nieves MD Primary Care Provider [phone] Reason for Visit * Reason Comments Follow-up Encounter Details Date Type Department Care Team (Latest Contact Info) Description 07/31/2016 9:00 AM CDT Office Visit [facility] [address] [place], [place] [id number] Eric Washington MD [address] [facility] [address] [place] [address] Nausea and vomiting, intractability of vomiting not specified, unspecified vomiting type (Primary Dx) Social History Tobacco Use [...] Sign Reading Time Taken Comments Blood Pressure 111/76 07/31/2016 8:59 AM CDT Pulse - - Temperature - - Respiratory Rate - - Oxygen Saturation - - Inhaled Oxygen Concentration - - Weight 46.4 kg (102 lb 3.2 oz) 07/31/2016 8:59 A M CDT Height 157.5 cm (5' 2 ) 07/31/2016 8:59 AM CDT Body Mass Index 18.69 07/31/2016 8:59 AM CDT documented in this encounter Patient Instructions * Patient Instructions* Tamiko Flor - 07/31/2016 8:59 AM CDT During your visit, we noted a difference between the dose and/or dosing frequency of one of the following medication(s) documented in your record and the way you report that it is being taken. Pleasecontact the prescribing physician to verify the correct dose and instructions documented in this encounter Progress Notes * Eric Washington MD - 07/31/2016 9:27 AM CDT GASTROENTEROLOGY RETURN VISIT NOTE DEMOGRAPHICS: Patient: Tamiko Carcamo : 1975 Referring M.D.: Federico Nieves MD SUBJECTIVE: 41 y.o.female with past idiopathic pancreatitis who has had no real recurrence in years. Had an episode of N/V in January of 2016 which may have been related to food poisoning. Reported no further problems until May of this year, where she had about one week. She could not associate it with any meals and denies sick contacts, medication or obvious trigger. Symptoms resolved and she has been eating fine. No fever, hematemesis, melena, BRBPR, weight loss. PAST HISTORY: Past Medical History: Diagnosis Date ??? Pancarditis Past Surgical History: Procedure Laterality Date ??? COLONOSCOPY ??? EGD ??? ENDOSCOPY, UPPER 01/22/2013 ESOPHAGOGASTRODUODENOSCOPY (EGD) ALLERGIES: No Known Allergies MEDICATIONS: Current Outpatient Prescriptions Medication Sig Dispense Refill ??? ondansetron, disintegrating, (ZOFRAN ODT) 4 MG tablet Take 1 Tab by mouth every 6 hours as needed for Nausea/Vomiting Allow tablet to dissolve on the tongue 40 Tab 3 ??? desogestrel-ethinyl estradiol (AZURETTE) 0.15-0.02/0.01 MG (01/07) tablet Take 1 Tab by mouth once daily. ??? ketoconazole (NIZORAL) 2 % shampoo every 7 days 11 ??? Other Reported on 02/01/2016 Reasons: no meds No current facility-administered medications for this visit. Social History Social History ??? Marital status: Single Spouse name: N/A ??? Number of children: N/A ??? Years of education: N/A Occupational History [...] HPI unless noted below. PHYSICAL EXAM: Vitals: 07/31/16 0859 BP: 111/76 Weight: 46.4 kg (102 lb 3.2 oz) Body mass index is 18.69 kg/(m^2). Awake, alert and oriented x 3. Well-developed, in no acute distress. Normocephalic. Conjunctiva without erythema. PERRLA. TMs normal. Pharynx clear. Clear to auscultation bilaterally. No abnormal respiratory effort or retraction noted. Breath sounds are positive bilaterally. Regular rate, rhythm without murmur. BS+, soft, mild epigastric discomfort. Normal to inspection. Warm, dry, supple, with no changes in moles or sores that will not heal. alert, oriented, normal speech, no focal findings or movement disorder noted nml appearance LABS: Recent Labs Component Name 01/26/16 1016 SODIUM 142 POTASSIUM 4.0 CHLORIDE 106 CO2 30 BUN 12 CREATININE 0.84 GLUCOSE 64* Recent Labs Component Name 01/26/16 1016 WBC 6.8 HGB 12.3 PLTCOUNT 219 MCV 88.2 Recent Labs Component Name 01/26/16 1016 ALBUMIN 3.9 ALKPHOS 47 TBIL 0.3 AST 17 ALT 13 Recent Labs Component Name 01/26/16 1016 LIPASE 312 Pertinent radiology: Assessment/Plan: Pt is 41 y.o. female with: Past idiopathic pancreatitis. No real evidence of problems in years. Two episodes of N/V in the last 6 months (one thought related to food, other unclear). Watch for now. If problems recur, may need to consider labs and perhaps HIDA with CCK. Will follow. I have discussed the above recommendations and [...] Primary documented in this encounter Care Teams Cutting Supervisor Relationship Specialty Start Date End Date Federico Nieves MD [address] [place] [address] PCP - General Family Medicine 04/04/11 11/25/16 documented as of this encounter
--- OUTSIDE RECORDS SUMMARY | 2024-02-14 17:07 | XMS_ITS | Encounter Summary ---
Author Organization [facility] Address [address] [place] [address] Care Team Providers Care Breaker Operator Name Role Phone Federico Nieves MD Primary Care Provider [phone] Encounter Details Date Type Department Care Team (Late st Contact Info) Description 01/08/2012 Orders Only [facility] Medical [facility] - [address] [facility] [address] [place] [address] [facility] [address] [id number] Acute pancreatitis (HCC) ; Nausea alone Social History Tobacco Use Types Packs/Day Years Used Date Smoking Tobacco: Never Smokeless Tobacco: Never Alcohol Use Standard Drinks/Week Comments No 0 (1 standard drink = 0.6 oz pur e alcohol) Sex and Gender Information Value Date Recorded Sex Assigned at Not on file Gender Identity Not on file Sexual Orientation Not on file documented as of this encounter Progress Notes * Kelli Paz - 01/08/2012 2:38 PM CST Orders sent to polina Ferrera to be alfonzo for RUQ US. RUBBER documented in this encounter Plan of Treatment Not on file documented as of this encounter Visit Diagnoses Diagnosis Acute pancreatitis (HCC)- Primary Acute pancreatitis Nausea alone documented in this encounter Care Teams Breaker Operator Relationship Specialty Start Date End Date Federico Nieves MD [address] [place] [address] PCP - General Family Medicine 04/04/11 11/25/16 documented as of this encounter
--- OUTSIDE RECORDS SUMMARY | 2024-02-14 17:07 | XMS_ITS | Encounter Summary ---
Author Organization [facility] Address [address] [place] [address] Care Team Providers Care Self Rising Flour Mixer Name Role Phone Federico Nieves MD Primary Care Provider [phone] Reason for Visit * Reason Comments Post-Op Encounter Details Date Type Department Care Team (Late st Contact Info) Description 12/27/2016 3:10 PM SUPERVISOR DRILLING AND SHOOTING Office Visit [facility] Medical [facility] - General Surgery [address] [place] [address] [address] [place] [address] Prabhakar Cisse MD [address] [place] [address] [address] [place] [address] Surgery follow-up (Primary Dx) Social History Tobacco Use Types [...] as of this encounter Progress Notes * Prabhakar Cisse MD - 12/27/2016 3:35 PM CST [facility] Prabhakar Cisse M.D. Encounter Date: 12/27/2016 Patient Name: Tamiko Carcamo : 1975 Primary Care Physician: Federico Nieves MD Reason for Visit: S/P laparoscopic cholecystectomy 12-21-16 Patient is here for follow-up after laparoscopic cholecystectomy a week ago. She is doing well has no complaints. On examination her abdomen is soft and depressible. Wounds are healing nicely. I have counseled her activity, and she will follow as needed. Prabhakar Cisse M.D. [phone] RVISOR DRILLING AND SHOOTING documented in this encounter Plan of Treatment Not on file documented as of this encounter Visit Diagnoses Diagnosis Surgery follow-up- Primary Follow-up examination, following unspecified surgery documented in this encounter Care Teams Self Rising Flour Mixer Relationship Specialty Start Date End Date Federico Nieves MD [address] [place] [address] PCP - General Family Medicine 12/11/16 12/22/19 documented as of this encounter
--- OUTSIDE RECORDS SUMMARY | 2024-02-14 17:07 | XMS_ITS | Encounter Summary ---
Author Organization [facility] Address [address] [facility] [place] [address] Care Team Providers Care Subeditor Name Role Phone Federico Nieves MD Primary Care Provider [phone] Reason for Visit * Reason Comments Follow-up Recently in ED Encounter Details Date Type Department Care Team (Late st Contact Info) Description 10/21/2012 1:00 PM CDT Office Visit [facility] - [address] [place] [address] Eric Washington MD [facility] [address] [phone] N&V (nausea and vomiting) (Primary Dx) Social History Tobacco Use Types [...] Sign Reading Time Taken Comments Blood Pressure 100/74 10/21/2012 1:12 PM CDT Pulse - - Temperature - - Respiratory Rate - - Oxygen Saturation - - Inhaled Oxygen Concentration - - Weight 41.7 kg (92 lb) 10/21/2012 1:12 PM CDT Height 157.5 cm (5' 2 ) 10/21/2012 1:12 PM CDT Body Mass Index 16.83 10/21/2012 1:12 PM CDT documented in this encounter Progress Notes * Eric Washington MD - 10/21/2012 1:44 PM CDT GASTROENTEROLOGY RETURN VISIT NOTE DEMOGRAPHICS: Patient: Tamiko Carcamo : 1975 Referring Vignesh: Federico Mayaformerly [facility], [facility] SUBJECTIVE: 37 y.o.female with past idiopathic pancreatitis who was in good health until last week when she developed acute onset of N/V after drinking some orange juice. She went to an OSH ER and labs were normal. Symptoms resolved after IVF and Zofran. Patient had normal labs including Lipase, CMP and CBC. Patient now feels back to normal. No fever, bleeding, melena, chest pain, SOB. May have lost a few pounds since last week but now feels her appetite is back. PAST HISTORY: Past Medical History Diagnosis Date ??? Pancarditis No past surgical history on file. ALLERGIES: No Known Allergies MEDICATIONS: Current Outpatient Prescriptions Medication Status Sig Dispense Refill ??? pancrelipase (ZENPEP) 67048 UNITS capsule Active Take 1 Cap by [...] HPI unless noted below. PHYSICAL EXAM: Vitals: 10/21/12 1312 BP: 100/74 Weight: 41.731 kg (92 lb) Body mass index is 16.83 kg/(m^2). Awake, alert and oriented x 3. Well-developed, in no acute distress. Normocephalic. Conjunctiva without erythema. PERRLA. TMs normal. Pharynx clear. Clear to auscultation bilaterally. No abnormal respiratory effort or retraction noted. Breath sounds are positive bilaterally. Regular rate, rhythm without murmur. BS+, soft, mild epigastric discomfort. No distention or rebound. Normal to inspection. Warm, dry, supple, with no changes in moles or sores that will not heal. alert, oriented, normal speech, no focal findings or movement disorder noted nml appearance LABS: Component Name 06/18/12 1653 12/26/11 0949 04/16/11 0753 SODIUM 140 140 141 POTASSIUM 4.6 4.8 4.1 CHLORIDE 103 104 103 CO2 23 21 23 BUN 11 13 13 CREATININE 0.83 0.92 0.92 GLUCOSE 90 80 80 Component Name 06/18/12 1653 12/26/11 0949 04/16/11 0753 WBC 5.4 5.8 4.9 HGB 12.5 12.8 12.5 PLTCOUNT 257 218 215 MCV 86 87 86 INR -- -- -- Component Name 06/18/12 1653 12/26/11 0949 04/16/11 0753 ALBUMIN 4.4 4.3 4.3 ALKPHOS 42 39 39 TBIL 0.2 0.5 0.3 AST 20 18 20 ALT 11 8 10 Component Name 06/18/12 1653 12/26/11 0949 04/16/11 0753 AMYLASE -- -- -- LIPASE 83* 63* 81* FERRITIN -- -- -- IRON -- -- -- Pertinent radiology: Assessment/Plan: Pt is 37 y.o. female with: Past idiopathic pancreatitis, stable. Recent episode of N/V (no pain) of unclear etiology but seems completely resolved by now. Will watch on PPI for now. Will have low threshold to re-evaluate (X Rays, EGD) if symptoms recur. I have discussed the above recommendations and their risks, benefits, and alternatives, with the patient and any family present, and all agreed with the plan. All questions were answered. documented in this encounter Plan of Treatment Not on file documented as of this encounter Visit Diagnoses Diagnosis N&V (nausea and vomiting)- Primary Nausea with vomiting documented in this encounter Care Teams Subeditor Relationship Specialty Start Date End Date Federico Nieves MD [address] [place] [address] PCP - General Family Medicine 04/04/11 11/25/16 documented as of this encounter
--- OUTSIDE RECORDS SUMMARY | 2024-02-14 17:07 | XMS_ITS | Encounter Summary ---
Author Organization [facility] Address [address] [facility] [address] Care Team Providers Care Montessori Lead Teacher Name Role Phone Unavailable Primary Care Provider Unavailabl e Reason for Referral * Radiology Services (Routine) - Closed Specialty Diagnoses / Procedures Referred By Contac t Referred To Contact Nuclear Medicine Diagnoses Nausea without vomiting Hx of pancreatitis Procedures NM HEPATOBILIARY WITH EF Eric Washington MD [address] [place] [address] [address] [place] [address] Referral ID Status Reason Start Date Expiration Date Visits Re quested Visits Authorized [id number] Closed 11/21/2016 05/20/2017 1 1 Reason for Visit * Radiology Services (Routine) - Closed Specialty Diagnoses / Procedures Referred By Contac t Referred To Contact Nuclear Medicine Diagnoses Nausea without vomiting Hx of pancreatitis Procedures NM HEPATOBILIARY WITH EF Eric Washington MD [address] [place], [place] [address] [address] [address] Referral ID Status Reason Start Date Expiration Date Visits Re quested Visits Authorized [id number] Closed 11/21/2016 05/20/2017 1 1 Encounter Details Date Type Department Care Team (Latest Contact Info) Description 11/26/2016 12:53 PM CDT - 11/26/2016 11:59 PM CDT Hospital Encounter [facility] - Nuclear Med [address] [place] [id number] Eric Washington MD [address] [facility] [address] [place] [address] Discharge Disposition: Home or Self Care Social [...] Sig Dispensed Refills Start Date End Date BLISOVI FE 03/02 1-20 MG-MCG tablet Take 1 tablet by mouth once daily 10/28/2016 cetirizine (ZYRTEC) 10 MG tablet Take 10 mg by mouth once daily 3 11/21/2016 fluticasone propionate (FLONASE) 50 MCG/ACT nasal spray Tinnie into each nostril 2 times daily 3 11/21/2016 ketoconazole (NIZORAL) 2 % shampoo every 7 days 11 07/25/2016 olopatadine (PATADAY) 0.2 % ophthalmic solution Instill 2.5 mL into both eyes as needed 3 10/25/2016 ondansetron, disintegrating, (ZOFRAN ODT) 4 MG tabletIndications:Acute pancreatitis, unspecified pancreatitis type,Nausea without vomiting Take 1 Tab by mouth every 6 hours as needed for Nausea/Vomiting Allow tablet to dissolve on the tongue 40 Tab 3 08/03/2015 desogestrel-ethinyl estradiol (AZURETTE) 0.15-0.02/0.01 MG (01/07) tablet Take 1 Tab by mouth once daily. 12/11/2016 OtherIndications:no meds Reported on 02/01/2016 Reasons: no meds 12/11/2016 documented as of this encounter Plan of Treatment Not on file documented as of this encounter Procedures Procedure Name Priority Date/Time Associated Diagnosis Comments NM HEPATOBILIARY W EF Routine 11/26/2016 2:38 PM CDT Nausea without vomiting Hx of [...] EJECTION FRACTION. Eric Washington MD NM ORDERABLES documented in this encounter Visit Diagnoses Diagnosis Nausea without vomiting Hx of pancreatitis Personal history of other diseases of digestive system documented in this encounter
--- OUTSIDE RECORDS SUMMARY | 2024-02-14 17:07 | XMS_ITS | Encounter Summary ---
Author Organization [facility] Address [address] [facility] [place] [address] Care Team Providers Care Oil Well Directional Surveyor Name Role Phone Unavailable Primary Care Provider Unavailabl e Reason for Referral * Evaluate & Treat - Closed Specialty Diagnoses / Procedures Referred By Contac t Referred To Contact Surgery-General Diagnoses Abnormal findings on diagnostic imaging of gallbladder Eric Washington MD [address] [place] [address] Prabhakar Cisse MD [address] [place] [address] Referral ID Status Reason Start Date Expiration Date V isits Requested Visits Authorized [id number] Closed Specialty Services Required 12/05/2016 06/03/2017 1 1 Encounter Details Date Type Department Care Team (Late st Contact Info) Description 12/05/2016 Orders Only [facility] [address] [place] [address] Eric Washington MD [address] [place] [address] Abnormal findings on diagnostic imaging of gallbladder Social History Tobacco Use Types Packs/Day Years Used Date Smoking Tobacco: Never Smokeless Tobacco: Never Alcohol Use Standard Drinks/Week Comments No 0 (1 standard drink = 0.6 oz pur e alcohol) Sex and Gender Information Value Date Recorded Sex Assigned at Not on file Gender Identity Not on file Sexual Orientation Not on file documented as of this encounter Progress Notes * Gabriella Munoz - 12/05/2016 2:34 PM CDT Pt called the office back and she has decided she would like to have a consultation w/ general surgeon for poss GB removal. Ref sent, pt also given #. documented in this encounter Plan of Treatment Not on file documented as of this encounter Results * AMB REFERRAL TO GENERAL SURGERY (12/11/2016 11:59 AM CDT) Eric Washington MD OUTPATIENT REFERRALS documented in this encounter Visit Diagnoses Diagnosis Abnormal findings on diagnostic imaging of gallbladder- Primary documented in this encounter
--- OUTSIDE RECORDS SUMMARY | 2024-02-14 17:07 | XMS_ITS | Encounter Summary ---
Author Organization [facility] Address [address] [facility] [place] [address] Care Team Providers Care Contact Finger Assembler Name Role Phone Federico Nieves MD Primary Care Provider [phone] Reason for Visit * Reason Comments Follow-up nausea Encounter Details Date Type Department Care Team (Late st Contact Info) Description 01/15/2012 1:45 PM FLUMER Office Visit [facility] - [address] [place] [address] Eric Washington MD [address] [phone] Pancreatitis chronic (Primary Dx) Social History Tobacco Use Types [...] Sign Reading Time Taken Comments Blood Pressure 100/64 01/15/2012 2:01 PM FLUMER Pulse 60 01/15/2012 2:01 PM FLUMER Temperature - - Respiratory Rate 12 01/15/2012 2:01 PM FLUMER Oxygen Saturation - - Inhaled Oxygen Concentration - - Weight 44 kg (97 lb) 01/15/2012 2:01 PM FLUMER Height 157.5 cm (5' 2 ) 01/15/2012 2:01 PM FLUMER Body Mass Index 17.74 01/15/2012 2:01 PM FLUMER documented in this encounter Progress Notes * Alize Tony - 01/15/2012 3:30 PM CST Pt's info faxed to Dr. Rosario's office. Pt will call office to make appt. ER * Eric Washington MD - 01/15/2012 2:32 PM CST GASTROENTEROLOGY RETURN VISIT NOTE DEMOGRAPHICS: Patient: Tamiko Carcamo : 1975 Referring M.D.: Federico Nieves SUBJECTIVE: 36 y.o.female with idiopathic chronic pancreatitis. Doing OK except minimal discomfort now. Mildly increased Lipase in recent past. Claims feeling back at her baseline. Intermittent episodes of abdominal discomfort that may last days to a few weeks. Very sensitive to some foods (spicy, higher in fat). Taking pancreatic enzymes once a day. No weight loss. Feels better than last time. PAST HISTORY: Past Medical History Diagnosis Date ??? Pancarditis No past surgical history on file. ALLERGIES: No Known Allergies MEDICATIONS: Current Outpatient Prescriptions Medication Sig Dispense Refill ??? pancrelipase (ZENPEP) 31692 UNITS capsule Take 1 Cap by mouth [...] HPI unless noted below. PHYSICAL EXAM: Vitals: 01/15/12 1401 BP: 100/64 Pulse: 60 Resp: 12 Weight: 97 lb (43.999 kg) Body mass index is 17.74 kg/(m^2). Awake, alert and oriented x 3. [...] -- -- Pertinent radiology: Assessment/Plan: Pt is 36 y.o. female with: Idiopathic chronic pancreatitis. Mild intermittent symptoms. Back at baseline though. Normal MRCP in April. Will hold off on repeat imaging now since patient feeling better. Will increase pancreatic enzyme supplementation and will add PPI daily. Will refer to biliary specialist for evaluation. I have discussed the above recommendations and their risks, benefits, and alternatives, with the patient and any family present, and all agreed with the plan. All questions were answered. ER documented in this encounter Plan of Treatment Not on file documented as of this encounter Visit Diagnoses Diagnosis Pancreatitis chronic (HCC)- Primary Chronic pancreatitis documented in this encounter Care Teams Contact Finger Assembler Relationship Specialty Start Date End Date Federico Nieves MD [address] [place] [address] PCP - General Family Medicine 04/04/11 11/25/16 documented as of this encounter
--- OUTSIDE RECORDS SUMMARY | 2024-02-14 17:07 | XMS_ITS | Encounter Summary ---
Author Organization [facility] Address [address] [facility] [place] [address] Care Team Providers Care Contract Attorney Name Role Phone Federico Nieves MD Primary Care Provider [phone] Reason for Visit * Reason Comments Follow-up pancreatitis Encounter Details Date Type Department Care Team (Late st Contact Info) Description 01/26/2015 2:15 PM WILDLIFE POLICY PROFESSIONAL Office Visit [facility] [address] [place], [place] [phone] Eric Washington MD [address] [facility] [address] [place], [place] [phone] Constipation, unspecified constipation type (Primary Dx); Acute pancreatitis, unspecified pancreatitis type Social History Tobacco Use Types Packs/Day [...] Sign Reading Time Taken Comments Blood Pressure 102/68 01/26/2015 2:21 PM WILDLIFE POLICY PROFESSIONAL Pulse 76 01/26/2015 2:21 PM WILDLIFE POLICY PROFESSIONAL Temperature - - Respiratory Rate 16 01/26/2015 2:21 PM WILDLIFE POLICY PROFESSIONAL Oxygen Saturation - - Inhaled Oxygen Concentration - - Weight 43.1 kg (95 lb) 01/26/2015 2:21 PM WILDLIFE POLICY PROFESSIONAL Height 157.5 cm (5' 2 ) 01/26/2015 2:21 PM WILDLIFE POLICY PROFESSIONAL Body Mass Index 17.38 01/26/2015 2:21 PM WILDLIFE POLICY PROFESSIONAL documented in this encounter Patient Instructions * Patient Instructions* Jes Guerra - 01/26/2015 2:24 PM WILDLIFE POLICY PROFESSIONAL During your visit, we noted a difference between the dose and/or dosing frequency of one of the following medication(s) documented in your record and the way you report that it is being taken. Pleasecontact the prescribing physician to verify the correct dose and instructions. LIFE POLICY PROFESSIONAL documented in this encounter Progress Notes * Eric Washington MD - 01/26/2015 2:47 PM CST GASTROENTEROLOGY RETURN VISIT NOTE DEMOGRAPHICS: Patient: Tamiko Carcamo : 1975 Referring M.D.: Federico Nieves MD SUBJECTIVE: 39 y.o.female with past history of idiopathic pancreatitis without any current symptoms. Eating well and denies any pain or diarrhea. In fact, now complains of some constipation. Has started probiotic and and she describes some improvement this week. No fever or bleeding. PAST HISTORY: Past Medical History Diagnosis Date [...] HPI unless noted below. PHYSICAL EXAM: Vitals: 01/26/15 1421 BP: 102/68 Pulse: 76 Resp: 16 Weight: 43.092 kg (95 lb) Body mass [...] CO2, BUN, CREATININE, GLUCOSE in the last 515[address] hours. No results for input(s): WBC, HGB, PLTCOUNT, MCV, INR in the last 23575 hours. Invalid input(s): 5 No results for input(s): ALBUMIN, ALKPHOS, TBIL, AST, ALT in the last 59584 hours. Invalid input(s): PROTEINTOTAL No results for input(s): AMYLASE, LIPASE, FERRITIN, IRON in the last 02988 hours. Invalid input(s): SATURATION Pertinent radiology: Assessment/Plan: Pt is 39 y.o. female with: Pancreatitis- resolved, no symptoms in a long time. Not requiring supplementation. Constipation- mild, better on probiotic. Discussed taking more liquids and fiber. Can reassess if symptoms worsen. I have discussed the above recommendations and their risks, benefits, and alternatives, with the patient and any family present, and all agreed with the plan. All questions were answered. LIFE POLICY PROFESSIONAL documented in this encounter Plan of Treatment Not on file documented as of this encounter Visit Diagnoses Diagnosis Constipation, unspecified constipation type- Primary Acute pancreatitis, unspecified pancreatitis type documented in this encounter Care Teams Contract Attorney Relationship Specialty Start Date End Date Federico Nieves MD [address] [place] [address] PCP - General Family Medicine 04/04/11 11/25/16 documented as of this encounter
--- OUTSIDE RECORDS SUMMARY | 2024-02-14 17:07 | XMS_ITS | Clinical Summary ---
Author Organization [facility] Address [address] [facility] [place] [address] Care Team Providers Care Aircraft Dispatcher Name Role Phone Radha Barber MD Primary Care Provider Source Comments [facility]non-owned Affiliates and Associated Physician Practices is amultiple site organization consisting of ambulatory clinics and hospital sitesin [place], [place], [place] and [place]. This disclosure is being madepursuant to the Care Everywhere program and may not contain all information available regarding this patient. Last updated 17.[employer] [facility] Allergies No known active allergies Medications * [...] fluticasone propionate (FLONASE) 50 MCG/ACT nasal spray [place] into each nostril 2 times daily 3 [...] by mouth once daily Active pancrelipase (CREON) 42917-18693 units capsuleIndications: Nausea and vomiting, intractability of [...] Diarrhea 01/29/2012 GERD (gastroesophageal reflux disease) 2 Encounters Date Type Department Care Team Description 01/07/2024 2:50 PM SEAMLESS TUBE MILL OPERATOR - 01/07/2024 11:59 PM SEAMLESS TUBE MILL OPERATOR Hospital Encounter [facility] [address] [id number] Jody Wadsworth, LUDIN-MULTI TOWNSHIP ASSESSOR Discharge Disposition: Home or Self Care 01/07/2024 Travel from Last 3 Months Family History Medical History Relation Name Comments Hypertension Maternal Grandfather CVA Maternal Grandmother Cancer - Other Maternal Grandmother Diabetes - Type 2 Maternal Grandmother Hypertension Maternal Grandmother CVA Paternal Grandfather Diabetes - Type 2 Paternal Grandmother Relation Name Status Comments Father Alive Maternal Grandfather Maternal Grandmother Mother Alive Paternal Grandfather Paternal Grandmother Social History Tobacco Use Types [...] Comments Blood Pressure 107/81 01/07/2024 3:21 PM SEAMLESS TUBE MILL OPERATOR Pulse 99 01/07/2024 3:21 PM SEAMLESS TUBE MILL OPERATOR Temperature 36.9 ??C (98.4 ??F) 01/07/2024 3:21 PM CS T Respiratory Rate 18 01/07/2024 3:21 PM SEAMLESS TUBE MILL OPERATOR Oxygen Saturation 99% 01/07/2024 3:21 PM SEAMLESS TUBE MILL OPERATOR Inhaled Oxygen Concentration - - Weight 52.2 kg (115 lb) 01/07/2024 3:21 PM SEAMLESS TUBE MILL OPERATOR Height 157.5 cm (5' 2 ) 01/19/2020 1:07 PM SEAMLESS TUBE MILL OPERATOR Body Mass Index 21.03 01/19/2020 1:07 PM SEAMLESS TUBE MILL OPERATOR Plan of Treatment Health Maintenance Due Date Last Done Comments COLOGUARD (AGES 45-75) - COLON CA SCREENING 1977 COLON MONITORING 1977 COLONOSCOPY - COLON CA SCREENING 1977 CT COLONOGRAPHY - COLON CA SCREENING 1977 Colorectal Cancer Screening 1977 FIT - COLON CA SCREENING 1977 FLEX SIG - COLON CA SCREENING 1977 MAMMOGRAM 1977 PAP SMEAR 1977 HIV SCREENING 02/25/1992 HEPATITIS C SCREENING 02/20/1995 DTAP/TDAP/TD VACCINES (1 - Tdap) 02/25/1996 HEPATITIS B VACCINE (1 of 3 - 19+ 3-dose series) 02/25/1996 LIPID TESTING 04/15/2016 04/16/2011 DEPRESSION SCREENING 02/11/2023 COVID-19 VACCINE ( - season) 2023 12/22/2021, 12/29/2020, 05/23/2020, Additional history exists INFLUENZA VACCINE (#1) 2023 ZOSTER VACCINE (1 of 2) 2027 HIB VACCINE Aged Out No longer eligi ble based on patient's age to complete this topic HPV VACCINE Aged Out No longer eligi ble based on patient's age to complete this topic MENINGOCOCCAL VACCINE Aged Out No ap paul eligible based on patient's age to complete this topic PNEUMOCOCCAL VACCINE Aged Out No long er eligible based on patient's age to complete this topic Procedures Procedure Name Priority Date/Time Associated Diagnosis Comments STREP A SCREEN - POCT (IP) URGENT CARE Routine 01/07/2024 3:28 PM SEAMLESS TUBE MILL OPERATOR Exudative pharyngitis SARS-COV-2 (COVID-19) AG (IP) POCT Routine 01/07/2024 3:26 PM SEAMLESS TUBE MILL OPERATOR Exudative pharyngitis LIPID PROFILE Routine 04/16/2011 7:53 AM SEAMLESS TUBE MILL OPERATOR Epigastric pain from Last 3 Months or Most Recently Relevant to Health Maintenance Results * STREP A SCREEN - POCT (IP) URGENT CARE (01/07/2024 3:28 PM SEAMLESS TUBE MILL OPERATOR) Strep A Rapid POCT Negative Negative [facility] QC Verified Yes Yes [facility] Throat ENTIRE THROAT (SURFACE REGION OF NECK) / Unknown 01/07/2024 3:28 PM SEAMLESS TUBE MILL OPERATOR Jody Wadsworth ANIMAL HEALTH TECHNICIAN-MULTI [employer]OWNSHIP ASSESSOR LAB - POINT OF CAR E ORDERABLES [facility] [address] [place] [address] * (ABNORMAL) SARS-COV-2 (COVID-19) AG (IP) POCT (01/07/2024 3:26 PM SEAMLESS TUBE MILL OPERATOR) SARS-CoV-2 Ag Negative(Negat puneet) Negative [facility] Lot # [id number] [facility] Expiration Date 12/20/2024 [facility] Instrument Serial Number n/a [facility] COVID Internal Control Acceptable Acceptable [facility] Microbiology SPECIMEN FROM NASAL FOSSAE / Unknown 01/07/2024 3:26 PM SEAMLESS TUBE MILL OPERATOR Narrative [facility] - 01/07/2024 3:41 PM SEAMLESS TUBE MILL OPERATOR Jody QUIROZ LAB - POINT OF CAR E ORDERABLES [facility] [address] [place] [address] * LIPID PROFILE (LIPID PANEL) (04/16/2011 7:53 AM SEAMLESS TUBE MILL OPERATOR) Cholesterol 187 100 - 199 mg/dL [facility] [...] BLOOD SPECIMEN / Unknown 04/16/2011 7:53 AM SEAMLESS TUBE MILL OPERATOR 04/16/2011 12:29 PM SEAMLESS TUBE MILL OPERATOR Narrative Resulting Agency Comment [facility] [address] ??[facility] [id number] Eric Washington MD LAB - CHEMISTRY ELSY SEGOVIA [facility] ACCOUNT BILL from Last 3 Months or Most Recently Relevant to Health Maintenance Care Teams Aircraft Dispatcher Relationship Specialty Start Date End Date Radha Barber MD [address] [place] [address] PCP - General Family Medicine 12/23/19
--- OUTSIDE RECORDS SUMMARY | 2024-02-14 17:07 | XMS_ITS | Encounter Summary ---
Author Organization [facility] Address [address] [place] [address] Care Team Providers Care Hooker On Name Role Phone Federico Nieves MD Primary Care Provider [phone] Reason for Visit * Auth/Cert - Closed Specialty Diagnoses / Procedures Referred By Callie t Referred To Contact Diagnoses Abdominal pain, epigastric Procedures ESOPHAGOGASTRODUODENOSCOPY (EGD) Referral ID Status Reason Start Date Expiration Date Visits Re quested Visits Authorized [id number] Closed 1 1 Encounter Details Date Type Department Care Team (Late st Contact Info) Description 01/22/2013 1:23 PM SR. LOGISTICS ANALYST Anesthesia Event [facility] - Endoscopy Surgery [address] [place] [address] James Medrano MD [address] [place] [phone] [place]ão [place] [address] [address] Anesthesia Record Procedure Summary Procedure Name Responsible Anesthesiologist Anesthesia Start Time Anesthesia Stop Time ESOPHAGOGASTRODUODENOSCOPY ( EGD) DIAGNOSTIC James Medrano MD 01/22/13 1323 01/22/13 1341 Events Date Time Event Comment 01/22/2013 1156 1323 An Start 1326 An Start Data 1335 an stop data 1335 Elect Sign The providers l isted as staff are the responsible providers for the case. 1341 An Stop Meds Name Total lidocaine 2% injection (20 mg/mL) 80 mg lactated ringers infusion 250 mL propofol injection 10mg/mL (ENDO USE) 20 0 mL * Agents Name O2 * Blood No blood administrations on file. Lines, Drains, and Airways Type Details Placement Removal Peripheral IV Date: 01/22/13; Time : 1207; Orientation: Right; Placed By: Ruth; Tolerance: Well 01/22/13 1208 by Gina Chris RN 01/22/13 1410 by Monica Pearson RN documented in this encounter Social History Tobacco [...] as of this encounter Progress Notes * Gifty Frey CRNA - 01/22/2013 1:45 PM CST ANESTHESIA POSTPROCEDURE EVALUATION Tamiko Carcamo is a 37 y.o. female Temp: 36.7 ??C Pulse: 79 Resp: 16 BP: 106/69 mmHg SpO2: 100 % Pain Rating Score #: 0 A postop evaluation was performed on this patient with the following assessment: no apparent anesthesia complications Mental status: neurologic status has returned to expected level of consciousness. Level of consciousness: awake No numbness, tingling or visual disturbances present. General appearance: well-appearing Respiratory function: natural airway. Cardiac: stable Pain: comfortable/acceptable PONV: None Postop hydration: adequate. Final anesthesia type: MAC Patient may be released from anesthesia care. . LOGISTICS ANALYST documented in this encounter Consult Notes * Gifty Frey CRNA - 01/22/2013 11:56 AM CST Pre-anesthesia Evaluation Procedure(s) (LRB): ESOPHAGOGASTRODUODENOSCOPY (EGD) () Vital Signs: Temp: [36.3 ??C] Pulse: [76] Resp: [16] BP: (124)/(86) SpO2: [100 %] BMI: Estimated Body mass index is 17.56 kg/(m^2) as calculated from the following: Height as of an earlier encounter on 01/22/13: 5' 2 (1.575 m). Weight as of an earlier encounter on 01/22/13: 96 lb(43.545 kg). History: Past Medical History Diagnosis Date ??? Pancarditis Past Surgical History Procedure Date ??? Egd ??? Colonoscopy reports that she has never smoked. She has never used smokeless tobacco. She reports that she does not drink alcohol or use illicit drugs. Allergies: has no known allergies. Medications: Prescriptions prior to admission Medication Status Sig Dispense Refill ??? pancrelipase (ZENPEP) 71654 UNITS capsule Active Take 1 Cap by mouth 3 times daily with meals. Do not crush or chew. 270 Cap 1 ??? desogestrel-ethinyl estradiol (AZURETTE) 0.15-0.02/0.01 MG (01/07) tablet Active Take 1 Tab by mouth once daily. No current facility-administered medications for this visit. No current outpatient prescriptions on file. Physical Exam: NPO status: since midnight Oriented to person, place and time Airway: I Neck ROM: full Dental exam findings: normal/ok Pulmonary exam: breath sounds CTA Heart sounds: S1 S2 Plan for Anesthesia: ASA Score: 2. Anesthesia plan: MAC Planned method of induction: intravenous Planned postop destination: [facility] Anesthesia plan, risks and benefits discussed with patient Anesthesia consent: obtained Plan accepted yes Discussed anesthesia plan with: CHRIS. hcg negative Anesthesia pre op re evaluation by Gifty Frey CRNA 01/22/2013 12:45 PM . LOGISTICS ANALYST documented in this encounter Plan of Treatment Not on file documented as of this encounter Visit Diagnoses Not on filedocumented in this encounter Administered Medications Inactive Administered Medications - up to 3 most recent administrations Medication Order MAR Action Action Date Dose Rate Site lidocaine (XYLOCAINE) 2 % injection PRN, Starting on Audra 01/22/13 at 1329, Until Audra 01/22/13 at 1341, Anesthesia Intra-op $ Given 01/22/2013 1:29 PM SR. LOGISTICS ANALYST 80 mg propofol (DIPRIVAN) injection CONTINUOUS PRN, Starting on Audra 01/22/13 at 1329, Until Audra 01/22/13 at 1341, Anesthesia Intra-op $ New Bag/Syringe 01/22/2013 1:29 PM SR. LOGISTICS ANALYST mL documented in this encounter Care Teams Hooker On Relationship Specialty Start Date End Date Federico Nieves MD [address] [place] [address] PCP - General Family Medicine 04/04/11 11/25/16 documented as of this encounter
--- OUTSIDE RECORDS SUMMARY | 2024-02-14 17:07 | XMS_ITS | Encounter Summary ---
Author Organization [facility] Address [address] [place] [address] Care Team Providers Care Service Technician Name Role Phone Federico Nieves MD Primary Care Provider [phone] Reason for Visit * Auth/Cert Specialty Diagnoses / Procedures Referred By Callie shepherd Referred To Contact Diagnoses Biliary dyskinesia Biliary dyskinesia Procedures LAPAROSCOPIC CHOLECYSTECTOMY Referral ID Status Reason Start Date Expiration Date Visits Re quested Visits Authorized [id number] 1 1 Encounter Details Date Type Department Care Team (Late st Contact Info) Description 12/21/2016 9:00 AM TONGUE CARRIER - 12/21/2016 10:20 AM TONGUE CARRIER Surgery [facility] Op [address] [id number] Prabhakar Cisse MD [address] [place] [address] [address] [phone] LAPAROSCOPIC CHOLECYSTECTOMY Surgery Details Date/Time Status Location OR Service Patient Class Case Class Case Type Trauma Case? 12/21/2016 9:00 AM Posted [facility] MAIN OR OR 03 General Surgery Day Care Elective > 5 days Panel 1 Procedure LRB Anes Op Region Wound Class Comments LAPAROSCOPIC CHOLECYSTECTOMY N/A General Abdomen C lean Contaminated Surgeon Surgeon Role Service Panel Prabhakar Cisse MD Primary General 1 documented in this encounter Social History [...] Sign Reading Time Taken Comments Blood Pressure 122/81 12/21/2016 11:00 AM TONGUE CARRIER Pulse 89 12/21/2016 11:05 AM TONGUE CARRIER Temperature 36.2 ??C (97.2 ??F) 12/21/2016 11:[address] Respiratory Rate 12 12/21/2016 11:05 AM TONGUE CARRIER Oxygen Saturation 100% 12/21/2016 11:05 AM TONGUE CARRIER Inhaled Oxygen Concentration - - Weight 46.7 kg (103 lb) 12/21/2016 7:23 AM TONGUE CARRIER Height 157.5 cm (5' 2 ) 12/21/2016 7:23 AM TONGUE CARRIER Body Mass Index 18.84 12/21/2016 7:23 AM TONGUE CARRIER documented in this encounter Functional Status Functional [...] No 12/21/2016 documented as of this encounter Medications at Time of Discharge Medication Sig Dispensed Refills Start Date End Date [facility] 03/02 1-20 MG-MCG tablet Take 1 tablet by mouth once daily 10/28/2016 cetirizine (ZYRTEC) 10 MG tablet Take 10 mg by mouth once daily 3 11/21/2016 fluticasone propionate (FLONASE) 50 MCG/ACT nasal spray [place] into each nostril 2 times daily 3 11/21/2016 HYDROcodone-acetaminophen (NORCO) 5-325 MG tablet Take 1-2 [...] 12/21/2016 ondansetron, disintegrating, (ZOFRAN ODT) 4 MG tabletIndications:Acute pancreatitis, unspecified pancreatitis type,Nausea without vomiting Take 1 Tab by mouth every 6 hours as needed for Nausea/Vomiting Allow tablet to dissolve on the tongue 40 Tab 3 08/03/2015 documented as of this encounter H&P Notes * Prabhakar Cisse MD - 12/21/2016 7:13 AM CST PRE-OP HISTORY AND PHYSICAL Tamiko Carcamo 1975 Chief Complaint: Biliary Dyskinesia ?? History of Present Illness: 41-year-old female with gallbladder symptoms and prior pancreatitis. Extensive GI workup shows a decreased ejection fraction CCK HIDA. Her pain is mainly postprandial and accompanied by bloating. ?? Past Medical History: Diagnosis Date ??? Pancarditis ? Past Surgical History: Procedure Laterality Date ??? COLONOSCOPY ? EGD ? ENDOSCOPY, UPPER ?? 01/22/2013 ?? ESOPHAGOGASTRODUODENOSCOPY (EGD) ?? Current Outpatient Prescriptions Medication ??? BLISOVI FE 03/02 1-20 MG-MCG tablet ??? olopatadine (PATADAY) 0.2 % ophthalmic solution ??? cetirizine (ZYRTEC) 10 MG tablet ??? fluticasone propionate (FLONASE) 50 MCG/ACT nasal spray ??? ketoconazole (NIZORAL) 2 % shampoo ??? ondansetron, disintegrating, (ZOFRAN ODT) 4 MG tablet ?? No current facility-administered medications for this visit. ?? No Known Allergies Family History Problem Relation Age of Onset ??? CVA Maternal Grandmother ? Cancer - Other Maternal Grandmother ? Diabetes - Type 2 Maternal Grandmother ? Hypertension Maternal Grandmother ? Hypertension Maternal Grandfather ? Diabetes - Type 2 Paternal Grandmother ? CVA Paternal Grandfather ? Social??History Social History ?? Social History ??? Marital status: Single ? Spouse name: N/A ??? Number of children: 0 ??? Years of education: N/A ?? Occupational History ??? Not on file. ?? Social History Main Topics ??? Smoking status: Never Smoker ??? Smokeless tobacco: Never Used ??? Alcohol use No ??? Drug use: No ??? Sexual activity: Not on file ?? Other Topics Concern ??? Not on file ?? Social History Narrative ? Review of Systems Constitutional: Negative. HENT: Positive for tinnitus. Eyes: Negative. Respiratory: Negative. Cardiovascular: Negative. Gastrointestinal: Positive for abdominal pain, nausea and vomiting. Genitourinary: Negative. Musculoskeletal: Negative. Skin: Negative. Neurological: Negative. Endo/Heme/Allergies: Positive for environmental allergies. Bruises/bleeds easily. Psychiatric/Behavioral: Negative. ? Physical Exam: Vital Signs: BP 113/81 (BP [...] CN III-XII intact, gross motor/sensory exam intact ? Laboratory Results: Recent Labs Component Name 01/26/16 1016 WBC 6.8 HCT 39.8 PLTCOUNT 219 ?? Recent Labs Component Name 11/21/16 1541 SODIUM 140 POTASSIUM 4.3 CHLORIDE 105 CO2 29 BUN 14 GLUCOSE 87 CALCIUM 9.4 ALBUMIN 3.6 ALKPHOS 43 ALT 14 AST 11 TBIL 0.3 TPROT 7.7 EGFR >60 ? Radiographic Results: Nm Hepatobiliary With Ef ?? Result Date: 11/26/2016 HEPATOBILIARY IMAGING WITH EJECTION [...] normal value as being greater than 35%. ?? 1. NO EVIDENCE OF CYSTIC OR COMMON BILE DUCT OBSTRUCTION. 2. NO SCINTIGRAPHIC EVIDENCE OF ACUTE CHOLECYSTITIS. 3. 7 % GALLBLADDER EJECTION FRACTION. ? I have personally reviewed the above clinical tests. I have discussed the results of the clinical tests with the patient. ?? Impression: Biliary dyskinesia. ?? Plan: I have counseled the patient for a laparoscopic cholecystectomy. The procedure, risks, complications, post-op recovery and return to work were discussed with the patient who understands and agrees. Prabhakar Cisse MD UE CARRIER documented in this encounter OR Notes * Operative - Prabhakar Cisse MD - 12/21/2016 12:08 PM CST [facility] OPERATIVE REPORT PATIENT NAME: TAMIKO CARCAMO MR#: [id number] ROOM #: CSN: [id number] : 1975 ADMIT: 12/21/2016 SURGEON: Prabhakar Cisse M.D. SURGERY DATE: 12/21/2016 SURGEON: Prabhakar Cisse M.D. OIL DISPENSER: AGRI BUSINESS AGENT: PREOPERATIVE DIAGNOSIS: Biliary dyskinesia. POSTOPERATIVE DIAGNOSIS: Biliary dyskinesia. OPERATION PERFORMED: Laparoscopic cholecystectomy. SURGEON: Prabhakar Cisse M.D. ANESTHESIA: General. ESTIMATED BLOOD LOSS: 10 cc. INDICATION: A 41-year-old female with gallbladder symptoms. Extensive workup shows a decreased ejection fraction consistent with diagnosis of biliary dyskinesia. The patient is brought to surgery for laparoscopic cholecystectomy. DESCRIPTION OF PROCEDURE: The patient was brought to the operating room. After induction of general anesthesia, she was prepped and draped in a sterile fashion. An infraumbilical incision was made, carried down to the fascia. The fascia was incised. The peritoneal cavity was entered. A balloon trocar was inserted and pneumoperitoneum was established. Laparoscopic camera was introduced, 5 mm ports were placed in the subxiphoid region on the right side of the abdomen. The gallbladder was grasped and elevated with the liver. Dissection proceeded in the neck of the gallbladder, where after the gallbladder neck from the liver, the cystic duct was clearly demonstrated. The cystic artery was not clearly identified by obtaining a critical view. It was tracking along the liver bed and recognized, but not dissected. The cystic duct had been clearly demonstrated and was clipped and divided as I dissected the gallbladder off the liver bed. The cystic artery became accessible and I clipped as I divided the distal portion with the electrocautery. The gallbladder was dissected off the liver bed using electrocautery with essentially no blood loss. Once removed, the gallbladder was placed in a pouch. The operative field was inspected and found to be dry. The gallbladder was delivered in its pouch through the umbilical site. The pneumoperitoneum was evacuated. Trocars were removed. Two stitches of 0 Vicryl used to close the fascia at the umbilical site. All incision sites, which have been previously injected with Exparel solution were closed with subcuticular stitches of 4-0 Vicryl. Dermabond was applied. The patient tolerated the procedure well. Vignesh Husain/MARV /[id number] cc: Dr. Federico Nieves OPERATIVE REPORT - UE CARRIER * Brief Op Note - Prabhakar Cisse MD - 12/21/2016 9:55 AM CST Brief Op Note Procedure: LAPAROSCOPIC CHOLECYSTECTOMY Patient Name: Tamiko Carcamo Date of Service: 12/21/2016 Pre-Op Diagnosis: Biliary dyskinesia [K82.8] Post-Op Diagnosis: SAME Surgeon(s) and Role: * Prabhakar Cisse MD - Primary Senior Technical Writer(s): BRAXTON Anesthesia Type: general Complications: none EBL: minimal blood loss Specimen(s): Order Name Source Comment Collection Info Order Time GROSS + MICRO EXAM (STL) Gallbladder Collected By: Prabhakar Cisse MD 12/21/2016 9:38 AM Prabhakar Cisse MD UE CARRIER documented in this encounter Plan of Treatment Not on file documented as of this encounter Procedures Procedure Name Priority Date/Time Associated Diagnosis Comments CARDIAC RHYTHM STRIP ORDER 12/24/2016 6:43 PM TONGUE CARRIER LAPAROSCOPIC CHOLECYSTECTOMY 12/21/2016 9:07 AM TONGUE CARRIER Biliary dyskinesia PATHOLOGY TISSUE EXAM (STL) Routine 12/21/2016 8:03 AM TONGUE CARRIER Biliary dyskinesia HCG URINE QUALITATIVE - POINT OF CARE Routine 12/21/2016 7:55 AM TONGUE CARRIER documented in this encounter Results * CARDIAC RHYTHM STRIP ORDER (12/24/2016 6:43 PM TONGUE CARRIER) Narrative 12/24/2016 6:43 PM TONGUE CARRIER Ordered by an unspecified provider. Scanned Document CARDIAC SERVICES ORD ERABLES * GROSS + MICRO EXAM (STL) (12/21/2016 8:03 AM TONGUE CARRIER) Case Report Surgical Pathology Report ? Case: [id number] ? Authorizing Provider: ??Prabhakar Cisse MD ?Collected: ? 12/21/2016 08:03 AM ? Ordering Location: ? [facility] ? Received: ?12/21/2016 11:51 AM ? Pathologist: ? oHracio Alonso MD ? Specimen: ?Gallbladder ? 12/25/2016 9:[address] [facility] Final Diagnosis Gallbladder, cholecystectomy: - Mild chronic cholecystitis AB/sm 12/25/2016 9:[address] [facility] Gross Description Received in a container of formalin labeled Tamiko Carcamo, and gallbladder is a previously disrupted gallbladder measuring 6 x 2.2 x 1.3 cm. The serosa is purple-green with a full-thickness defect measuring 0.4 cm in greatest dimension. The gallbladder displays green-brown velvety mucosa and a wall thickness of 0.1 cm. The lumen is filled with green-brown viscous bile. No gallstones or gross lesions are appreciated. Boat Carpenter Mechanic sections are submitted in cassette A1. JS/rtc 12/25/2016 9:[address] [facility] Microscopic Description The sections of the gallbladder show mild chronic inflammation. No dysplasia is seen. No Rokitansky-Aschoff sinuses are observed. AB/sm 12/25/2016 9:[address] [facility] Disclaimer All histochemical and/or immunohistochemical results are interpreted with controls that demonstrate appropriate staining reactions before reporting results. Note on use of immunocytochemistry reagents: This test was developed and its performance characteristic determined by [facility], Department of Laboratory Medicine. It has not been cleared or approved by the U.S. Food and Drug Administration (FDA). The FDA has determined that such clearance or approval is not necessary. The test is used for clinical purpose. It should not be regarded as investigational or for research. This laboratory is certified to perform high complexity testing. 12/25/2016 9:15 AM TONGUE CARRIER [facility] Embedded Images 12/25/2016 9:15 AM TONGUE CARRIER [facility] Pathology/Cytolo gy ENTIRE GALLBLADDER / Unknown 12/21/2016 8:03 AM TONGUE CARRIER 12/21/2016 11:51 AM TONGUE CARRIER Prabhakar Cisse MD LAB - PATHOLOGY/CYTO LOGY ORDERABLES [facility] [address] [place], [place] [id number] * HCG URINE QUALITATIVE - POINT OF CARE (IP) (12/21/2016 7:55 AM TONGUE CARRIER) HCG Qual Urine Negative Negative [facility] QC Verified Yes Yes [facility] POC T TESTING Urine URINE / Unknown 12/21/2016 7 :55 AM TONGUE CARRIER Prabhakar Cisse MD LAB - POINT OF CARE ORDERABLES Performing Organization Address [facility] de Phone Number [facility] [address] documented in this encounter Visit Diagnoses Diagnosis Biliary dyskinesia Other specified disorder of gallbladder Pancarditis Other ill-defined heart disease Biliary dyskinesia Other specified disorder of gallbladder documented in this encounter Administered Medications Inactive Administered Medications - up to 3 most recent administrations Medication Order MAR Action Action Date Dose Rate Site bupivacaine liposome (EXPAREL) 1.3 % injection PRN, Starting on Sat12/21/16 at 1001, Until Sat12/21/16 at 1015, Intra-op $ Given 12/21/2016 10:01 AM TONGUE CARRIER 266 mg Abdominal Tissue ceFAZolin (ANCEF) 1,000 mg in 50 ml IVPB 1,000 mg (1 g), at 100 mL/hr, Intravenous, PRE-OP MULTIPLE, Starting on Sat12/21/16 at 0721, Until Sat12/21/16 at 1313, Administer 30 minutes prior to surgical incision. Repeat dose in 3 hours if surgical incision not closed., Pre-op $ New Bag/Syringe 12/21/2016 9:05 AM TONGUE CARRIER 1,000 mg 100 mL/hr lactated ringers infusion at 20 mL/hr, Intravenous, PRE-OP CONTINUOUS, Starting on Sat12/21/16 at 0815, Until Sat12/21/16 at 1313, Pre-op $ New Bag/Syringe 12/21/2016 9:03 AM TONGUE CARRIER $ Admin. by Other Provider 12/21/2016 8:40 AM TONGUE CARRIER 20 mL/hr Right Arm lidocaine (XYLOCAINE MPF) 1 % injection 0.2 mL 0.2 mL, Infiltration, PRE-OP MULTIPLE, 3 doses, Starting on Sat12/21/16 at 0801, Until Sat12/21/16 at 1313, May be used (0.2 ml locally to anesthetize prior to insertion)., Pre-op $ Admin. by Other Provider 12/21/2016 8:40 AM TONGUE CARRIER 0.2 mL ondansetron (ZOFRAN) injection 4 mg 4 mg, Intravenous, ONCE PRN, Nausea/Vomiting, 1 dose, Starting on Sat12/21/16 at 0958, Until Sat12/21/16 at 1151, First choice, PACU $ Given 12/21/2016 11:51 AM TONGUE CARRIER 4 mg documented in this encounter Active and Recently Administered Medications Times are shown in TONGUE CARRIER. Scheduled Medication Order 12/19/2016 12/20/2016 12/21/2016 albuterol-ipratropium (DUO-NEB) nebulizer solution 3 mL 3 mL, Inhalation, POST-OP MULTIPLE, Starting on Sat12/21/16 at 0958, Until Sat12/21/16 at 1313, For wheezing. Notify anesthesia immediately., PACU ceFAZolin (ANCEF) 1,000 mg in 50 ml IVPB 1,000 mg (1 g), at 100 mL/hr, Intravenous, PRE-OP MULTIPLE, Starting on Sat12/21/16 at 0721, Until Sat12/21/16 at 1313, Administer 30 minutes prior to surgical incision. Repeat dose in 3 hours if surgical incision not closed., Pre-op 09 ($ New Bag/Syri nge - Provider: Emil Thomas, SONIA)0935 (Stopped - Provider: Ana Tam RN) diphenhydrAMINE (BENADRYL) injection 25 mg 25 mg, Intravenous, POST-OP MULTIPLE, Starting on Sat12/21/16 at 0958, Until Sat12/21/16 at 1313, IV for itching - may repeat x1 dose in 15 minutes., PACU lidocaine (XYLOCAINE MPF) 1 % injection 0.2 mL 0.2 mL, Infiltration, PRE-OP MULTIPLE, 3 doses, Starting on Sat12/21/16 at 0801, Until Sat12/21/16 at 1313, May be used (0.2 ml locally to anesthetize prior to insertion)., Pre-op 0840 ($ Admin. by Ot her Provider - Provider: Aebl Syed MD) meperidine (DEMEROL) injection 12.5 mg 12.5 mg, Intravenous, POST-OP ONCE, 1 dose, On Sat12/21/16 at 0958, For shivering, PACU naloxone (NARCAN) injection 0.04 mg 0.04 mg, Intravenous, POST-OP MULTIPLE, Starting on Sat12/21/16 at 0958, Until Sat12/21/16 at 1313, If respiration rate is less than 7 per minute administer IV every 1 minute until respirations are greater than 12 per minute. Notify anesthesia immediately., PACU Continuous Medication Order 12/19/2016 12/20/2016 12/21/2016 lactated ringers infusion at 20 mL/hr, Intravenous, PRE-OP CONTINUOUS, Starting on Sat12/21/16 at 0815, Until Sat12/21/16 at 1313, Pre-op 0840 ($ Admin. by Ot her Provider - Provider: Abel Syed MD)0903 ($ New Bag/Syringe - Provider: LISSA DavisRECOVERY COLLECTOR - Comment: Started preop)1015 (Anesthesia Volume Adjustment - Provider: LISSA DavisRECOVERY COLLECTOR) PRN Medication Order 12/19/2016 12/20/2016 12/21/2016 bupivacaine liposome (EXPAREL) 1.3 % injection (CANCELED) PRN, Starting on Sat12/21/16 at 1001, Until Sat12/21/16 at 1015, Intra-op 1001 ($ Given - Prov ider: Prabhakar Cisse MD) diphenhydrAMINE (BENADRYL) injection 25 mg 25 mg, Intravenous, ONCE PRN, Nausea/Vomiting, 1 dose, Starting on Sat12/21/16 at 0958, Until Sat12/21/16 at 1313, Third choice, use if first and second choice was ineffective., PACU fentaNYL (PF) (SUBLIMAZE) injection 25 mcg 25 mcg, Intravenous, EVERY 10 MIN PRN, Mild Pain, 4 doses, Starting on Sat12/21/16 at 0958, Until Sat12/21/16 at 1313, Maximum total of 4 doses. If patient reaches max total dose, please consult anesthesiologist prior to further administration of pain meds. Hold pain meds if there are signs of hypoventilation., PACU HYDROmorphone (DILAUDID) injection 0.2 mg 0.2 mg, Intravenous, EVERY 15 MIN PRN, Moderate Pain, 5 doses, Starting on Sat12/21/16 at 0958, Until Sat12/21/16 at 1313, Maximum total of 5 doses If patient reaches max total dose, please consult anesthesiologist prior to further administration of pain meds. Hold pain meds if there are signs of hypoventilation. , PACU HYDROmorphone (DILAUDID) injection 0.5 mg 0.5 mg, Intravenous, EVERY 10 MIN PRN, Severe Pain, 4 doses, Starting on Sat12/21/16 at 0958, Until Sat12/21/16 at 1313, Maximum total of 4 doses If patient reaches max total dose, please consult anesthesiologist prior to further administration of pain meds. Hold pain meds if there are signs of hypoventilation., PACU ondansetron (ZOFRAN) injection 4 mg (COMPLETED) 4 mg, Intravenous, ONCE PRN, Nausea/Vomiting, 1 dose, Starting on Sat12/21/16 at 0958, Until Sat12/21/16 at 1151, First choice, PACU 1151 ($ Given - Prov ider: Gina Velasquez RN) oxyCODONE (immediate release) (ROXICODONE) tablet 5 mg 5 mg, Oral, ONCE PRN, Mild Pain, 1 dose, Starting on Sat12/21/16 at 0958, Until Sat12/21/16 at 1313, Use if no IV access or as directed by Anesthesia provider., PACU prochlorperazine (COMPAZINE) injection 10 mg 10 mg, Intravenous, ONCE PRN, Nausea/Vomiting, 1 dose, Starting on Sat12/21/16 at 0958, Until 12/21/16 at 1313, Second choice, use if first choice was ineffective., PACU documented in this encounter Care Teams Service Technician Relationship Specialty Start Date End Date Federico Nieves MD [address] [place] [phone] PCP - General Family Medicine 12/11/16 12/22/19 documented as of this encounter
--- OUTSIDE RECORDS SUMMARY | 2024-02-14 17:07 | XMS_ITS | Encounter Summary ---
Author Organization [facility] Address [address] [place] [address] Care Team Providers Care Concrete Technician Name Role Phone Federico Nieves MD Primary Care Provider [phone] Reason for Visit * Reason Comments Follow-up Encounter Details Date Type Department Care Team (Latest Contact Info) Description 02/01/2016 1:15 PM CUT FILER Office Visit [facility] [address] [place], [place] [id number] Eric Washington MD [address] [facility] [address] [place], [place] [id number] Nausea and vomiting, intractability of vomiting not [...] Sign Reading Time Taken Comments Blood Pressure 112/78 02/01/2016 1:19 PM CUT FILER Pulse - - Temperature - - Respiratory Rate - - Oxygen Saturation - - Inhaled Oxygen Concentration - - Weight 46.7 kg (103 lb) 02/01/2016 1:19 PM CUT FILER Height 157.5 cm (5' 2 ) 02/01/2016 1:19 PM CUT FILER Body Mass Index 18.84 02/01/2016 1:19 PM CUT FILER documented in this encounter Patient Instructions * Patient Instructions* Tamiko Flor 02/01/2016 1:18 PM CUT FILER During your visit, we noted a difference between the dose and/or dosing frequency of one of the following medication(s) documented in your record and the way you report that it is being taken. 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 Shehad an episode of intractable N/V and some abdominal cramping in the epigastric area. Symptoms started about 6 hours after she ate crab legs prepared at local convenience store. No fever, hematemesis, melena, weight loss, rash, sick contacts or new meds. Symptoms resolved within 24 hrs. Labs were bland. She comes for follow up. PAST HISTORY: Past Medical History Diagnosis Date [...] 1 Tab by mouth once daily. ??? Other Reported on 02/01/2016 Reasons: no meds No current facility-administered medications for this visit. History Social History ??? Marital status: Single Spouse name: N/A ??? Number of children: N/A ??? Years of education: N/A Occupational History ??? Not on file. Social History Main Topics ??? Smoking status: Never Smoker ??? Smokeless tobacco: Never Used ??? Alcohol use: No ??? Drug use: No ??? Sexual activity: Not on file Other Topics Concern ??? Not on file Social History Narrative No family history on file. REVIEW OF SYSTEMS: Per HPI unless noted below. PHYSICAL EXAM: Vitals: 02/01/16 1319 BP: 112/78 Weight: 46.7 kg (103 lb) Body mass index is 18.84 kg/(m^2). Awake, alert and oriented x 3. [...] LIPASE 312 Pertinent radiology: Assessment/Plan: Pt is 40 y.o. female with: Recent episode of N/V and pain as described. Symptoms resolved by now and normal labs. DDx: infection, food poisoning, etc. If problems recur, may need reassessment (U/S, EGD?). Patient to call with problems. I have discussed the above recommendations and their risks, benefits, and alternatives, with the patient and any family present, and all agreed with the plan. All questions were answered. FILER documented in this encounter Plan of Treatment Not on file documented as of this encounter Visit Diagnoses Diagnosis Nausea and vomiting, intractability of vomiting not specified, unspecified vomiting type- Primary documented in this encounter Care Teams Concrete Technician Relationship Specialty Start Date End Date Federico Nieves MD [address] [place] [phone] PCP - General Family Medicine 04/04/11 11/25/16 documented as of this encounter
--- OUTSIDE RECORDS SUMMARY | 2024-02-14 17:07 | XMS_ITS | Encounter Summary ---
Author Organization [facility] Address [address] [place] [address] Care Team Providers Care Multi Mission Helicopter Aircrewman Name Role Phone Federico Nieves MD Primary Care Provider [phone] Reason for Visit * Reason Onset Date Comments MEDICATION REFILL 05/01/2019 Encounter Details Date Type Department Care Team (Late st Contact Info) Description 05/01/2019 Refill [facility] Medical [facility] - [address], [address] [place] [phone] Eric Washington MD [address] [facility] [address] [place], [place] [id number] MEDICATION REFILL Social History Tobacco Use Types [...] encounter Miscellaneous Notes * Telephone Encounter - Gracie Oh - 05/01/2019 4:00 PM CDT Refill for Promethazine suppository sent to pharmacy per MD lau. Pt's yearly appt cancelled due to covid-19 precautions. She will call back at her convenience to reschedule when things calm down . documented in this encounter Plan of Treatment Not on file documented as of this encounter Visit Diagnoses Diagnosis Nausea without vomiting- Primary documented in this encounter Care Teams Multi Mission Helicopter Aircrewman Relationship Specialty Start Date End Date Federico Nieves MD [address] [place] [address] PCP - General Family Medicine 12/11/16 12/22/19 documented as of this encounter
--- OUTSIDE RECORDS SUMMARY | 2024-02-14 17:07 | XMS_ITS | Encounter Summary ---
Author Organization [facility] Address [address] [facility] [place] [address] Care Team Providers Care Shot Core Drill Operator Name Role Phone Federico Nieves MD Primary Care Provider [phone] Reason for Visit * Auth/Cert Specialty Diagnoses / Procedures Referred By Callie t Referred To Contact Diagnoses Biliary dyskinesia Biliary dyskinesia Procedures LAPAROSCOPIC CHOLECYSTECTOMY Referral ID Status Reason Start Date Expiration Date Visits Re quested Visits Authorized [id number] 1 1 Encounter Details Date Type Department Care Team (Latest Contact Info) Description 12/21/2016 7:15 AM CUFF MAKER - 12/21/2016 12:08 PM CUFF MAKER Hospital [facility] [address] [address] Prabhakar Cisse MD [address] [place] [address] [address] [phone] Surgery General Discharge Disposition: Home or Self [...] Comments Blood Pressure 122/81 12/21/2016 11:00 AM CUFF MAKER Pulse 89 12/21/2016 11:05 AM CUFF MAKER Temperature 36.2 ??C (97.2 ??F) 12/21/2016 11:[address] Respiratory Rate 12 12/21/2016 11:05 AM CUFF MAKER Oxygen Saturation 100% 12/21/2016 11:05 AM CUFF MAKER Inhaled Oxygen Concentration - - Weight 46.7 kg (103 lb) 12/21/2016 7:23 AM CUFF MAKER Height 157.5 cm (5' 2 ) 12/21/2016 7:23 AM CUFF MAKER Body Mass Index 18.84 12/21/2016 7:23 AM CUFF MAKER documented in this encounter Functional Status Functional [...] fluticasone propionate (FLONASE) 50 MCG/ACT nasal spray [place] into each nostril 2 times daily 3 [...] who understands and agrees. Prabhakar Cisse MD MAKER documented in this encounter OR Notes * Operative - Prabhakar Cisse MD - 12/21/2016 12:08 PM CST [facility] OPERATIVE REPORT PATIENT NAME: TAMIKO CARCAMO MR#: [id number] ROOM #: CSN: [id number] : 1975 ADMIT: 12/21/2016 SURGEON: Prabhakar Cisse M.D. SURGERY DATE: 12/21/2016 SURGEON: Prabhakar Cisse M.D. ULTRASOUND TECHNOL: SURVEYOR GEOPHYSICAL PROSPECTING: PREOPERATIVE DIAGNOSIS: Biliary dyskinesia. POSTOPERATIVE DIAGNOSIS: Biliary [...] The patient tolerated the procedure well. Vignesh Husain/RANDIL /[id number] cc: Dr. Federico Nieves OPERATIVE REPORT - MAKER * Brief Op Note - Prabhakar Cisse MD - 12/21/2016 9:55 AM CST Brief Op Note Procedure: LAPAROSCOPIC CHOLECYSTECTOMY Patient Name: Tamiko Carcamo Date of Service: 12/21/2016 Pre-Op Diagnosis: Biliary dyskinesia [K82.8] Post-Op Diagnosis: SAME Surgeon(s) and Role: * Prabhakar Cisse MD - Primary Industrial Economics Professor(s): [place] Anesthesia Type: general Complications: none EBL: minimal blood loss Specimen(s): Order Name Source Comment Collection Info Order Time GROSS + MICRO EXAM (STL) Gallbladder Collected By: Prabhakar Cisse MD 12/21/2016 9:38 AM Prabhakar Cisse MD MAKER documented in this encounter Plan of Treatment Not on file documented as of this encounter Procedures Procedure Name Priority Date/Time Associated Diagnosis Comments CARDIAC RHYTHM STRIP ORDER 12/24/2016 6:43 PM CUFF MAKER LAPAROSCOPIC CHOLECYSTECTOMY 12/21/2016 9:07 AM CUFF MAKER Biliary dyskinesia PATHOLOGY TISSUE EXAM (STL) Routine 12/21/2016 8:03 AM CUFF MAKER Biliary dyskinesia HCG URINE QUALITATIVE - POINT OF CARE Routine 12/21/2016 7:55 AM CUFF MAKER documented in this encounter Results * CARDIAC RHYTHM STRIP ORDER (12/24/2016 6:43 PM CUFF MAKER) Narrative 12/24/2016 6:43 PM CUFF MAKER Ordered by an unspecified provider. Scanned Document CARDIAC SERVICES ORD ERABLES * GROSS + MICRO EXAM (STL) (12/21/2016 8:03 AM CUFF MAKER) Case Report Surgical Pathology Report ? Case: [id number] ? Authorizing Provider: ??Prabhakar Cisse MD ?Collected: ? 12/21/2016 08:03 AM ? Ordering Location: ? [facility] ? Received: ?12/21/2016 11:51 AM ? Pathologist: ? Horacio Alonso MD ? Specimen: ?Gallbladder ? 12/25/2016 9:15 AM [facility] Final Diagnosis Gallbladder, cholecystectomy: - Mild chronic cholecystitis AB/sm 12/25/2016 9:15 AM [facility] Gross Description Received in a container [...] No gallstones or gross lesions are appreciated. Hot Sealing Machine Operator sections are submitted in cassette A1. JS/rtc 12/25/2016 9:15 AM [facility] Microscopic Description The sections of the gallbladder show mild chronic inflammation. No dysplasia is seen. No Rokitansky-Aschoff sinuses are observed. AB/sm 12/25/2016 9:15 AM [facility] Disclaimer All histochemical and/or immunohistochemical results are interpreted with controls that demonstrate appropriate staining reactions before reporting results. Note on use of immunocytochemistry reagents: This test was developed and its performance characteristic determined by [facility], Department of Laboratory Medicine. It has not been cleared or approved by the U.S. Food and Drug Administration (FDA). The FDA has determined that such clearance or approval is not necessary. The test is used for clinical purpose. It should not be regarded as investigational or for research. This laboratory is certified to perform high complexity testing. 12/25/2016 9:15 AM [facility] Embedded Images 12/25/2016 9:15 AM [facility] Pathology/Cytolo gy ENTIRE GALLBLADDER / Unknown 12/21/2016 8:03 AM CUFF MAKER 12/21/2016 11:51 AM [facility] Prabhakar Cisse MD LAB - PATHOLOGY/CYTO LOGY ORDERABLES [facility] [address] [id number] * HCG URINE QUALITATIVE - POINT OF CARE (IP) (12/21/2016 7:55 AM CUFF MAKER) HCG Qual Urine Negative Negative [facility] POCT TEST[facility] QC Verified Yes Yes [facility] POC T TESTING Urine URINE / Unknown 12/21/2016 7 :55 AM CUFF MAKER Prabhakar Cisse MD LAB - POINT OF CARE ORDERABLES Performing Organization Address City/[facility] Co de Phone Number [facility] POCT TESTING [address] [place] [address] documented in this encounter Visit Diagnoses Diagnosis Biliary dyskinesia Other specified disorder of gallbladder Pancarditis Other ill-defined heart disease documented in this encounter Administered Medications Inactive Administered Medications - up to 3 most recent administrations Medication Order MAR Action Action Date Dose Rate Site ceFAZolin (ANCEF) 1,000 mg in 50 ml IVPB 1,000 mg (1 g), at 100 mL/hr, Intravenous, PRE-OP MULTIPLE, Starting on Sat12/21/16 at 0721, Until Sat12/21/16 at 1313, Administer 30 minutes prior to surgical incision. Repeat dose in 3 hours if surgical incision not closed., Pre-op $ New Bag/Syringe 12/21/2016 9:05 AM CUFF MAKER 1,000 mg 100 mL/hr lactated ringers infusion at 20 mL/hr, Intravenous, PRE-OP CONTINUOUS, Starting on Sat12/21/16 at 0815, Until Sat12/21/16 at 1313, Pre-op $ New Bag/Syringe 12/21/2016 9:03 AM CUFF MAKER $ Admin. by Other Provider 12/21/2016 8:40 AM CUFF MAKER 20 mL/hr Right Arm lidocaine (XYLOCAINE MPF) 1 % injection 0.2 mL 0.2 mL, Infiltration, PRE-OP MULTIPLE, 3 doses, Starting on Sat12/21/16 at 0801, Until Sat12/21/16 at 1313, May be used (0.2 ml locally to anesthetize prior to insertion)., Pre-op $ Admin. by Other Provider 12/21/2016 8:40 AM CUFF MAKER 0.2 mL ondansetron (ZOFRAN) injection 4 mg 4 mg, Intravenous, ONCE PRN, Nausea/Vomiting, 1 dose, Starting on Sat12/21/16 at 0958, Until Sat12/21/16 at 1151, First choice, PACU $ Given 12/21/2016 11:51 AM CUFF MAKER 4 mg documented in this encounter Active and Recently Administered Medications Times are shown in CUFF MAKER. Scheduled Medication Order 12/19/2016 12/20/2016 12/21/2016 albuterol-ipratropium [...] hours if surgical incision not closed., Pre-op 0905 ($ New Bag/Syri nge - Provider: Emil Thomas RN)0935 (Stopped - Provider: Ana Tam RN) diphenhydrAMINE [...] Ot her Provider - Provider: Abel Syed MD) meperidine (DEMEROL) injection 12.5 mg [...] Syed MD)0903 ($ New Bag/Syringe - Provider: CONNOR Davis - Comment: Started preop)1015 (Anesthesia Volume Adjustment - Provider: CONNOR Davis) PRN Medication Order 12/19/2016 12/20/2016 12/21/2016 bupivacaine [...] Sat12/21/16 at 0958, Until Sat12/21/16 at 1313, Second choice, use if first choice was ineffective., PACU documented in this encounter Care Teams Shot Core Drill Operator Relationship Specialty Start Date End Date Federico Nieves MD [address] [place] [address] PCP - General Family Medicine 12/11/16 12/22/19 documented as of this encounter
--- OUTSIDE RECORDS SUMMARY | 2024-02-14 17:08 | XMS_ITS | Encounter Summary ---
Author Organization [facility] Address [address] [place] [address] Care Team Providers Care Derivatives Trader Name Role Phone Unavailable Primary Care Provider Unavailabl e Encounter Details Date Type Department Care Team (Latest Contact Info) Description 07/23/2008 Orders Only HIS CONVERSION Conversion, History Social History Tobacco Use Types Packs/Day Years Used Date Smoking Tobacco: Never Assessed Sex and Gender Information Value Date Recorded Sex Assigned at Not on file Gender Identity Not on file Sexual Orientation Not on file documented as of this encounter Progress Notes * Conversion, History - 08/29/2008 8[place] [place] [address] cc: Jeremiah Calderón MD SURGEON Jeremiah Calderón MD PREOPERATIVE DIAGNOSIS Right neck mass. POSTOPERATIVE DIAGNOSIS Right neck mass. OPERATION NAME Excision right neck mass, deep. ANESTHESIA General. COMPLICATIONS None. ESTIMATED BLOOD LOSS None. INDICATIONS Tamiko is a 33-year-old female with a history of prolonged multiple right cervical lymph nodes. These have failed to decrease in size. The options of conservative management versus biopsy were discussed and she wished to proceed with a biopsy. She was counseled of risks and benefits including pain, bleeding, need for further surgery, infection, failure to control her symptoms, neurovascular injury including damage to her margin mandibular nerve as well as sensory changes as well. These and other minor complications were reviewed. She wished to go ahead. DESCRIPTION OF PROCEDURE The patient was brought to the operating room, placed in the supine position, following induction of general anesthesia was intubated the head of the bed was raised 90 degrees. The lymph node was approximately at the laryngeal level on the right side. A small incision approximately 2 centimeters in length was positioned in the right neck in a skin crease. This was approximately 2-1/2 to 3 fingerbreadths below the angle of the mandible. This was injected with 1:100,000 epinephrine. She was prepped and draped in a sterile fashion, incision was made, it was carried down to the platysma. The anterior border of the sternocleidomastoid muscle was identified, it was carefully dissected around anteriorly and retracted slightly posteriorly. An approximately 1.5 to 2 centimeter lymph node was identified, it was very carefully dissected around and was removed. Hemostasis was assured with the bipolar cautery on a low setting. The wound was irrigated, the specimen was passed off the field for permanent pathology. The incision was closed with 4-0 Vicryl and 5-0 Monocryl. A compressive dressing was placed, she was returned to anesthesia where she was awakened and extubated without difficulty. She returned to the recovery room in stable condition, tolerated the procedure well, she appeared to have no obvious complications. SHH:MEDQ Dictated by: Jeremiah Calderón MD Jeremiah Calderón MD Result Type: OPERATIVE REPORT Result Date: July 23, 2008 10:24 AM Result Status: UNREVIEWED documented in this encounter Plan of Treatment Not on file documented as of this encounter Visit Diagnoses Not on filedocumented in this encounter
--- OUTSIDE RECORDS SUMMARY | 2024-02-14 17:08 | XMS_ITS | Encounter Summary ---
Author Organization [facility] Address [address] [place] [address] Care Team Providers Care Customer Account Executive Name Role Phone Federico Nieves MD Primary Care Provider [phone] Reason for Visit * Reason Comments Follow-up pancreatitis Encounter Details Date Type Department Care Team (Late st Contact Info) Description 12/25/2011 1:30 PM COMPLEX CASE MANAGER Office Visit [facility] - [address] [place] [address] Eric Washington MD [address] [place] [phone] Nausea alone (Primary Dx) Social History Tobacco Use Types [...] Sign Reading Time Taken Comments Blood Pressure 106/62 12/25/2011 1:50 PM COMPLEX CASE MANAGER Pulse - - Temperature - - Respiratory Rate - - Oxygen Saturation - - Inhaled Oxygen Concentration - - Weight 43.5 kg (96 lb) 12/25/2011 1:50 PM COMPLEX CASE MANAGER Height 157.5 cm (5' 2 ) 12/25/2011 1:50 PM COMPLEX CASE MANAGER Body Mass Index 17.56 12/25/2011 1:50 PM COMPLEX CASE MANAGER documented in this encounter Progress Notes * Eric Washington MD - 12/30/2011 10:14 PM CSTQuick Note: Consider RUQ U/S. Minimally elevated Lipase. Otherwise, normal labs. LEX CASE MANAGER * Eric Washington MD - 12/25/2011 2:16 PM CST GASTROENTEROLOGY RETURN VISIT NOTE DEMOGRAPHICS: Patient: Tamiko Carcamo : 1975 Referring M.D.: Federico Mireles [facility] SUBJECTIVE: 36 y.o.female with idiopathic pancreatitis in the past. Generally has done well with low fat diet and occasional meds (PPI and pancreatic supplements). No pain but having intermittent episodes of nausea every 2 months lasting a few days. No fever, bleeding, or weight loss. Occasional mild diarrhea.Patient does not ETOH. PAST HISTORY: Past Medical History Diagnosis Date ??? Pancarditis No past surgical history on file. ALLERGIES: No Known Allergies MEDICATIONS: Current Outpatient Prescriptions Medication Sig Dispense Refill ??? pancrelipase (ZENPEP) 62458 UNITS capsule Take 1 Cap by mouth [...] HPI unless noted below. PHYSICAL EXAM: Vitals: 12/25/11 1350 BP: 106/62 Weight: 96 lb (43.545 kg) Body mass index is 17.56 kg/(m^2). Awake, alert and oriented x 3. [...] disorder noted nml appearance LABS: Component Name 04/16/11 0753 SODIUM 141 POTASSIUM 4.1 CHLORIDE 103 CO2 23 BUN 13 CREATININE 0.92 GLUCOSE 80 Component Name 04/16/11 0753 WBC 4.9 HGB 12.5 PLTCOUNT 215 MCV 86 INR -- Component Name 04/16/11 0753 ALBUMIN 4.3 ALKPHOS 39 TBIL 0.3 AST 20 ALT 10 Component Name 04/16/11 0753 AMYLASE -- LIPASE 81* FERRITIN -- IRON -- Pertinent radiology: Assessment/Plan: Pt is 36 y.o. female with: Past idiopathic pancreatitis. No pain but some intermittent nausea every 2 months. Continue supplements. Re-check labs- CBC, CMP, Lipase. If labs negative and symptoms persist, may need RUQ U/S +/- EGD. Will follow. I have discussed the above recommendations and their risks, benefits, and alternatives, with the patient and any family present, and all agreed with the plan. All questions were answered. LEX CASE MANAGER documented in this encounter Plan of Treatment Not on file documented as of this encounter Procedures Procedure Name Priority Date/Time Associated Diagnosis Comments CBC W AUTO DIFFERENTIAL Routine 12/26/2011 9:49 AM COMPLEX CASE MANAGER Nausea alone COMPREHENSIVE METABOLIC PANEL Routine 12/26/2011 9:49 AM COMPLEX CASE MANAGER Nausea alone LIPASE BLOOD Routine 12/26/2011 9:49 AM COMPLEX CASE MANAGER Nausea alone documented in this encounter Results * (ABNORMAL) LIPASE BLOOD (12/26/2011 9:49 AM COMPLEX CASE MANAGER) Lipase 63(H) 0 - 59 U/L [facility] A CCOUNT BILL Blood specimen (specimen) BLOOD SPECIMEN / Unknown 12/26/2011 9:49 AM COMPLEX CASE MANAGER 12/26/2011 12:30 PM COMPLEX CASE MANAGER Narrative Resulting Agency Comment [facility] [address] ??Critical access hospital [id number] Eric Washington MD LAB - CHEMISTRY ELSY SEGOVIA [facility] ACCOUNT BILL * COMPREHENSIVE METABOLIC PANEL (12/26/2011 9:49 AM COMPLEX CASE MANAGER) Glucose 80 65 - 99 mg/dL [facility] ACCOUNT BILL BUN 13 6 - 20 mg/dL [facility] ACCOUNT BILL Creatinine 0.92 0.57 - 1.00 mg/dL [facility] ACCOUNT BILL eGFR by MDRD 81 >59 mL/min/1.7 3 [facility] ACCOUNT BILL eGFR by MDRD 94 >59 mL/min/1.7 3 [facility] ACCOUNT BILL BUN/Creatinine Ratio 14 8 - 20 [facility] ACCOUNT BILL Sodium 140 134 - 144 mmol/L [facility] ACCOUNT BILL Potassium 4.8 3.5 - 5.2 mmol/L [facility] ACCOUNT BILL Chloride 104 97 - 108 mmol/L [facility] ACCOUNT BILL CO2 21 20 - 32 mmol/L [facility] ACCOUNT BILL Calcium 10.1 8.7 - 10.2 mg/dL [facility] ACCOUNT BILL Protein Total 8.1 6.0 - 8.5 g/dL [facility] ACCOUNT BILL Albumin 4.3 3.5 - 5.5 g/dL [facility] ACCOUNT BILL Globulin Total 3.8 1.5 - 4.5 g/dL [facility] ACCOUNT BILL Albumin/Globulin Ratio 1.1 1.1 - 2.5 [facility] ACCOUNT BILL Bilirubin Total 0.5 0.0 - 1.2 mg/dL [facility] ACCOUNT BILL Alkaline Phosphatase 39 25 - 150 IU/L [facility] ACCOUNT BILL AST 18 0 - 40 IU/L [facility] ACCOUNT BILL ALT 8 0 - 32 IU/L [facility] ACCOUNT BILL Comment:Please note refere nce interval change Blood specimen (specimen) BLOOD SPECIMEN / Unknown 12/26/2011 9:49 AM COMPLEX CASE MANAGER 12/26/2011 12:30 PM COMPLEX CASE MANAGER Narrative Resulting Agency Comment [facility] [place] [address] [address] ??Critical access hospital [id number] Eric Washington MD LAB - CHEMISTRY ELSY SEGOVIA [facility] Organization Address City/State/ZIP Co de Phone Number [facility] ACCOUNT BILL * (ABNORMAL) CBC W AUTO DIFFERENTIAL (12/26/2011 9:49 AM COMPLEX CASE MANAGER) WBC 5.8 4.0 - 10.5 x10E3/uL [facility] ACCOUNT BILL RBC 4.71 3.77 - 5.28 x10E6/uL [facility] ACCOUNT BILL Hemoglobin 12.8 11.1 - 15.9 g/dL [facility] ACCOUNT BILL Hematocrit 41.1 34.0 - 46.6 % [facility] ACCOUNT BILL MCV 87 79 - 97 fL [facility] ACCOUNT BILL MCH 27.2 26.6 - 33.0 pg [facility] ACCOUNT BILL MCHC 31.1(L) 31.5 - 35.7 g/dL [facility] ACCOUNT BILL RDW 14.8 12.3 - 15.4 % [facility] ACCOUNT BILL Platelet Count 218 140 - 415 x10E3/uL [facility] ACCOUNT BILL Granulocytes % 56 40 - 74 % [facility] ACCOUNT BILL Lymphocytes % 39 14 - 46 % [facility] ACCOUNT BILL Monocytes % 5 4 - 13 % [facility] ACCOUNT BILL Eosinophils % 0 0 - 7 % [facility] ACCOUNT BILL Basophils % 0 0 - 3 % [facility] ACCOUNT BILL Immature Cells NOT NEEDED [facility] ACCOUNT BILL Comment:Ancillary determined the test is not needed Granulocytes Absolute 3.1 1.8 - 7.8 x10E3/uL [facility] ACCOUNT BILL Lymphocytes Absolute 2.3 0.7 - 4.5 x10E3/uL [facility] ACCOUNT BILL Monocytes Absolute 0.3 0.1 - 1.0 x10E3/uL [facility] ACCOUNT BILL [...] Blood specimen (specimen) BLOOD SPECIMEN / Unknown 12/26/2011 9:49 AM COMPLEX CASE MANAGER 12/26/2011 12:30 PM COMPLEX CASE MANAGER Narrative Resulting Agency Comment [facility] [address] [facility] ??Critical access hospital [id number] Eric Washington MD LAB - HEMATOLOGY ORD ERABLES [facility] ACCOUNT BILL documented in this encounter Visit Diagnoses Diagnosis Nausea alone- Primary documented in this encounter Care Teams Customer Account Executive Relationship Specialty Start Date End Date Federico Nieves MD [address] [place] [address] PCP - General Family Medicine 04/04/11 11/25/16 documented as of this encounter
--- OUTSIDE RECORDS SUMMARY | 2024-02-14 17:08 | XMS_ITS | Encounter Summary ---
Author Organization [facility] Address [address] [facility] [place] [address] Care Team Providers Care Decision Science Analyst Name Role Phone Federico Nieves MD Primary Care Provider Reason for Visit * Reason Comments ESOPHAGEAL REFLUX Encounter Details Date Type Department Care Team (Late st Contact Info) Description 07/03/2011 4:00 PM CDT Office Visit [facility] - [address] [place] [address] Eric Washington MD [address] [phone] Nausea alone (Primary Dx) Social History Tobacco [...] Sign Reading Time Taken Comments Blood Pressure 92/64 07/03/2011 3:39 PM CDT Pulse 64 07/03/2011 3:39 PM CDT Temperature - - Respiratory Rate 12 07/03/2011 3:39 PM CDT Oxygen Saturation - - Inhaled Oxygen Concentration - - Weight 43.5 kg (96 lb) 07/03/2011 3:39 PM CDT Height 157.5 cm (5' 2 ) 07/03/2011 3:39 PM CDT Body Mass Index 17.56 07/03/2011 3:39 PM CDT documented in this encounter Progress Notes * Eric Washington MD - 07/03/2011 3:57 PM CDT GASTROENTEROLOGY RETURN VISIT NOTE DEMOGRAPHICS: Patient: Tamiko Carcamo : 1975 Referring M.D.: Federico Nieves MD SUBJECTIVE: 36 y.o.female with recent idiopathic pancreatitis. Recent nausea while eating salmon/ fish. No fever, pain, irregular bowel habits, bleeding, weight loss, rash, joint pain. Otherwise, tolerating a low fat diet. PAST HISTORY: Past Medical History [...] HPI unless noted below. PHYSICAL EXAM: Vitals: 07/03/11 1539 BP: 92/64 Pulse: 64 Resp: 12 Weight: 96 lb (43.545 kg) Body mass [...] AST 20 ALT 10 Component Name 04/16/11 075 AMYLASE -- LIPASE 81* FERRITIN -- IRON -- Pertinent radiology: Assessment/Plan: Pt is 36 y.o. female with: Nausea with recent foods. Watch for now. Continue low fat diet. Will give samples of PPI and pancreatic enzymes in case symptoms recur. Will reassess in 6 mo if no problems. Will likely need pancreatic re-evaluation. I have discussed the above recommendations and their risks, benefits, and alternatives, with the patient and any family present, and all agreed with the plan. All questions were answered. documented in this encounter Plan of Treatment Not on file documented as of this encounter Visit Diagnoses Diagnosis Nausea alone- Primary documented in this encounter Care Teams Decision Science Analyst Relationship Specialty Start Date End Date Federico Nieves MD [address] [place] [address] PCP - General Family Medicine 04/04/11 11/25/16 documented as of this encounter
--- OUTSIDE RECORDS SUMMARY | 2024-02-14 17:08 | XMS_ITS | Encounter Summary ---
Author Organization [employer] [facility] Address [address] [place] [address] Care Team Providers Care Bankruptcy Legal Assistant Name Role Phone Radha Barber MD Primary Care Provider Reason for Visit * Reason Comments Vomiting Ate 1/2 of a prepare d sndwich from [facility] yesterday, developed vomitting shortly after, had 1 episode then a few hours passed before 6 more episodes in the evening. No vomiting overnight then had one episode this am with drinking water. 1 episode last night of diarrhea. 06/10/17 Db Sanchez RN * Auth/Cert Specialty Diagnoses / Procedures Referred By Callie shepherd Referred To Contact Urgent Care [facility] [place] [address] [place] [address] Referral ID Status Reason Start Date Expiration Date Visits Re quested Visits Authorized [id number] 1 1 Encounter Details Date Type Department Care Team (Latest Contact Info) Description 06/10/2017 10:29 AM CDT - 06/10/2017 10:54 AM CDT Hospital Encounter [facility] [place] [address] [place] [address] Home Xavier MD NO ADDRESS ON FILE Viral gastroenteritis (Primary Dx) Discharge Disposition: Home or Self Care Social History Tobacco Use Types Packs/Day Years Used Date Smoking Tobacco: Never Smokeless Tobacco: Never Tobacco Cessation:Counseling Given: Yes Alcohol Use Standard Drinks/Week Comments No 0 (1 standard drink = 0.6 oz pur e alcohol) Sex and Gender Information Value Date Recorded Sex Assigned at Not on file Gender Identity Not on file Sexual Orientation Not on file documented as of this encounter Last Filed Vital Signs Vital Sign Reading Time Taken Comments Blood Pressure 146/84 06/10/2017 10:38 AM CDT Pulse 81 06/10/2017 10:38 AM CDT Temperature 36.8 ??C (98.2 ??F) 06/10/2017 10:38 AM C DT Respiratory Rate 18 06/10/2017 10:38 AM CDT Oxygen Saturation 100% 06/10/2017 10:38 AM CDT Inhaled Oxygen Concentration - - Weight 44 kg (97 lb) 06/10/2017 10:38 AM CDT Height 157.5 cm (5' 2 ) 06/10/2017 10:38 AM CDT Body Mass Index 17.74 06/10/2017 10:38 AM CDT documented in this encounter Discharge Instructions * Discharge Instructions* Home Xavier MD - 06/10/2017 10:51 AM CDT Most important is to keep hydrated. Drink small amounts at a time if nauseated, but frequently. If just able to hold down a few sips only, repeat in a few minutes. The type of liquid is not as important (eg water, Gatorade) as getting enough in. For food, start when you feel ready, start with small amounts of bland food (eg toast, crackers) first, and if no problem can SLOWLY increase the amount. Overall, these stomach bug type illnesses don't last long, averaging 2-5 days, but can last up to 2weeks. If lasts longer, getting worse, bad pains, black or bloody stools, blood in vomit, fevers start, you feel dizzy when upright, then see us, your doctor, or the emergency room right away. Please follow with your primary care physician, Federico Nieves MD in 48-72 hours if NO better. If your symptoms worsen recheck at your local ER. If you do not have a primary doctor, [employer] offers a free referral service by calling [phone], , or toll free . This information can also be accessed on the web at [email or web address] If a test or physician referral was ordered for you today, you can schedule these by calling Central Testing Scheduling (CTS),[phone], or Central Referral Scheduling (CRS), during normal work hours. Inform them you had a test or referral ordered during your visit at the [facility]. If you are female and on hormone based control there is a slight increase in risk with the use of antibiotics, the patient is asked to back up her OCP with condom or other method during this (or any) cycle during which she is taking antibiotics. Thank you for choosing to the [facility] Location [address] [place] [address] [place] [address] [phone] [facility] Location [address] [place] [address] [place] [address] [phone] [facility] Location [address] [address] [place] [address] [place] [address] [phone] [place] Location [address] [place]. [address] IMPORTANT: You were examined and treated today on an urgent basis. This was not a substitute for, nor an effort to provide, complete and ongoing medical care. On arrival to [facility], you may have reported taking home medications that will be listed on your After Visit Summary. If applicable, this regimen is not being changed, except as noted and discussed with you. You should follow up with your primary care physician for ongoing medication management. This AVS (after visit summary) is a printed copy of the form that is part of your permanent electronic medical record. By accepting this form you acknowledge that your tests, diagnosis, treatment plan, and follow up care has been discussed with you by appropriate medical personnel. Thank-you again for choosing [facility]. documented in this encounter Medications at Time of Discharge Medication Sig Dispensed Refills Start Date End Date cetirizine (ZyrTEC) 10 mg tablet Take 10 mg by mouth. 11/21/2016 fluticasone (FLONASE) 50 mcg/spray [place], Suspension [place] into each nostril 2 times daily 11/21/2016 ketoconazole (NIZORAL) 2 % Shampoo every 7 days 07/25/2016 olopatadine (PATADAY) 0.2 % solution 2.5 mL. 10/25/2016 ondansetron (ZOFRAN ODT) 4 mg Tablet, Rapid Dissolve Take 4 mg by mouth. 08/03/2015 promethazine (PHENERGAN) 25 mg Suppository Insert 1 Suppository (25 mg) by rectum every 6 hours as needed for Nausea/Emesis. 20 Suppository 06/10/2017 Docusate Sodium 100 mg Oral Tab Take 100 mg by mouth 2 times daily as needed for Other (See Comment) (constipat). To prevent constipation 30 Tab o 04/04/2011 Desogestrel-Ethinyl estradiol (AZURETTE) 0.15-0.02mg x21 /0.01 mg x 5 Oral tablet Take 1 Tab by mouth daily. documented as of this encounter Nursing Notes * Vera Sanchez RN - 06/10/2017 10:37 AM CDT Tamiko Carcamo is a 42 y.o. female ambulated into room independently. Patient came into urgent care center c/o Ate 1/2 of a prepared sndwich from [facility] yesterday, developed vomitting shortly after, had 1 episode then a few hours passed before 6 more episodes in the evening. No vomiting overnight then had one episode this am with drinking water. 1 episode last night of diarrhea. Patient vital signs as documented in flowsheet. Patient is alert, oriented X 4, calm and cooperative. documented in this encounter ED Notes * Home Xavier MD - 06/10/2017 9:58 AM CDT Chief Complaint Patient presents with ??? Vomiting Ate 1/2 of a prepared sndwich from [facility] yesterday, developed vomitting shortly after, had 1 episode then a few hours passed before 6 more episodes in the evening. No vomiting overnight then had one episode this am with drinking water. 1 episode last night of diarrhea. 06/10/17 Db Sanchez, RN No current facility-administered medications for this encounter. Current Outpatient Prescriptions Medication Sig Dispense Refill ??? cetirizine (ZyrTEC) 10 mg tablet Take 10 mg by mouth. ??? fluticasone (FLONASE) 50 mcg/spray [place], Suspension [place] into each nostril 2 times daily ??? olopatadine (PATADAY) 0.2 % solution 2.5 mL. ??? ondansetron (ZOFRAN ODT) 4 mg Tablet, Rapid Dissolve Take 4 mg by mouth. ??? Docusate Sodium 100 mg Oral Tab Take 100 mg by mouth 2 times daily as needed for Other (See Comment) (constipat). To prevent constipation 30 Tab o ??? Desogestrel-Ethinyl estradiol (AZURETTE) 0.15-0.02mg x21 /0.01 mg x 5 Oral tablet Take 1 Tab bymouth daily. ??? ketoconazole (NIZORAL) 2 % Shampoo every 7 days ??? [DISCONTINUED] ondansetron (ZOFRAN) 4 mg Oral Tab Take 1 Tab by mouth every 6 hours as needed for Nausea. 20 Tab none ??? [DISCONTINUED] HYDROcodone-acetaminophen (NORCO) 5-325 mg Oral tablet Take 1-2 Tabs by mouth every 4 hours as needed for Pain, Moderate. 30 Tab None No Known Allergies Past Medical History: Diagnosis Date ??? Pancreatitis Past Surgical History: Procedure Laterality Date ??? HX CHOLECYSTECTOMY ??? CA COLONOSCOPY FLX DX W/COLLJ SPEC WHEN PFRMD 06/21/2010 COLONOSCOPY performed by SINA MARRUFO at [facility] ??? CA ESOPHAGOGASTRODUODENOSCOPY TRANSORAL DIAGNOSTIC 06/21/2010 ESOPHAGOGASTRODUODENOSCOPY performed by SINA MARRUFO at [facility] No family history on file. Social History Substance Use Topics ??? Smoking status: Never Smoker ??? Smokeless tobacco: Never Used ??? Alcohol use No SUBJECTIVE: Tamiko Carcamo is a 42 y.o. female who complains of nausea, vomiting, diarrhea for 1 days. Vomiting has been 5-6 times daily (once today), diarrhea just once. No black or bloody stool. No foreign travel, recent antibiotics, bad food or water, ill contacts. ROS: Denies fever, chills, dizziness, dry mouth, chest pain, breathing difficulty, back pain, flank pain, dysuria, hematuria. OBJECTIVE: BP (!) 146/84 Pulse 81 Temp 98.2 ??F (36.8 ??C) (Oral) Resp 18 Ht 5' 2 (1.575 m) Wt 44 kg (97 lb) LMP 05/28/2017 SpO2 100% ? No BMI 17.74 kg/m?? Gen: NAD, AOX4. Eyes - clear non-icteric. Oral: clear, moist membranes, throat normal. Neck: Supple, no adenopathy. Lungs: CTA, nl respiratory rate. Heart: regular rate and rhythm, no murmur.. Abdomen: +BS, ND, some diffuse tenderness, no peritoneal signs. Back: Non-tender, no CVA tenderness. Skin: Normal color, normal turgor. ASSESSMENT: Final diagnoses: [A08.4] Viral gastroenteritis (Primary) PLAN: Orders Placed This Encounter ??? promethazine (PHENERGAN) 25 mg Suppository Fluid management discussed, gradual return to eating. Expected course reviewed. See PCP for further evaluation if no better, becomes dizzy when upright, worsens. An After Visit Summary was printed and given to the patient. documented in this encounter Plan of Treatment Not on file documented as of this encounter Visit Diagnoses Diagnosis Viral gastroenteritis- Primary Intestinal infection due to other organism, not elsewhere classified documented in this encounter Care Teams Bankruptcy Legal Assistant Relationship Specialty Start Date End Date [place] [address] PCP - General Family Practice 06/10/17 documented as of this encounter
--- OUTSIDE RECORDS SUMMARY | 2024-02-14 17:08 | XMS_ITS | Encounter Summary ---
Author Organization [facility] Address [address] [place] [address] Care Team Providers Care Senior Etl Developer Name Role Phone Radha Barber MD Primary Care Provider Encounter Details Date Type Department Care Team (Late st Contact Info) Description 07/14/2008 Outpatient Historical [facility] Yaneth Martines MD [address] [phone] Swelling, Mass, or Lump in Head and Neck Social History Tobacco Use Types Packs/Day Years Used Date Smoking Tobacco: Never Assessed Sex and Gender Information Value Date Recorded Sex Assigned at Not on file Gender Identity Not on file Sexual Orientation Not on file documented as of this encounter Plan of Treatment Not on file documented as of this encounter Procedures Procedure Name Priority Date/Time Associated Diagnosis Comments PATHOLOGY Routine 07/23/2008 11:27 AM CDT POC , URINE Routine 07/23/2008 9:10 AM CDT HEMOGLOBIN AND HEMATOCRIT Routine 07/21/2008 7:51 AM CDT documented in this encounter Results * PATHOLOGY (07/23/2008 11:27 AM CDT) FINAL REPORT ?[facility] [place] ?[address] ? [place], [place] ??[address] ? Patient: ??TAMIKO BURGESS ? : ??1975 ? Procedure Date: ??07/23/2008 ? Accession Date: ??07/23/2008 ? Case No: ??[id number] ? Ordering Dr: ??YANETH MARTINES ? Case types AW, BW, FW, NW and SH are performed by [facility], [place], [place] ?SURGICAL PATHOLOGY & NON-GYNECOLOGIC CYTOPATHOLOGY REPORT ? DIAGNOSIS ? LYMPH NODE, RIGHT NECK, EXCISION: ? - REACTIVE FOLLICULAR AND PARACORTICAL HYPERPLASIA. ? Specimen Description: ? Right neck mass, rule out lymphoma. ? Operative Procedure: ? Excision right neck mass. ? Patient Information/Histo ry/Diagnosis: ? Right neck mass. ? Gross: ? Received in a single container labeled Tamiko Burgess., right neck ? mass, rule out lymphoma is a 2 x 1.8 x 0.8 cm, gilmore lymph node. Sectioning ? reveals a homogenous, gilmore cut surface. The tissue is submitted in A1 and A2 ? for B-Plus fixation and A3 for formalin fixation. ? MMC/PJS 07.23.2008 12:16 pm ? Microscopic: ? The slides are labeled [id number], Tamiko Burgess. ? The normal mary architecture is preserved. The cortex contains follicles ? with reactive germinal centers. The germinal centers contain tingible body ? macrophages, maintain polarization, and are surrounded by a distinct mantle ? zone. The paracortical zone is expanded and composed predominantly of small ? lymphocytes with scattered occasional immunoblasts and plasma cells. There ? are occasional clusters of monocytoid cells adjacent to the sinuses. The ? sinuses are patent. No metastatic carcinoma or neoplastic lymphoid ? proliferation is identified. ? CS/NIKITA 07.26.2008 12:28 pm ? Staging Form: ? No. ? ELECTRONIC SIGNATURE FOR ANGEL Daniel JAS MONZON M.D.- 07/26/08 02:48 ? pm INTERFACE SYSTEM 07/23/2008 11:2 7 AM CDT Yaneth Martines MD PATHOLOGY/CYTOLOGY O RDERABLES Performing Organization Address [facility] Phone Number INTERFACE SYSTEM Refer to clinic/hospital department * POC , URINE (07/23/2008 9:10 AM CDT) , URINE POC Negative Negative [facility] 07/23/2008 9:10 AM CDT 07/23/2008 9:10 AM CDT Yaneth Martines MD POINT OF CARE TESTIN G Performing Organization Address [facility] Phone Number INTERFACE SYSTEM Refer to clinic/hospital department [facility] CLIA# [id number] [address] [place] [address] * (ABNORMAL) HEMOGLOBIN AND HEMATOCRIT (07/21/2008 7:51 AM CDT) [facility] HEMOGLOBIN 11.2(L) 11.8 - 14.8 g/dL [facility] HEMATOCRIT 36.1 35.5 - 44.0 % [facility] 07/21/2008 7:51 AM CDT 07/21/2008 8:42 AM CDT Yaneth Martines MD HEMATOLOGY ORDERABLE S Performing Organization Address [facility] de Phone Number INTERFACE SYSTEM Refer to clinic/hospital department [facility] CLIA# [id number] [address] [place] [address] documented in this encounter Visit Diagnoses Diagnosis Swelling, mass, or lump in head and neck documented in this encounter Care Teams Senior Etl Developer Relationship Specialty Start Date End Date Radha Barber MD [address] [place] [address] PCP - General Family Practice 06/10/17 documented as of this encounter
--- OUTSIDE RECORDS SUMMARY | 2024-02-14 17:08 | XMS_ITS | Encounter Summary ---
Author Organization [facility] Address [address] [place] [address] Care Team Providers Care Nursing Manager Name Role Phone Federico Nieves MD Primary Care Provider [phone] Reason for Visit * Reason Comments ER UC Follow-up Encounter Details Date Type Department Care Team (Late st Contact Info) Description 04/10/2011 3:15 PM CLINICAL TRIALS SYSTEMS ADMINISTRATOR Office Visit [facility] - [address] [place] [address] Eric Washington MD [facility] [address] [address] Epigastric pain (Primary Dx) Social History Tobacco Use Types Packs/Day Years Used Date Smoking Tobacco: Never Assessed Sex and Gender Information Value Date Recorded Sex Assigned at Not on file Gender Identity Not on file Sexual Orientation Not on file documented as of this encounter Last Filed Vital Signs Vital Sign Reading Time Taken Comments Blood Pressure 100/74 04/10/2011 3:24 PM CLINICAL TRIALS SYSTEMS ADMINISTRATOR Pulse 56 04/10/2011 3:24 PM CLINICAL TRIALS SYSTEMS ADMINISTRATOR Temperature - - Respiratory Rate - - Oxygen Saturation - - Inhaled Oxygen Concentration - - Weight 43.5 kg (96 lb) 04/10/2011 3:24 PM CLINICAL TRIALS SYSTEMS ADMINISTRATOR Height - - Body Mass Index - - documented in this encounter Progress Notes * Eric Washington MD - 04/17/2011 4:47 PM CSTQuick Note: Mildly increased Lipase. Otherwise, normal tests. Please set up MRCP and follow up office visit after. ICAL TRIALS SYSTEMS ADMINISTRATOR * Eric Washington MD - 04/10/2011 3:52 PM CST GASTROENTEROLOGY RETURN VISIT NOTE DEMOGRAPHICS: Patient: Tamiko Carcamo : 1975 Referring M.D.: Federico Nieves MD SUBJECTIVE: 36 y.o.female with past history of pancreatitis 2008 ([facility]) and recent visit to ER for epigastric pain radiating to back with associated nausea. Patient does not drink ETOH and claims past tests for gallbladder have been unremarkable. Asymptomatic at present. Patient denies fever, chills, bleeding, weight loss. Has grandmother with a history of pancreatitis. PAST HISTORY: Past Medical History Diagnosis Date [...] Social History Main Topics ??? Smoking status: Not on file ??? Smokeless tobacco: Not on file ??? Alcohol Use: Not on file ??? Drug Use: Not on file ??? Sexually Active: Not on file Other Topics Concern ??? Not on file Social History Narrative ??? No narrative on file No family history on file. REVIEW OF SYSTEMS: Per HPI unless noted below. PHYSICAL EXAM: Vitals: 04/10/11 1524 BP: 100/74 Pulse: 56 Weight: 96 lb (43.545 kg) There is no height on file to calculate BMI. Awake, alert and oriented x 3. Well-developed, in no acute distress., thin (baseline). Normocephalic. Conjunctiva without erythema. PERRLA. TMs normal. [...] disorder noted nml appearance LABS: No results found for this basename: SODIUM:5,POTASSIUM:5,CHLORIDE:5,CO2:5,BUN:5,CREATININE:5,GLUCOSE:5 in the last 04803 hours No results found for this basename: WBC:5,HGB:5,PLTCOUNT:5,MCV:5,INR,5 in the last 52582 hours No results found for this basename: ALBUMIN:5,PROTEINTOTAL:5,ALKPHOS:5,TBIL:5,AST:5,ALT:5 in the last 66923 hours No results found for this basename: AMYLASE:5,LIPASE:5,FERRITIN:5,IRON:5,SATURATION:5 in the last 02490 hours Pertinent radiology: Assessment/Plan: Pt is 36 y.o. female with: Pancreatitis- will obtain basic labs including fasting lipid profile. If no clear answer, may need MRCP. Will follow up after labs. Continue low fat diet. I have discussed the above recommendations and their risks, benefits, and alternatives, with the patient and any family present, and all agreed with the plan. All questions were answered. ICAL TRIALS SYSTEMS ADMINISTRATOR documented in this encounter Plan of Treatment Not on file documented as of this encounter Procedures Procedure Name Priority Date/Time Associated Diagnosis Comments CBC W AUTO DIFFERENTIAL Routine 04/16/2011 7:53 AM CLINICAL TRIALS SYSTEMS ADMINISTRATOR Epigastric pain COMPREHENSIVE METABOLIC PANEL Routine 04/16/2011 7:53 AM CLINICAL TRIALS SYSTEMS ADMINISTRATOR Epigastric pain LIPASE BLOOD Routine 04/16/2011 7:53 AM CLINICAL TRIALS SYSTEMS ADMINISTRATOR Epigastric pain LIPID PROFILE Routine 04/16/2011 7:53 AM CLINICAL TRIALS SYSTEMS ADMINISTRATOR Epigastric pain documented in this encounter Results * (ABNORMAL) CBC W AUTO DIFFERENTIAL (04/16/2011 7:53 AM CLINICAL TRIALS SYSTEMS ADMINISTRATOR) WBC 4.9 4.0 - 10.5 x10E3/uL [facility] ACCOUNT BILL RBC 4.75 3.80 - 5.10 x10E6/uL [facility] ACCOUNT BILL Hemoglobin 12.5 11.5 - 15.0 g/dL [facility] ACCOUNT BILL Hematocrit 40.9 34.0 - 44.0 % [facility] ACCOUNT BILL MCV 86 80 - 98 fL [facility] ACCOUNT BILL MCH 26.3(L) 27.0 - 34.0 pg [facility] ACCOUNT BILL MCHC 30.6(L) 32.0 - 36.0 g/dL [facility] ACCOUNT BILL RDW 14.6 11.7 - 15.0 % [facility] ACCOUNT BILL Platelet Count 215 140 - 415 x10E3/uL [facility] ACCOUNT BILL Granulocytes % 46 40 - 74 % [facility] ACCOUNT BILL Lymphocytes % 49(H) 14 - 46 % [facility] ACCOUNT BILL Monocytes % 5 4 - 13 % [facility] ACCOUNT BILL Eosinophils % 0 0 - 7 % [facility] ACCOUNT BILL Basophils % 0 0 - 3 % [facility] ACCOUNT BILL Immature Cells NOT NEEDED [facility] ACCOUNT BILL Comment:Ancillary determined the test is not needed Granulocytes Absolute 2.3 1.8 - 7.8 x10E3/uL [facility] ACCOUNT BILL Lymphocytes Absolute 2.4 0.7 - 4.5 x10E3/uL [facility] ACCOUNT BILL Monocytes Absolute 0.2 0.1 - 1.0 x10E3/uL [facility] ACCOUNT BILL [...] BLOOD SPECIMEN / Unknown 04/16/2011 7:53 AM CLINICAL TRIALS SYSTEMS ADMINISTRATOR 04/16/2011 12:29 PM CLINICAL TRIALS SYSTEMS ADMINISTRATOR Narrative Resulting Agency Comment [facility] [address] ??[facility] [phone] Eric Washington MD LAB - HEMATOLOGY ORD ERABLES [facility] ACCOUNT BILL * LIPID PROFILE (LIPID PANEL) (04/16/2011 7:53 AM CLINICAL TRIALS SYSTEMS ADMINISTRATOR) Cholesterol 187 100 - 199 mg/dL [facility] [...] BLOOD SPECIMEN / Unknown 04/16/2011 7:53 AM CLINICAL TRIALS SYSTEMS ADMINISTRATOR 04/16/2011 12:29 PM CLINICAL TRIALS SYSTEMS ADMINISTRATOR Narrative Resulting Agency Comment [facility] [id number] ??[facility] [id number] Eric Washington MD LAB - CHEMISTRY ELSY SEGOVIA Performing Organization Address [facility] Co de Phone Number [facility] ACCOUNT BILL * (ABNORMAL) LIPASE BLOOD (04/16/2011 7:53 AM CLINICAL TRIALS SYSTEMS ADMINISTRATOR) Lipase 81(H) 0 - 59 U/L [facility] A CCOUNT BILL Blood specimen (specimen) BLOOD SPECIMEN / Unknown 04/16/2011 7:53 AM CLINICAL TRIALS SYSTEMS ADMINISTRATOR 04/16/2011 12:29 PM CLINICAL TRIALS SYSTEMS ADMINISTRATOR Narrative Resulting Agency Comment [facility] ??[facility] [phone] Eric Washington MD LAB - CHEMISTRY ELSY SEGOVIA Performing Organization Address City/[facility]/ZIP Co de Phone Number [facility] ACCOUNT BILL * COMPREHENSIVE METABOLIC PANEL (04/16/2011 7:53 AM CLINICAL TRIALS SYSTEMS ADMINISTRATOR) Glucose 80 65 - 99 mg/dL [facility] ACCOUNT BILL BUN 13 6 - 20 mg/dL [facility] ACCOUNT BILL Creatinine 0.92 0.57 - 1.00 mg/dL [facility] ACCOUNT BILL eGFR by MDRD 81 >59 mL/min/1.7 3 [facility] ACCOUNT BILL eGFR by MDRD 94 >59 mL/min/1.7 3 [facility] ACCOUNT BILL Comment: Note: A persistent eGFR <60 mL/min/1.73 m2 (3 months or more) may indicate chronic kidney disease. An eGFR >59 mL/min/1.73 m2 with an elevated urine protein also may indicate chronic kidney disease. Calculated using CKD-EPI formula. BUN/Creatinine Ratio 14 8 - 20 [facility] ACCOUNT BILL Sodium 141 134 - 144 mmol/L [facility] ACCOUNT BILL Potassium 4.1 3.5 - 5.2 mmol/L [facility] ACCOUNT BILL Chloride 103 97 - 108 mmol/L [facility] ACCOUNT BILL CO2 23 20 - 32 mmol/L [facility] ACCOUNT BILL Calcium 9.7 8.7 - 10.2 mg/dL [facility] ACCOUNT BILL Protein Total 7.5 6.0 - 8.5 g/dL [facility] ACCOUNT BILL Albumin 4.3 3.5 - 5.5 g/dL [facility] ACCOUNT BILL Globulin Total 3.2 1.5 - 4.5 g/dL [facility] ACCOUNT BILL Albumin/Globulin Ratio 1.3 1.1 - 2.5 [facility] ACCOUNT BILL Bilirubin Total 0.3 0.0 - 1.2 mg/dL [facility] ACCOUNT BILL Alkaline Phosphatase 39 25 - 150 IU/L [facility] ACCOUNT BILL AST 20 0 - 40 IU/L [facility] ACCOUNT BILL ALT 10 0 - 40 IU/L [facility] ACCOUNT BILL Blood specimen (specimen) BLOOD SPECIMEN / Unknown 04/16/2011 7:53 AM CLINICAL TRIALS SYSTEMS ADMINISTRATOR 04/16/2011 12:29 PM CLINICAL TRIALS SYSTEMS ADMINISTRATOR Narrative Resulting Agency Comment [facility] [address] ??[facility] [phone] Eric Washington MD LAB - CHEMISTRY ELSY SEGOVIA [facility] ACCOUNT BILL documented in this encounter Visit Diagnoses Diagnosis Epigastric pain- Primary Abdominal pain, epigastric documented in this encounter Care Teams Nursing Manager Relationship Specialty Start Date End Date Federico Nieves MD [address] [place] [address] PCP - General Family Medicine 04/04/11 11/25/16 documented as of this encounter
--- OUTSIDE RECORDS SUMMARY | 2024-02-14 17:08 | XMS_ITS | Encounter Summary ---
Author Organization [employer] Address [address] [place] [address] Care Team Providers Care Group Sales Manager Name Role Phone Unavailable Primary Care Provider Unavailabl e Reason for Visit * Auth/Cert - Closed Specialty Diagnoses / Procedures Referred By Callie shepherd Referred To Contact Gastroenterology Diagnoses Abdominal pain, unspecified site [789.00] Diarrhea [787.91] Procedures ESOPHAGOGASTRODUODENOSCOPY [facility] [address] [place] [address] Referral ID Status Reason Start Date Expiration Date Visits Re quested Visits Authorized [id number] Closed 06/19/2010 12/16/2010 1 Encounter Details Date Type Department Care Team (Latest Contact Info) Description 06/21/2010 1:20 PM CDT - 06/21/2010 2:00 PM CDT Surgery [facility] [address] [place] [address] Sina Marrufo MD [address] [place] [address] [id number] ESOPHAGOGASTRODUODENOSCOPY Surgery Details Date/Time Status Location OR Service Patient Class Case Class Case Type Trauma Case? 06/21/2010 1:20 PM Posted [facility] GI 05 Gastroenterology Outpatient Elective No Panel 1 Procedure LRB Anes Op Region Wound Class Comments ESOPHAGOGASTRODUODENOSCOPY N/A General Mouth Tye an Contaminated-II COLONOSCOPY N/A General Anus Clean Contaminated -II Surgeon Surgeon Role Service Panel Sina Marrufo MD Primary Gastroenterology 1 documented in this encounter Social History Tobacco Use Types Packs/Day Years Used Date Smoking Tobacco: Never Alcohol Use Standard Drinks/Week Comments No 0 (1 standard drink = 0.6 oz pur e alcohol) Sex and Gender Information Value Date Recorded Sex Assigned at Not on file Gender Identity Not on file Sexual Orientation Not on file documented as of this encounter Last Filed Vital Signs Vital Sign Reading Time Taken Comments Blood Pressure 148/78 06/21/2010 12:41 PM CDT Pulse 105 06/21/2010 12:41 PM CDT Temperature 36.4 ??C (97.5 ??F) 06/21/2010 12:41 PM C DT Respiratory Rate 16 06/21/2010 12:41 PM CDT Oxygen Saturation 100% 06/21/2010 12:41 PM CDT Inhaled Oxygen Concentration - - Weight 43.1 kg (95 lb) 06/20/2010 12:13 PM CDT Height 157.5 cm (5' 2 ) 06/20/2010 12:13 PM CDT Body Mass Index 17.38 06/20/2010 12:13 PM CDT documented in this encounter Discharge Instructions * Discharge Instructions* Sina Marrufo MD - 06/21/2010 2:13 PM CDT Post-EGD/Colonoscopy Discharge Instructions FINDINGS: -Normal upper endoscopy, with no endoscopic evidence of neoplasia or mucosal abnormality.-Normal colonoscopy to the cecum, with no evidence of neoplasia, diverticular disease, or mucosal abnormality., -Biopsies taken. RECOMMENDATIONS: -Await pathology., -Follow symptoms., -Follow up in the office. Please read the instructions outlined below. These discharge instructions provide you with general information on caring for yourself after your procedure. Your doctor may also give you specific instructions. While your treatment has been planned according to the most current medical practices avail able, unavoidable complications occasionally occur. If you have any problems or questions after discharge, please call your doctor. ACTIVITY ?? You may resume your regular activity, but move at a slower pace for the next 24 hours. ?? Take frequent rest periods for the next 24 hours. ?? Walking will help get rid of the air and reduce the bloated feeling in your abdomen (belly). ?? No driving for 24 hours (because of the anesthesia (medicine) used during the test). ?? You may shower. ?? Do not sign any important legal documents or operate any machinery for 24 hours (because of the anesthesia used during the test). NUTRITION ?? Drink plenty of fluids. ?? You may resume your normal diet as instructed by your doctor. ?? Begin with a light meal and progress to your normal diet. Heavy or fried foods are harder to digest and may make you feel nauseated (sick to your stomach). ?? Avoid alcoholic beverages for 24 hours or as instructed. MEDICATIONS ?? You may resume your normal medications unless your doctor tells you otherwise. WHAT YOU CAN EXPECT TODAY ?? Some feelings of bloating in the abdomen. ?? Passage of more gas than usual. ?? Spotting of blood in your stool or on the toilet paper. ?? Expect your bowel habits to return to normal in 2-3days. IF YOU HAD POLYPS REMOVED DURING THE COLONOSCOPY: FOLLOW-UP Your doctor will discuss the results of your test with you or your family member today. Please follow the instructions provided with your discharge materials to obtain your pathology result. A copy of today's exam and pathology will by sent to your primary doctor. CALL YOUR CAREGIVER IMMEDIATELY IF: ?? There is more than a spotting of blood in your stool. ?? There is abdominal distention (your abdomen is swollen). ?? There is vomiting. ?? You have a temperature over 101?? F (38.3?? C). ?? There is abdominal pain or discomfort that is severe or gets worse throughout the day. [facility] [address] [place] [address] [place] [id number] Office: [phone] Exchange: [phone] documented in this encounter Procedure Notes * Sina Marrufo MD - 06/21/2010 7:09 PM CDTAssociated Order(s): GI REPORT [place], [place] [address] Gastroenterology CSN: [id number] DATE OF SERVICE: REFERRING PHYSICIAN Federico Nieves MD PROCEDURE Upper and lower endoscopy. PREOPERATIVE DIAGNOSIS 1. Epigastric pain. 2. Changes in bowel habits. POSTOPERATIVE DIAGNOSIS 1. Normal upper endoscopy to the third duodenum. 2. Random duodenal biopsies taken. PLAN SCOPE MEDICATIONS Demerol mg, Versed mg. O2. VIDEO COORDINATOR COMPLICATIONS None. HISTORY/INDICATIONS PAST MEDICAL HISTORY PAST SURGICAL HISTORY MEDICATIONS ALLERGIES FAMILY HISTORY SOCIAL HISTORY Tobacco: Ethanol: REVIEW OF SYSTEMS As per history of present illness. PHYSICAL EXAMINATION GENERAL: Well developed, well nourished, in no acute distress. VITAL SIGNS: Stable, afebrile. HEENT: Sclerae nonicteric, mucosal membranes moist. LUNGS: Clear to auscultation and percussion. CARDIOVASCULAR: Regular rate and rhythm. Normal S1 and S2. ABDOMEN: Soft, nondistended, normoactive bowel sounds. No hepatosplenomegaly, no masses or tenderness on palpation. EXTREMITIES: No clubbing, cyanosis, or edema. NEUROLOGICAL: Moves all extremities well. Nonfocal. INFORMED CONSENT The patient was informed of the indications for the procedure, the risks/benefits and the alternatives, and agreed to proceed. In particular, the patient was informed of the risk of perforation/(1:1000), medication side effect, infection, a missed lesion, or incomplete examination. In the case of dilatation, the patient was informed of the risk of perforation (1 to 5%). There was nothing onhistory or physical examination precluding the procedure. PROCEDURE IN DETAIL The patient was placed in the left lateral decubitus position. Appropriate monitoring devices were put into place. After adequate sedation was obtained, the scope was passed per os under direct visualization. The upper esophageal sphincter was identified and intubated. The scope was passed through the esophagus and into the stomach. The pylorus was identified and intubated. The 2nd and 3rd duodenum was brought into view. The scope was then withdrawn with careful inspection of the mucosa. The exam of the duodenum to the portion was normal. Random duodenal biopsies were taken. The gastric antrum, body, and fundus were examined in forward and retroflex view. The gastric was normal. The scope was brought back into the esophagus. Examination of the esophagus was normal. The patient tolerated the procedure well. There were no complications. DISPOSITION The patient will go to recovery prior to discharge home. SPECIMENS COLONOSCOPY REPORT REFERRING PHYSICIAN PROCEDURE PREOPERATIVE DIAGNOSIS POSTOPERATIVE DIAGNOSIS 1. Normal colonoscopy to the ileum. 2. Random colon biopsies taken. PLAN 1. Follow up pathology reports. 2. We will repeat some laboratory studies today including chemistries, liver function studies, pancreatic enzymes, and celiac sprue serologies. 3. Would need to obtain further records and assess whether the patient has ever had a HIDA scan andwhether an obvious etiology of her past episode of pancreatitis was found. SCOPE GIF-180 and CF-180. MEDICATIONS Demerol mg, Versed mg. O2. Propofol. VIDEO COORDINATOR Sina Marrufo MD COMPLICATIONS None. HISTORY AND INDICATIONS The patient is a 35-year-old female who has had increasing problems with intermittent epigastric pain and irregular bowel habits. She has a history of an episode of pancreatitis in the last few years and the etiology of this is not clear at this point from the information we have available. She had some recent blood work showing mildly elevated amylase, but a normal lipase and a CT scan of the abdomen and pelvis was fairly unremarkable. Some focal fatty infiltration of the liver is the only finding. There is some diagnosis of her having celiac disease. We have been asked to evaluate further. PAST MEDICAL HISTORY Notable for celiac disease and pancreatitis. PAST SURGICAL HISTORY None. MEDICATIONS At home, none. ALLERGIES FAMILY HISTORY Significant for a grandparent who had pancreatitis, otherwise none. SOCIAL HISTORY Tobacco: Negative. Ethanol: Negative. REVIEW OF SYSTEMS As per history of present illness. PHYSICAL EXAMINATION GENERAL: Well developed, well nourished, in no acute distress. VITAL SIGNS: Stable, afebrile. HEENT: Sclerae nonicteric, mucosal membranes moist. LUNGS: Clear to auscultation and percussion. CARDIOVASCULAR: Regular rate and rhythm. Normal S1 and S2. ABDOMEN: Soft, nondistended, normoactive bowel sounds. No hepatosplenomegaly, no masses or tenderness on palpation. EXTREMITIES: No clubbing, cyanosis, or edema. NEUROLOGICAL: Moves all extremities well. Nonfocal. INFORMED CONSENT The patient was informed of the indications for the procedure, the risks/benefits and the alternatives, and agreed to proceed. In particular, the patient was informed of the risk of perforation/(1:1000), medication side effect, infection, a missed lesion, or incomplete examination. In the case of dilatation, the patient was informed of the risk of perforation (1 to 5%). There was nothing onhistory or physical examination precluding the procedure. PROCEDURE IN DETAIL The patient was placed in the left lateral decubitus position. Appropriate monitoring devices were put into place. After adequate sedation was obtained, a rectal examination was performed. No gross abnormalities were noted. The scope was passed through the rectum and rectosigmoid junction. The scope was then able to be passed to the cecum in a straightforward manner. The cecum was identified by the appendiceal orifice, the ileocecal valve, and a RLQ light reflex. The scope was then withdrawn with careful inspection of the mucosa. The prep was good. The terminal ileum was normal. Examination of the colon revealed normal mucosa throughout. Random colon biopsies were taken. The patient tolerated the procedure well. There were no complications. DISPOSITION The patient will go to recovery prior to discharge home. SPECIMENS 1. Random duodenal biopsy. 2. Random colon. RRA:MEDQ DID: [id number] Dictated by: Sina Marrufo MD cc: Federico Nieves MD documented in this encounter OR Notes * OR Anesthesia - [facility]ley Wolf, [facility] - 06/22/2010 1:00 PM CDT * OR Anesthesia - Carolin Marrufo CRNA - 06/21/2010 2:53 PM CDT Phase II Postanesthesia Evaluation Including [facility] Modified Valeriano Score Patient seen and evaluated: RESPIRATORY FUNCTION: Respiration: able to breath and cough freely (06/21/101416) [2=able to breathe and cough freely, 1=dyspnea, limited breathing or tachypnea, 0=apnea or mechanicventilator] O2 Saturation: able to maintain O2 saturation greater than 92% on room air (06/21/101416) [2=able to maintain O2 saturation greater than 92% on room air, 1=needs O2 inhalation to maintain O2 saturation greater than 90%, 0=O2 saturation less than 90% even with O2 supplement] Resp: 18 (06/21/101434)SpO2: 100 % (06/21/101434) CARDIOVASCULAR FUNCTION: BP: 119/82 mmHg (06/21/101434) Circulation: BP within 20% of preanesthetic level (06/21/101416) [2=BP within 20% of preanesthetic level, 1=BP within 20-49% of preanesthetic level, 0=BP within 50%of preanesthetic level] MENTAL STATUS, NEURO, ACTIVITY: Consciousness: fully awake (06/21/101416) [2=fully awake, 1=arousable on calling, 0=not responding] Activity: able to move 4 extremities voluntarily or on command (06/21/101416) [2=able to move 4 extremities voluntarily or on command, 1=able to move 2 extremities voluntarily or on command, 0=unable to move extremities voluntarily or on command] Ambulation: able to stand up and walk straight, on ordered bedrest, or performing at patient's prior level of function (06/21/101416) [2=able to stand up and walk straight, on ordered bedrest, or performing at patient's prior level of function, 1=vertigo when erect, 0=dizziness when supine] TEMPERATURE: Temp: 97.5 ??F (36.4 ??C) (06/21/101411) PAIN: Presence of Pain: denies pain/discomfort (06/21/101423) Pain: pain free (06/21/101416) [2=pain free, 1=pain handled by oral medication, 0=pain requiring parenteral medication] NAUSEA AND VOMITING: Fasting/Feeding: able to drink fluids, ice chips or NPO (06/21/101416) [2=able to drink fluids, ice chips or NPO, 1=nauseated, 0=nausea and vomiting] POSTOPERATIVE HYDRATION: Intake/Output Summary (Last 24 hours) at 06/21/10 1453 Last data filed at 06/21/10 1418 Gross per 24 hour Intake 520 ml Output 0 ml Net 520 ml Urine Output: has voided, adequate urine output per device, or not applicable (06/21/101416) [2=has voided, adequate urine output per device, or not applicable, 1=unable to void but comfortable, 0=unable to void and uncomfortable] WOUND: Dressing: dry and clean or not applicable (06/21/101416) [2=dry and clean or not aplicable, 1=wet, marked and not increasing, 0=growing area of wetness] [facility] Modified Valeriano Score: Score: 20 (06/21/101416) COMMENTS: No apparent Anesthesia related complications Carolin Marrufo CRNA 06/21/2010 2:53 PM * OR Anesthesia - Paige DiazCHRIS - 06/21/2010 2:31 PM CDT Phase II Postanesthesia Evaluation Including [facility] Modified Valeriano Score Patient seen and evaluated: RESPIRATORY FUNCTION: Respiration: able to breath and cough freely (06/21/101416) [2=able to breathe and cough freely, 1=dyspnea, limited breathing or tachypnea, 0=apnea or mechanicventilator] O2 Saturation: able to maintain O2 saturation greater than 92% on room air (06/21/101416) [2=able to maintain O2 saturation greater than 92% on room air, 1=needs O2 inhalation to maintain O2 saturation greater than 90%, 0=O2 saturation less than 90% even with O2 supplement] Resp: 16 (06/21/101411)SpO2: 99 % (06/21/101411) CARDIOVASCULAR FUNCTION: BP: 98/55 mmHg (06/21/101411) Circulation: BP within 20% of preanesthetic level (06/21/101416) [2=BP within 20% of preanesthetic level, 1=BP within 20-49% of preanesthetic level, 0=BP within 50%of preanesthetic level] MENTAL STATUS, NEURO, ACTIVITY: Consciousness: fully awake (06/21/101416) [2=fully awake, 1=arousable on calling, 0=not responding] Activity: able to move 4 extremities voluntarily or on command (06/21/101416) [2=able to move 4 extremities voluntarily or on command, 1=able to move 2 extremities voluntarily or on command, 0=unable to move extremities voluntarily or on command] Ambulation: able to stand up and walk straight, on ordered bedrest, or performing at patient's prior level of function (06/21/101416) [2=able to stand up and walk straight, on ordered bedrest, or performing at patient's prior level of function, 1=vertigo when erect, 0=dizziness when supine] TEMPERATURE: Temp: 97.5 ??F (36.4 ??C) (06/21/10 1412) PAIN: Presence of Pain: denies pain/discomfort (06/21/10 1241) Pain: pain free (06/21/101416) [2=pain free, 1=pain handled by oral medication, 0=pain requiring parenteral medication] NAUSEA AND VOMITING: Fasting/Feeding: able to drink fluids, ice chips or NPO (06/21/101416) [2=able to drink fluids, ice chips or NPO, 1=nauseated, 0=nausea and vomiting] POSTOPERATIVE HYDRATION: Intake/Output Summary (Last 24 hours) at 06/21/10 1431 Last data filed at 06/21/10 1418 Gross per 24 hour Intake 520 ml Output 0 ml Net 520 ml Urine Output: has voided, adequate urine output per device, or not applicable (06/21/101416) [2=has voided, adequate urine output per device, or not applicable, 1=unable to void but comfortable, 0=unable to void and uncomfortable] WOUND: Dressing: dry and clean or not applicable (06/21/101416) [2=dry and clean or not aplicable, 1=wet, marked and not increasing, 0=growing area of wetness] [facility] Modified Valeriano Score: Score: 20 (06/21/101416) COMMENTS: No apparent Anesthesia related complications Paige Diaz CRNA 06/21/2010 2:31 PM * Operative Report - Sina Marrufo MD - 06/21/2010 2:11 PM CDT Brief Postoperative Note TAMIKO CARCAMO [id number] Pre-operative Diagnosis: EP, ch Post-operative Diagnosis: Same Procedure/Anesthesia: Procedure(s) and Anesthesia Type: * ESOPHAGOGASTRODUODENOSCOPY - General * COLONOSCOPY - General Surgeons/Assistants: Surgeon(s) and Role: * Sina Marrufo MD - Primary Specimens Removed: random duodenal and colon Estimated Blood Loss: Minimal Complications:none Sina Marrufo MD * OR Anesthesia - Demar Cummings MD - 06/21/2010 1:00 PM CDT Pre-Anesthesia Evaluation - Long Form 06/21/2010 1:00 PM Name: TAMIKO CARCAMO Age: 35 y.o. Sex: female CSN: [id number] Procedure: Procedure(s): ESOPHAGOGASTRODUODENOSCOPY COLONOSCOPY Surgeons/Assistants: Surgeon(s) and Role: * Sina Marrufo MD - Primary No Known Allergies No prescriptions prior to admission There are no active problems to display for this patient. Past Medical History Diagnosis Date ??? Pancreatitis ??? Celiac disease No past surgical history on file. History Substance Use Topics ??? Smoking status: Never Smoker ??? Smokeless tobacco: Not on file ??? Alcohol Use: No No family history on file. Previous Anesthesia Problems/Concerns: No anesthesia problems/complications History of PONV No Review of Systems Cardiovascular: negative Respiratory: negative Gastroenterology: positive for reflux symptoms, nausea, vomiting and abdominal pain PHYSICAL EXAM BP 148/78 Pulse 105 Temp(Src) 97.5 ??F (36.4 ??C) (Oral) Resp 16 Ht 5' 2 (1.575 m) Wt 95lb (43.092 kg) BMI 17.38 kg/m2 SpO2 100% LMP 05/29/2010 Weight: Weight: 95 lb (43.092 kg) (06/20/10 1213) Height: Ht Readings from Last 1 Encounters: 06/20/10 5' 2 (1.575 m) BMI: Body mass index is 17.38 kg/(m^2). Airway: normal range of motion: Airway Class: II (soft palate, uvula, fauces visible); None Lungs: clear to auscultation bilaterally, normal respiratory effort Heart: regular rate and rhythm, S1, S2 normal, no murmur, click, rub or gallop Neuro: alert, oriented x 3, no defects noted in general exam. Vascular Access: Peripheral Line LABS Lab Results Component Value Date HEMOGLOBIN 11.2* 07/21/2008 HEMATOCRIT 36.1 07/21/2008 Lab Results Component Value Date SODIUM 138 06/15/2010 POTASSIUM 3.8 06/15/2010 CHLORIDE 101 06/15/2010 CO2 26 06/15/2010 CALCIUM 9.6 06/15/2010 BUN 11 06/15/2010 CREATININE 0.70 06/15/2010 GLUCOSE 93 06/15/2010 No results found for this basename: INR, PT, PROTIMEPOC Lab Results Component Value Date POC , URINE Negative 06/21/2010 No results found for this basename: glucpoc EKG: Other Studies/Considerations: None ASA Physical Status: ASA 2 - Patient with mild systemic disease with no functional limitations I have seen and examined this patient and confirm that all data is current and accurate. Yes Choice of Anesthesia/Anesthesia Plan: Proceed and Monitored Anesthesia Care I have discussed the anesthetic options and the risks/benefits with the patient/family. Questions have been solicited and answered. Yes Demar Cummings MD documented in this encounter Miscellaneous Notes * Scanned Form - [facility] Sc[facility], [facility] - 06/22/2010 1:00 PM CDT * Scanned Form - [facility], [facility] - 06/22/2010 1:00 PM CDT * Patient Instructions - [facility], [facility] - 06/22/2010 1:00 PM CDT documented in this encounter Plan of Treatment Not on file documented as of this encounter Procedures Procedure Name Priority Date/Time Associated Diagnosis Comments GI REPORT 06/21/2010 7:09 PM CDT PATHOLOGY Routine 06/21/2010 3:20 PM CDT TRANSGLUTAMINASE IGA ANTIBODY Stat 2:27 PM CDT CBC WITH DIFFERENTIAL Stat 06/21/2010 2:27 PM CDT LIPASE Stat 06/21/2010 2:27 PM CDT IGA Stat 06/21/2010 2:27 PM CDT COLONOSCOPY 06/21/2010 1:20 PM CDT Abdominal pain, unspecified site Diarrhea ESOPHAGOGASTRODUODENOSCOPY 06/21 1:20 PM CDT Abdominal pain, unspecified site Diarrhea POC , URINE Routine 06/21/2010 12:42 PM CDT documented in this encounter Results * GI REPORT (06/21/2010 7:09 PM CDT) Narrative Transcriptions Sina Marrufo MD - 06/21/2010 7:09 PM CDT [place], [place] [address] Gastroenterology CSN: [id number] DATE OF SERVICE: REFERRING PHYSICIAN Federico Nieves MD PROCEDURE Upper and lower endoscopy. PREOPERATIVE DIAGNOSIS 1. Epigastric pain. 2. Changes in bowel habits. POSTOPERATIVE DIAGNOSIS 1. Normal upper endoscopy to the third duodenum. 2. Random duodenal biopsies taken. PLAN SCOPE MEDICATIONS Demerol mg, Versed mg. O2. VIDEO COORDINATOR COMPLICATIONS None. HISTORY/INDICATIONS PAST MEDICAL HISTORY PAST SURGICAL HISTORY MEDICATIONS ALLERGIES FAMILY HISTORY SOCIAL HISTORY Tobacco: Ethanol: REVIEW OF SYSTEMS As per history of present illness. PHYSICAL EXAMINATION GENERAL: Well developed, well nourished, in no acute distress. VITAL SIGNS: Stable, afebrile. HEENT: Sclerae nonicteric, mucosal membranes moist. LUNGS: Clear to auscultation and percussion. CARDIOVASCULAR: Regular rate and rhythm. Normal S1 and S2. ABDOMEN: Soft, nondistended, normoactive bowel sounds. Nohepatosplenomegaly, no masses or tenderness on palpation. EXTREMITIES: No clubbing, cyanosis, or edema. NEUROLOGICAL: Moves all extremities well. Nonfocal. INFORMED CONSENT The patient was informed of the indications for the procedure, therisks/benefits and the alternatives, and agreed to proceed. Inparticular, the patient was informed of the risk of perforation/(1:1000), medication side effect, infection, a missed lesion, orincomplete examination. In the case of dilatation, the patient wasinformed of the risk of perforation (1 to 5%). There was nothing onhistory or physical examination precluding the procedure. PROCEDURE IN DETAIL The patient was placed in the left lateral decubitus position.Appropriate monitoring devices were put into place. After adequatesedation was obtained, the scope was passed per os under directvisualization. The upper esophageal sphincter was identified andintubated. The scope was passed through the esophagus and into thestomach. The pylorus was identified and intubated. The 2nd and 3rdduodenum was brought into view. The scope was then withdrawn with carefulinspection of the mucosa. The exam of the duodenum to the portion wasnormal. Random duodenal biopsies were taken. The gastric antrum, body,and fundus were examined in forward and retroflex view. The gastric wasnormal. The scope was brought back into the esophagus. Examination ofthe esophagus was normal. The patient tolerated the procedure well. Therewere no complications. DISPOSITION The patient will go to recovery prior to discharge home. SPECIMENS COLONOSCOPY REPORT REFERRING PHYSICIAN PROCEDURE PREOPERATIVE DIAGNOSIS POSTOPERATIVE DIAGNOSIS 1. Normal colonoscopy to the ileum. 2. Random colon biopsies taken. PLAN 1. Follow up pathology reports. 2. We will repeat some laboratory studies today including chemistries,liver function studies, pancreatic enzymes, and celiac sprue serologies. 3. Would need to obtain further records and assess whether the patient hasever had a HIDA scan and whether an obvious etiology of her past episodeof pancreatitis was found. SCOPE GIF-180 and CF-180. MEDICATIONS Demerol mg, Versed mg. O2. Propofol. VIDEO COORDINATOR Sina Marrufo MD COMPLICATIONS None. HISTORY AND INDICATIONS The patient is a 35-year-old female who has hadincreasing problems with intermittent epigastric pain and irregular bowelhabits. She has a history of an episode of pancreatitis in the last fewyears and the etiology of this is not clear at this point from theinformation we have available. She had some recent blood work showingmildly elevated amylase, but a normal lipase and a CT scan of the abdomenand pelvis was fairly unremarkable. Some focal fatty infiltration of theliver is the only finding. There is some diagnosis of her having celiacdisease. We have been asked to evaluate further. PAST MEDICAL HISTORY Notable for celiac disease and pancreatitis. PAST SURGICAL HISTORY None. MEDICATIONS At home, none. ALLERGIES FAMILY HISTORY Significant for a grandparent who had pancreatitis, otherwise none. SOCIAL HISTORY Tobacco: Negative. Ethanol: Negative. REVIEW OF SYSTEMS As per history of present illness. PHYSICAL EXAMINATION GENERAL: Well developed, well nourished, in no acute distress. VITAL SIGNS: Stable, afebrile. HEENT: Sclerae nonicteric, mucosal membranes moist. LUNGS: Clear to auscultation and percussion. CARDIOVASCULAR: Regular rate and rhythm. Normal S1 and S2. ABDOMEN: Soft, nondistended, normoactive bowel sounds. Nohepatosplenomegaly, no masses or tenderness on palpation. EXTREMITIES: No clubbing, cyanosis, or edema. NEUROLOGICAL: Moves all extremities well. Nonfocal. INFORMED CONSENT The patient was informed of the indications for the procedure, therisks/benefits and the alternatives, and agreed to proceed. Inparticular, the patient was informed of the risk of perforation/(1:1000), medication side effect, infection, a missed lesion, orincomplete examination. In the case of dilatation, the patient wasinformed of the risk of perforation (1 to 5%). There was nothing onhistory or physical examination precluding the procedure. PROCEDURE IN DETAIL The patient was placed in the left lateral decubitus position.Appropriate monitoring devices were put into place. After adequatesedation was obtained, a rectal examination was performed. No grossabnormalities were noted. The scope was passed through the rectum andrectosigmoid junction. The scope was then able to be passed to the cecumin a straightforward manner. The cecum was identified by the appendicealorifice, the ileocecal valve, and a RLQ light reflex. The scope was thenwithdrawn with careful inspection of the mucosa. The prep was good. Theterminal ileum was normal. Examination of the colon revealed normalmucosa throughout. Random colon biopsies were taken. The patienttolerated the procedure well. There were no complications. DISPOSITION The patient will go to recovery prior to discharge home. SPECIMENS 1. Random duodenal biopsy. 2. Random colon. RRA:MEDQ DID:[id number] Dictated by: Sina Marrufo MD cc: Federico Nieves MD Sina Marrufo MD GI PROCEDURE ORDERAB LES * PATHOLOGY (06/21/2010 3:20 PM CDT) SURGICAL PATHOLOGY ?[facility] ?[address] ? [place], [place] ??[address] ? Patient: ??TAMIKO CARCAMO ? : ??1975 ? Procedure Date: ??06/21/2010 ? Accession Date: ??06/21/2010 ? Case No: ??[id number] ? Ordering Dr: ??SINA MARRUFO ? Case type SW is performed by [facility], [address] [place] [address], ? [place], [place] ??[address]; all other case types are performed by [facility] ? [facility], [address], [place], [place] ??[address] ?SURGICAL PATHOLOGY & NON-GYNECOLOGIC CYTOPATHOLOGY REPORT ? DIAGNOSIS ? SMALL INTESTINE, DUODENUM, ENDOSCOPIC BIOPSY: ? - DUODENITIS, VERY MILD. ? LARGE INTESTINE, RANDOM ENDOSCOPIC BIOPSY: ? - NO SIGNIFICANT HISTOPATHOLOGIC ALTERATIONS. ? Specimen Description: ? (1) Small bowel biopsy; (2) random colon biopsy. ? Operative Procedure: ? EGD and colonoscopy. ? Patient Information/Histor y/Diagnosis: ? (1) Small bowel Bx. Rule out sprue (chronic diarrhea and/or Fe-deficiency ? anemia); (2) Chronic diarrhea. Please look for collagenous colitis, ? microscopic colitis. ? Gross: ? Received in the first container labeled Tamiko Carcamo., small bowel ? biopsy are two pieces of pink-gilmore soft tissue received on [place]. They ? measure 0.3 and 0.4 cm and are entirely submitted in cassette A1. ? Received in the second container labeled Tamiko Carcamo., random colon ? biopsy are five pieces of gilmore-yellow soft tissue ranging in size from 0.1 ? to 0.2 cm. All are submitted in cassette B1. ? [facility] 06.22.2010 05:54 am ? Microscopic: ? Received are slides labeled [id number], Tamiko Carcamo. ? Sections of small bowel sample duodenal mucosa. There is preservation of ? villous architecture. Surface epithelium is intact. Intraepithelial ? lymphocytes are not increased. Chronic inflammatory cells are somewhat ? generously represented within the lamina propria. Rare neutrophils are ? present in the lamina propria. ? Sections of random colon identify preservation of mucosal architecture. ? Surface epithelium is intact. Chronic inflammatory cells are unremarkable ? in distribution within the lamina propria. Acute inflammatory changes are ? absent. The subepithelial collagenous zone is of normal thickness. ? [facility] 06.22.2010 11:49 am ? Staging Form: ? No. ? ELECTRONIC SIGNATURE FOR CECE STANLEY M.D.- 06/22/10 12:36 pm [facility] 06/21/2010 3:20 PM CDT Sina Marrufo MD PATHOLOGY/CYTOLOGY O RDERABLES Performing Organization Address [facility] de Phone Number [facility] CLIA# [id number] [address] [place] [address] * IGA (06/21/2010 2:27 PM CDT) IGA 255.9 83.0 - 336.0 mg/dL [facility] Blood specimen (specimen) 06/21/2010 2:27 PM CDT 06/21/2010 2:48 PM CDT Sina Marrufo MD CHEMISTRY ORDERABLES Performing Organization Address [facility]/ZIP Co de Phone Number [facility] CLIA# [id number] [address] [place] [address] * TRANSGLUTAMINASE IGA ANTIBODY (06/21/2010 2:27 PM CDT) [facility] TRANSGLUTAMINASE IGA AB <3 <5 U/mL [facility] Comment: Reference range: ? <5 U/mL ?? Negative ?5-8 U/mL ?? Equivocal ? >8 U/mL ?? Positive ? Lab test performed by: [facility] [address] [place] [address] ALIS HALL MD Blood specimen (specimen) 06/21/2010 2:27 PM CDT 06/21/2010 2:48 PM CDT Sina Marrufo MD CHEMISTRY ORDERABLES Performing Organization Address [facility] Co de Phone Number [facility] CLIA# [id number] [address] [place] [address] * LIPASE (06/21/2010 2:27 PM CDT) [facility] LIPASE 45 13 - 60 U/L [facility] Blood specimen (specimen) 06/21/2010 2:27 PM CDT 06/21/2010 2:49 PM CDT Sina Marrufo MD CHEMISTRY ORDERABLES Performing Organization Address City/[facility]/ZIP Co de Phone Number [facility] CLIA# [id number] [address] [place] [address] * (ABNORMAL) CBC WITH DIFFERENTIAL (06/21/2010 2:27 PM CDT) [facility] WBC 6.9 4.0 - 9.8 K/uL [facility] RBC 4.59 3.90 - 4.90 M/uL [facility] HEMOGLOBIN 12.2 11.8 - 14.8 g/dL [facility] HEMATOCRIT 38.2 35.5 - 44.0 % [facility] MCV 83.2 82.0 - 99.0 fL [facility] MCH 26.6(L) 27.2 - 32.6 pg [facility] MCHC 31.9 31.5 - 35.5 % [facility] PLATELETS 174 140 - 350 K/uL [facility] MPV 9.6 9.3 - 12.4 fL [facility] RDW 14.2 11.5 - 14.5 % [facility] RDW-STDEV 42.9 37.1 - 48.7 fL [facility] NEUTROPHILS 68 45 - 70 % [facility] LYMPHOCYTES 26 16 - 45 % [facility] MONOCYTES 6 3 - 13 % [facility] EOSINOPHILS 0 0 - 7 % [facility] BASOPHILS 0 0 - 2 % [facility] NEUTROPHIL ABSOLUTE 4.66 1.90 - 7.00 K/uL [facility] LYMPHOCYTE ABSOLUTE 1.76 0.70 - 4.50 K/uL [facility] MONOCYTE ABSOLUTE 0.40 0.10 - 1.30 K/uL [facility] EOSINOPHIL ABSOLUTE 0.01 0.00 - 0.70 K/uL [facility] BASOPHILS ABSOLUTE 0.02 0.00 - 0.20 K/uL [facility] Blood specimen (specimen) 06/21/2010 2:27 PM CDT 06/21/2010 2:48 PM CDT Sina Marrufo MD HEMATOLOGY ORDERABLE S [facility] CLIA# [id number] [address], [place] [address] * POC , URINE (06/21/2010 12:42 PM CDT) , URINE POC Negative Negative [facility] CLIA LICENSE [id number] [facility] Urine specimen (specimen) 06/21/2010 12:42 PM CDT 06/21/2010 12:42 PM CDT Comment:URINE Sina Marrufo MD POINT OF CARE TESTIN G [facility] CLIA# [id number] [address] [place], [place] [address] documented in this encounter Visit Diagnoses Diagnosis Abdominal pain, unspecified site Diarrhea documented in this encounter Administered Medications Inactive Administered Medications - up to 3 most recent administrations Medication Order MAR Action Action Date Dose Rate Site lactated ringers solution IV, at 150 mL/hr, PRE-PROCEDURE CONTINUOUS, Starting on 06/21/10 at 1245, Until Audra 06/22/10 at 0201, Routine New Bag 06/21/2010 12:47 PM CDT 150 mL/hr documented in this encounter Active and Recently Administered Medications Times are shown in CDT. Continuous Medication Order 06/19/2010 06/20/2010 06/21/2010 lactated ringers solution (CANCELED) IV, at 150 mL/hr, PRE-PROCEDURE CONTINUOUS, Starting on 06/21/10 at 1245, Until Audra 06/22/10 at 0201, Routine 1247 (New Bag - Prov ider: Chrissie Carrion RN)1418 (Stopped - Provider: Griselda Carnes RN) documented in this encounter
--- OUTSIDE RECORDS SUMMARY | 2024-02-14 17:08 | XMS_ITS | Encounter Summary ---
Author Organization [facility] Address [address] [place] [address] Care Team Providers Care Press Operator Apprentice Name Role Phone Unavailable Primary Care Provider Unavailabl e Reason for Visit * Reason Comments Pancreatitis pt arrives to ED wit h reports of possible pancreatitis episode, last one two years ago. pt has upper abd discomfort/bloating radiating into mid back. denies n/v/d/fever. * Auth/Cert (Routine) - Closed Specialty Diagnoses / Procedures Referred By Callie shepherd Referred To Contact Emergency Medicine [facility] Emergency Dept [address] [place] [address] Referral ID Status Reason Start Date Expiration Date Visits Re quested Visits Authorized [id number] Closed 04/04/2011 04/03/2012 1 1 Encounter Details Date Type Department Care Team (Late st Contact Info) Description 04/04/2011 12:56 AM REPRINT SORTER - 04/04/2011 2:52 AM [facility] Emergency [facility] Emergency Department [address] [place] [address] Ramila Briggs MD NO ADDRESS ON FILE Serum lipase elevation; Abdominal pain, epigastric Discharge Disposition: Home or Self Care Social [...] Sign Reading Time Taken Comments Blood Pressure 106/70 04/04/2011 2:40 AM REPRINT SORTER Pulse 77 04/04/2011 2:40 AM REPRINT SORTER Temperature 36.7 ??C (98.1 ??F) 04/03/2011 10:[address] Respiratory Rate 16 04/04/2011 2:40 AM REPRINT SORTER Oxygen Saturation 100% 04/04/2011 2:40 AM REPRINT SORTER Inhaled Oxygen Concentration - - Weight 41.3 kg (91 lb) 04/03/2011 10:48 PM REPRINT SORTER Height 157.5 cm (5' 2 ) 04/03/2011 10:48 PM REPRINT SORTER Body Mass Index 16.64 04/03/2011 10:48 PM REPRINT SORTER documented in this encounter Discharge Instructions * Discharge Instructions* Ramila Briggs MD - 04/04/2011 2:28 AM REPRINT SORTER Continue to drink plenty of fluids to stay well hydrated. Continue to avoid greasy, fatty foods, caffeinated or alcoholic beverages, and other foods that he identified as tenderness to epigastric pain. Followup with either Dr. Marrufo another GI doctor such as Dr. Gruber as soon as possible for further evaluation and treatment. Please see her doctor or return for fevers, inability to keep down fluids, severe pain or any otherworrisome symptoms. Take Gays as needed for pain. (Gays) You have been given a medicine which may cause drowsiness. DO NOT DRIVE, OPERATE DANGEROUS MACHINERY or PREFORM DANGEROUS TASKS while taking this medicine. INT SORTER * Attachments The following attachments cannot be sent through Care Everywhere. * ABDOMINAL PAIN: AFTER YOUR VISIT TO THE EMERGENCY ROOM ([facility]) * DIET FOR CHRONIC PANCREATITIS: AFTER YOUR VISIT ([facility]) documented in this encounter Medications at Time of Discharge Medication Sig Dispensed Refills Start Date End Date Docusate Sodium 100 mg Oral Tab Take 100 mg by mouth 2 times daily as needed for Other (See Comment) (constipat). To prevent constipation 30 Tab o 04/04/2011 Desogestrel-Ethinyl estradiol (AZURETTE) 0.15-0.02mg x21 /0.01 mg x 5 Oral tablet Take 1 Tab by mouth daily. HYDROcodone-acetaminop hen (NORCO) 5-325 mg Oral tablet Take 1-2 Tabs by mouth every 4 hours as needed for Pain, Moderate. 30 Tab None 04/04/2011 06/10/2017 documented as of this encounter ED Notes * Azar Prado RN - 04/04/2011 2:52 AM CST Patient discharged to home viaambulatory with steady gait with self. Patient states feeling better.Discharge information and education provided to patient. Questions answered, understanding of discharge instruction verbalized. Printed copy given. INT SORTER * Azar Prado RN - 04/04/2011 2:40 AM CST Patient check, comfort measure offered. Updated on status. INT SORTER * Ramila Briggs MD - 04/04/2011 2:33 AM CST HISTORY OF PRESENT ILLNESS Tamiko Carcamo, a 36 y.o. female presents to the ED with a Chief Complaint of Pancreatitis HPI Comments: 36-year-old female with a history of prior pancreatitis (diagnosed 2 years ago- no known gallstones or biliary causes that time. She was seen by Dr. Marrufo) reports intermittent epigastric pain ever since. She states she has learned to avoid certain foods- caffeine, greasy food, anyfatty food. She states some epigastric fullness over the past 2 weeks without any known trigger. Her pain has been worsened yesterday. She describes a feeling of epigastric fullness like a balloon. Today this fullness radiating around her entire upper abdomen. She has not had nausea, vomiting, fevers, or change in bowel habits. Patient is a 36 y.o. female presenting with abdominal pain. The history is provided by the patient. Abdominal Pain The primary symptoms of the illness include abdominal pain. The primary symptoms of the illness do not include fever, fatigue, shortness of breath, nausea, vomiting, diarrhea or dysuria. The current episode started more than 2 days ago. The onset of the illness was gradual. The problem has been gradually worsening. Associated with: pt denies. The patient states that she believes she is currently not . Thepatient has not had a change in bowel habit. Risk factors: pt denies. Additional symptoms associated with the illness include anorexia. Symptoms associated with the illness do not include chills, diap horesis, heartburn, constipation, urgency, frequency or back pain. Significant associated medical issues do not include PUD, GERD, inflammatory bowel disease, diabetes, gallstones or cardiac disease. REVIEW OF SYSTEMS Review of Systems Constitutional: Negative for fever, chills, diaphoresis and fatigue. Respiratory: Negative for chest tightness and shortness of breath. Cardiovascular: Negative for chest pain. Gastrointestinal: Positive for abdominal pain and anorexia. Negative for heartburn, nausea, vomiting, diarrhea and constipation. Genitourinary: Negative for dysuria, urgency and frequency. Musculoskeletal: Negative for back pain. All other systems reviewed and are negative. PAST MEDICAL HISTORY REVIEWED Past Medical History Diagnosis Date ??? Pancreatitis ??? Celiac disease Past Surgical History Procedure Date ??? Pr upper gi endoscopy,diagnosis 06/21/2010 ESOPHAGOGASTRODUODENOSCOPY performed by SINA MARRUFO at [facility] ??? Pr colonoscopy,diagnostic 06/21/2010 COLONOSCOPY performed by SINA MARRUFO at [facility] No family history on file. Grandmother with hx of chronic pancreatitis. History Social History Main Topics ??? Smoking status: Never Smoker ??? Smokeless tobacco: Not on file ??? Alcohol Use: No ??? Drug Use: No ??? Sexually Active: No ETOH Patient Active Problem List Diagnoses Date Noted ??? Serum lipase elevation 04/04/2011 ??? Abdominal pain, epigastric 04/04/2011 ALLERGIES Review of patient's allergies indicates no known allergies. HOME MEDICATIONS Patient's Home Medications New Prescriptions for this Encounter DOCUSATE SODIUM 100 MG ORAL TAB Take 100 mg by mouth 2 times daily as needed for Other (See Comment) (constipat). To prevent constipation HYDROCODONE-ACETAMINOPHEN (NORCO) 5-325 MG ORAL TABLET Take 1-2 Tabs by mouth every 4 hours as needed for Pain, Moderate. Current Home Medications DESOGESTREL-ETHINYL ESTRADIOL (AZURETTE) 0.15-0.02MG X21 /0.01 MG X 5 ORAL TABLET Take 1 Tab by mouth daily. Medications Modified during this Encounter Medications Discontinued during this Encounter PHYSICAL EXAM Initial Vitals BP 04/03/11 2248 134/96 mmHg Pulse 04/03/11 2248 76 Resp 04/03/11 2248 16 Temp 04/03/11 2248 98.1 ??F (36.7 ??C) Temp src 04/03/118 Oral SpO2 04/03/118 97 % Physical Exam Nursing note and vitals reviewed. Constitutional: She is oriented to person, place, and time. She appears well- developed and well-nourished. No distress. HENT: Head: Normocephalic. Mouth/Throat: Oropharynx is clear and moist. Eyes: Pupils are equal, round, and reactive to light. No scleral icterus. Neck: No tracheal deviation present. Cardiovascular: Normal rate and regular rhythm. No murmur heard. Pulmonary/Chest: Effort normal. No stridor. No respiratory distress. She has no wheezes. Abdominal: Soft. She exhibits no distension. There is no hepatosplenomegaly. Tenderness is present in the epigastric area. She has no rebound and no guarding. Musculoskeletal: She exhibits no edema. Right lower leg: She exhibits no tenderness. Left lower leg: She exhibits no tenderness. Neurological: She is alert and oriented to person, place, and time. She exhibits normal muscle tone. Skin: Skin is warm and dry. She is not diaphoretic. Psychiatric: She has a normal mood and affect. Her behavior is normal. Thought content normal. DIAGNOSTICS LAB: Results for orders placed during the hospital encounter of 04/04/11 (from the past 24 hour(s)) CBC WITH DIFFERENTIAL Component Value Range WBC 5.9 4.0 - 9.8 (K/uL) RBC 4.69 3.90 - 4.90 (M/uL) HEMOGLOBIN 12.6 11.8 - 14.8 (g/dL) HEMATOCRIT 39.2 35.5 - 44.0 (%) MCV 83.6 82.0 - 99.0 (fL) MCH 26.9 (*) 27.2 - 32.6 (pg) MCHC 32.1 31.5 - 35.5 (%) PLATELETS 216 140 - 350 (K/uL) MPV 9.5 9.3 - 12.4 (fL) RDW 13.9 11.5 - 14.5 (%) RDW-STDEV 42.3 37.1 - 48.7 (fL) NEUTROPHILS 42 (*) 45 - 70 (%) LYMPHOCYTES 51 (*) 16 - 45 (%) MONOCYTES 6 3 - 13 (%) EOSINOPHILS 1 0 - 7 (%) BASOPHILS 0 0 - 2 (%) NEUTROPHIL ABSOLUTE 2.44 1.90 - 7.00 (K/uL) LYMPHOCYTE ABSOLUTE 3.00 0.70 - 4.50 (K/uL) MONOCYTE ABSOLUTE 0.34 0.10 - 1.30 (K/uL) EOSINOPHIL ABSOLUTE 0.06 0.00 - 0.70 (K/uL) BASOPHILS ABSOLUTE 0.01 0.00 - 0.20 (K/uL) COMPREHENSIVE METABOLIC PANEL Component Value Range SODIUM 135 135 - 145 (mmol/L) POTASSIUM 3.9 3.5 - 4.9 (mmol/L) CHLORIDE 102 96 - 108 (mmol/L) CO2 23 22 - 30 (mmol/L) CALCIUM 9.5 8.6 - 10.2 (mg/dL) BUN 11 6 - 20 (mg/dL) CREATININE 0.79 0.51 - 0.95 (mg/dL) GLUCOSE 85 65 - 99 (mg/dL) TOTAL PROTEIN 8.1 6.3 - 8.6 (g/dL) ALBUMIN 4.5 3.4 - 4.8 (g/dL) BILIRUBIN TOTAL 0.3 0.2 - 1.0 (mg/dL) ALKALINE PHOSPHATASE 38 35 - 104 (U/L) AST 23 12 - 32 (U/L) ALT 15 0 - 31 (U/L) GFR, >60 >=60 (mL/min/1.7 sq meter) GFR >60 >=60 (mL/min/1.7 sq meter) LIPASE Component Value Range LIPASE 73 (*) 13 - 60 (U/L) URINALYSIS Component Value Range COLOR UA Pale Yellow CLARITY UA Clear Clear SPECIFIC GRAVITY UA 1.007 1.001 - 1.035 PH UA 5.5 5.0 - 8.0 LEUKOCYTE ESTERASE UA Negative Negative NITRITE UA Negative Negative PROTEIN UA Negative Negative GLUCOSE UA Negative Negative KETONES UA Trace (*) Negative UROBILINOGEN UA <1 <=1 (mg/dL) BILIRUBIN UA Negative Negative BLOOD UA Negative Negative RADIOLOGY: EKG: PROCEDURES Procedures REEVALUATION MEDICAL DECISION MAKING AND PLAN OF CARE Last vitals BP 106/70 Pulse 77 Temp(Src) 98.1 ??F (36.7 ??C) (Oral) Resp 16 Ht 5' 2 (1.575m) Wt 41.277 kg BMI 16.64 kg/m2 SpO2 100% LMP 03/13/2011 MDM Coding Reviewed: nursing note and vitals Interpretation: labs Pt continues to look well. She has mild epigastric TTP. No guarding or rebound. She declines pain meds. Tolerating po in ED. Discussed treatment and follow-up plans (need for GI referral, possible continued evaluation of gall bladder) as well as indications to return. CLINICAL IMPRESSION Encounter Diagnoses Code Name Primary? 790.5 Serum lipase elevation ??? 789.06 Abdominal pain, epigastric CASE DISCUSSED PATIENT COUNSELING Diagnostics reviewed and questions answered. Diagnosis, treatment options and plan of care discussed with understanding verbalized. DISPOSITION, EDUCATION AND MEDICATION RECONCILIATION Medications reconciled. See after visit summary for patient education on discharged patients. INT SORTER * Azar Prado RN - 04/04/2011 1:03 AM CST Patient to er with c/o abdominal bloating and discomfort starting tonight and also having an episode one week ago. Pt denies n/v/diarrhea. Pt has a history of pancreatitis and had similar pain with her last flare up 2 years ago. Pt states that the pain feels like it is in her sternum and radiates through to her back. INT SORTER documented in this encounter Miscellaneous Notes * Scanned Form - Stl Scanning, [facility] - 04/04/2011 11:10 AM CST INT SORTER * Patient Instructions - Stl Scanning, [facility] - 04/04/2011 11:10 AM CST INT SORTER documented in this encounter Plan of Treatment Not on file documented as of this encounter Procedures Procedure Name Priority Date/Time Associated Diagnosis Comments URINALYSIS W/REFLEX MICROSCOPIC Stat 04/04/2011 1:36 AM REPRINT SORTER CBC WITH DIFFERENTIAL Stat 04/04/2011 1:19 AM REPRINT SORTER LIPASE Stat 04/04/2011 1:19 AM REPRINT SORTER COMPREHENSIVE METABOLIC PANEL Stat 04/04/2011 1:19 AM REPRINT SORTER documented in this encounter Results * (ABNORMAL) URINALYSIS (04/04/2011 1:36 AM REPRINT SORTER) COLOR UA Pale Yellow [employer] [facility] [facility] CLARITY UA Clear Clear [employer] [facility] SPECIFIC GRAVITY UA 1.007 1.001 - 1.035 [facility] [facility] PH UA 5.5 5.0 - 8.0 [employer] [facility] [facility] LEUKOCYTE ESTERASE UA Negative Negative [facility] NITRITE UA Negative Negative [employer] [facility] [facility] PROTEIN UA Negative Negative [facility] GLUCOSE UA Negative Negative [facility] KETONES UA Trace(A) Negative [facility] UROBILINOGEN UA <1 <=1 mg/dL [facility] BILIRUBIN UA Negative Negative [facility] BLOOD UA Negative Negative [employer] [facility] Urine, clean catch URINE SPECIMEN OBTAINED BY CLEAN CATCH PROCEDURE / Unknown 04/04/2011 1:36 AM REPRINT SORTER 04/04/2011 2:11 AM REPRINT SORTER Comment:URINE Ramila Briggs MD URINE ORDERA BLES [facility] CLIA# [id number] [address] [place] [address] * (ABNORMAL) LIPASE (04/04/2011 1:19 AM REPRINT SORTER) LIPASE 73(H) 13 - 60 U/L [facility] Blood specimen (specimen) 04/04/2011 1:19 AM REPRINT SORTER 04/04/2011 1:32 AM REPRINT SORTER Ramila Briggs MD CHEMISTRY OR DERABLES [facility] CLIA# [id number] [address] [place] [address] * COMPREHENSIVE METABOLIC PANEL (04/04/2011 1:19 AM REPRINT SORTER) SODIUM 135 135 - 145 mmol/L [facility] POTASSIUM 3.9 3.5 - 4.9 mmol/L [facility] CHLORIDE 102 96 - 108 mmol/L [facility] CO2 23 22 - 30 mmol/L [facility] CALCIUM 9.5 8.6 - 10.2 mg/dL [facility] BUN 11 6 - 20 mg/dL [facility] CREATININE 0.79 0.51 - 0.95 mg/dL [facility] GLUCOSE 85 65 - 99 mg/dL [facility] TOTAL PROTEIN 8.1 6.3 - 8.6 g/dL [facility] ALBUMIN 4.5 3.4 - 4.8 g/dL [facility] BILIRUBIN TOTAL 0.3 0.2 - 1.0 mg/dL [facility] ALKALINE PHOSPHATASE 38 35 - 104 U/L [facility] AST 23 12 - 32 U/L [facility] ALT 15 0 - 31 U/L [facility] GFR, >60 >=60 mL/min/1. 7 sq meter [facility] GFR >60 >=60 mL/min/1. 7 sq meter [facility] Comment: GFR is calculated using the IDMS-Traceable Modification of Diet in Renal Disease (MDRD) Study formula and is only valid for patients 18 years or older. Further interpretative information is available in the Laboratory Services Policy Manual on the [facility] Intranet at: [email or web address]/ Blood specimen (specimen) 04/04/2011 1:19 AM REPRINT SORTER 04/04/2011 1:32 AM REPRINT SORTER Ramila Briggs MD CHEMISTRY OR DERABLES [facility] CLIA# [id number] [address] [place] [address] * (ABNORMAL) CBC WITH DIFFERENTIAL (04/04/2011 1:19 AM REPRINT SORTER) WBC 5.9 4.0 - 9.8 K/uL [facility] RBC 4.69 3.90 - 4.90 M/uL [facility] HEMOGLOBIN 12.6 11.8 - 14.8 g/dL [facility] HEMATOCRIT 39.2 35.5 - 44.0 % [facility] MCV 83.6 82.0 - 99.0 fL [facility] MCH 26.9(L) 27.2 - 32.6 pg [facility] MCHC 32.1 31.5 - 35.5 % [facility] PLATELETS 216 140 - 350 K/uL [facility] MPV 9.5 9.3 - 12.4 fL [facility] RDW 13.9 11.5 - 14.5 % [facility] RDW-STDEV 42.3 37.1 - 48.7 fL [facility] NEUTROPHILS 42(L) 45 - 70 % [facility] LYMPHOCYTES 51(H) 16 - 45 % [facility] MONOCYTES 6 3 - 13 % [facility] EOSINOPHILS 1 0 - 7 % [facility] BASOPHILS 0 0 - 2 % [facility] NEUTROPHIL ABSOLUTE 2.44 1.90 - 7.00 K/uL [facility] LYMPHOCYTE ABSOLUTE 3.00 0.70 - 4.50 K/uL [facility] MONOCYTE ABSOLUTE 0.34 0.10 - 1.30 K/uL [facility] EOSINOPHIL ABSOLUTE 0.06 0.00 - 0.70 K/uL [facility] BASOPHILS ABSOLUTE 0.01 0.00 - 0.20 K/uL [facility] Blood specimen (specimen) 04/04/2011 1:19 AM REPRINT SORTER 04/04/2011 1:32 AM REPRINT SORTER Ramila Briggs MD HEMATOLOGY O RDERABLES [facility] CLIA# [id number] [address] [place] [address] documented in this encounter Visit Diagnoses Diagnosis Serum lipase elevation Other nonspecific abnormal serum enzyme levels Abdominal pain, epigastric Serum lipase elevation Other nonspecific abnormal serum enzyme levels Abdominal pain, epigastric documented in this encounter Administered Medications Inactive Administered Medications - up to 3 most recent administrations Medication Order MAR Action Action Date Dose Rate Site sodium chloride 0.9% bolus solution 1,000 mL 1,000 mL, IV, ONE TIME ONLY, 1 dose, On Sat04/04/11 at 0115, at 2,000 mL/hr, Administer over 30 Minutes, Stat Given 04/04/2011 1:24 AM REPRINT SORTER 1,000 mL 2000 mL/hr documented in this encounter Active and Recently Administered Medications Times are shown in REPRINT SORTER. Scheduled Medication Order 04/02/2011 04/03/2011 04/04/2011 sodium chloride 0.9% bolus solution 1,000 mL (COMPLETED) 1,000 mL, IV, ONE TIME ONLY, 1 dose, On Sat04/04/11 at 0115, at 2,000 mL/hr, Administer over 30 Minutes, Stat 0124 (Given - Provid er: Azar Prado RN) documented in this encounter
--- OUTSIDE RECORDS SUMMARY | 2024-02-14 17:08 | XMS_ITS | Encounter Summary ---
Author Organization [facility] Address [address] [place] [address] Care Team Providers Care Factory Focus Technician Name Role Phone Federico Nieves MD Primary Care Provider [phone] Encounter Details Date Type Department Care Team (Late st Contact Info) Description 08/03/2011 Orders Only [facility] - [address] [place] [address] Eric Washington MD [facility] [address] [id number] Acute pancreatitis (HCC) Social History Tobacco Use [...] as of this encounter Progress Notes * Angelica Santizo - 08/03/2011 11:52 AM CDT Rx for ZenPep sent into pt's pharmacy, per pt preference. documented in this encounter Plan of Treatment Not on file documented as of this encounter Visit Diagnoses Diagnosis Acute pancreatitis (HCC)- Primary Acute pancreatitis documented in this encounter Care Teams Factory Focus Technician Relationship Specialty Start Date End Date Federico Nieves MD [address] [place] [id number] PCP - General Family Medicine 04/04/11 11/25/16 documented as of this encounter
--- OUTSIDE RECORDS SUMMARY | 2024-02-14 17:08 | XMS_ITS | Encounter Summary ---
Author Organization [facility] Address [address] [place] [address] Care Team Providers Care Insole Filler Name Role Phone Federico Nieves MD Primary Care Provider [phone] Encounter Details Date Type Department Care Team (Latest Contact Info) Description 05/01/2011 12:01 AM CDT - 05/01/2011 10:09 AM T Hospital Encounter [facility] Imaging Services - MRI [address] [place] [address] Eric Washington MD [address] [address] Medical Outpatient Discharge Disposition: Home or Self Care Social [...] 1 Tab by mouth once daily. 12/11/2016 documented as of this encounter Plan of Treatment Not on file documented as of this encounter Visit Diagnoses Diagnosis Acute pancreatitis (HCC) Acute pancreatitis documented in this encounter Care Teams Insole Filler Relationship Specialty Start Date End Date Federico Nieves MD [address] [place] [phone] PCP - General Family Medicine 04/04/11 11/25/16 documented as of this encounter
--- OUTSIDE RECORDS SUMMARY | 2024-02-14 17:08 | XMS_ITS | Clinical Summary ---
Author Organization [facility] Address [address] [place] [address] Phone Care Team Providers Care Acoustical Logging Engineer Name Role Phone Radha Barber MD Primary Care Provider Allergies No known active allergies Medications Medication Sig Dispensed Refills Start Date End Date Status Desogestrel-Ethin yl estradiol (AZURETTE) 0.15-0.02mg x21 /0.01 mg x 5 Oral tablet Take 1 Tab by mouth daily. Active Docusate Sodium 100 mg Oral Tab Take 100 mg by mouth 2 times daily as needed for Other (See Comment) (constipat). To prevent constipation 30 Tab o 04/04/2011 Active cetirizine (ZyrTEC) 10 mg tablet Take 10 mg by mouth. 11/21/2016 Active fluticasone (FLONASE) 50 mcg/spray [place], Suspension [place] into each nostril 2 times daily 11/21/2016 Active ketoconazole (NIZORAL) 2 % Shampoo every 7 days 07/25/2016 Active olopatadine (PATADAY) 0.2 % solution 2.5 mL. 10/25/2016 Active ondansetron (ZOFRAN ODT) 4 mg Tablet, Rapid Dissolve Take 4 mg by mouth. 08/03/2015 Active promethazine (PHENERGAN) 25 mg Suppository Insert 1 Suppository (25 mg) by rectum every 6 hours as needed for Nausea/Emesis. 20 Suppository 06/10/2017 Active Active Problems Problem Noted Date Diagnosed Date Headache(784.0) 10/14/2012 Serum lipase elevation 04/04/2011 Abdominal pain, epigastric 04/04/2011 Social History Tobacco Use Types Packs/Day Years [...] Mass Index 17.74 06/10/2017 10:38 AM CDT Plan of Treatment Health Maintenance Due Date Last Done Comments DTAP/TDAP/TD VACCINES (1 - Tdap) 02/25/1996 HEPATITIS B VACCINES (1 of 3 - 19+ 3-dose series) 02/25/1996 CERVICAL CANCER SCREENING 2007 BREAST CANCER SCREENING 2017 COLORECTAL SCREENING 2022 06/21/2010 Colorectal Cancer Screening 2022 FIT-DNA Q 3 years 2022 FIT/FOBT Q 1 year 2022 Flex Sig/CT Colonography Q 5 years 2022 INFLUENZA VACCINE (#1) 2023 HPV VACCINES Aged Out No longer eligi ble based on patient's age to complete this topic PNEUMOCOCCAL VACCINE 0-64 YEARS Aged Out No longer eligible based on patient's age to complete this topic Advance Directives For more information, please contact: [phone] * Full Code (Latest Code Status on File) Date Activated Date Inactivated Comments 06/21/2010 12:33 PM 06/22/2010 2:01 AM Care Teams Acoustical Logging Engineer Relationship Specialty Start Date End Date Radha Barber MD [address] [place] [address] PCP - General Family Practice 06/10/17
--- OUTSIDE RECORDS SUMMARY | 2024-02-14 17:08 | XMS_ITS | Encounter Summary ---
Author Organization [facility] Address [address] [facility] [place] [address] Care Team Providers Care Social Worker Aide Name Role Phone Federico Nieves MD Primary Care Provider [phone] Reason for Referral * Radiology Services - Closed Specialty Diagnoses / Procedures Referred By Callie shepherd Referred To Contact Diagnoses Acute pancreatitis (HCC) Procedures MRI MRCP Eric Washington MD [address] [place] [address] [facility] Radiology [address] [place] [address] Referral ID Status Reason Start Date Expiration Date Visits Re quested Visits Authorized [id number] Closed 04/20/2011 10/17/2011 1 1 ROOM CASHIER Encounter Details Date Type Department Care Team (Late st Contact Info) Description 04/20/2011 Orders Only [facility] - GI [address] [facility] [address] [place] [address] Eric Washington MD [address] [employer] [address] [place] [address] Acute pancreatitis (HCC) Social History Tobacco Use Types Packs/Day Years Used Date Smoking Tobacco: Never Assessed Sex and Gender Information Value Date Recorded Sex Assigned at Not on file Gender Identity Not on file Sexual Orientation Not on file documented as of this encounter Patient Instructions * Patient Instructions* Martha Jolly RN - 04/20/2011 9:40 AM TUBE ROOM CASHIER MRCP Test Date: 05/01/2011 Test Time: 10:30 a.m. LOCATION: [address] [place] [address] Please report to the out patient department 30 minutesbefore the test. Please do not eat or drink anything after midnight (the night before your test.) You should not wear any metal to your test. If you have any metal in your body, please let the glass installer technician know. Please bring your current medications with you in the original containers. If you have any questions, please call our office at [phone]. ROOM CASHIER documented in this encounter Progress Notes * Martha Jolly RN - 04/20/2011 10:19 AM CST Patient scheduled for MRCP on 05/01/2011 at 10:30 a.m. Instructions mailed to the patient. Scheduledwith Alize at . Patient to call with any questions. I spoke with MS Shen at [employer] and case #[id number] pending review. Patient is aware and clinical notes will be provided to insurance. ROOM CASHIER documented in this encounter Plan of Treatment Not on file documented as of this encounter Results * MRI MRCP (05/01/2011 10:58 AM CDT) [...] Normal examination. Eric Washington MD MR ORDERABLES documented in this encounter Visit Diagnoses Diagnosis Acute pancreatitis (HCC)- Primary Acute pancreatitis Acute pancreatitis (HCC) Acute pancreatitis documented in this encounter Care Teams Social Worker Aide Relationship Specialty Start Date End Date Federico Nieves MD [address] [place] [phone] PCP - General Family Medicine 04/04/11 11/25/16 documented as of this encounter
--- OUTSIDE RECORDS SUMMARY | 2024-02-14 17:08 | XMS_ITS | Encounter Summary ---
Author Organization [facility] Address [address] [facility] [place] [address] Care Team Providers Care Seed Corn Manager Production Name Role Phone Federico Nieves MD Primary Care Provider [phone] Reason for Visit * Reason Comments Pain Epigastric Encounter Details Date Type Department Care Team (Late st Contact Info) Description 05/08/2011 2:45 PM CDT Office Visit [facility] - [address] [place] [address] Eric Washington MD [address] [address] Acute pancreatitis (HCC) (Primary Dx) [...] Sign Reading Time Taken Comments Blood Pressure 92/58 05/08/2011 2:33 PM CDT Pulse 64 05/08/2011 2:33 PM CDT Temperature - - Respiratory Rate 12 05/08/2011 2:33 PM CDT Oxygen Saturation - - Inhaled Oxygen Concentration - - Weight 42.6 kg (94 lb) 05/08/2011 2:33 PM CDT Height 157.5 cm (5' 2 ) 05/08/2011 2:33 PM CDT Body Mass Index 17.19 05/08/2011 2:33 PM CDT documented in this encounter Progress Notes * Alize Tony E - 05/08/2011 3:02 PM CDT Pt wcb to make appt.if she is has any problems. * Eric Washington MD - 05/08/2011 2:57 PM CDT GASTROENTEROLOGY RETURN VISIT NOTE DEMOGRAPHICS: Patient: Tamiko Carcamo : 1975 Referring M.D.: Federico Nieves MD SUBJECTIVE: 36 y.o.female with recent episode of unexplained pancreatitis (one other previous episode in 2008).No current problems while on a low fat diet. Negative recent labs and MRCP. PAST HISTORY: Past Medical History Diagnosis Date [...] HPI unless noted below. PHYSICAL EXAM: Vitals: 05/08/11 1433 BP: 92/58 Pulse: 64 Resp: 12 Weight: 94 lb (42.638 kg) [...] Assessment/Plan: Pt is 36 y.o. female with: Pancreatitis, unclear etiology. Had long discussion about etiologies. Watch clinically for now on a low fat diet. If problems recur, will reassess and may need to consider the need for biliary manometry. documented in this encounter Plan of Treatment Not on file documented as of this encounter Visit Diagnoses Diagnosis Acute pancreatitis (HCC)- Primary Acute pancreatitis documented in this encounter Care Teams Seed Corn Manager Production Relationship Specialty Start Date End Date Federico Nieves MD [address] [place] [phone] PCP - General Family Medicine 04/04/11 11/25/16 documented as of this encounter
--- OUTSIDE RECORDS SUMMARY | 2024-02-14 17:08 | XMS_ITS | Encounter Summary ---
Author Organization [facility] Address [address] [facility] [place] [address] Care Team Providers Care Computer Science Professor Name Role Phone Federico Nieves MD Primary Care Provider [phone] Reason for Referral * Radiology Services - Closed Specialty Diagnoses / Procedures Referred By Callie shepherd Referred To Contact Diagnoses Acute pancreatitis (HCC) Procedures MRI MRCP Eric Washington MD [address] [address] [facility] Radiology [address] [place] [address] Referral ID Status Reason Start Date Expiration Date Visits Re quested Visits Authorized [id number] Closed 04/20/2011 10/17/2011 1 1 Reason for Visit * Radiology Services - Closed Specialty Diagnoses / Procedures Referred By Callie shepherd Referred To Contact Diagnoses Acute pancreatitis (HCC) Procedures MRI MRCP Eric Washington MD [address] [address] [facility] Radiology [address] [place] [address] Referral ID Status Reason Start Date Expiration Date Visits Re quested Visits Authorized [id number] Closed 04/20/2011 10/17/2011 1 1 Encounter Details Date Type Department Care Team (Latest Contact Info) Description 05/01/2011 10:10 AM CDT - 05/01/2011 11:59 PM CDT Hospital Encounter [facility] Health Imaging Services - MRI [address] [place] [address] Eric Washington MD [facility] [address] [address] Discharge Disposition: Home or Self Care Social [...] daily. 12/11/2016 documented as of this encounter Progress Notes * Eric Washington MD - 05/03/2011 1:18 PM CDTQuick Note: Please inform of normal MRCP. Routine OV sometime. documented in this encounter Plan of Treatment Not on file documented as of this encounter Procedures Procedure Name Priority Date/Time Associated Diagnosis Comments MRI ABDOMEN W MRCP WO CONT W3D Routine 05/01/2011 10:58 AM CDT Acute pancreatitis (HCC) documented in this encounter Results * MRI MRCP (05/01/2011 [...] pancreatitis documented in this encounter Care Teams Computer Science Professor Relationship Specialty Start Date End Date Federico Nieves MD [address] [place] [phone] PCP - General Family Medicine 04/04/11 11/25/16 documented as of this encounter
--- OUTSIDE RECORDS SUMMARY | 2024-02-14 17:08 | XMS_ITS | Encounter Summary ---
Author Organization [facility] Address [address] [place] [address] Care Team Providers Care Aircraft Life Support Fitter Name Role Phone Unavailable Primary Care Provider Unavailabl e Reason for Visit * Reason Comments Nausea 37 y.o F to ED with hx of pancreatitis stating I think I am having a flare up Pt denies any abd pain but reports nausea x 1 day. * Auth/Cert - Closed Specialty Diagnoses / Procedures Referred By Callie shepherd Referred To Contact Emergency Medicine [facility] Emergency Dept [address] [place] [address] Referral ID Status Reason Start Date Expiration Date Visits Re quested Visits Authorized [id number] Closed 1 1 Encounter Details Date Type Department Care Team (Late st Contact Info) Description 10/14/2012 7:41 AM CDT - 10/14/2012 10:55 AM CDT Emergency [facility] Emergency Department [address] [place] [address] James Leonard MD [address] [facility] [place] [address] Abdominal pain, epigastric (Primary Dx) Discharge Disposition: Home or Self [...] Sign Reading Time Taken Comments Blood Pressure 113/75 10/14/2012 10:00 AM CDT Pulse 85 10/14/2012 10:00 AM CDT Temperature 36.5 ??C (97.7 ??F) 10/14/2012 7:39 AM CD T Respiratory Rate 16 10/14/2012 10:00 AM CDT Oxygen Saturation 100% 10/14/2012 10:00 AM CDT Inhaled Oxygen Concentration - - Weight 40.4 kg (89 lb) 10/14/2012 7:39 AM CDT Height 157.5 cm (5' 2 ) 10/14/2012 7:39 AM CDT Body Mass Index 16.28 10/14/2012 7:39 AM CDT documented in this encounter Discharge Instructions * Attachments The following attachments cannot be sent through Care Everywhere. * ABDOMINAL PAIN: AFTER YOUR VISIT ([place]) documented in this encounter Medications at Time of Discharge Medication Sig Dispensed Refills Start Date End Date Docusate Sodium 100 mg Oral Tab Take 100 mg by mouth 2 times daily as needed for Other (See Comment) (constipat). To prevent constipation 30 Tab o 04/04/2011 Desogestrel-Ethinyl estradiol (AZURETTE) 0.15-0.02mg x21 /0.01 mg x 5 Oral tablet Take 1 Tab by mouth daily. ondansetron (ZOFRAN) 4 mg Oral Tab Take 1 Tab by mouth every 6 hours as needed for Nausea. 20 Tab none 10/14/2012 06/10/2017 HYDROcodone-acetaminop hen (NORCO) 5-325 mg Oral tablet Take 1-2 Tabs by mouth every 4 hours as needed for Pain, Moderate. 30 Tab None 04/04/2011 06/10/2017 documented as of this encounter ED Notes * Vidya Gotti RN - 10/14/2012 10:41 AM CDT Patient discharged to home via ambulatory with steady gait with self. Patient states feeling better. Discharge information and education provided to patient. Questions answered, understanding of discharge instruction verbalized. Printed copy given. * Vidya Gotti RN - 10/14/2012 9:33 AM CDT Pt tolerating PO well without N/V. Updated on POC. Will continue to monitor. * Vidya Gotti RN - 10/14/2012 9:[address] Leonard at bedside for reassessment and to discuss results and plan of care. Will continue to monitor. * Vidya Gotti RN - 10/14/2012 7:50 AM CDT Agree with triage summary note. Pt to ED with c/o nausea/vomiting since last night. Pt states vomited 1x last night and 3x this AM. States has hx of pancreatitis, but had N/V and abdominal pain when she had pancreatitis. Currently denies abdominal pain. Denies bowel/bladder symptoms, denies fevers/c hills. A&Ox4, no active distress, breathing even/unlabored, skin PWD. Currently resting on stretcher, call light within reach. Denies pain or further needs at present time, will continue to monitor. * James Leonard MD - 10/14/2012 7:46 AM CDT HISTORY OF PRESENT ILLNESS Tamiko Carcamo, a 37 y.o. female presents to the ED with a Chief Complaint of Nausea HPI Comments: Provider at patient's bedside 7:46 AM. Tamiko Carcamo is a 37 y.o. female with a history of pancratitis and celiac disease who presents to the Emergency Department complaining of abd pain that began yesterday. Pt reports a history of pancreatitis. She states that her last pancreatic attack was 2 years ago. Associated sx include frequent nausea and vomiting. Pt states that sx are normally controlled by dietand medication. Pt currently takes Zenpep 10,000 U once daily. The pt states that she has experienced increased N/V since yesterday despite medication and dietaryalterations. Pt reports one episode of emesis at 1830 yesterday and multiple episodes of emesis this AM prior to her arrival to the ED. Pt denies hematemasis, fever, chills or changes to bowel habits. --- Of note, pt also complains of a sore throat for the past several days. The pt states that she awakens with a sore throat that resolves shortly thereafter. She denies any cough or cold sx. The pt has no other complaints at this time. LNMP was 3 weeks ago. PCP: Federico Nieves MD The history is provided by the patient. REVIEW OF SYSTEMS Review of Systems Constitutional: Negative for fever and chills. HENT: Positive for sore throat. Negative for congestion, rhinorrhea and neck pain. Eyes: Negative for photophobia and pain. Respiratory: Negative for cough, chest tightness and shortness of breath. Cardiovascular: Negative for chest pain and leg swelling. Gastrointestinal: Positive for nausea, vomiting and abdominal pain (upper). Genitourinary: Negative for dysuria and frequency. Musculoskeletal: Negative for myalgias and back pain. Skin: Negative for pallor and rash. Neurological: Negative for numbness and headaches. Psychiatric/Behavioral: Negative for hallucinations and confusion. PAST MEDICAL HISTORY REVIEWED MEDICAL Patient has a past medical history of Pancreatitis and Celiac disease. SURGICAL Patient has past surgical history that includes upper gi endoscopy,diagnosis (06/21/2010) and colonoscopy,diagnostic (06/21/2010). FAMILY Patient's family history is not on file. SOCIAL reports that she has never smoked. She does not have any smokeless tobacco history on file. She reports that she does not drink alcohol or use illicit drugs. PROBLEM LIST Patient has Serum lipase elevation; Abdominal pain, epigastric; and Headache on her problem list. ALLERGIES Review of patient's allergies indicates no known allergies. HOME MEDICATIONS Patient's Home Medications Current Home Medications DESOGESTREL-ETHINYL ESTRADIOL (AZURETTE) 0.15-0.02MG X21 /0.01 MG X 5 ORAL TABLET DOCUSATE SODIUM 100 MG ORAL TAB HYDROCODONE-ACETAMINOPHEN (NORCO) 5-325 MG ORAL TABLET Medications Modified during this Encounter Medications Discontinued during this Encounter PHYSICAL EXAM INITIAL VS BP: 130/74 mmHg, Pulse: 98 , Resp: 13 , Temp: 97.7 ??F (36.5 ??C), SpO2: 100 % O2 sat on RA WNL Physical Exam Nursing note and vitals reviewed. Constitutional: She is oriented to person, place, and time. She appears well- developed and well-nourished. She is cooperative. HENT: Head: Normocephalic and atraumatic. Right Ear: External ear normal. Left Ear: External ear normal. Nose: Nose normal. Mouth/Throat: Uvula is midline, oropharynx is clear and moist and mucous membranes are normal. Eyes: Conjunctivae, EOM and lids are normal. Pupils are equal, round, and reactive to light. No scleral icterus. Neck: Neck supple. No tracheal deviation present. Cardiovascular: Normal rate, regular rhythm and normal heart sounds. Exam reveals no gallop and no friction rub. No murmur heard. Pulmonary/Chest: Effort normal and breath sounds normal. No respiratory distress. She has no wheezes. She has no rales. She exhibits no tenderness. Abdominal: Soft. Bowel sounds are normal. She exhibits no distension and no mass. There is no hepatosplenomegaly. There is tenderness in the epigastric area. There is no rebound and no guarding. Musculoskeletal: Normal range of motion. She exhibits no edema and no tenderness. Lymphadenopathy: She has no cervical adenopathy. Neurological: She is alert and oriented to person, place, and time. No cranial nerve deficit (as tested). She exhibits normal muscle tone. Coordination normal. Skin: Skin is warm and dry. No rash noted. She is not diaphoretic. No erythema. No pallor. Psychiatric: She has a normal mood and affect. Her speech is normal and behavior is normal. Judgment and thought content normal. DIAGNOSTICS LAB: Results for orders placed during the hospital encounter of 10/14/12 (from the past 24 hour(s)) CBC WITH DIFFERENTIAL Result Value Range WBC 6.4 4.0 - 9.8 K/uL RBC 4.59 3.90 - 4.90 M/uL HEMOGLOBIN 12.8 11.8 - 14.8 g/dL HEMATOCRIT 38.6 35.5 - 44.0 % MCV 84.1 82.0 - 99.0 fL MCH 27.9 27.2 - 32.6 pg MCHC 33.2 31.5 - 35.5 % PLATELETS 184 140 - 350 K/uL MPV 9.3 9.3 - 12.4 fL RDW 13.4 11.5 - 14.5 % RDW-STDEV 40.3 37.1 - 48.7 fL NEUTROPHILS 51 45 - 70 % LYMPHOCYTES 41 16 - 45 % MONOCYTES 6 3 - 13 % EOSINOPHILS 1 0 - 7 % BASOPHILS 0 0 - 2 % NEUTROPHIL ABSOLUTE 3.30 1.90 - 7.00 K/uL LYMPHOCYTE ABSOLUTE 2.66 0.70 - 4.50 K/uL MONOCYTE ABSOLUTE 0.39 0.10 - 1.30 K/uL EOSINOPHIL ABSOLUTE 0.06 0.00 - 0.70 K/uL BASOPHILS ABSOLUTE 0.01 0.00 - 0.20 K/uL COMPREHENSIVE METABOLIC PANEL Result Value Range SODIUM 138 135 - 145 mmol/L POTASSIUM 3.8 3.5 - 4.9 mmol/L CHLORIDE 103 96 - 108 mmol/L CO2 22 22 - 30 mmol/L CALCIUM 9.7 8.6 - 10.2 mg/dL BUN 11 6 - 20 mg/dL CREATININE 0.81 0.51 - 0.95 mg/dL GLUCOSE 96 65 - 99 mg/dL TOTAL PROTEIN 8.1 6.3 - 8.6 g/dL ALBUMIN 4.3 3.4 - 4.8 g/dL BILIRUBIN TOTAL 0.4 0.2 - 1.0 mg/dL ALKALINE PHOSPHATASE 41 35 - 104 U/L AST 22 12 - 32 U/L ALT 12 0 - 31 U/L GFR, >60 >=60 mL/min/1.7 sq meter GFR >60 >=60 mL/min/1.7 sq meter LIPASE Result Value Range LIPASE 48 13 - 60 U/L RADIOLOGY: EKG: PROCEDURES Procedures MEDICAL DECISION MAKING AND PLAN OF CARE ED COURSE Medications Administered During the ED Stay from 10/14/2012 0730 to 10/14/2012 1031 Date/Time Order Dose Route Action 10/14/2012 0755 sodium chloride 0.9% bolus solution 500 mL 500 mL IV New Bag 10/14/2012 0913 sodium chloride 0.9 % infusion IV Rate Change 10/14/2012 0755 ondansetron (ZOFRAN) 4 mg/2 mL injection 4 mg 4 mg IV Given 7:48 AM: Examined pt. Lab studies ordered. 9:15 AM Patient states Feeling better. We'll try by mouth challenge. 9:25 AM Patient drank apple juice and continues to feel okay. She states she is not however feel hungry. Paging DR. Washington 10:[address] Washington. I discussed with the patient waiting to speak to them. She is comfortable going home with a prescription Zofran will contact his office for followup. She will return for worsening symptoms. 10:[address] Washington -- will f/u patient . New Prescriptions for this Encounter ONDANSETRON (ZOFRAN) 4 MG ORAL TAB Take 1 Tab by mouth every 6 hours as needed for Nausea. LAST VITALS BP 113/75 Pulse 85 Temp(Src) 97.7 ??F (36.5 ??C) Resp 16 Ht 5' 2 (1.575 m) Wt 40.37 kg BMI 16.27 kg/m2 SpO2 100% LMP 09/30/2012 CLINICAL IMPRESSION Final diagnoses: Abdominal pain, epigastric CODING MDM Coding Reviewed: previous chart, nursing note and vitals Interpretation: SP02 and labs DISPOSITION, EDUCATION AND MEDICATION RECONCILIATION Medications reconciled. See after visit summary for patient education on discharged patients. This note has been prepared by Rox Strong acting as a scribe for James Leonard MD. The scribe's documentation has been prepared under my direction and personally reviewed by me in its entirety. I confirm that the note above accurately reflects all work, treatment, procedures, and medical decision making performed by me. documented in this encounter Plan of Treatment Not on file documented as of this encounter Procedures Procedure Name Priority Date/Time Associated Diagnosis Comments CBC WITH DIFFERENTIAL Stat 10/14/2012 7:58 AM CDT LIPASE Stat 10/14/2012 7:58 AM CDT COMPREHENSIVE METABOLIC PANEL Stat 10/14/2012 7:58 AM CDT documented in this encounter Results * LIPASE (10/14/2012 7:58 AM CDT) LIPASE 48 13 - 60 U/L [facility] Blood specimen (specimen) 10/14/2012 7:58 AM CDT 10/14/2012 8:00 AM CDT James Leonard MD CHEMISTRY ORDERABLES [facility] CLIA# [id number] [address] [place] [place] [address] * COMPREHENSIVE METABOLIC PANEL (10/14/2012 7:58 AM CDT) SODIUM 138 135 - 145 mmol/L [facility] POTASSIUM 3.8 3.5 - 4.9 mmol/L [facility] CHLORIDE 103 96 - 108 mmol/L [facility] CO2 22 22 - 30 mmol/L [facility] CALCIUM 9.7 8.6 - 10.2 mg/dL [facility] BUN 11 6 - 20 mg/dL [facility] CREATININE 0.81 0.51 - 0.95 mg/dL [facility] GLUCOSE 96 65 - 99 mg/dL [facility] TOTAL PROTEIN 8.1 6.3 - 8.6 g/dL [facility] ALBUMIN 4.3 3.4 - 4.8 g/dL [facility] BILIRUBIN TOTAL 0.4 0.2 - 1.0 mg/dL [facility] ALKALINE PHOSPHATASE 41 35 - 104 U/L [facility] AST 22 12 - 32 U/L [facility] ALT 12 0 - 31 U/L [facility] GFR, >60 >=60 mL/min/1. 7 sq meter [facility] GFR >60 >=60 mL/min/1. 7 sq meter [facility] Comment: GFR is calculated using the IDMS-Traceable Modification of Diet in Renal Disease (MDRD) Study formula and is only valid for patients 18 years or older. Further interpretative information is available in the Laboratory Services Policy Manual on the [facility] Intranet at: [email or web address]/ Blood specimen (specimen) 10/14/2012 7:58 AM CDT 10/14/2012 8:00 AM CDT James Leonard MD CHEMISTRY ORDERABLES [facility] CLIA# [id number] [address] [facility] [place] [address] * CBC WITH DIFFERENTIAL (10/14/2012 7:58 AM CDT) WBC 6.4 4.0 - 9.8 K/uL [facility] RBC 4.59 3.90 - 4.90 M/uL [facility] HEMOGLOBIN 12.8 11.8 - 14.8 g/dL [facility] HEMATOCRIT 38.6 35.5 - 44.0 % [facility] MCV 84.1 82.0 - 99.0 fL [facility] MCH 27.9 27.2 - 32.6 pg [facility] MCHC 33.2 31.5 - 35.5 % [facility] PLATELETS 184 140 - 350 K/uL [facility] MPV 9.3 9.3 - 12.4 fL [facility] RDW 13.4 11.5 - 14.5 % [facility] RDW-STDEV 40.3 37.1 - 48.7 fL [facility] NEUTROPHILS 51 45 - 70 % [facility] LYMPHOCYTES 41 16 - 45 % [facility] MONOCYTES 6 3 - 13 % [facility] EOSINOPHILS 1 0 - 7 % [facility] BASOPHILS 0 0 - 2 % [facility] NEUTROPHIL ABSOLUTE 3.30 1.90 - 7.00 K/uL [facility] LYMPHOCYTE ABSOLUTE 2.66 0.70 - 4.50 K/uL [facility] MONOCYTE ABSOLUTE 0.39 0.10 - 1.30 K/uL [facility] EOSINOPHIL ABSOLUTE 0.06 0.00 - 0.70 K/uL [facility] BASOPHILS ABSOLUTE 0.01 0.00 - 0.20 K/uL [facility] Blood specimen (specimen) 10/14/2012 7:58 AM CDT 10/14/2012 8:00 AM CDT James Leonard MD HEMATOLOGY ORDERABLE S [facility] CLIA# [id number] [address] [place] [address] documented in this encounter Visit Diagnoses Diagnosis Abdominal pain, epigastric- Primary Headache(784.0) Headache documented in this encounter Administered Medications Inactive Administered Medications - up to 3 most recent administrations Medication Order MAR Action Action Date Dose Rate Site ondansetron (ZOFRAN) 4 mg/2 mL injection 4 mg 4 mg, IV, ONE TIME ONLY, 1 dose, On Sat10/14/12 at 0800, Routine Given 10/14/2012 7:55 AM CDT 4 mg sodium chloride 0.9 % infusion IV, at 125 mL/hr, CONTINUOUS, Starting on Sat10/14/12 at 0800, Until Sat10/14/12 at 1302, Routine Rate Change 10/14/2012 9:13 AM CDT 125 mL/ hr sodium chloride 0.9% bolus solution 500 mL 500 mL, IV, ONE TIME ONLY, 1 dose, On Sat10/14/12 at 0800, at 1,000 mL/hr, Administer over 30 Minutes, Routine New Bag 10/14/2012 7:55 AM CDT 500 mL 1000 mL/hr documented in this encounter Active and Recently Administered Medications Times are shown in CDT. Scheduled Medication Order 10/12/2012 10/13/2012 10/14/2012 ondansetron (ZOFRAN) 4 mg/2 mL injection 4 mg (COMPLETED) 4 mg, IV, ONE TIME ONLY, 1 dose, On Sat10/14/12 at 0800, Routine 0755 (Given - Provid er: Vidya Gotti RN) sodium chloride 0.9% bolus solution 500 mL (COMPLETED) 500 mL, IV, ONE TIME ONLY, 1 dose, On Sat10/14/12 at 0800, at 1,000 mL/hr, Administer over 30 Minutes, Routine 0755 (New Bag - Prov ider: Vidya Gotti RN) Continuous Medication Order 10/12/2012 10/13/2012 10/14/2012 sodium chloride 0.9 % infusion (CANCELED) IV, at 125 mL/hr, CONTINUOUS, Starting on Sat10/14/12 at 0800, Until Sat10/14/12 at 1302, Routine 0913 (Rate Change - Provider: Vidya Gotti RN) documented in this encounter
--- OUTSIDE RECORDS SUMMARY | 2024-02-14 17:08 | XMS_ITS | Encounter Summary ---
Author Organization [facility] Address [address] [place] [address] Care Team Providers Care Automotive Artist Name Role Phone Unavailable Primary Care Provider Unavailabl e Reason for Visit * Reason Comments Abdominal Pain pt to ED with midepi gastric pain with diarrhea since June 06. pt with no vomiting. pt with no urinary symptoms. A&Ox3. Encounter Details Date Type Department Care Team (Late st Contact Info) Description 06/15/2010 2:05 PM CDT - 06/15/2010 6:35 PM CDT Emergency [facility] Emergency Department [address] [place] [id number] Ned Mao, [place] [address] [place] [id number] Diarrhea Discharge Disposition: Home or Self Care Social History Tobacco Use Types Packs/Day Years Used Date Smoking Tobacco: Never Assessed Sex and Gender Information Value Date Recorded Sex Assigned at Not on file Gender Identity Not on file Sexual Orientation Not on file documented as of this encounter Last Filed Vital Signs Vital Sign Reading Time Taken Comments Blood Pressure 117/84 06/15/2010 5:19 PM CDT Pulse 86 06/15/2010 5:19 PM CDT Temperature 36.6 ??C (97.9 ??F) 06/15/2010 1:57 PM CD T Respiratory Rate 18 06/15/2010 1:57 PM CDT Oxygen Saturation 100% 06/15/2010 1:57 PM CDT Inhaled Oxygen Concentration - - Weight 43.1 kg (95 lb) 06/15/2010 1:57 PM CDT Height 157.5 cm (5' 2 ) 06/15/2010 1:57 PM CDT Body Mass Index 17.38 06/15/2010 1:57 PM CDT documented in this encounter Discharge Instructions * Discharge Instructions* Doug Marino Jr., DO - 06/15/2010 5:41 PM CDT Have your doctor follow up on the stool studies that we have sent off today * Attachments The following attachments cannot be sent through Care Everywhere. * DIARRHEA IN ADULTS: AFTER YOUR VISIT (TUVALUAN) documented in this encounter ED Notes * Stl Scanning, Him - 06/16/2010 10:21 AM CDT * Stl Scanning, Him - 06/16/2010 10:16 AM CDT * Ana Guevara RN - 06/15/2010 5:53 PM CDT Given discharge paperwork after Dr Marino spoke with pt, too. Pt returns understanding of plan of care/follow up with specialist & PMD. To return if S&S worsen sylvester if feeling dizzy. Declines offer of wc however pt does have call light so that if she feels dizzy she can call for help & Ican get her a wc. * Ana Guevara RN - 06/15/2010 5:29 PM CDT Pt does not want me to ask Dr Marino for pain meds. Watching tv. Pt has been offered medication before now--at least 3 times. VS updated--not as tachycardic as on admission * Ana Guevara RN - 06/15/2010 5:18 PM CDT Pt updated. Pt also has another stool specimen which she says is not like anything she has been having before. Will send to lab * Clubb , Doug P, DO - 06/15/2010 3:46 PM CDT HISTORY OF PRESENT ILLNESS TAMIKO BURGESS, a 35 y.o. female presents to the ED with a Chief Complaint of Abdominal Pain HPI Comments: Pt started about 10 days ago with intermittent abdominal pain that will resolve but come back. It starts in the epigastric area and will go down the abdomen- often prior to having BM. She has had 5-6 loose stools a day for the past 10 days. Last antibiotic use was over 2 months ago. She tried Lomotil without relief. No fever or chills. No nausea or vomiting. She has similar before but it resolved on its own Has hx of pancreatitis without an etiology and she has celiac disease precipitated with pasta Patient is a 35 y.o. female presenting with abdominal pain. The history is provided by the patient. Abdominal Pain The primary symptoms of the illness include abdominal pain and diarrhea. The primary symptoms of the illness do not include fever, fatigue, shortness of breath, nausea, vomiting, hematemesis, hematochezia, dysuria, vaginal discharge or vaginal bleeding. The current episode started more than 2 days ago. The onset of the illness was gradual. The problem has not changed since onset. The patient has had a change in bowel habit. Symptoms associated with the illness do not include chills, anorexia, diaphoresis, heartburn, constipation, urgency, hematuria, frequency or back pain. Significant associated medical issues do not include PUD, GERD, inflammatory bowel disease, diabetes, sickle cell disease, gallstones, liver disease, substance abuse, diverticulitis, HIV or cardiac disease. REVIEW OF SYSTEMS Review of Systems Constitutional: Negative for fever, chills, weight loss, malaise/fatigue, diaphoresis and fatigue. HENT: Negative for hearing loss, ear pain, nosebleeds, congestion, sore throat, neck pain, tinnitusand ear discharge. Eyes: Negative for blurred vision, double vision and photophobia. Respiratory: Negative for cough, hemoptysis, sputum production, shortness of breath and stridor. Cardiovascular: Negative for chest pain, palpitations and leg swelling. Gastrointestinal: Positive for abdominal pain and diarrhea. Negative for heartburn, nausea, vomiting, constipation, blood in stool, melena and hematochezia. Genitourinary: Negative for dysuria, urgency, frequency, hematuria, flank pain, vaginal bleeding and vaginal discharge. Musculoskeletal: Negative for myalgias, back pain, joint pain and falls. Skin: Negative for rash and itching. Neurological: Negative for dizziness, tingling, tremors, sensory change, focal weakness, weakness and headaches. Endo/Heme/Allergies: Negative for environmental allergies. Does not bruise/bleed easily. Psychiatric/Behavioral: The patient is not nervous/anxious and does not have insomnia. PAST MEDICAL HISTORY REVIEWED Past Medical History Diagnosis Date ??? Pancreatitis ??? Celiac disease No past surgical history on file. No family history on file. History Social History Main Topics ??? Smoking status: Not on file ??? Smokeless tobacco: Not on file ??? Alcohol Use: ??? Drug Use: ??? Sexually Active: ALLERGIES Review of patient's allergies indicates no known allergies. HOME MEDICATIONS Patient's Home Medications PHYSICAL EXAM Initial Vitals BP 06/15/10 1357 114/77 mmHg Pulse 06/15/10 1357 97 Resp 06/15/10 1357 18 Temp 06/15/10 1357 97.9 ??F (36.6 ??C) Temp src 06/15/10 1357 Oral SpO2 06/15/10 1357 100 % Physical Exam Nursing note and vitals reviewed. Constitutional: She is oriented to person, place, and time. She appears well- developed and well-nourished. No distress. HENT: Head: Normocephalic and atraumatic. Nose: Nose normal. Mouth/Throat: Oropharynx is clear and moist. Eyes: Conjunctivae and extraocular motions are normal. Pupils are equal, round, and reactive to light. Right eye exhibits no discharge. Left eye exhibits no discharge. No scleral icterus. Neck: Normal range of motion. Neck supple. No JVD present. No tracheal deviation present. No thyromegaly present. Cardiovascular: Normal rate, regular rhythm, normal heart sounds and intact distal pulses. Exam reveals no friction rub. No murmur heard. Pulmonary/Chest: Effort normal and breath sounds normal. No stridor. No respiratory distress. She has no wheezes. She has no rales. She exhibits no tenderness. Abdominal: Soft. Bowel sounds are normal. She exhibits no distension and no mass. Tenderness is present. She has no rebound and no guarding. Mild epigastric tenderness to palpation Musculoskeletal: Normal range of motion. She exhibits no edema and no tenderness. Lymphadenopathy: She has no cervical adenopathy. Neurological: She is alert and oriented to person, place, and time. No cranial nerve deficit. She exhibits normal muscle tone. Coordination normal. Skin: Skin is warm and dry. No rash noted. She is not diaphoretic. No erythema. No pallor. Psychiatric: She has a normal mood and affect. Her behavior is normal. Judgment and thought contentnormal. MDM Coding Reviewed: nursing note and vitals Interpretation: labs and CT scan DIAGNOSTICS LAB: Results for orders placed during the hospital encounter of 06/15/10 (from the past 24 hour(s)) COMPREHENSIVE METABOLIC PANEL Component Value Range ??? SODIUM 138 135-145 (mmol/L) ??? POTASSIUM 3.8 3.5-4.9 (mmol/L) ??? CHLORIDE 101 96-108 (mmol/L) ??? CO2 26 22-30 (mmol/L) ??? CALCIUM 9.6 8.6-10.2 (mg/dL) ??? BUN 11 6-20 (mg/dL) ??? CREATININE 0.70 0.51-0.95 (mg/dL) ??? GLUCOSE 93 65-99 (mg/dL) ??? TOTAL PROTEIN 8.1 6.3-8.6 (g/dL) ??? ALBUMIN 4.5 3.4-4.8 (g/dL) ??? BILIRUBIN TOTAL 0.3 0.2-1.0 (mg/dL) ??? ALKALINE PHOSPHATASE 51 35-104 (U/L) ??? AST 22 12-32 (U/L) ??? ALT 14 0-31 (U/L) ? ? GFR, >60 >=60 (mL/min/1.7 sq meter) ? ? GFR >60 >=60 (mL/min/1.7 sq meter) LIPASE Component Value Range ??? LIPASE 52 13-60 (U/L) C-REACTIVE PROTEIN Component Value Range ??? CRP 0.1 0.0-0.8 (mg/dL) AMYLASE Component Value Range ??? AMYLASE 138 (*) 28-100 (U/L) URINALYSIS Component Value Range ??? COLOR UA Colorless ??? CLARITY UA Clear Clear ??? SPECIFIC GRAVITY UA 1.003 1.001-1.035 ??? PH UA 6.0 5.0-8.0 ??? LEUKOCYTE ESTERASE UA Negative Negative ??? NITRITE UA Negative Negative ??? PROTEIN UA Negative Negative ??? GLUCOSE UA Negative Negative ??? KETONES UA Negative Negative ? ? UROBILINOGEN UA <1 <=1 (mg/dL) ??? BILIRUBIN UA Negative Negative ??? BLOOD UA Negative Negative FECAL LEUKOCYTES STAIN Component Value Range ??? FINAL MICRO REPORT No WBC's seen. POC , URINE Component Value Range ??? POC , URINE Negative Negative ??? SPECIFIC GRAVITY UA 1.010 1.001-1.035 ??? CLIA LICENSE [id number] RADIOLOGY: CT ABDOMEN PELVIS W CONTRAST Radiologist Impression: IMPRESSION: Focal fatty infiltration of the liver. No acute inflammatory change or evidence of bowel or urinary tract obstruction. CT ABDOMEN PELVIS W CONTRAST (Results Pending) EKG: PROCEDURES MEDICAL DECISION MAKING AND PLAN OF CARE Last vitals BP 117/84 Pulse 86 Temp(Src) 97.9 ??F (36.6 ??C) (Oral) Resp 18 Ht 5' 2 (1.575m) Wt 43.092 kg BMI 17.38 kg/m2 SpO2 100% LMP 05/29/2010 Pt feels comfortable going home and is aware she needs to have her doctor or the GI doctor she calls to follow up on the stool studies and to return if worse Declines pain medication CLINICAL IMPRESSION Encounter Diagnoses Code Name Primary? 787.91 Diarrhea CASE DISCUSSED PATIENT COUNSELING Diagnostics reviewed and questions answered. Diagnosis, treatment options and plan of care discussed with understanding verbalized. DISPOSITION, EDUCATION AND MEDICATION RECONCILIATION Medications reconciled. See after visit summary for patient education on discharged patients. * Ana Guevara RN - 06/15/2010 3:25 PM CDT Updated--aware CT knows she is ready & that radiologist will decide when pt is to come over. Ptremarks that she has small amt of stool for specimen. * Ana Guevara RN - 06/15/2010 2:30 PM CDT Urine specimen sent to lab. Pt drinking contrast--aware to call me when she completes drinking * Ana Guevara RN - 06/15/2010 2:20 PM CDT As per triage note. Pt has hx of pancreatitis but this does not feel like when she had that--pt still has her gall bladder. Epigastric pain assoc with multiple episodes of loose stools per day. May have celiac disease based on hx but no testing pt states. documented in this encounter Plan of Treatment Not on file documented as of this encounter Procedures Procedure Name Priority Date/Time Associated Diagnosis Comments C. DIFFICILE DETECTION Stat 1 4:23 PM CDT GIARDIA & CRYPTOSPORIDIUM ANTIGEN Stat 06/15/2010 4:[address] ABDOMEN PELVIS W CONTRAST Stat 06/15/2010 4:16 PM CDT POC , URINE Routine 06/15/2010 4:00 PM CDT FECAL LEUKOCYTES STAIN Stat 1 3:54 PM CDT STOOL CULTURE W/SHIGA TOXIN Stat 06/15/2010 3:29 PM CDT URINALYSIS W/REFLEX MICROSCOPIC Stat 06/15/2010 2:27 PM CDT C-REACTIVE PROTEIN Stat 06/15/2010 1: 35 PM CDT LIPASE Stat 06/15/2010 1:35 PM CDT AMYLASE Stat 06/15/2010 1:35 PM CDT COMPREHENSIVE METABOLIC PANEL Stat 06/15/2010 1:35 PM CDT documented in this encounter Results * GIARDIA & CRYPTOSPORIDIUM ANTIGEN (06/15/2010 4:23 PM CDT) FINAL MICRO REPORT Negative Giardia antigen by ICT assay. Negative Cryptosporidium antigen by ICT assay. -- Note: ??A negative does not rule out infection. [facility] 06/15/2010 4:23 PM CDT 06/15/2010 5:33 PM CDT Comment:STOOL Narrative [facility] - 06/16/2010 7:22 AM CDT Per protocol approved by the Medical Executive Committee, the Giardia and Cryptosporidium Antigen test has been substituted when an Ova and Parasite Examination, Giardia Antigen or Cryptosporidium Examination is requested. ?? Contact Microbiology for approval if a comprehensive Ova and Parasite Examination is indicated. ??The preserved specimen will be held for 7 days. Doug Marino Jr., DO MICROBIOLOGY - GENERAL ORDERABLES Performing Organization Address [facility] Co de Phone Number [facility] CLIA# [id number] [address] [facility] Zhilian ZhaopinST. FRANCIS AT ELLSWORTHKESHIA [place] [address] * CLOSTRIDIUM DIFFICILE TOXIN (06/15/2010 4:23 PM CDT) C DIFF TOXIN PCR RESULT Negative Negative [facility] C DIFF TOXIN PCR SOURCE Stool [facility] Stool specimen (specimen) 06/15/2010 4:23 PM CDT 06/15/2010 5:45 PM CDT Comment:STOOL Doug Marino Jr., MICROBIOLOGY - GENERAL ORDERABLES Performing Organization Address City/[facility] Co de Phone Number [facility] CLIA# [id number] [address] [facility] [address] [facility] [place] [address] * CT ABDOMEN PELVIS W CONTRAST (06/15/2010 4:16 PM CDT) Anatomical Region Laterality Modality Abdomen Computed Tomogra phy 06/15/2010 4:07 PM CDT Impressions 06/15/2010 4:48 PM CDT IMPRESSION: Focal fatty infiltration of the liver. No acute inflammatory change or evidence of bowel or urinary tract obstruction. Narrative 06/15/2010 4:[address] OF THE ABDOMEN AND PELVIS WITH INTRAVENOUS CONTRAST, 06/15/2010 CLINICAL HISTORY: Epigastric pain. TECHNIQUE: Spiral volumetric acquisition of the abdomen and pelvis was performed following oral and intravenous contrast. FINDINGS: Images of the lung bases are unremarkable. Images of the abdomen demonstrate mild focal fatty infiltration of the liver adjacent to the falciform ligament. No suspicious hepatic lesions are seen. The spleen, adrenal glands, pancreas, and kidneys are unremarkable. The gallbladder is present. No biliary dilatation is seen. No adenopathy or ascites is present. No bowel dilatation is noted. Images of the pelvis demonstrate no adenopathy or ascites. No bowel dilatation or inflammatory change is seen. The appendix is not confidently identified; however, no free fluid or inflammatory change is noted in the right lower quadrant. The uterus and ovaries are within normal limits in size. The urinary bladder is well-distended and smooth in contour. Procedure Note Elzbieta Paul MD - 06/15/2010 CT OF THE ABDOMEN AND PELVIS WITH INTRAVENOUS CONTRAST, 06/15/2010 CLINICAL HISTORY: Epigastric pain. TECHNIQUE: Spiral volumetric acquisition of the abdomen and pelvis was performed following oral and intravenous contrast. FINDINGS: Images of the lung bases are unremarkable. Images of the abdomen demonstrate mild focal fatty infiltration of the liver adjacent to the falciform ligament. No suspicious hepatic lesions are seen. The spleen, adrenal glands, pancreas, and kidneys are unremarkable. The gallbladder is present. No biliary dilatation is seen. No adenopathy or ascites is present. No bowel dilatation is noted. Images of the pelvis demonstrate no adenopathy or ascites. No bowel dilatation or inflammatory change is seen. The appendix is not confidently identified; however, no free fluid or inflammatory change is noted in the right lower quadrant. The uterus and ovaries are within normal limits in size. The urinary bladder is well-distended and smooth in contour. IMPRESSION IMPRESSION: Focal fatty infiltration of the liver. No acute inflammatory change or evidence of bowel or urinary tract obstruction. Doug Marino Jr., DO CT ORDERABLES * POC , URINE (06/15/2010 4:00 PM CDT) , URINE POC Negative Negative [facility] SPECIFIC GRAVITY UA 1.010 1.001 - 1.035 [facility] CLIA LICENSE [id number] [facility] Urine specimen (specimen) 06/15/2010 4:00 PM CDT 06/15/2010 4:00 PM CDT Comment:URINE Doug Marino Jr., DO POINT OF CARE TESTING Performing Organization Address [facility] de Phone Number [facility] CLIA# [id number] [address] [place] [address] * FECAL LEUKOCYTES STAIN (06/15/2010 3:54 PM CDT) FINAL MICRO REPORT No WBC's seen. [facility] Stool specimen (specimen) 06/15/2010 3:54 PM CDT 06/15/2010 4:12 PM CDT Comment:STOOL Doug Marino Jr., DO MICROBIOLOGY - GENERAL ORDERABLES Performing Organization Address [facility] Co de Phone Number [facility] CLIA# [id number] [address] [place] [address] * STOOL CULTURE (06/15/2010 3:29 PM CDT) FINAL MICRO REPORT No Salmonella isolated. No Shigella isolated. No Escherichia coli serogroup O157:H7 isolated. No Campylobacter isolated. [facility] E. COLI SHIGA TOXIN REPORT Negative E. coli Shiga toxin 1 by ICT assay. Negative E. coli Shiga toxin 2 by ICT assay. --Note: ??A negative does not rule out infection with enterohemorrhagic E. coli. [facility] Stool specimen (specimen) 06/15/2010 3:29 PM CDT 06/15/2010 4:12 PM CDT Comment:STOOL Doug Marino Jr., DO MICROBIOLOGY - GENERAL ORDERABLES Performing Organization Address [facility] de Phone Number [facility] CLIA# [id number] [address] [facility] [place] [address] * URINALYSIS (06/15/2010 2:27 PM CDT) COLOR UA Colorless [facility] CLARITY UA Clear Clear [facility] SPECIFIC GRAVITY UA 1.003 1.001 - 1.035 [facility] PH UA 6.0 5.0 - 8.0 [facility] LEUKOCYTE ESTERASE UA Negative Negative [facility] NITRITE UA Negative Negative [facility] PROTEIN UA Negative Negative [facility] GLUCOSE UA Negative Negative [facility] KETONES UA Negative Negative [facility] UROBILINOGEN UA <1 <=1 mg/dL [facility] BILIRUBIN UA Negative Negative [facility] BLOOD UA Negative Negative [facility] Urine, clean catch 06/15/2010 2:27 PM CDT 06/15/2010 2:38 PM CDT Comment:URINE Doug Marino Jr., DO URINE ORDERAB LES Performing Organization Address [facility] Co de Phone Number [facility] CLIA# [id number] [address] [place] [address] * (ABNORMAL) AMYLASE (06/15/2010 1:35 PM CDT) AMYLASE 138(H) 28 - 100 U/L [facility] Blood specimen (specimen) 06/15/2010 1:35 PM CDT 06/15/2010 2:38 PM CDT Doug Marino Jr., DO CHEMISTRY ORD [employer]BL[employer] Performing Organization Address [facility] Co de Phone Number [facility] CLIA# [id number] [address] [place] [address] * C-REACTIVE PROTEIN (06/15/2010 1:35 PM CDT) CRP 0.1 0.0 - 0.8 mg/dL [facility] Blood specimen (specimen) 06/15/2010 1:35 PM CDT 06/15/2010 2:38 PM CDT Doug Marino Jr., DO CHEMISTRY [employer]BL[employer] Performing Organization Address [facility] Co de Phone Number [facility] CLIA# [id number] [address] [place] [address] * LIPASE (06/15/2010 1:35 PM CDT) LIPASE 52 13 - 60 U/L [facility] Blood specimen (specimen) 06/15/2010 1:35 PM CDT 06/15/2010 2:38 PM CDT Doug Marino Jr., DO CHEMISTRY [employer] Performing Organization Address City/[facility] Co de Phone Number [facility] CLIA# [id number] [address] [place] [address] * COMPREHENSIVE METABOLIC PANEL (06/15/2010 1:35 PM CDT) SODIUM 138 135 - 145 mmol/L [facility] POTASSIUM 3.8 3.5 - 4.9 mmol/L [facility] CHLORIDE 101 96 - 108 mmol/L [facility] CO2 26 22 - 30 mmol/L [facility] CALCIUM 9.6 8.6 - 10.2 mg/dL [facility] BUN 11 6 - 20 mg/dL [facility] CREATININE 0.70 0.51 - 0.95 mg/dL [facility] GLUCOSE 93 65 - 99 mg/dL [facility] TOTAL PROTEIN 8.1 6.3 - 8.6 g/dL [facility] ALBUMIN 4.5 3.4 - 4.8 g/dL [facility] BILIRUBIN TOTAL 0.3 0.2 - 1.0 mg/dL [facility] ALKALINE PHOSPHATASE 51 35 - 104 U/L [facility] AST 22 12 - 32 U/L [facility] ALT 14 0 - 31 U/L [facility] GFR, >60 >=60 mL/min/1.7 sq meter [facility] GFR >60 >=60 mL/min/1.7 sq meter [facility] Comment: GFR is calculated using the IDMS-Traceable Modification of Diet in Renal Disease (MDRD) Study formula and is only valid for patients 18 years or older. Further interpretative information is available in the Laboratory Services Policy Manual on the [facility] at: [email or web address] Blood specimen (specimen) 06/15/2010 1:35 PM CDT 06/15/2010 2:38 PM CDT Doug Marino Jr., DO CHEMISTRY ORD ERABLES [facility] CLIA# [id number] [address] [place], [place] [address] documented in this encounter Visit Diagnoses Diagnosis Diarrhea documented in this encounter Administered Medications Inactive Administered Medications - up to 3 most recent administrations Medication Order MAR Action Action Date Dose Rate Site ioversol (OPTIRAY 320) 320 mg/mL syringe 125 mL 125 mL, IV, INTRA-PROCEDURE ONCE, 1 dose, Starting on Audra 06/15/10 at 1607, Until Audra 06/15/10 at 1616 Given 06/15/2010 4:16 PM CDT 125 mL sodium chloride 0.9% bolus solution 1,000 mL 1,000 mL, IV, ONE TIME ONLY, 1 dose, On Audra 06/15/10 at 1430, at 2,000 mL/hr, Administer over 30 Minutes, Stat Given 06/15/2010 3:52 PM CDT 1,000 mL 2000 mL/hr documented in this encounter Active and Recently Administered Medications Times are shown in CDT. Scheduled Medication Order 06/13/2010 06/14/2010 06/15/2010 ioversol (OPTIRAY 320) 320 mg/mL syringe 125 mL (COMPLETED) 125 mL, IV, INTRA-PROCEDURE ONCE, 1 dose, Starting on Audra 06/15/10 at 1607, Until Audra 06/15/10 at 1616 1616 (Given - Provid er: Len Major, RT) sodium chloride 0.9% bolus solution 1,000 mL (COMPLETED) 1,000 mL, IV, ONE TIME ONLY, 1 dose, On Audra 06/15/10 at 1430, at 2,000 mL/hr, Administer over 30 Minutes, Stat 1552 (Given - Provid er: Ana Guevara RN - Comment: stopped @ 6260) documented in this encounter
--- OUTSIDE RECORDS SUMMARY | 2024-02-14 17:08 | XMS_ITS | Encounter Summary ---
Author Organization [facility] Address [address] [place] [address] Care Team Providers Care Folder Seamer Automatic Name Role Phone Unavailable Primary Care Provider Unavailabl e Reason for Visit * Auth/Cert - Closed Specialty Diagnoses / Procedures Referred By Callie shepherd Referred To Contact Gastroenterology Diagnoses Abdominal pain, unspecified site [789.00] Diarrhea [787.91] Procedures ESOPHAGOGASTRODUODENOSCOPY [facility] [address] [place] [address] Referral ID Status Reason Start Date Expiration Date Visits Re quested Visits Authorized [id number] Closed 06/19/2010 12/16/2010 1 Encounter Details Date Type Department Care Team (Latest Contact Info) Description 06/21/2010 12:14 PM CDT - 06/21/2010 11:35 PM CDT Hospital Encounter [facility] [address] [place] [address] Sina Marrufo MD [facility] [address] [address] Discharge Disposition: Home or Self Care Social [...] Sign Reading Time Taken Comments Blood Pressure 119/82 06/21/2010 2:35 PM CDT Pulse 95 06/21/2010 2:35 PM CDT Temperature 36.4 ??C (97.5 ??F) 06/21/2010 2:12 PM CD T Respiratory Rate 18 06/21/2010 2:35 PM CDT Oxygen Saturation 100% 06/21/2010 2:35 PM CDT Inhaled Oxygen Concentration - - [...] severe or gets worse throughout the day. [facility] [address] [place] [address] [place] [address] Office: [phone] Exchange: [phone] documented in this encounter Procedure Notes * Sina Marrufo MD - 06/21/2010 7:09 PM CDTAssociated Order(s): GI REPORT [place], [place] [address] Gastroenterology CSN: [id number] DATE OF SERVICE: REFERRING PHYSICIAN Federico Nieves MD PROCEDURE Upper and lower endoscopy. PREOPERATIVE DIAGNOSIS 1. Epigastric pain. 2. Changes in bowel habits. POSTOPERATIVE DIAGNOSIS 1. Normal upper endoscopy to the third duodenum. 2. Random duodenal biopsies taken. PLAN SCOPE MEDICATIONS Demerol mg, Versed mg. O2. PATTERN CHECKER COMPLICATIONS None. HISTORY/INDICATIONS PAST MEDICAL HISTORY PAST [...] MEDICATIONS Demerol mg, Versed mg. O2. Propofol. PATTERN CHECKER Sina Marrufo MD COMPLICATIONS None. HISTORY AND [...] duodenal biopsy. 2. Random colon. RRA:MEDQ DID: [id number] Dictated by: Sina Marrufo MD cc: Federico Nieves MD documented in this encounter OR Notes * OR Anesthesia - Stl Maryann, Him - 06/22/2010 1:00 PM CDT * OR [...] 2:53 PM * OR Anesthesia - Paige Diaz CRNA - 06/21/2010 2:31 PM CDT Phase II [...] (06/21/101411) PAIN: Presence of Pain: denies pain/discomfort (06/21/10 [...] and not increasing, 0=growing area of wetness] [facility] Valeriano Score: Score: 20 (06/21/101416) COMMENTS: No apparent Anesthesia related complications Paige Diaz CRNA 06/21/2010 2:31 PM * Operative Report - Sina Marrufo MD - 06/21/2010 2:11 PM CDT Brief Postoperative Note TAMIKO CARCAMO [id number] Pre-operative Diagnosis: EP, ch bh Post-operative Diagnosis: Same Procedure/Anesthesia: Procedure(s) and Anesthesia [...] CARCAMO Age: 35 y.o. Sex: female CSN: [id number] Procedure: Procedure(s): ESOPHAGOGASTRODUODENOSCOPY COLONOSCOPY Surgeons/Assistants: Surgeon(s) and [...] Notes * Scanned Form - Stl Scanning, [facility] - 06/22/2010 1:00 PM CDT * Scanned Form - [facility] Scanning, [facility] - 06/22/2010 1:00 PM CDT * Patient Instructions - Stl Scanning, [facility] - 06/22/2010 1:00 PM CDT documented in [...] Marrufo MD - 06/21/2010 7:09 PM CDT [place], [place] [address] Gastroenterology CSN: [id number] DATE OF SERVICE: REFERRING PHYSICIAN Federico Nieves MD PROCEDURE Upper and lower endoscopy. PREOPERATIVE DIAGNOSIS 1. Epigastric pain. 2. Changes in bowel habits. POSTOPERATIVE DIAGNOSIS 1. Normal upper endoscopy to the third duodenum. 2. Random duodenal biopsies taken. PLAN SCOPE MEDICATIONS Demerol mg, Versed mg. O2. PATTERN CHECKER COMPLICATIONS None. HISTORY/INDICATIONS PAST MEDICAL HISTORY PAST [...] MEDICATIONS Demerol mg, Versed mg. O2. Propofol. PATTERN CHECKER Sina Marrufo MD COMPLICATIONS None. HISTORY AND [...] Random duodenal biopsy. 2. Random colon. RRA:MEDQ DID:[id number] Dictated by: Sina Marrufo MD cc: Federico Nieves MD Sina Marrufo MD GI PROCEDURE ORDERAB LES * PATHOLOGY (06/21/2010 3:20 PM CDT) SURGICAL PATHOLOGY ?[facility] ?[address] ? [place], [place] ??[address] ? Patient: ??TAMIKO CARCAMO Aimee ? : ??1975 ? Procedure Date: ??06/21/2010 ? Accession Date: ??06/21/2010 ? Case No: ??[id number] ? Ordering Dr: ??SINA MARRUFO ? Case type SW is performed by [facility], [address] [place] [address], ? [place], [place] ??[address]; all other case types are performed by [facility] ? [facility], [address] [place], [place] ??[address] ?SURGICAL PATHOLOGY & NON-GYNECOLOGIC CYTOPATHOLOGY REPORT ? [...] Received in the first container labeled Tamiko Carcamo, small bowel ? biopsy are two pieces of pink-gilmore soft tissue received on Gelfoam. They ? measure 0.3 and 0.4 cm and are entirely submitted in cassette A1. ? Received in the second container labeled Tamiko Carcamo, random colon ? biopsy are five pieces of gilmore-yellow soft tissue ranging in size from 0.1 ? to 0.2 cm. All are submitted in cassette B1. ? [facility] 06.22.2010 05:54 am ? Microscopic: ? Received are slides labeled [id number]. ? Sections of small bowel sample duodenal [...] collagenous zone is of normal thickness. ? [facility] 06.22.2010 11:49 am ? Staging Form: ? No. ? ELECTRONIC SIGNATURE FOR CECE STANLEY M.D.- 06/22/10 12:36 pm [facility] 06/21/2010 3:20 PM CDT Sina Marrufo MD PATHOLOGY/CYTOLOGY O RDERABLES Performing Organization Address [facility] de Phone Number [facility] CLIA# [id number] [address] [place] [address] * IGA (06/21/2010 2:27 PM CDT) [facility] IGA 255.9 83.0 - 336.0 mg/dL [facility] Blood specimen (specimen) 06/21/2010 2:27 PM CDT 06/21/2010 2:48 PM CDT Sina Marrufo MD CHEMISTRY ORDERABLES Performing Organization Address [facility] de Phone Number [facility] CLIA# [id number] [address] [place] [address] * TRANSGLUTAMINASE IGA ANTIBODY (06/21/2010 2:27 PM CDT) [facility] TRANSGLUTAMINASE IGA AB <3 <5 U/mL [facility] Comment: Reference range: ? <5 U/mL ?? Negative ?5-8 U/mL ?? Equivocal ? >8 U/mL ?? Positive ? Lab test performed by: [facility] [address] [place] [address] ALIS HALL MD Blood specimen (specimen) 06/21/2010 2:27 PM CDT 06/21/2010 2:48 PM CDT Sina Marrufo MD CHEMISTRY ORDERABLES Performing Organization Address [facility]/ZIP Co de Phone Number [facility] CLIA# [id number] [address] [facility] [place] [address] * LIPASE (06/21/2010 2:27 PM CDT) [facility] LIPASE 45 13 - 60 U/L [facility] Blood specimen (specimen) 06/21/2010 2:27 PM CDT 06/21/2010 2:49 PM CDT Sina Marrufo MD CHEMISTRY ORDERABLES Performing Organization Address [facility] Co de Phone Number [facility] CLIA# [id number] [address] [place] [address] * (ABNORMAL) CBC WITH DIFFERENTIAL (06/21/2010 2:27 PM CDT) Pathologist [facility] WBC 6.9 4.0 - 9.8 K/uL [facility] RBC 4.59 3.90 - 4.90 M/uL [facility] HEMOGLOBIN 12.2 11.8 - 14.8 g/dL [facility] HEMATOCRIT 38.2 35.5 - 44.0 % [facility] MCV 83.2 82.0 - 99.0 fL [facility] MCH 26.6(L) 27.2 - 32.6 pg [facility] MCHC 31.9 31.5 - 35.5 % [facility] PLATELETS 174 140 - 350 K/uL [facility] MPV 9.6 9.3 - 12.4 fL [facility] RDW 14.2 11.5 - 14.5 % [facility] RDW-STDEV 42.9 37.1 - 48.7 fL [facility] NEUTROPHILS 68 45 - 70 % [facility] LYMPHOCYTES 26 16 - 45 % [facility] MONOCYTES 6 3 - 13 % [facility] EOSINOPHILS 0 0 - 7 % [facility] BASOPHILS 0 0 - 2 % [facility] NEUTROPHIL ABSOLUTE 4.66 1.90 - 7.00 K/uL [facility] LYMPHOCYTE ABSOLUTE 1.76 0.70 - 4.50 K/uL [facility] MONOCYTE ABSOLUTE 0.40 0.10 - 1.30 K/uL [facility] EOSINOPHIL ABSOLUTE 0.01 0.00 - 0.70 K/uL [facility] BASOPHILS ABSOLUTE 0.02 0.00 - 0.20 K/uL [facility] Blood specimen (specimen) 06/21/2010 2:27 PM CDT 06/21/2010 2:48 PM CDT Sina Marrufo MD HEMATOLOGY ORDERABLE S [facility] CLIA# [id number] [address] [place] [address] * POC , URINE (06/21/2010 12:42 PM CDT) , URINE POC Negative Negative [facility] CLIA LICENSE [id number] [facility] Urine specimen (specimen) 06/21/2010 12:42 PM CDT 06/21/2010 12:42 PM CDT Comment:URINE Sina Marrufo MD POINT OF CARE NAHUM Vega Organization Address City/State/ZIP Co de Phone Number [facility] CLIA# [id number] [address] [place] [address] documented in this encounter Visit Diagnoses Not on filedocumented in this encounter Administered Medications Inactive Administered Medications - up to 3 most recent administrations Medication Order MAR Action Action Date Dose Rate Site lactated ringers solution IV, at 150 mL/hr, PRE-PROCEDURE CONTINUOUS, Starting on Sat06/21/10 at 1245, Until Audra 06/22/10 at 0201, Routine New Bag 06/21/2010 12:47 PM CDT 150 mL/hr documented in this encounter Active and Recently Administered Medications Times are shown in CDT. Continuous Medication Order 06/19/2010 06/20/2010 06/21/2010 lactated ringers solution (CANCELED) IV, at 150 mL/hr, PRE-PROCEDURE CONTINUOUS, Starting on Sat06/21/10 at 1245, Until Audra 06/22/10 at 0201, Routine 1247 (New Bag - Prov ider: Chrissie Carrion RN)1418 (Stopped - Provider: Griselda Carnes RN) documented in this encounter
== END 2024-02-07 08:15 | disposition home or self-care (01) ==
LOC: ANHIMG 08:16
PROVIDERS: PCP Family Medicine; Visit Provider Obstetrics & Gynecology
DX: Z12.31 Encounter for screening mammogram for malignant neoplasm of breast (principal)
CPT/HCPCS: 77063; 77067

== ENCOUNTER 2025-02-08 09:08 | Outpatient (CLI) | payer OTHER, SELFPAY ==
--- NOTE | ~2025-02-08 | MM_ITS ---
EXAMINATION: MM screening [facility] BI w twyla HISTORY: Z12.31 - Encounter for screening mammogram for malignant ... TECHNIQUE: Craniocaudal and mediolateral oblique 3-D tomosynthesis images were obtained and synthetic 2-D images were generated. CAD analysis was submitted and interpreted. COMPARISON: 2023, 2022, and 2021 BREAST PARENCHYMAL COMPOSITION: Dense: The breasts are extremely dense, which lowers the sensitivity of mammography. FINDINGS: No suspicious masses are seen. There are no suspicious calcifications. No unexplained architectural distortion is seen. There are no skin or nipple abnormalities identified. There is no adenopathy seen on the images submitted. IMPRESSION: No mammographic evidence to suggest malignancy is seen. The patient may return to screening mammography as per ACR guidelines. BI-RADS 1 - Negative.
--- OUTSIDE RECORDS SUMMARY | 2025-02-08 09:19 | XMS_ITS | Encounter Summary ---
Author Organization [facility] Address [address] [place] [address] Care Team Providers Care Software Configuration Analyst Name Role Phone Radha Barber MD Primary Care Provider Encounter Details Date Type Department Care Team (Late st Contact Info) Description 07/14/2008 Outpatient Historical [facility] Yaneth Martines MD [address] [facility] [address] [place] [address] Swelling, Mass, or Lump in Head and Neck Social History Tobacco Use Types Packs/Day Years Used Date Smoking Tobacco: Never Assessed Comments Unknown Sex and Gender Information Value Date Recorded Sex Assigned at Not on file Legal Sex Female 5:44 AM INTERACTIVE MEDIA DIRECTOR Gender Identity Not on file Sexual Orientation [...] PATHOLOGY (07/23/2008 11:27 AM CDT) FINAL REPORT [address] [address] Patient: IVELISSE BURGESS : 1975 Procedure Date: 07/23/2008 Accession Date: 07/23/2008 Case No: [id number] Ordering Dr: YANETH MARTINES Case types AW, BW, FW, NW and SH are performed by [facility], [place], [place] SURGICAL PATHOLOGY & NON-GYNECOLOGIC CYTOPATHOLOGY REPORT DIAGNOSIS LYMPH NODE, RIGHT NECK, EXCISION: - REACTIVE FOLLICULAR AND PARACORTICAL HYPERPLASIA. Specimen Description: Right neck mass, rule out lymphoma. Operative Procedure: Excision right neck mass. Patient Information/Histo ry/Diagnosis: Right neck mass. Gross: Received in a single container labeled Ivelisse Burgess, right neck mass, rule out lymphoma is a 2 x 1.8 x 0.8 cm, gilmore lymph node. Sectioning reveals a homogenous, gilmore cut surface. The tissue is submitted in A1 and A2 for B-Plus fixation and A3 for formalin fixation. [facility] 07.23.2008 12:16 pm Microscopic: The slides are labeled [id number]. The normal mary architecture is preserved. The cortex contains follicles with reactive germinal centers. The germinal centers contain tingible body macrophages, maintain polarization, and are surrounded by a distinct mantle zone. The paracortical zone is expanded and composed predominantly of small lymphocytes with scattered occasional immunoblasts and plasma cells. There are occasional clusters of monocytoid cells adjacent to the sinuses. The sinuses are patent. No metastatic carcinoma or neoplastic lymphoid proliferation is identified. CS/NIKITA 07.26.2008 12:28 pm Staging Form: No. ELECTRONIC SIGNATURE FOR ANGEL MONZON M.D.- 07/26/08 02:48 pm INTERFACE SYSTEM 07/23/2008 11:2 7 AM CDT us Yaneth Martines MD PATHOLOGY/CYTOLOGY ORDERABLES Final Result INTERFACE SYSTEM Refer to clinic/hospital department * POC , URINE (07/23/2008 9:10 AM CDT) , URINE POC Negative Negative [facility] 07/23/2008 9:10 AM CDT 07/23/2008 9:10 AM CDT Yaneth Martines MD POINT OF CARE TESTING Final Re sult Performing Organization Address [facility] de Phone Number INTERFACE SYSTEM Refer to clinic/hospital department [facility] CLIA# [id number] [address] [place] [address] * (ABNORMAL) HEMOGLOBIN AND HEMATOCRIT (07/21/2008 7:51 AM CDT) HEMOGLOBIN 11.2(L) 11.8 - 14.8 g/dL [facility] HEMATOCRIT 36.1 35.5 - 44.0 % [facility] 07/21/2008 7:51 AM CDT 07/21/2008 8:42 AM CDT Yaneth Martines MD HEMATOLOGY ORDERABLES Final Re patelt Performing Organization Address [facility] de Phone Number INTERFACE SYSTEM Refer to clinic/hospital department [facility] CLIA# [id number] [address] [address] documented in this encounter Visit Diagnoses Diagnosis Swelling, mass, or lump in head and neck documented in this encounter Care Teams Software Configuration Analyst Relationship Specialty Start Date End Date Radha Barber MD [address] [place] [address] PCP - General Family Practice 06/10/17 documented as of this encounter
--- OUTSIDE RECORDS SUMMARY | 2025-02-08 09:19 | XMS_ITS | Clinical Summary ---
Author Organization [facility] Address [address] [place] [address] Care Team Providers Care Underwear Welter Name Role Phone Federico Nieves Unavailable [phone] Radha Barber MD Primary Care Provider Allergies No known active allergies Medications norethindrone-e. estradioL-iron (JUNE03/02) 1 mg-20 mcg (21)/75 mg (7) per [...] on file Legal Sex Female 11:06 AM MAINSPRING FORMER Gender Identity Female 08/17/2020 7:40 PM CDT Sexual Orientation Not on file Last Filed Vital Signs Vital Sign Reading Time Taken Comments Blood Pressure 121/80 09/30/2024 9:11 AM CDT Pulse 86 09/30/2024 9:11 AM CDT Temperature 36.7 C (98.1 F) 09/30/2024 9:11 AM CDT Respiratory Rate 22 11/22/2021 9:25 AM CDT Oxygen Saturation 99% 09/30/2024 9:11 AM CDT Inhaled Oxygen Concentration - - Weight 52.7 kg (116 lb 2.9 oz) 09/30/2024 9:11 A M CDT Height 160.5 cm (5' 3.19) 09/30/2024 9:11 AM CD T Body Mass Index 20.46 09/30/2024 9:11 AM CDT Plan of Treatment Health Maintenance Due Date Last Done Comments Breast Cancer Screening-Mammogram 1975 Cervical Cancer Screening 1975 Colon Cancer Screening-Colonoscopy 1975 Depression Screening 1975 Hepatitis C Screening 1975 Hepatitis B Screening 1995 Regular Well Visit/Exam 18-64 1995 Covid-19 Vaccine (2 - 2024-2 6 season) 2024 12/29/2020 Influenza Vaccine (#1) 2024 DTaP/Tdap/Td Vaccine (2 - Td or Tdap) 06/04/2032 06/04/2022 Pneumococcal vaccine <65 Aged Out No longer eligible based on patient's age to complete this topic Insurance [facility] Care Teams Underwear Welter Relationship Specialty Start Date End Date Radha Barber MD [address] [place] [address] PCP - General Family Practice 06/23/19 Federico Nieves [address] [place] [address] 05/17/17
--- OUTSIDE RECORDS SUMMARY | 2025-02-08 09:19 | XMS_ITS | Clinical Summary ---
Author Organization [facility] Address [address] [place] [address] Phone Care Team Providers Care Solicitor Patent Name Role Phone Radha Barber MD Primary Care Provider Allergies No known active allergies Medications Desogestrel-Eth inyl estradiol (AZURETTE) 0.15-0.02mg x21 /0.01 mg x 5 Oral tablet Take 1 Tab by mouth daily. Active Docusate Sodium 100 mg Oral Tab Take 100 mg by mouth 2 times daily as needed for Other (See Comment) (constipat). To prevent constipation 30 Tab o 04/04/19 12 Active cetirizine (ZyrTEC) 10 mg tablet Take 10 mg by mouth. 11/22/19 17 Active fluticasone (FLONASE) 50 mcg/spray [place], Suspension [place] into each nostril 2 times daily 11/22/19 17 Active ketoconazole (NIZORAL) 2 % Shampoo every 7 days 07/26/19 17 Active olopatadine (PATADAY) 0.2 % solution 2.5 mL. 10/26/19 17 Active ondansetron (ZOFRAN ODT) 4 mg Tablet, Rapid Dissolve Take 4 mg by mouth. 08/03/19 16 Active promethazine (PHENERGAN) 25 mg Suppository Insert 1 Suppository (25 mg) by rectum every 6 hours as needed for Nausea/Emesis. 20 Suppository 06/11/19 18 Active Active Problems Problem Noted Date Diagnosed Date Headache(784.0) 10/14/2012 Serum lipase elevation 04/04/2011 Abdominal pain, epigastric 04/04/2011 Social History Tobacco Use Types Packs/Day Years Used Date Smoking Tobacco: Never Smokeless Tobacco: Never Tobacco Cessation:Counseling Given: Yes Alcohol Use Standard Drinks/Week Comments No 0 (1 standard drink = 0.6 oz pur e alcohol) Comments No Sex and Gender Information Value Date Recorded Sex Assigned at Not on file Legal Sex Female 5:44 AM CUPOLA LINER HELPER Gender Identity Not on file Sexual Orientation Not on file Last Filed Vital Signs Vital Sign Reading Time Taken Comments Blood Pressure 146/84 06/10/2017 10:38 AM CDT Pulse 81 06/10/2017 10:38 AM CDT Temperature 36.8 C (98.2 F) 06/10/2017 10:38 AM CDT Respiratory Rate 18 06/10/2017 10:38 AM CDT Oxygen Saturation 100% 06/10/2017 10:38 AM CDT Inhaled Oxygen Concentration - - Weight 44 kg (97 lb) 06/10/2017 10:38 AM CDT Height 157.5 cm (5' 2) 06/10/2017 10:38 AM CDT Body Mass Index 17.74 06/10/2017 10:38 AM CDT Plan of Treatment Health Maintenance Due Date Last Done Comments DTAP/TDAP/TD VACCINES (1 - Tdap) 02/25/1996 HEPATITIS B VACCINES (1 of 3 - 19+ 3-dose series) 02/11 HPV/Cotest (21-29) 1998 CERVICAL CANCER SCREENING 2007 HPV/Cotest (30-65) 2007 PAP SMEAR 2007 BREAST CANCER SCREENING 2017 COLORECTAL SCREENING 2022 06/21/2010 Colorectal Cancer Screening 2022 FIT-DNA Q 3 years 2022 FIT/FOBT Q 1 year 2022 Flex Sig/CT Colonography Q 5 years 2022 INFLUENZA VACCINE (#1) 2024 Insurance [employer] Advance Directives For more information, please contact: [phone] * Full Code (Latest Code Status on File) Date Activated Date Inactivated Comments 06/21/2010 12:33 PM 06/22/2010 2:01 AM Care Teams Solicitor Patent Relationship Specialty Start Date End Date Radha Barber MD [address] [place] [address] PCP - General Family Practice 06/10/17
--- OUTSIDE RECORDS SUMMARY | 2025-02-08 09:19 | XMS_ITS | Clinical Summary ---
Author Organization [facility] Address [address] [place] [address] Care Team Providers Care Notching Press Operator Name Role Phone Radha Barber MD Primary Care Provider Source Comments [facility],non-owned Affiliates and Associated Physician Practices is amultiple site organization consisting of ambulatory clinics and hospital sitesin [place], [place], [place] and [place]. This disclosure is being madepursuant to the Care Everywhere program and may not contain all information available regarding this patient. Last updated 17.[facility] Allergies No known active allergies Medications * Be aware that medications may not be up to date on this document. Alwaysverify current medications with the patient. ondansetron, disintegrating, (ZOFRAN ODT) 4 MG tabletIndications: Acute pancreatitis, unspecified pancreatitis type,Nausea without vomiting Take 1 Tab by mouth every 6 hours as needed for Nausea/Vomitin g Allow tablet to dissolve on the tongue 40 Tab 3 08/03/19 16 Active Additional Information Patient not taking.Reported on 01/19/2020 ketoconazole (NIZORAL) 2 % shampoo every 7 days 11 07/26/19 17 Active BLISOVI FE 03/02 1-20 MG-MCG tablet Take 1 tablet by mouth once daily 10/29/19 17 Active olopatadine (PATADAY) 0.2 % ophthalmic solution Instill 2.5 mL into both eyes as needed 3 10/26/19 17 Active cetirizine (ZYRTEC) 10 MG tablet Take 10 mg by mouth once daily 3 11/22/19 17 Active fluticasone propionate (FLONASE) 50 MCG/ACT nasal spray [place] into each nostril 2 times daily 3 11/22/19 17 Active HYDROcodone-acetam inophen (NORCO) 5-325 MG tablet Take 1-2 tablets by mouth every 4 hours as needed for Pain 30 tablet 12/22/19 17 Active Additional Information Patient not taking.Reported on 12/27/2016 ondansetron, disintegrating, (ZOFRAN ODT) 4 MG tablet Take 1 tablet by mouth every 6 hours as needed for Nausea/Vomitin g Allow tablet to dissolve on the tongue 8 tablet 1 12/22/19 17 Active Additional Information Patient not taking.Reported on 01/19/2020 FLUoxetine (PROZAC) 20 MG capsule Take 20 mg by mouth once daily Active pancrelipase (CREON) 60678-77092 units capsuleIndications :Nausea and vomiting, intractability of vomiting not specified, unspecified vomiting type Take 1 capsule by mouth 3 times daily with meals 90 capsule 2 01/19/20 20 Active Promethegan 25 MG suppositoryIndicat ions:Nausea without vomiting UNWRAP AND INSERT 1 SUPPOSITORY RECTALLY EVERY 6 HOURS NEEDED FOR NAUSEA OR VOMITING 12 suppository 08/28/19 23 Active Active Problems Problem Noted Date Diagnosed Date Idiopathic acute pancreatitis 01/29/2012 Nausea without vomiting 01/29/2012 Overview (11/11/2014): Diarrhea 01/29/2012 GERD (gastroesophageal reflux disease) 2 Family History Medical History Relation Name Comments [...] = 0.6 oz pur e alcohol) ocassional/social Comments No Sex and Gender Information Value Date Recorded Sex Assigned at Not on file Legal Sex Female 1:14 PM FRAME FIXER Gender Identity Not on file Sexual Orientation Not on file Last Filed Vital Signs Vital Sign Reading Time Taken Comments Blood Pressure 107/81 01/07/2024 3:21 PM FRAME FIXER Pulse 99 01/07/2024 3:21 PM FRAME FIXER Temperature 36.9 C (98.4 F) 01/07/2024 3:21 PM FRAME FIXER Respiratory Rate 18 01/07/2024 3:21 PM FRAME FIXER Oxygen Saturation 99% 01/07/2024 3:21 PM FRAME FIXER Inhaled Oxygen Concentration - - Weight 52.2 kg (115 lb) 01/07/2024 3:21 PM FRAME FIXER Height 157.5 cm (5' 2) 01/19/2020 1:07 PM FRAME FIXER Body Mass Index 21.03 01/19/2020 1:07 PM FRAME FIXER Plan of Treatment Health Maintenance Due Date Last Done Comments COLOGUARD (AGES 45-75) - COLON CA SCREENING 1977 COLON MONITORING 1977 COLONOSCOPY - COLON CA SCREENING 1977 CT COLONOGRAPHY - COLON CA SCREENING 1977 Colorectal Cancer Screening 1977 FIT - COLON CA SCREENING 1977 FLEX SIG - COLON CA SCREENING 1977 MAMMOGRAM 1977 HIV SCREENING 02/25/1992 HEPATITIS C SCREENING 02/20/1995 DTAP/TDAP/TD VACCINES (1 - Tdap) 02/25/1996 HEPATITIS B VACCINE (1 of 3 - 19+ 3-dose series) 02/25/1996 PAP SMEAR 1998 LIPID TESTING 04/15/2016 04/16/2011 DEPRESSION SCREENING 02/12/2024 COVID-19 VACCINE ( season) 2024 12/22/2021, 12/29/2020, 05/23/2020, Additional history exists INFLUENZA VACCINE (#1) 2024 ZOSTER VACCINE (1 of 2) 2027 HIB VACCINE Aged Out No longer eligi ble based on patient's age to complete this topic HPV VACCINE Aged Out No longer eligi ble based on patient's age to complete this topic MENINGOCOCCAL (Group B) VACCINE SHARED DECISION-MAKING Aged Out No longer eligible based on patient's age to complete this topic MENINGOCOCCAL GROUPS A/C/Y/W VACCINE Aged Out No longer eligible based on patient's age to complete this topic PNEUMOCOCCAL VACCINE Aged Out No long er eligible based on patient's age to complete this topic Procedures Procedure Name Priority Date/Time Associated Diagnosis Comments LIPID PROFILE Routine 04/16/2011 7:53 AM FRAME FIXER Epigastric pain from Last 3 Months or Most Recently Relevant to Health Maintenance Results * LIPID PROFILE (LIPID PANEL) (04/16/2011 7:53 AM FRAME FIXER) Cholesterol 187 100 - 199 mg/dL [facility] [...] BLOOD SPECIMEN / Unknown 04/16/2011 7:53 AM FRAME FIXER 04/16/2011 12:29 PM FRAME FIXER Narrative Resulting Agency Comment [facility] [place] [address] [facility] [id number] Eric Washington MD LAB - CHEMISTRY ORDERABLES F inal Result [facility] ACCOUNT BILL [address] [place] [id number] from Last 3 Months or Most Recently Relevant to Health Maintenance Insurance [place] [id number] Care Teams Notching Press Operator Relationship Specialty Start Date End Date Radha Barber MD [address] [place] [id number] PCP - General Family Medicine 12/23/19
== END 2025-02-08 09:09 | disposition home or self-care (01) ==
LOC: ANHFOHIMG 09:09
PROVIDERS: PCP Family Medicine; Visit Provider Obstetrics & Gynecology
DX: Z12.31 Encounter for screening mammogram for malignant neoplasm of breast (principal)
CPT/HCPCS: 77063; 77067